=== PATIENT | female | born 1950 | race Caucasian/White ===

== ENCOUNTER 2019-09-07 14:39 | Outpatient (CLI) | payer MEDICARE, SELFPAY ==
--- NOTE | 2019-09-07 14:52 | MM_ITS ---
WS: [id number] SCREENING DIGITAL MAMMOGRAM WITH CAD HISTORY: SCREENING COMPARISON: None available. Bilateral CC and MLO views submitted. Computer aided detection analyzed. Breast composition: There are scattered areas of fibroglandular density. 7 mm asymmetry on the RIGHT CC projection just medial to the nipple line. Asymmetry of the middle depth. Otherwise no abnormaliti es. RIGHT breast: Spot compression views (CC ). True ML. Ultrasound to follow if abnormality persists. MM/[place] [id number] IMPRESSION: BI-RADS: 0-Incomplete: Need additional imaging evaluation FOLLOW UP: Need Additional Imaging
== END 2019-09-07 14:40 | disposition home or self-care (01) ==
LOC: RADSHAW 14:49
PROVIDERS: PCP Physician Assistant; Visit Provider Nurse Practitioner
DX: Z12.31 Encounter for screening mammogram for malignant neoplasm of breast (principal); N64.89 Other specified disorders of breast
CPT/HCPCS: 77067

== ENCOUNTER 2019-09-30 07:40 | Outpatient (CLI) | payer MEDICARE, SELFPAY ==
--- NOTE | 2019-09-30 07:50 | MM_ITS ---
WS: [id number] Right breast diagnostic digital mammogram, 09/30/2019 Clinical Data: OTHER ABNORMAL/INCONCLUSIVE FINDING ON DIAG IMAGING OF BREAS Comparison: 09/07/2019. Findings: Compression view of the medial aspect of the right breast and ML view demonstrate no abnormality. No spiculated mass or clustered calcification can be seen. Only normal breast tissue is noted. MM/[place] [id number] Impression: Negative compression view of the medial aspect of the right breast. BIRADS: 1-Negative FOLLOW UP: 1 Year Follow-up The CAD [employer] ticket checker was used.
--- NOTE | 2019-09-30 07:50 | US_ITS ---
WS: [id number] Right breast ultrasound, 09/30/2019 Clinical Data: OTHER ABNORMAL/INCONCLUSIVE FINDING ON DIAG IMAGING OF DUY Comparison: Gram, 09/07/2019. Findings: At the 2:00 projection 1 cm from the nipple there is a well bordered small area of decreased echogen[place] city measuring 0.48 x 0.56 x 0.74 cm. No shadowing is seen. No other lesions are seen. This has the a ppearance of a complex cyst. 1. Small lesion at the 2:00 position 1 cm from the nipple of the right breast which has the appearanc e of a complex cyst. 2. Return for yearly mammograms US/US breast RT limited* [id number] Impression: BIRADS: 2-Benign FOLLOW UP: 1 Year Follow-up
== END 2019-09-30 07:41 | disposition home or self-care (01) ==
LOC: RADSHAW 07:46
PROVIDERS: PCP Physician Assistant; Visit Provider Physician Assistant
DX: R92.8 Other abnormal and inconclusive findings on diagnostic imaging of breast (principal)
CPT/HCPCS: 76642; 77065

== ENCOUNTER 2020-09-25 20:26 | Emergency (ER) | payer MEDICARE, SELFPAY ==
[2020-09-25 20:32] VITALS: BP 148/88; PULSE 78; RESP 18; TEMP 36.3; O2SAT 97; BMI 30.9
--- NOTE | 2020-09-25 21:05 | XRR_ITS ---
PROCEDURE INFORMATION: Exam: XR Chest Exam date and time: 09/25/2020 9:05 PM Age: 69 years old Clinical indication: Chest pressure; Patient HX: Chest pain; Additional info: Cp TECHNIQUE: Imaging protocol: XR of the chest. Views: 1 view. COMPARISON: No relevant prior studies available. FINDINGS: Lungs: No focal consolidation. No pulmonary edema. 1.8 x 1.7 mm nodular focus in the right mid lung. Pleural spaces: No pleural effusion. No pneumothorax. Heart/Mediastinum: The cardiac silhouette is mildly enlarged. Mediastinal contours are unremarkable. Bones/joints: Unremarkable for age. XR/XR chest 1V portable [id number] IMPRESSION: 1. No acute cardiopulmonary process. 2. 1.8 x 1.7 mm nodular focus in the right mid lung. CT scan of the chest with contrast on a nonemergent basis is recommended for further evaluation to rule out possibility of a pulmonary nodule. 3. Incidental/nonacute findings are listed in the report.
[2020-09-25 21:06] VITALS: BP 148/70; PULSE 69; RESP 14; O2SAT 97
[2020-09-25 21:43] LABS: Basophils % 0.3 %; Eosinophils # 0.1 10^3/uL (0.0-0.8); Hematocrit 46.2 % (37.0-47.0); Hemoglobin 15.2 g/dL (11.5-15.3); Lymphocytes # 2.6 10^3/uL (0.8-4.8); Lymphocytes % 19.9 %; Mean Corpuscular HGB Conc 32.9 g/dL (30.0-36.0); Mean Corpuscular Hemoglobin 30.2 pg (28.0-34.0); Mean Corpuscular Volume 91.7 fL (81-99); Mean Platelet Volume 10.4 fL (7.4-10.4); Monocytes % 7.3 %; Neutrophils # 9.18 10^3/uL (1.8-7.7); Nucleated Red Blood Cells % 0 %; Platelet Count 232 10^3/cmm (130-400); Red Blood Count 5.04 10^6/uL (4.1-5.3); Red Cell Distribution Width 13.2 % (12.1-15.1)
[2020-09-25] MEDS: acetaminophen 500 mg Tablet 1000 MG PO (21:46)
--- NOTE | 2020-09-25 21:48 | ED_ITS ---
HPI - Back Pain/Injury General: Chief Complaint: Back Pain/Injury Stated Complaint: BACK PAINS VOMITING CHEST PAINS Time Seen by Provider: 09/25/20 20:58 Source: patient and RN notes reviewed Mode of arrival: ambulatory Limitations: no limitations History of Present Illness: HPI Narrative: This is a 69-year-old female patient who presented to the emergency department with back pain that started last night. She states the pain is located between her shoulder blades. Eventually the pain progressed to her chest and she had a few episodes of nausea and vomiting. Because of these she was concerned about a heart attack on so asked to be evaluated in the emergency department. MD elicited complaint: back pain Onset (ago): day(s) (1) Timing: constant Severity: moderate Similar Symptoms Previously: No Quality: sharp Location: thoracic spine Radiation: chest Exacerbating factors: none Relieving factors: none Associated symptoms: Reports nausea and vomiting; Deny abdominal pain, arthralgias, chills, change in bowel habits, difficulty walking, dysuria, fatigue, fecal incontinence, fever(s), hematuria, myalgias, numbness, syncope, tingling/numbness/burning, urinary frequency, urinary urgency or weakness Review of Systems General: Reports: 10 or more systems reviewed and unremarkable except in HPI and below Const: Denies: fever(s), chills or fatigue Card: Denies: syncope GI: Reports: nausea and vomiting; Denies: abdominal pain, fecal incontinence or change in bowel habits : Denies: dysuria, urinary urgency or hematuria Neuro: Denies: difficulty walking Physical Exam Const: COMMON NORMALS: no acute distress, average body habitus, patient oriented x3, no limitations, healthy appearing, alert and well nourished HENMT: COMMON NORMALS: normocephalic, atraumatic and moist oral mucous membranes HEAD & SCALP: normocephalic and atraumatic Eye: COMMON NORMALS: Equal, round and reactive pupils present, EOMs intact bilaterally, conjunctivae normal and no scleral icterus CONJUNCTIVA: Yes conjunctivae normal PUPIL: Yes Equal, round and reactive pupils present Neck/C-Spine: COMMON NORMALS: no meningeal signs and no JVD Chest: COMMONS NORMALS: normal inspection of the chest and normal palpation of entire chest wall Resp: COMMON NORMALS: normal respiratory effort, No retractions, No use of accessory muscles, clear to auscultation bilaterally and percussion normal AUSCULTATION: clear to auscultation bilaterally PERCUSSION: percussion normal Cardio: COMMON NORMALS: no JVD, regular rate, regular rhythm, S1 normal heart sound present, S2 normal heart sound present, No gallops present (Cardio), No clicks present (Cardio), No murmurs present (Cardio), No rub (Cardio) and Peripheral pulses 2+ throughout RATE: regular rate RHYTHM: regular rhythm HEART SOUNDS: S1 normal heart sound present and S2 normal heart sound present PERIPHERAL PULSES: Peripheral pulses 2+ throughout GI: COMMON NORMALS: Normal to inspection, nondistended, normoactive bowel sounds present, Soft to palpation, non-tender, No hepatosplenomegaly present, no masses and no bruits PALPATION: Yes Soft to palpation and Yes No hepatosplenomegaly present : COMMON NORMALS: Yes no CVA tenderness BLADDER/KIDNEY EXAM: Yes no CVA tenderness Back/Pelvis: COMMON NORMALS: no CVA tenderness Extremity: COMMON NORMALS: normal to inspection, full ROM, capillary refill normal, no calf tenderness and no pedal edema Neuro: COMMON NORMALS: patient oriented x3 SENSORIUM/ORIENTATION: Yes alert MENINGEAL SIGNS: Yes no meningeal signs Skin: COMMON NORMALS: no rashes or lesions noted, no wounds, turgor normal, no jaundice, no petechiae and no mottling GENERAL SKIN EXAM: no rashes or lesions noted and turgor normal Course Reevaluation(s): Reevaluation #1: Discussed her lab and imaging findings with her. Negative for acute findings. We will discharge her home with no new orders. She voiced understanding and she is in agreement with the plan. Time: 00:15 Vital Signs: Vital signs: Vital Signs Temperature 97.4 F L 09/25/20 20:32 Pulse Rate 71 09/25/20 22:58 Respiratory Rate 15 09/25/20 22:58 Blood Pressure 118/63 09/25/20 22:58 Pulse Oximetry 99 09/25/20 22:58 MDM - Back Pain/Injury MDM Narrative: Medical decision making narrative: 69-year-old female patient who presents to the emergency department with thoracic back pain radiating to her chest. 2-hour delta is flat, D-dimer negative, unlikely to have pulmonary embolism or dissection. She is therefore discharged home with no new orders. Medical Records: Attestation: I reviewed the patient's medical records. Lab Data: Attestation: I reviewed the patient's lab results. Labs: Lab Results 09/25/20 09/25/20 09/25/20 Range/Units 21:40 21:40 21:40 WBC 13.0 H (4.0-10.0) 10^3/ uL RBC 5.04 (4.1-5.3) 10^6/u L Hgb 15.2 (11.5-15.3) g/dL Hct 46.2 (37.0-47.0) % MCV 91.7 (81-99) fL MCH 30.2 (28.0-34.0) pg MCHC 32.9 (30.0-36.0) g/dL RDW 13.2 (12.1-15.1) % Plt Count 232 (130-400) 10^3/c mm MPV 10.4 (7.4-10.4) fL Neut % (Auto) 71.0 % Lymph % (Auto) 19.9 % [place] % (Auto) 7.3 % Eos % (Auto) 1.0 % Baso % (Auto) 0.3 % Neut # (Auto) 9.18 H (1.8-7.7) 10^3/u L Lymph # (Auto) 2.6 (0.8-4.8) 10^3/u L [place] # (Auto) 1.0 H (0.2-0.9) 10^3/u L Eos # (Auto) 0.1 (0.0-0.8) 10^3/u L Baso # (Auto) 0.0 (0.0-0.1) 10^3/u L Nucleated RBC % (a uto) 0 % Nucleated RBCs # 0.0 /100WBC D-Dimer Cancelled Sodium Cancelled Potassium Cancelled Chloride Cancelled Carbon Dioxide Cancelled Anion Gap Cancelled BUN Cancelled Creatinine Cancelled GFR Calculation Cancelled Glucose Cancelled Calculated Osmolal ity Cancelled Calcium Cancelled Total Bilirubin Cancelled AST Cancelled ALT Cancelled Alkaline Phosphata se Cancelled Troponin T Baselin e Troponin T 120 Min ian (0-10) ng/L Delta Troponin T (0-10) ABS# NT-Pro-B Natriuret Pep Cancelled Total Protein Cancelled Albumin Cancelled Globulin Cancelled Lipase Cancelled 09/25/20 09/25/20 09/25/20 Range/Units 21:40 22:20 22:20 WBC (4.0-10.0) 10^3/ uL RBC (4.1-5.3) 10^6/u L Hgb (11.5-15.3) g/dL Hct (37.0-47.0) % MCV (81-99) fL MCH (28.0-34.0) pg MCHC (30.0-36.0) g/dL RDW (12.1-15.1) % Plt Count (130-400) 10^3/c mm MPV (7.4-10.4) fL Neut % (Auto) % Lymph % (Auto) % [place] % (Auto) % Eos % (Auto) % Baso % (Auto) % Neut # (Auto) (1.8-7.7) 10^3/u L Lymph # (Auto) (0.8-4.8) 10^3/u L [place] # (Auto) (0.2-0.9) 10^3/u L Eos # (Auto) (0.0-0.8) 10^3/u L Baso # (Auto) (0.0-0.1) 10^3/u L Nucleated RBC % (a uto) % Nucleated RBCs # /100WBC D-Dimer 0.50 Sodium Potassium Chloride Carbon Dioxide Anion Gap BUN Creatinine GFR Calculation Glucose Calculated Osmolal ity Calcium Total Bilirubin AST ALT Alkaline Phosphata se Troponin T Baselin e Cancelled 19 H Troponin T 120 Min ian (0-10) ng/L Delta Troponin T (0-10) ABS# NT-Pro-B Natriuret Pep Total Protein Albumin Globulin Lipase 09/25/20 09/25/20 Range/Units 22:20 23:38 WBC (4.0-10.0) 10^3/ uL RBC (4.1-5.3) 10^6/u L Hgb (11.5-15.3) g/dL Hct (37.0-47.0) % MCV (81-99) fL MCH (28.0-34.0) pg MCHC (30.0-36.0) g/dL RDW (12.1-15.1) % Plt Count (130-400) 10^3/c mm MPV (7.4-10.4) fL Neut % (Auto) % Lymph % (Auto) % [place] % (Auto) % Eos % (Auto) % Baso % (Auto) % Neut # (Auto) (1.8-7.7) 10^3/u L Lymph # (Auto) (0.8-4.8) 10^3/u L [place] # (Auto) (0.2-0.9) 10^3/u L Eos # (Auto) (0.0-0.8) 10^3/u L Baso # (Auto) (0.0-0.1) 10^3/u L Nucleated RBC % (a uto) % Nucleated RBCs # /100WBC D-Dimer Sodium 132 L Potassium 4.1 Chloride 98 Carbon Dioxide 24 Anion Gap 14.1 BUN 12 Creatinine 0.8 GFR Calculation 71.3 L Glucose 116 H Calculated Osmolal ity 275 L Calcium 9.0 Total Bilirubin 0.2 AST 15 ALT 18 Alkaline Phosphata se 65 Troponin T Baselin e Troponin T 120 Min ian 17.93 H (0-10) ng/L Delta Troponin T -1.07 L (0-10) ABS# NT-Pro-B Natriuret Pep 718 H Total Protein 6.6 Albumin 3.9 Globulin 2.7 Lipase 60 Imaging Data^: CXR: Attestation: I personally reviewed and interpreted this imaging study as follows: Radiologist's impression: [address] [id number] ReportSigned with Addenda Patient: Venita Healy #: [id number]: 1950cct#:[id number]/Sex: 69 / FADM Date: 09/25/20Loc: ERRoom/Bed:Attending Dr: Ordering Provider/Ordering MD: Vasile Baker MD, [facility] [place] Date of Service: 09/25/20 Procedure(s): XR chest 1V portable [id number] Accession Number(s): [id number] Report Number: [id number] ADDENDUM XR/XR chest 1V portable [id number] Urgent results were discussed with VASILE Turner on 09/25/2020 at 10:22 PM CDT. Addendum Dictated By: Sulema Day MDAddendum Signed By: Sulema Day MDSigned Date/Time:09/25/203Addendum Cosigned By: PROCEDURE INFORMATION: Exam: XR Chest Exam date and time: 09/25/2020 9:05 PM Age: 69 years old Clinical indication: Chest pressure; Patient HX: Chest pain; Additional info: Cp TECHNIQUE: Imaging protocol: XR of the chest. Views: 1 view. COMPARISON: No relevant prior studies available. FINDINGS: Lungs: No focal consolidation. No pulmonary edema. 1.8 x 1.7 mm nodular focus in the right mid lung. Pleural spaces: No pleural effusion. No pneumothorax. Heart/Mediastinum: The cardiac silhouette is mildly enlarged. Mediastinal contours are unremarkable. Bones/joints: Unremarkable for age. XR/XR chest 1V portable [id number] IMPRESSION: 1. No acute cardiopulmonary process. 2. 1.8 x 1.7 mm nodular focus in the right mid lung. CT scan of the chest with contrast on a nonemergent basis is recommended for further evaluation to rule out possibility of a pulmonary nodule. 3. Incidental/nonacute findings are listed in the report. Dictated By:Sulema Day MDSigned By:Sulema Day MDSigned Date/Time:09/25/201DD/ 20 EKG Data^: EKG 1: Attestation: I personally reviewed and interpreted this EKG as follows: EKG interpretation date: 09/25/20 EKG interpretation time: 20:41 Prior EKG tracings: not available for review Interpretation: Sinus rhythm. Heart rate [address] changes. EKG 2: Attestation: I personally reviewed and interpreted this EKG as follows: EKG interpretation date: 09/25/20 EKG interpretation time: 23:09 Prior EKG tracings: available for review Interpretation: Sinus rhythm. Heart rate [address] changes. No significant change from earlier. Discharge Plan Discharge Patient Disposition: Home Clinical Impression: Pulmonary nodule Chest pain Qualifiers: Chest pain type: unspecified Qualified Code(s): R07.9 - Chest pain, unspecified Back pain Qualifiers: Back pain location: thoracic back pain Chronicity: acute Back pain laterality: midline Qualified Code(s): M54.6 - Pain in thoracic spine Condition: Stable Prescriptions: Continued metformin 500 mg tablet 500 mg PO BID RF: 0 cetirizine 10 mg Tablet 5 mg PO DAILY PRN (Reason: Allergy Symptoms) RF: 0 aspirin 325 mg Tablet 325 mg PO DAILY RF: 0 metoprolol succinate 100 mg tablet extended release 24 hr 100 mg PO DAILY RF: 0 lovastatin 10 mg tablet 10 mg PO DAILY RF: 0 glimepiride 1 mg tablet 1 mg PO DAILY RF: 0 omeprazole 20 mg capsule,delayed release(DR/EC) 20 mg PO DAILY RF: 0 albuterol sulfate 90 mcg/actuation HFA aerosol inhaler 1 puff INHALATION DAILY RF: 0 pioglitazone 30 mg tablet 30 mg PO DAILY RF: 0 fluticasone propionate 50 mcg/actuation spray,suspension 1 spray INTRANASAL DAILY RF: 0 lisinopril 2.5 mg tablet 2.5 mg PO DAILY RF: 0 Prevagen 1 tab PO DAILY RF: 0 Discharge Orders: Discharge ED (Routine); Ordered 09/26/20 Ordered By: Vasile Baker Referrals: Lita Rodriguez PA-C [Primary Care Provider] - 1-3 days Discharge Diet: Usual diet Discharge Activity: Increase activity as tolerated Patient Instructions: Chest Pain (ED), Thoracic Pain (ED) Activity Restrictions/Additional Instructions: Return for any new or worsening symptoms. Follow-up with your primary care provider within 3 days. Continue home medications. You need a CT scan of your lungs to be ordered by your primary care provider to look at the spots in your lungs to make sure that they are not cancer. Coding Level of Care Code ED Jig Filler for Radhag Fwd Exam Comprehensive
[2020-09-25 22:22] VITALS: BP 111/56; PULSE 70; RESP 16; O2SAT 97
[2020-09-25 22:47] LABS: Troponin(5th) Baseline 19 ng/L (0-10)
[2020-09-25 22:58] VITALS: BP 118/63; PULSE 71; RESP 15; O2SAT 99
[2020-09-25 23:00] LABS: Alanine Aminotransferase 18 U/L (0-33); Albumin Level 3.9 g/dL (3.5-5.2); Alkaline Phosphatase 65 IU/L (35-105); Anion Gap 14.1 (5-19); Aspartate Amino Transferase 15 U/L (0-32); Blood Urea Nitrogen 12 mg/dL (8-23); Carbon Dioxide 24 mmol/L (22-29); Chloride 98 mmol/L (98-107); Globulin 2.7 g/dL (1.3-4.6); Glomerular Filtration Rate 71.3 mL/min (90-130); Glucose 116 mg/dL (65-115); Lipase 60 U/L (13-60); NT Pro B Type Natriuretic Pept 718 pg/mL (0-125); Osmolality Calculated 275 mOsm/kg (285-295); Potassium 4.1 mmol/L (3.5-5.1); Sodium 132 mmol/L (136-145); Total Bilirubin 0.2 mg/dL (0.15-1.2); Total Protein 6.6 g/dL (6.6-8.7)
--- NOTE | 2020-09-25 23:05 | ECG_ITS ---
[facility] [place] Test Date: 2020-09-25 Pat Name: Venita Healy Department: Room: Gender: Female Receivables Specialist: : 1950 Requested By: Vasile Baker I Order Number: [id number] Ch[place] MD: Lexis Desai M.D. Measurements Intervals [place] Rate: 68 P: 65 KS: 170 QRS: 51 QRSD: 77 T: 67 QT: 417 QTc: 445 Interpretive Statements SINUS RHYTHM NONSPECIFIC T-WAVE ABNORMALITY No previous ECG available for comparison Electronically Signed On 09-26-2020 0:39:06 CDT by Lexis Desai M.D. [id number]
[2020-09-26 00:07] LABS: Troponin 5 2HR 17.93 ng/L (0-10)
[2020-09-26 00:10] LABS: Troponin 5 2HR Delta -1.07 ABS# (0-10)
[2020-09-26 00:20] VITALS: BP 137/76; PULSE 74; RESP 16; O2SAT 97
== END 2020-09-26 00:25 | disposition home or self-care (01) ==
PROVIDERS: Emergency Provider Family Medicine; PCP Physician Assistant
DX: M54.6 Pain in thoracic spine (principal); R07.9 Chest pain, unspecified; R91.1 Solitary pulmonary nodule; Z79.82 Long term (current) use of aspirin; Z79.84 Long term (current) use of oral hypoglycemic drugs
CPT/HCPCS: 36415; 71045; 80053; 83690; 83880; 84484; 85025; 85378; 93005; 99283

== ENCOUNTER 2022-02-21 17:25 | Inpatient (IN) | payer MEDICARE, SELFPAY ==
[2022-02-21] VITALS (8 sets, daily range): BP systolic 145–206; BP diastolic 92–113; PULSE 72–87; RESP 16–20; TEMP 35.9–36.6; O2SAT 80–97; BMI 29.2
--- NOTE | 2022-02-21 17:59 | ECG_ITS ---
[facility] Test Date: 2022-02-21 Pat Name: Venita Healy Department: Room: Gender: Female Insurance Verification Specialist: : 1950 Requested By: Catarino Najera Order Number: [id number] Chica MD: Vahid Alcala M.D. Measurements Intervals [place] Rate: 75 P: 91 VA: 151 QRS: 52 QRSD: 78 T: 59 QT: 395 QTc: 444 Interpretive Statements SINUS RHYTHM Compared to ECG 09/25/2020 23:09:08 T-wave abnormality no longer present Electronically Signed On 02-22-2022 16:40:04 SKI PATROL DIRECTOR by Vahid Alcala M.D. [id number]
--- NOTE | 2022-02-21 17:59 | XRR_ITS ---
PROCEDURE INFORMATION: Exam: XR Chest Exam date and time: 02/21/2022 6:06 PM Age: 71 years old Clinical indication: Shortness of breath; Additional info: SOB TECHNIQUE: Imaging protocol: Radiologic exam of the chest. Views: 1 view. COMPARISON: CR (CHEST, ) 09/25/2020 9:08 PM FINDINGS: Lungs: Diffuse interstitial opacities in both lungs. Airspace opacity in the right lung base. Pleural spaces: Possible small pleural effusions. No pneumothorax. Heart/Mediastinum: Mild cardiomegaly. Diaphragm: Elevation of the right diaphragm. Bones/joints: Unremarkable. XR/XR chest 1V portable [id number] IMPRESSION: Probable congestive heart failure. Superimposed pneumonia in the right lung base is not excluded.
[2022-02-21] MEDS: ipratropium-albuterol 3 mL Neb INHALATION (18:17)
--- NOTE | 2022-02-21 18:24 | W.ED.SOB ---
HPI - SOB/Dyspnea General: Chief Complaint: Shortness of Breath/Dyspnea Stated Complaint: sob Time Seen by Provider: 02/21/22 17:52 Source: patient Mode of arrival: ambulatory Limitations: no limitations History of Present Illness: HPI Narrative: 71-year-old female with a long history of smoking states that over the last 2 to 3 days she has had increasing cough along with shortness of breath she is in distress here requiring 3 L of oxygen her pulse ox was 80% on room air she does not wear oxygen at home she denies any fever she denies any chest pain states is worse with exertion. Associated symptoms: Deny abdominal pain, chest pain, fever(s), nausea or vomiting Review of Systems Const: Denies: fever(s), chills, body aches or change in appetite Eyes: Denies: blurry vision or eye discomfort ENMT: Denies: throat pain or dental pain Card: Denies: chest pain Resp: Reports: dyspnea and non-productive cough GI: Denies: abdominal pain, nausea, vomiting or diarrhea : Denies: dysuria Musc: Denies: neck pain or back pain Skin/Breast: Denies: rash Neuro: Denies: headache(s) Psych: Denies: depression Uzair/Lymph: Denies: easy bruising All/Imm: Denies: urticaria PFSH ED PFSH: Medical History (Updated 02/21/22 @ 21:14 by Catarino Najera MD) Diabetes Social History (Updated 02/21/22 @ 18:26 by Catarino Najera MD) Smoking and tobacco status: current every day smoker Physical Exam Const: COMMON NORMALS: patient oriented x3 HENMT: COMMON NORMALS: normocephalic and atraumatic HEAD & SCALP: normocephalic and atraumatic Eye: COMMON NORMALS: Equal, round and reactive pupils present and EOMs intact bilaterally PUPIL: Yes Equal, round and reactive pupils present Neck/C-Spine: COMMON NORMALS: full ROM and supple Chest: COMMONS NORMALS: normal inspection of the chest and normal palpation of entire chest wall Resp: COMMON NORMALS: No retractions and No use of accessory muscles EFFORT & INSPECTION: Yes labored AUSCULTATION: rales Cardio: COMMON NORMALS: regular rate, regular rhythm and No murmurs present (Cardio) RATE: regular rate RHYTHM: regular rhythm GI: COMMON NORMALS: Normal to inspection, nondistended, normoactive bowel sounds present, Soft to palpation, non-tender and no masses PALPATION: Yes Soft to palpation Extremity: COMMON NORMALS: normal to inspection and full ROM Neuro: COMMON NORMALS: patient oriented x3, moves all extremities and no focal motor deficits Psych: COMMON NORMALS: mental status grossly normal, Normal thought process present and cooperative THOUGHT PROCESS: Normal thought process present Skin: COMMON NORMALS: no rashes or lesions noted and no wounds GENERAL SKIN EXAM: no rashes or lesions noted Course Vital Signs: Vital signs: Vital Signs Temperature 96.6 F L 02/21/22 17:35 Pulse Rate 76 02/21/22 20:45 Respiratory Rate 20 H 02/21/22 20:45 Blood Pressure 145/105 02/21/22 20:45 Pulse Oximetry 95 02/21/22 20:45 Oxygen Delivery Me thod 02/21/22 18:33 Oxygen Flow Rate 4 02/21/22 18:33 MDM - SOB/Dyspnea Medical Decision Making Patient presents with cough and shortness of breath he is requiring 4 L of oxygen x-ray shows pneumonia along with congestive heart failure patient given antibiotics along with Lasix patient stable for admission. Lab Data 02/21/22 18:20 02/21/22 18:20 Labs/Radiology: Radiology Impressions Chest X-Ray 02/21/22 17:59 IMPRESSION: Probable congestive heart failure. Superimposed pneumonia in the right lung base is not excluded. Chest CTA 02/21/22 18:59 IMPRESSION: 1. 1.8 cm spiculated right upper lobe nodule. Highly suspicious nodule(s). Consider non-emergent PET/CT, or tissue sampling.(Reference: Veronica) 2. No evidence for pulmonary embolus. 3. Moderate right and small left pleural effusions with scattered atelectasis. 4. Consolidation in the inferior right middle lobe is most likely atelectasis but pneumonia is not excluded. 5. 1.9 cm calcified right thyroid nodule. Ultrasound follow-up recommended. References: Veronica Pryor et al. Guidelines for Management of Incidental Pulmonary Nodules Detected on CT Images: From the Fleischner Society 2017. Radiology. 2017;284(1):228-243. COMMENTS: Consistent with the [place] [employer]'s Incidental Findings Committee white paper (J Am Carolyn Radiol 2015): In patients aged 35 years and older with an incidental thyroid nodule equal to or greater than 1.[address], MRI or extrathyroidal US, further evaluation with dedicated thyroid US is recommended for patients with normal life expectancy and without comorbidities. For smaller nodules without suspicious features, no further evaluation or follow up is recommended. Laboratory Results WBC 12.6 10^3/uL (4.0-10.0) H 02/21/22 18:50 Corrected WBC Cancelled 02/21/22 18:20 RBC 4.90 10^6/uL (4.1-5.3) 02/21/22 18:50 Hgb 14.5 g/dL (11.5-15.3) 02/21/22 18:50 Hct 45.1 % (37.0-47.0) 02/21/22 18:50 MCV 92.0 fl (81-99) 02/21/22 18:50 MCH 29.6 pg (28.0-34.0) 02/21/22 18:50 MCHC 32.2 g/dL (30.0-36.0) 02/21/22 18:50 RDW 13.0 % (12.1-15.1) 02/21/22 18:50 Plt Count 263 10^3/cmm (130-400) 02/21/22 18:50 MPV 10.0 fL (7.4-10.4) 02/21/22 18:50 Gran % Cancelled 02/21/22 18:20 Neut % (Auto) 77.6 % 02/21/22 18:50 Lymph % (Auto) 14.3 % 02/21/22 18:50 Mills % (Auto) 5.7 % 02/21/22 18:50 Eos % (Auto) 1.0 % 02/21/22 18:50 Baso % (Auto) 0.4 % 02/21/22 18:50 Neut # (Auto) 9.76 10^3/uL (1.8-7.7) H 02/21/22 18:50 Lymph # (Auto) 1.8 10^3/uL (0.8-4.8) 02/21/22 18:50 Mills # (Auto) 0.7 10^3/uL (0.2-0.9) 02/21/22 18:50 Eos # (Auto) 0.1 10^3/uL (0.0-0.8) 02/21/22 18:50 Baso # (Auto) 0.1 10^3/uL (0.0-0.1) 02/21/22 18:50 Absolute Gran (auto) Cancelled 02/21/22 18:20 Nucleated RBC % (auto) 0 % 02/21/22 18:50 Nucleated RBCs # 0.0 /100WBC 02/21/22 18:50 PT 14.20 SECONDS (12.1-14.9) 02/21/22 18:20 INR 1.07 (0.8-1.2) 02/21/22 18:20 D-Dimer 1.40 ug/mIFEU (0-0.59) H 02/21/22 18:20 Specimen Type Arterial 02/21/22 18:18 Sample Site Brachial, left 02/21/22 18:18 ABG pH 7.35 (7.35-7.45) 02/21/22 18:18 ABG pCO2 45.4 mmHg (35-45) H 02/21/22 18:18 ABG pO2 76.8 mmHg (80.0-100.0) L 02/21/22 18:18 ABG HCO3 25.2 mmol/L (22-26) 02/21/22 18:18 ABG Base Excess -0.8 mmol/L (-2.0-2.0) 02/21/22 18:18 Aj Test N/a 02/21/22 18:18 Hematocrit 44.5 % (37-47) 02/21/22 18:18 Hgb O2 Saturation 90.9 % (95-100) L 02/21/22 18:18 Carboxyhemoglobin 2.3 %THgb (0.4-20.1) 02/21/22 18:18 Methemoglobin 0.6 % (0.4-1.5) 02/21/22 18:18 Total Hemoglobin 14.5 g/dL (12-16) 02/21/22 18:18 O2 Delivery Device Nc 02/21/22 18:18 O2 Liters/Min 4.0 % 02/21/22 18:18 FiO2 36.0 % 02/21/22 18:18 [employer] ID [facility] 12/09/22 18:18 Sodium 132 mmol/L (136-145) L 02/21/22 18:20 Potassium 4.6 mmol/L (3.5-5.1) 02/21/22 18:20 Chloride 96 mmol/L (98-107) L 02/21/22 18:20 Carbon Dioxide 24 mmol/L (22-29) 02/21/22 18:20 Anion Gap 16.6 (5-19) 02/21/22 18:20 BUN 17 mg/dL (8-23) 02/21/22 18:20 Creatinine 0.9 mg/dL (0.5-0.9) 02/21/22 18:20 GFR Calculation 61.9 mL/min (90-130) L 02/21/22 18:20 Glucose 253 mg/dL (65-115) H 02/21/22 18:20 Calculated Osmolality 284 mOsm/kg (285-295) L 02/21/22 18:20 Calcium 9.2 mg/dL (8.5-10.5) 02/21/22 18:20 Total Bilirubin 0.3 mg/dL (0.15-1.2) 02/21/22 18:20 AST 15 U/L (0-32) 02/21/22 18:20 ALT 14 U/L (0-33) 02/21/22 18:20 Alkaline Phosphatase 83 U/L (35-105) 02/21/22 18:20 Troponin T Baseline 27 ng/L (0-10) H 02/21/22 18:20 Troponin T 120 Minute 46.85 ng/L (0-10) H 02/21/22 20:10 Delta Troponin T 19.85 ABS# (0-10) H* 02/21/22 20:10 NT-Pro-B Natriuret Pep 2448 pg/mL (0-125) H 02/21/22 18:20 Total Protein 7.9 g/dL (6.6-8.7) 02/21/22 18:20 Albumin 3.7 g/dL (3.5-5.2) 02/21/22 18:20 Globulin 4.2 g/dL (1.3-4.6) 02/21/22 18:20 Influenza Type A Ag negative (Negative) 02/21/22 18:18 Influenza Type B Ag negative (Negative) 02/21/22 18:18 EKG Data EKG 1: I personally reviewed and interpreted this EKG as follows: EKG Interpretation Date: 02/21/22 EKG interpretation time: 18:52 Interpretation: nsr hr [address] or t wave abnormalties qrs 78 qtc 425 Discharge Plan Discharge Patient Disposition: Admitted As Inpatient Clinical Impression: Congestive heart failure, Community acquired pneumonia Condition: Stable Prescriptions: No Action metformin 500 mg tablet 500 mg PO BID cetirizine 10 mg Tablet 5 mg PO DAILY PRN (Reason: Allergy Symptoms) aspirin 325 mg Tablet 325 mg PO DAILY metoprolol succinate 100 mg tablet extended release 24 hr 100 mg PO DAILY lovastatin 10 mg tablet 10 mg PO DAILY glimepiride 1 mg tablet 1 mg PO DAILY Rx Instructions: TAKE WITH FIRST MEAL omeprazole 20 mg capsule,delayed release(DR/EC) 20 mg PO DAILY albuterol sulfate 90 mcg/actuation HFA aerosol inhaler 1 puff INHALATION DAILY pioglitazone 30 mg tablet 30 mg PO DAILY fluticasone propionate 50 mcg/actuation spray,suspension 1 spray INTRANASAL DAILY lisinopril 2.5 mg tablet 2.5 mg PO DAILY Prevagen 1 tab PO DAILY Rx Instructions: TO IMPROVE MEMORY Referrals: Lita Rodriguez PA-C [Primary Care Provider] - Coding Level of Care Code ED Steam Gigger for Chg Fwd Exam Comprehensive
[2022-02-21 18:29] LABS: ABG PCO2 45.4 mmHg (35-45); ABG PH Result 7.35 (7.35-7.45); Arterial Blood Gas Hematocrit 44.5 % (37-47); Base Excess ABG -0.8 mmol/L (-2.0-2.0); Blood Gas Operator Identificat AMH; Blood Gas Sample Site Brachial, left; Blood Gas Sample Type Arterial; Carboxyhemoglobin 2.3 %THgb (0.4-20.1); HCO3 ABG 25.2 mmol/L (22-26); HGB O2 Sat 90.9 % (95-100); Methemoglobin 0.6 % (0.4-1.5); Oxygen Device NC; PO2 ABG 76.8 mmHg (80.0-100.0); Total Hemoglobin 14.5 g/dL (12-16)
[2022-02-21 18:48] LABS: INR 1.07 (0.8-1.2)
[2022-02-21 18:57] LABS: Troponin(5th) Baseline 27 ng/L (0-10)
--- NOTE | 2022-02-21 18:59 | CTR_ITS ---
PROCEDURE INFORMATION: Exam: CTA Chest With Contrast Exam date and time: 02/21/2022 7:45 PM Age: 71 years old Clinical indication: Abnormal findings; Abnormal diagnostic tests; Elevated d-dimer; Shortness of breath; Patient HX: Worsening SOB x 3 days. Elevated d dimer. History of copd. TECHNIQUE: Imaging protocol: Computed tomographic angiography of the chest with contrast. 3D rendering (Not supervised by radiologist): MIP and/or 3D reconstructed images were created by the technologist. Radiation optimization: All CT scans at this facility use at least one of these dose optimization techniques: automated exposure control; mA and/or kV adjustment per patient size (includes targeted exams where dose is matched to clinical indication); or iterative reconstruction. Contrast material: OMNI 350; Contrast volume: 83 ml; Contrast route: INTRAVENOUS (IV); COMPARISON: CR XR chest 1V portable [id number] 02/21/2022 6:06 PM RADIATION DOSE METRICS: Total DLP (mGy-cm): 480.48 FINDINGS: Pulmonary arteries: Normal. No pulmonary emboli. Aorta: Unremarkable. No aortic aneurysm. No aortic dissection. Thyroid: 1.9 cm calcified right thyroid nodule. Lungs: Multiple calcified granulomas in both lungs. Emphysema. Mild interstitial scarring. Mild scattered atelectasis in both lungs, right greater than left. Wedge-shaped consolidation in the inferior right middle lobe is most likely atelectasis. 1.8 cm spiculated nodule in the posterior right upper lobe. Pleural spaces: Moderate right and small left simple pleural effusions. No pneumothorax. Heart: Mild cardiomegaly. Coronary arteries: Mild coronary artery calcifications. Lymph nodes: Calcified mediastinal and bilateral hilar lymph nodes. Prominent mediastinal and hilar lymph nodes are most likely reactive. Bones/joints: Unremarkable. No acute fracture. Soft tissues: Unremarkable. CT/CT angio chest PE protcl [id number] IMPRESSION: 1. 1.8 cm spiculated right upper lobe nodule. Highly suspicious nodule(s). Consider non-emergent PET/CT, or tissue sampling.(Reference: Veronica) 2. No evidence for pulmonary embolus. 3. Moderate right and small left pleural effusions with scattered atelectasis. 4. Consolidation in the inferior right middle lobe is most likely atelectasis but pneumonia is not excluded. 5. 1.9 cm calcified right thyroid nodule. Ultrasound follow-up recommended. References: Veronica Pryor et al. Guidelines for Management of Incidental Pulmonary Nodules Detected on CT Images: From the Fleischner Society 2017. Radiology. 2017;284(1):228-243. COMMENTS: Consistent with the [place] [employer]'s Incidental Findings Committee white paper (J Am Carolyn Radiol 2015): In patients aged 35 years and older with an incidental thyroid nodule equal to or greater than 1.[address], MRI or extrathyroidal US, further evaluation with dedicated thyroid US is recommended for patients with normal life expectancy and without comorbidities. For smaller nodules without suspicious features, no further evaluation or follow up is recommended.
[2022-02-21 19:00] LABS: Basophils # 0.1 10^3/uL (0.0-0.1); Basophils % 0.4 %; Eosinophils # 0.1 10^3/uL (0.0-0.8); Hematocrit 45.1 % (37.0-47.0); Hemoglobin 14.5 g/dL (11.5-15.3); Lymphocytes # 1.8 10^3/uL (0.8-4.8); Lymphocytes % 14.3 %; Mean Corpuscular HGB Conc 32.2 g/dL (30.0-36.0); Mean Corpuscular Hemoglobin 29.6 pg (28.0-34.0); Monocytes # 0.7 10^3/uL (0.2-0.9); Monocytes % 5.7 %; Neutrophils # 9.76 10^3/uL (1.8-7.7); Neutrophils % 77.6 %; Nucleated Red Blood Cells % 0 %; Platelet Count 263 10^3/cmm (130-400); White Blood Count 12.6 10^3/uL (4.0-10.0)
[2022-02-21] MEDS: cefTRIAXone 1,000 MG in sodium chloride 0.9% (plus) 50 ML 100 MG IV (19:04)
[2022-02-21] MEDS: FUROsemide 10 mg/mL SDV 10mL 60 MG IVP (19:04)
[2022-02-21 19:06] LABS: Alanine Aminotransferase 14 U/L (0-33); Albumin Level 3.7 g/dL (3.5-5.2); Alkaline Phosphatase 83 U/L (35-105); Anion Gap 16.6 (5-19); Aspartate Amino Transferase 15 U/L (0-32); Blood Urea Nitrogen 17 mg/dL (8-23); Calcium 9.2 mg/dL (8.5-10.5); Carbon Dioxide 24 mmol/L (22-29); Chloride 96 mmol/L (98-107); Globulin 4.2 g/dL (1.3-4.6); Glomerular Filtration Rate 61.9 mL/min (90-130); Glucose 253 mg/dL (65-115); NT Pro B Type Natriuretic Pept 2448 pg/mL (0-125); Osmolality Calculated 284 mOsm/kg (285-295); Potassium 4.6 mmol/L (3.5-5.1); Sodium 132 mmol/L (136-145); Total Bilirubin 0.3 mg/dL (0.15-1.2); Total Protein 7.9 g/dL (6.6-8.7)
[2022-02-21 19:13] LABS: Influenza A by IFA negative (Negative); Influenza B by IFA negative (Negative)
[2022-02-21] MEDS: azithromycin 500 MG in sodium chloride 0.9% 250 ML 250 MG IV (19:32)
--- NOTE | 2022-02-21 19:59 | ECG_ITS ---
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 Measurements Intervals [place] Rate: 75 P: 53 IN: 161 QRS: 67 QRSD: 77 T: 74 QT: 416 QTc: 468 Interpretive Statements SINUS RHYTHM WITH SINUS ARRHYTHMIA SEPTAL MYOCARDIAL INFARCTION , OF INDETERMINATE AGE [40+ ms Q WAVE IN V1/V2] Compared to ECG 02/21/2022 18:52:56 Myocardial infarct finding now present Electronically Signed On 02-22-2022 16:44:32 BENEFITS ASSISTANT by Vahid Alcala M.D. [id number]
[2022-02-21 20:35] LABS: Troponin 5 2HR 46.85 ng/L (0-10)
[2022-02-21 20:47] LABS: Troponin 5 2HR Delta 19.85 ABS# (0-10)
--- NOTE | 2022-02-21 21:11 | P.HP_ITS ---
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 She states at first she ignored her symptoms thinking they were allergies or sinus infection however they have gotten worse over time. She does not use any oxygen at home and here is requiring 2 to 3 L nasal cannula. On arrival her oxygen saturation was 80% on room air. She says shortness of breath is worse with exertion. Denies abdominal pain, nausea, vomiting, diarrhea. States she noted her kidney to her brother in year 1999 and has had yearly labs and follow-up with her doctor and has done okay so far. She says lately she has had to wear compression stockings to keep the edema from her lower extremities. She is trying to quit smoking but has not successfully done so yet. Medications/Allergies Home Medications Medication Instructions Recorded Confirmed Last Taken Type Prevagen 1 tab PO DAILY 09/25/20 09/25/20 09/25/20 History albuterol sulfate 90 mcg/actuation 1 puff inhalation DAILY 09/25/20 09/25/20 09/25/20 History aerosol inhaler aspirin 325 mg tablet 325 mg PO DAILY 09/25/20 09/25/20 09/25/20 History cetirizine 10 mg tablet 5 mg PO DAILY PRN Allergy Symptoms 09/25/20 09/25/20 09/25/20 History fluticasone propionate 50 1 spray intranasal DAILY 09/25/20 09/25/20 09/25/20 History mcg/actuation nasal spray,suspension glimepiride 1 mg tablet 1 mg PO DAILY 09/25/20 09/25/20 09/25/20 History lisinopril 2.5 mg tablet 2.5 mg PO DAILY 09/25/20 09/25/20 09/25/20 History lovastatin 10 mg tablet 10 mg PO DAILY 09/25/20 09/25/20 09/25/20 History metformin 500 mg tablet 500 mg PO BID 09/25/20 09/25/20 09/25/20 History metoprolol succinate 100 mg 100 mg PO DAILY 09/25/20 09/25/20 09/25/20 History tablet,extended release 24 hr omeprazole 20 mg capsule,delayed 20 mg PO DAILY 09/25/20 09/25/20 09/25/20 History release pioglitazone 30 mg tablet 30 mg PO DAILY 09/25/20 09/25/20 09/25/20 History Allergies Allergy/AdvReac Type Severity Reaction Status Date / Time codeine Allergy ADR-Nausea Verified 09/25/20 20:31 PFSH Acute PFSH: Medical History (Updated 02/22/22 @ 02:14 by Toshia Guadarrama MD) Diabetes Social History (Updated 02/21/22 @ 18:26 by Catarino Najera MD) Smoking and tobacco status: current every day smoker Vitals/I&O/Wt Last Vital Signs Temp 96.6 F L 02/21/22 17:35 Pulse 76 02/21/22 20:45 Resp 20 H 02/21/22 20:45 BP 145/105 02/21/22 20:45 Pulse Ox 95 02/21/22 20:45 O2 Del Method 02/21/22 18:33 O2 Flow Rate 4 02/21/22 18:33 02/21/22 02/21/22 02/21/22 06:59 14:59 22:59 Intake Total 300 / 300 Balance 300 / 300 Weight last 48 hrs Weight 87.09 kg Physical Exam Narrative: General: Alert oriented x3, patient seen sitting up in bed on 2 L n german cannula at this time saturating 94%. HEENT: Normocephalic, atraumatic, EOMI, breathing comfortably. Cardio: Regular rate rhythm, normal S1-S2, no gross murmurs, no JVD Respiratory: Clear to auscultation bilaterally with mild rhonchi at bases, no crackles appreciated. Patient seen after 60 IV Lasix and quite a bit of urine output. GI: Abdomen soft, nontender, nondistended, bowel sounds + Behavior: Appropriate and cooperative Extremities: Compression stockings in place, trace edema bilateral lower extremities. Data 02/21/22 18:50 02/21/22 18:20 Micro: Microbiology 02/21/22 18:50 Blood Culture - Preliminary Blood SPECIMEN COLLECTED 02/21/22 18:40 Blood Culture - Preliminary Blood SPECIMEN COLLECTED A&P Assessment and plan (1) Congestive heart failure: (2) Community acquired pneumonia: (3) Diabetes: (4) NSTEMI (non-ST elevated myocardial infarction): (5) Pleural effusion: (6) Lung nodule: (7) Thyroid nodule: (8) Solitary kidney: (9) Kidney donor: (10) Hypertension: Plan #New onset congestive heart failure, unspecified, #NSTEMI, possibly demand ischemia however type I cannot be ruled out #Elevated troponin, see above #1.8 cm spiculated right upper lobe lung nodule #Moderate right and left pleural effusions #Right middle lobe pneumonia #Calcified right thyroid nodule #Diabetes #Hypertension #Solitary kidney status post donation to a relative #Nicotine dependence ? Patient is status post 60 IV Lasix in ER ? Strict I's and O's ? Continue to monitor urine output ? Check echo ? Troponins elevated. Delta troponin 6-hour 35 ? Most likely secondary to demand ischemia however type I cannot be ruled out. EKG without any ischemic changes. Patient denies any chest pain however does have shortness of breath on exertion ? Aspirin, Plavix, statin, beta-brett, lisinopril ? Consider cardiology consult after echo results ? Patient will need follow-up with pulmonology at discharge for lung nodule ? Pleural effusion most likely secondary to CHF. Follow-up x-ray during hospital stay. If no improvement consider thoracentesis for diagnostic and therapeutic purposes ? Ultrasound thyroid as an outpatient ? Check hemoglobin A1c, lipid profile, TSH ? Patient may require home oxygen evaluation at discharge ? Counseled patient on smoking cessation. ? Hold pioglitazone, glimepiride at this time. Low-dose sliding scale insulin ? We will need to confirm all of patient's home medications. - Continue ceftriaxone and azithromycin - Check procalcitonin - COntinue lasix 40 IV daily DNR/DNI DVT prophylaxis: Therapeutic Lovenox Attestations Medical Necessity Statement*: Greater than 2 midnight stay for new onset congestive heart failure, NSTEMI, pneumonia. 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
--- NOTE | 2022-02-21 21:20 | PC.NURSE ---
Gave report to [facility] June
--- NOTE | 2022-02-21 23:59 | ECG_ITS ---
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 Measurements Intervals [place] Rate: 103 P: 0 OK: 0 QRS: 60 QRSD: 79 T: 64 QT: 370 QTc: 486 Interpretive Statements Sinus rhythm with frequent supraventricular ectopic beats MINIMAL ST DEPRESSION [0.025+ mV ST DEPRESSION] ABNORMAL RHYTHM ECG Compared to ECG 02/21/2022 20:16:49 ST (T wave) deviation now present Myocardial infarct finding no longer present Electronically Signed On 02-22-2022 16:46:24 MATERIALS AND PROCESSES MANAGER by Vahid Alcala M.D. [id number]
[2022-02-22] VITALS (13 sets, daily range): BP systolic 117–145; BP diastolic 66–84; PULSE 86–112; RESP 15–22; TEMP 36.3–37.1; O2SAT 91–97
[2022-02-22 01:15] LABS: Troponin 5 6HR 62.27 ng/L (0-10)
[2022-02-22 01:38] LABS: Troponin 5 6HR Delta 35.27 ng/L (0-12)
[2022-02-22 02:41] LABS: Procalcitonin 0.03 ng/mL (0-0.5); Thyroid Stimulating Hormone 1.59 uIU/mL (0.27-4.20)
[2022-02-22] MEDS: enoxaparin 100 mg/mL Syringe 90 MG SUBCUT ×2 (02:43→13:14)
[2022-02-22] MEDS: atorvastatin 40 mg Tablet 80 MG PO ×2 (02:45→20:01)
[2022-02-22] MEDS: aspirin 81 mg EC Tablet PO ×2 (02:45→08:56)
[2022-02-22] MEDS: clopidogrel 300 mg Tablet PO (02:46)
[2022-02-22] MEDS: cefTRIAXone 1,000 MG in sodium chloride 0.9% (plus) 50 ML 100 MG IV (02:46)
[2022-02-22 02:52] LABS: Chol HDL Ratio 3.08 mg/dL (0.0-4.40); Cholesterol 154 mg/dL (0-200); HDL Cholesterol 50 mg/dL (60-100); LDL Cholesterol Calculated 86 mg/dL (50-129); LDL HDL Ratio 1.72 RATIO (0.00-3.22); Triglycerides 91 mg/dL (0-150)
[2022-02-22 03:07] LABS: Estmated Average Glucose 140; Hemoglobin A1C 6.5 % (4.0-6.0)
--- NOTE | 2022-02-22 06:00 | USCV_ITS ---
HealyVenita collins Age: 71 Gender: F : 1950 Exam Date: 02/22/2022 15:21 Ordering Phys: Toshia Guadarrama MD Technologist: ANA [place] [facility] [place]: sob BP: 118 / 70 HR: 99 Rhythm: Atrial fibrillation Technical Quality: Adequate MEASUREMENTS (Male / Female) Normal Values 2D ECHO LV Diastolic Diameter PLAX 4.9 cm 4.2 - 5.9 / 3.9 - 5.3 cm LV Systolic Diameter PLAX 4.0 cm IVS Diastolic Thickness 1.0 cm 0.6 - 1.0 / 0.6 - 0.9 cm IVS Systolic Thickness 0.8 cm LVPW Diastolic Thickness 1.1 cm 0.6 - 1.0 / 0.6 - 0.9 cm LVPW Systolic Thickness 1.1 cm LVOT Diameter 2.0 cm LV Ejection Fraction 2D Teich 38.6 % LV Ejection Fraction MOD 2C 65.9 % LV Ejection Fraction 2C AL 66.1 % LA Diameter 4.3 cm IVC Diameter 1.8 cm M-MODE Aortic Annulus Diameter 2.8 cm LA Ao Ratio MM 1.6 MV E Point Septal Separation 0.4 cm DOPPLER AV Peak Velocity 116.0 cm/s LVOT Peak Velocity 107.0 cm/s AV Area Cont Eq vti 3.1 cm squared AV Area Cont Eq pk 3.0 cm squared MV Area PHT 5.4 cm squared Mitral E to A Ratio 2.1 MV E' Velocity 39.4 cm/s Mitral E to MV E' Ratio 9.8 Mitral E to LV E' Lateral Ratio 9.6 Mitral E to LV E' Septal Ratio 10.0 TR Peak Velocity 229.2 cm/s TR Peak Gradient 21.0 mmHg TV Peak E Velocity 27.0 cm/s PV Peak Velocity 60.0 cm/s FINDINGS Left Ventricle Normal left ventricular size, systolic function and wall thickness, with no regional wall motion abnormalities. Grade I/IV diastolic dysfunction (abnormal relaxation filling pattern), normal to mildly elevated filling pressures. Left ventricular ejection fraction is estimated at 60 %. Right Ventricle Normal right ventricular size and systolic function. Right Atrium The right atrium is normal in size. Left Atrium Mildly increased left atrial size. Mitral Valve Structurally normal mitral valve. Mild mitral valve regurgitation. Aortic Valve Structurally normal trileaflet aortic valve. No aortic valve stenosis. Mild aortic valve regurgitation. Tricuspid Valve Structurally normal tricuspid valve. Trace tricuspid valve regurgitation. Pulmonic Valve Pulmonic valve not well visualized. Pericardium Normal pericardium without effusion. Aorta Normal ascending aorta dimension. IVC The inferior vena cava appears normal. CONCLUSIONS Normal left ventricular size, systolic function and wall thickness, with no regional wall motion abnormalities. Grade I/IV diastolic dysfunction (abnormal relaxation filling pattern), normal to mildly elevated filling pressures. Left ventricular ejection fraction is estimated at 60 %. Mildly increased left atrial size. Structurally normal mitral valve. Mild mitral valve regurgitation. Structurally normal trileaflet aortic valve. No aortic valve stenosis. Mild aortic valve regurgitation. There are no prior echocardiogram studies to compare. Dr. Vahid Alcala MD (Electronically Signed) Final Date: 22 February 2022 16:36 S
[2022-02-22 06:29] LABS: Glucose Point of Care 138 mg/dL (70-110)
[2022-02-22] MEDS: pantoprazole DR 40 mg Tablet PO (08:56)
[2022-02-22] MEDS: metoprolol succinate ER (24 HR) 100 mg Tablet PO (08:56)
[2022-02-22] MEDS: FUROsemide 10 mg/mL SDV 4mL 40 MG IVP (08:56)
[2022-02-22] MEDS: lisinopril 2.5 mg Tablet PO (08:56)
[2022-02-22] MEDS: ipratropium-albuterol 3 mL Neb INHALATION ×3 (09:15→21:00)
[2022-02-22 11:13] LABS: Glucose Point of Care 133 mg/dL (70-110)
[2022-02-22] MEDS: azithromycin 500 MG in sodium chloride 0.9% 250 ML 250 MG IV (14:43)
--- NOTE | 2022-02-22 14:43 | P.CONIM_ITS ---
Providers/Reason For Consult Consulting Physician/Specialty*: Cardiovascular medicine Reason for Consult*: Congestive heart failure, troponin elevation Requesting Physician: Hospitalist Attending Physician: Jeffrey Swift Primary Care Provider: Lita Rodriguez History of Present Illness History of Present Illness Venita Healy is a 71 year old female who is longtime smoker. She also has diabetes and hypertension. She was admitted yesterday after having a fairly sudden onset of shortness of breath when she tried to lie flat and take a nap. This came on rather suddenly although she admits that for the last week she has been mildly short of breath when she lies down. She was in some distress in the emergency room requiring 3 L of oxygen and her oxygen saturation on room air upon admission was 80%. Chest x-ray showed congestive heart failure and probably pneumonia. There are bilateral effusions which are small. She has cardiomegaly. CTA of the chest showed a spiculated right upper lobe nodule suspicious for cancer. She has bilateral small effusions and a thyroid nodule. Her creatinine is normal. Her troponins are 27, 46 and 62. EKG reveals sinus rhythm without any significant abnormalities. 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 Treatment has been a statin, aspirin, Lovenox, antibiotics, 40 mg of Lasix every 12 hours, insulin, LISA inhibitor, beta-brett and 1 dose of Plavix. Review of Systems Narrative: Review of systems is negative. Medications/Allergies Home Medications Medication Instructions Recorded Confirmed Last Taken Type albuterol sulfate 90 mcg/actuation 1 - 2 puff inhalation Q4H PRN 09/25/20 02/22/22 1 Day Ago History aerosol inhaler Shortness Of Breath Or Wheezing ~02/21/22 fluticasone propionate 50 1 spray intranasal DAILY 09/25/20 02/22/22 1 Day Ago History mcg/actuation nasal ~02/21/22 spray,suspension glimepiride 1 mg tablet 1 mg PO DAILY 09/25/20 02/22/22 1 Day Ago History ~02/21/22 lisinopril 2.5 mg tablet 2.5 mg PO DAILY 09/25/20 02/22/22 1 Day Ago History ~02/21/22 lovastatin 10 mg tablet 10 mg PO DAILY 09/25/20 02/22/22 1 Day Ago History ~02/21/22 metformin 500 mg tablet 500 mg PO BID 09/25/20 02/22/22 1 Day Ago History ~02/21/22 metoprolol succinate 100 mg 100 mg PO DAILY 09/25/20 02/22/22 1 Day Ago History tablet,extended release 24 hr ~02/21/22 omeprazole 20 mg capsule,delayed 20 mg PO DAILY 09/25/20 02/22/22 1 Day Ago History release ~02/21/22 pioglitazone 30 mg tablet 30 mg PO DAILY 09/25/20 02/22/22 1 Day Ago History ~02/21/22 aspirin 81 mg tablet 81 mg PO DAILY 02/22/22 02/22/22 1 Day Ago History ~02/21/22 tiotropium bromide 18 mcg capsule 18 mcg inhalation DAILY 02/22/22 02/22/22 1 Day Ago History with inhalation device (Spiriva ~02/21/22 with Handi[employer]er) Allergies Allergy/AdvReac Type Severity Reaction Status Date / Time codeine Allergy ADR-Nausea Verified 09/25/20 20:31 Current Medications Generic Name Dose Route Start Last Admin Trade Name Freq PRN Reason Stop Dose Admin Albuterol/Ipratropium 3 ml 02/22/22 08:00 02/22/22 09:15 Ipratropium-Albuterol 3 Ml Neb INHALATION 3 ml Q6H.RESP MARY Administration Aspirin 81 mg 02/22/22 01:55 02/22/22 08:56 Aspirin 81 Mg Ec Tablet PO 81 mg DAILY MARY Administration Atorvastatin Calcium 80 mg 02/22/22 01:55 02/22/22 02:45 Atorvastatin 40 Mg Tablet PO 80 mg BEDTIME MARY Administration Enoxaparin Sodium 90 mg 02/22/22 02:00 02/22/22 13:14 Enoxaparin 100 Mg/Ml Syringe 1 mg/kg (90 mg) 90 mg SUBCUT Administration Q12H MARY Furosemide 40 mg 02/22/22 08:00 02/22/22 08:56 Furosemide 10 Mg/Ml Sdv 4ml IVP 40 mg Q24H MARY Administration Ceftriaxone Sodium 1,000 mg/ 50 mls @ 100 mls/hr 02/22/22 02:00 02/22/22 03:30 Sodium Chloride IV Infused Q24H MARY Infusion Protocol Azithromycin 500 mg/ Sodium 250 mls @ 250 mls/hr 02/22/22 15:00 02/22/22 14:43 Chloride IV 250 mls/hr Q24H MARY Administration Protocol Insulin Human Lispro 0 unit 02/22/22 08:00 02/22/22 11:31 Insulin Lispro 100 Unit/1 Ml SUBCUT Not Given WM&BEDTIME MARY Protocol Lisinopril 2.5 mg 02/22/22 09:00 02/22/22 08:56 Lisinopril 2.5 Mg Tablet PO 2.5 mg DAILY MARY Administration Metoprolol Succinate 100 mg 02/22/22 09:00 02/22/22 08:56 Metoprolol Succinate Er (24 Hr) 100 Mg Tablet PO 100 mg DAILY MARY Administration Pantoprazole Sodium 40 mg 02/22/22 09:00 02/22/22 08:[address] 40 Mg Tablet PO 40 mg DAILY MARY Administration PFSH Acute PFSH: Medical History (Updated 02/22/22 @ 02:14 by Toshia Guadarrama MD) Diabetes Social History (Updated 02/21/22 @ 18:26 by Catarino Najera MD) Smoking and tobacco status: current every day smoker Vitals/I&O/Wt Last Vital Signs Temp 98.3 F 02/22/22 12:00 Pulse 88 02/22/22 12:00 Resp 15 02/22/22 12:00 BP 118/70 02/22/22 12:00 Pulse Ox 96 02/22/22 12:00 O2 Del Method 02/22/22 12:00 O2 Flow Rate 2 02/22/22 07:34 02/21/22 02/22/22 02/22/22 22:59 06:59 14:59 Intake Total 300 / 300 290 / 590 480 / 480 Output Total 200 / 200 Balance 300 / 300 90 / 390 480 / 480 Weight last 48 hrs Weight 192 lb Weight 192 lb Physical Exam Narrative: GENERAL: In general she has a very deep raspy voice consistent with long-term tobacco abuse. Otherwise she is not short of breath at rest HEENT: Exam within normal limits. NECK: Supple without jugular vein distention. The carotid upstroke is normal without bruits. BACK: Exam normal. LUNGS: Clear. HEART: Regular rate and rhythm. ABDOMEN: Benign without organomegaly or tenderness. EXTREMITIES: No edema. NEUROLOGIC: Exam normal. SKIN: Unremarkable. Data 02/21/22 18:50 02/21/22 18:20 Micro: Microbiology 02/21/22 18:50 Blood Culture - Preliminary Blood SPECIMEN COLLECTED 02/21/22 18:40 Blood Culture - Preliminary Blood SPECIMEN COLLECTED A&P Assessment and plan (1) Hypertension: (2) Kidney donor: (3) Solitary kidney: (4) Thyroid nodule: (5) Lung nodule: (6) Pleural effusion: (7) NSTEMI (non-ST elevated myocardial infarction): (8) Congestive heart failure: (9) Community acquired pneumonia: (10) Diabetes: Plan This is consistent with coronary artery disease, non-ST segment elevation LA and heart failure on this basis. She is also suffering from a pneumonia at the same time. She may very well have lung cancer. The treatment so far is appropriate. Troponins are elevated. We will plan on coronary angiography tomorrow morning about 830. I spoken to her about this and given her the risks, benefits and other options. I also talked to her who is in the room. Consult Attestations Medical Necessity Statement: Hospitalization for management of heart failure, pneumonia, possible lung cancer, non-ST segment elevation LA Coding Level of Care Code Acute [employer] for [facility] Fwd Diagnoses Hypertension I10 Kidney donor Z52.4 Solitary kidney Thyroid nodule E04.1 Lung nodule R91.1 Pleural effusion J90 NSTEMI (non-ST elevated myocardial infarction) I21.4 Congestive heart failure I50.9 Community acquired pneumonia J18.9 Diabetes E11.9
[2022-02-22 16:44] LABS: Glucose Point of Care 101 mg/dL (70-110)
--- NOTE | 2022-02-22 20:49 | PM.PN ---
Subjective Subjective: She reports she is feeling better. She is breathing easier. She has been urinating well since receiving diuretic. Not normally on nasal cannula oxygen. Vitals/I&O/Wt Last Vital Signs Temp 97.4 F L 02/22/22 20:00 Pulse 100 02/22/22 20:00 Resp 18 02/22/22 20:00 BP 117/66 02/22/22 20:00 Pulse Ox 97 02/22/22 20:00 O2 Del Method 02/22/22 20:00 O2 Flow Rate 2 02/22/22 07:34 02/22/22 02/22/22 02/22/22 06:59 14:59 22:59 Intake Total 290 / 590 480 / 480 610 / 1090 Output Total 200 / 200 800 / 800 Balance 90 / 390 480 / 480 -190 / 290 Weight last 48 hrs Weight 87.09 kg Weight 87.09 kg Physical Exam Const: COMMON NORMALS: patient oriented x3 and alert GENERAL APPEARANCE: cooperative ORIENTATION/CONSCIOUSNESS: Yes awake HENMT: COMMON NORMALS: oropharynx normal Neck/C-Spine: COMMON NORMALS: no JVD Resp: COMMON NORMALS: normal respiratory effort AUSCULTATION: diminished lung sounds Cardio: COMMON NORMALS: no JVD, regular rhythm, S1 normal heart sound present, S2 normal heart sound present and No murmurs present (Cardio) RHYTHM: regular rhythm HEART SOUNDS: S1 normal heart sound present and S2 normal heart sound present GI: COMMON NORMALS: Normal to inspection, nondistended, normoactive bowel sounds present, Soft to palpation and non-tender PALPATION: Yes Soft to palpation Extremity: COMMON NORMALS: no joint enlargement and no pedal edema Neuro: COMMON NORMALS: patient oriented x3 and moves all extremities SENSORIUM/ORIENTATION: Yes alert Skin: COMMON NORMALS: no rashes or lesions noted GENERAL SKIN EXAM: no rashes or lesions noted Data 02/21/22 18:50 02/21/22 18:20 Micro: Microbiology 02/21/22 18:50 Blood Culture - Preliminary Blood NEGATIVE TO DATE 02/21/22 18:40 Blood Culture - Preliminary Blood Staphylococcus species 02/22/22 02:54 Gram Stain - Final Sputum - Expectorated Sputum A&P Assessment and plan (1) Congestive heart failure: Symptoms improving. Continue Lasix. Monitor I&O. Weights. Cardiac diet. Appreciate cardiology evaluation, plans for additional assessment with coronary angiogram. (2) Community acquired pneumonia: Continue ceftriaxone, azithromycin. Oxygen support, wean down as tolerating. Follow-up sputum culture. Staph species reported in 1/4 bottles on blood culture. Follow-up again sensitivity, possibility of contaminant versus related to pneumonia. (3) Diabetes: (4) NSTEMI (non-ST elevated myocardial infarction): Continue aspirin, statin, beta-brett, anticoagulation. Results of TTE appreciated. Pending additional evaluation with coronary angiogram tomorrow. (5) Pleural effusion: Pleural effusion suspected related to CHF. She is having rapid improvement in her symptoms with diuresis. However, possibility of complicated pneumonia. We will repeat x-ray. Tomorrow and Thursday. Consider thoracentesis. Procalcitonin not elevated. (6) Lung nodule: 1.8 cm spiculated right upper lobe lung nodule will need follow-up for work-up once out of acute illness. Follow-up with pulmonology. (7) Thyroid nodule: Follow-up with thyroid ultrasound after discharge. (8) Solitary kidney: (9) Kidney donor: (10) Hypertension: Plan Abnormal blood culture: Staph species noted. 1/4 bottles. Follow-up ID and sensitivity. #Moderate right and left pleural effusions #Right middle lobe pneumonia #Calcified right thyroid nodule #Diabetes #Hypertension #Solitary kidney status post donation to a relative #Nicotine dependence DNR/DNI DVT prophylaxis: Therapeutic Lovenox Attestations Medical Necessity Statement*: Continue admission for assessment management of NSTEMI, acute CHF, community-acquired pneumonia. Coding Level of Care Code Acute Soil Fertility Specialist for [facility] Diagnoses Congestive heart failure I50.9 Community acquired pneumonia J18.9 Diabetes E11.9 NSTEMI (non-ST elevated myocardial infarction) I21.4 Pleural effusion J90 Lung nodule R91.1 Thyroid nodule E04.1 Solitary kidney Kidney donor Z52.4 Hypertension I10
[2022-02-22 21:25] LABS: Glucose Point of Care 149 mg/dL (70-110)
[2022-02-22] MEDS: insulin lispro 100 unit/1 mL SUBCUT (21:41)
[2022-02-23] VITALS (15 sets, daily range): BP systolic 123–145; BP diastolic 74–93; PULSE 69–102; RESP 15–24; TEMP 36.6–36.9; O2SAT 92–98
[2022-02-23] MEDS: ipratropium-albuterol 3 mL Neb INHALATION ×3 (01:14→21:27)
[2022-02-23] MEDS: cefTRIAXone 1,000 MG in sodium chloride 0.9% (plus) 50 ML 100 MG IV (01:55)
--- NOTE | 2022-02-23 06:00 | XRR_ITS ---
PROCEDURE INFORMATION: Exam: XR Chest Exam date and time: 02/23/2022 7:47 AM Age: 71 years old Clinical indication: Shortness of breath; Additional info: Hypoxia TECHNIQUE: Imaging protocol: Radiologic exam of the chest. Views: 1 view. COMPARISON: CR XR chest 1V portable [id number] 02/21/2022 6:06 PM FINDINGS: Lungs: Mid and upper lungs are clear. Improved aeration in the lung bases with minimal persistent ground-glass density more prominent on the right versus the left. Pleural spaces: No pneumothorax. Blunting of the right costophrenic angle. Heart/Mediastinum: Heart is mildly enlarged for size, similar to prior exam. Bones/joints: Unremarkable. XR/XR chest 1V portable [id number] IMPRESSION: Improved aeration in the lung bases with persistent small right-sided pleural effusion.
[2022-02-23 06:14] LABS: Basophils % 0.4 %; Eosinophils # 0.1 10^3/uL (0.0-0.8); Eosinophils % 1.2 %; Hematocrit 47.1 % (37.0-47.0); Hemoglobin 15.1 g/dL (11.5-15.3); Lymphocytes # 3.1 10^3/uL (0.8-4.8); Lymphocytes % 28.2 %; Mean Corpuscular HGB Conc 32.1 g/dL (30.0-36.0); Mean Corpuscular Hemoglobin 29.7 pg (28.0-34.0); Mean Corpuscular Volume 92.7 fl (81-99); Mean Platelet Volume 10.4 fL (7.4-10.4); Monocytes # 0.8 10^3/uL (0.2-0.9); Monocytes % 7.3 %; Neutrophils # 6.81 10^3/uL (1.8-7.7); Neutrophils % 62.2 %; Nucleated Red Blood Cells % 0 %; Platelet Count 251 10^3/cmm (130-400); Red Blood Count 5.08 10^6/uL (4.1-5.3); Red Cell Distribution Width 13.1 % (12.1-15.1)
--- NOTE | 2022-02-23 06:30 | XACV_ITS ---
Exam Room: [facility] Ht: 173 cm Wt: 91 kg BSA: 2.11 m2 Gender: Female : 1950 Any Known Allergies: Codeine Exam Priority: Routine Procedure(s): Procedure Description: Diagnostic procedure Procedure Description: Left Heart Catheterization Procedure Description: Left ventriculography Procedure Description: Coronary Angiography Cari YEE; Diagnostic Cath Status: Urgent Diagnostic Findings * Patient presented with flash pulmonary edema. She has diabetes, hypertension and tobacco abuse. Angiography reveals a right dominant system. The left main is essentially normal. There is minimal narrowing of the ostial left main. The circumflex gives off 2 marginal branches. The first of these has a 60 to 70% ostial stenosis. There is also a ramus intermedius artery which contains a 60 to 70% ostial stenosis. The LAD is a relatively small vessel and contains diffuse luminal irregularities but otherwise no significant lesions. The right coronary artery is the dominant vessel and ends distally as the posterior left ventricular branch and the posterior descending artery. There are minor diffuse luminal irregularities but otherwise the artery is normal.. Conclusions 1. Minor nonobstructive coronary artery disease. Lower limit of normal left ventricular function. Recommendations * Medical therapy. Interventional RX Recommendation: medical therapy and/or counseling Diagnostic RX Recommendation: medical therapy and/or counseling Anticoagulation: Heparin Ventriculography Ejection Fraction: 55.0 % Pressures Phase:Rest AO : 133 / 73 ( 101 ) @ 8:41:00 AM 138 / 78 ( 106 ) @ 8:41:00 AM LV : 173 / -13 / 11 @ 8:38:00 AM 169 / -14 / 13 @ 8:39:00 AM 149 / -20 / 3 @ 8:41:00 AM 154 / -11 / 9 @ 8:41:00 AM Valves Phase:DefaultPhase AV : 11.0 @ 8:48:24 AM AV Mean Gradient: 14.0 @ 8:48:24 AM 14.0 @ 8:48:24 AM Clinical Evaluation EBL: 5mL-10mL Procedural Details Procedure Consent Obtained. Admit Source: In Patient. Pre-Procedure Time Out. Identified patient by full name and date of as verbalized by the patient/guarantor. Does the consent match the physician's order: Yes. Accurate & Complete Informed Consent: Yes. Inpatient/Outpatient History & Physical on Chart: Yes. If H&P is completed, is and addenduem needed: No; If yes, is the addendum complete: N/A. Visualize and Verify Site with Patient/Guarantor: N/A. Relevant Radiology Images available: N/A. The risks, benefits, and alternatives of sedation and/or procedure were discussed by physician. The patient agrees to continue. Procedure started. [facility] Clinical Fraility Score: 3: Managing Well. [employer] Indications: ACS > 24 hours. Chest Pain Symptom Assessment: Typical Angina Symptoms. Correct patient, site and procedure confirmed by cath team. Current diagnosis: NSTEMI. PERRLA. Strong, equal hand sound editor bilaterally. Lungs clear x 5 lobes. IV Site on Arrival: 22 gauge in the left forearm. IV Fluids: 0.9% NaCl at KVO. 50 mL infused prior to physical laboratory assistant. Pre Procedural Pulses: bilateral radial was 3+. Pre Procedural Pulses: bilateral posterior tibial was 3+. Pre Procedural Pulses: bilateral dorsalis pedis was 3+. Oxygen started at 2liters/min via nasal canula. right groin was prepped with chloroprep then draped in the usual sterile fashion. right radial was prepped with chloroprep then draped in the usual sterile fashion. Physician notified. Baseline sample Acquired. HR: 91 BPM. Physician arrived. Physician scrubbed in. Immediate Pre-Procedure Time Out. Correct Patient: Yes; Correct Procedure: Yes; Correct Site: Yes; Correct Patient Position: Yes; Correct Supplies: Yes; Dried Flammable Prep: Yes; Blood Products Available: No;. Lidocaine 1% infiltrated to the right radial. Arterial access obtained. A 6 sri lankan TIG catheter in over the exchange wire. Multiple views taken of left coronary artery. Catheter redirected to the RCA. Multiple views taken of right coronary artery. Catheter removed over the exchange wire. A 6 sri lankan Angled Pig catheter in over wire. EDP Sample taken: LV 173/-14,11; HR: 112 BPM; SpO2: 96%. EDP Sample taken: LV 169/-15,13; HR: 95 BPM; SpO2: 97%. LV gram performed in GOLDEN @ 10 mL/second for a total of 30 mL. EDP Sample taken: LV 149/-21,3; HR: 102 BPM; SpO2: 97%. Pullback taken: LV 154/-12,9; AO 133/73(101); Mean: 14mmHg, Peak to Peak: 11mmHg, SEP: 21sec/min; HR: 96 BPM; SpO2: 97%. Catheter removed over the exchange wire, wire out. Physician scrubbed out. A TR Band was successful obtaining hemostatsis at the Right Radial artery insertion site. Post Procedure: Pulses reassessed and unchanged. PERRLA. Strong, equal hand sound editor bilaterally. No VTE prophylaxis required. Medication's Wasted: Nitro = 49.8 mg. Medication's Wasted: Heparin = 1000 unit. Medication's Wasted: Lidocaine 1% = 4 mL. Medication's Wasted: Other = Fentanyl 50 mcg. Medication's Wasted: Other = Versed 1 mg. Total IV fluids: 40 mL. Post-op diagnosis: Non-obstructive CAD. Complications: None. Estimated blood loss: 5mL-10mL. Responsiveness - Normal response to verbal stimuli; alert and oriented, PERRLA. Airway - Unaffected, no intervention required; spontaneous ventilation. Circulation: W/N/L, pulses unchanged. Nausea/Vomiting: N/A. Procedure completed. Patient transferred by wheelchair to 1st floor. Vital chart was stopped. Access Site Site: Right Radial artery Sheath Size: 6 Fr Hemostasis Method: TR Band Hemostasis Success: Successful Procedure Medications Start: 8:21 AM Stop: 8:21 AM Medication: Versed Amount: 1 mg Route: I.V. Start: 8:21 AM Stop: 8:21 AM Medication: Fentanyl Amount: 50 mcg Route: I.V. Start: 8:23 AM Stop: 8:23 AM Medication: Versed Amount: 1 mg Route: I.V. Start: 8:27 AM Stop: 8:27 AM Medication: Nitrogylcerin Amount: 200 mcg Route: I.A. Start: 8:39 AM Stop: 8:39 AM Medication: Heparin Amount: 5000 units Route: I.V. Start: 8:30 AM Stop: 8:30 AM Medication: Versed Amount: 1 mg Route: I.V. I, the attending physician, have reviewed and verified all procedure medications. Yes, all medications given per verbal order History/Risk Factors Hypertension: Yes Dyslipidemia: No Peripheral Arterial Disease (PAD): No Myocardial Infarction (AR): No Obesity: Yes Renal Disease: No Tobacco Use: Current/Recent(w/in 1 year) Prior Interventions PCI: No CABG: No Valve Surgery: No Report Signatures Finalized by Dr. Vahid Alcala MD on 02/23/2022 09:03 AM
[2022-02-23 06:34] LABS: Glucose Point of Care 165 mg/dL (70-110)
[2022-02-23 06:41] LABS: Anion Gap 14.6 (5-19); Blood Urea Nitrogen 26 mg/dL (8-23); Calcium 9.5 mg/dL (8.5-10.5); Carbon Dioxide 28 mmol/L (22-29); Chloride 91 mmol/L (98-107); Glomerular Filtration Rate 49.1 mL/min (90-130); Glucose 141 mg/dL (65-115); Osmolality Calculated 277 mOsm/kg (285-295); Potassium 3.6 mmol/L (3.5-5.1); Sodium 130 mmol/L (136-145)
[2022-02-23] MEDS: diphenhydrAMINE 50 mg Capsule PO (07:41)
[2022-02-23] MEDS: metoprolol succinate ER (24 HR) 100 mg Tablet PO (07:41)
[2022-02-23] MEDS: pantoprazole DR 40 mg Tablet PO (07:41)
[2022-02-23] MEDS: FUROsemide 10 mg/mL SDV 4mL 40 MG IVP (07:42)
[2022-02-23] MEDS: aspirin 81 mg EC Tablet PO (07:42)
[2022-02-23] MEDS: insulin lispro 100 unit/1 mL SUBCUT ×3 (07:42→21:38)
[2022-02-23] MEDS: sodium chloride 0.9% 1,000 ML 50 ML IV ×2 (07:43→12:13)
--- NOTE | 2022-02-23 10:32 | PC.NURSE ---
1032 - REPORT GIVEN TO RAMIN GILLIS IN CSU
[2022-02-23 12:17] LABS: Glucose Point of Care 167 mg/dL (70-110)
[2022-02-23] MEDS: azithromycin 500 MG in sodium chloride 0.9% 250 ML 250 MG IV (15:20)
[2022-02-23 16:57] LABS: Glucose Point of Care 126 mg/dL (70-110)
--- NOTE | 2022-02-23 21:14 | P.PN_ITS ---
Subjective Subjective: She says she is doing well following angiogram. She has discussed results with the sanitation superintendent. Currently states breathing is continue to improve. No peripheral edema. Denies chest pain. Discussed with her regarding positive blood culture, discussed possible contaminant, ID pending. Discussed with her also regarding suspicious nodule in the lung which will require additional follow-up due to high concern for malignancy. Vitals/I&O/Wt Last Vital Signs Temp 98 F 02/23/22 19:11 Pulse 75 02/23/22 19:11 Resp 18 02/23/22 19:11 BP 145/84 02/23/22 19:11 Pulse Ox 98 02/23/22 19:11 O2 Del Method 02/23/22 13:19 O2 Flow Rate 2 02/22/22 19:40 02/23/22 02/23/22 02/23/22 06:59 14:59 22:59 Intake Total 530 / 1980 250 / 250 Output Total 500 / 1300 Balance 30 / 680 250 / 250 Weight last 48 hrs Weight 90.974 kg Weight 87.09 kg Physical Exam Const: COMMON NORMALS: patient oriented x3 and alert GENERAL APPEARANCE: cooperative ORIENTATION/CONSCIOUSNESS: Yes awake HENMT: COMMON NORMALS: oropharynx normal Neck/C-Spine: COMMON NORMALS: no JVD Resp: COMMON NORMALS: normal respiratory effort AUSCULTATION: diminished lung sounds Cardio: COMMON NORMALS: no JVD, regular rhythm, S1 normal heart sound present, S2 normal heart sound present and No murmurs present (Cardio) RHYTHM: regular rhythm HEART SOUNDS: S1 normal heart sound present and S2 normal heart sound present GI: COMMON NORMALS: Normal to inspection, nondistended, normoactive bowel sounds present, Soft to palpation and non-tender PALPATION: Yes Soft to palpation Extremity: COMMON NORMALS: no joint enlargement and no pedal edema OTHER: TR band right wrist. Neuro: COMMON NORMALS: patient oriented x3 and moves all extremities SENSORIUM/ORIENTATION: Yes alert Skin: COMMON NORMALS: no rashes or lesions noted GENERAL SKIN EXAM: no rashes or lesions noted Data 02/23/22 05:22 02/23/22 05:22 Micro: Microbiology 02/21/22 18:40 Blood Culture - Preliminary Blood Staphylococcus sp coag neg 02/22/22 02:54 Gram Stain - Final Sputum - Expectorated Sputum Sputum Culture - Preliminary 02/21/22 18:50 Blood Culture - Preliminary Blood NEGATIVE TO DATE A&P Assessment and plan (1) Congestive heart failure: Continue to improve symptomatically. Nonocclusive CAD on coronary angiogram. Reassess symptoms, volume status, renal function in the morning. If continues to do well, may be able to return home. Monitor I&O. Weights. Cardiac diet. Pleural effusion improving on chest x-ray, persistent small right-sided pleural effusion. (2) Community acquired pneumonia: Hypoxia improving. Weaning down off oxygen to room air. Pleural effusion with improvement likely related to CHF. Continue ceftriaxone, azithromycin. Normal rosanna on sputum culture. Staph species reported in 1/4 bottles on blood culture. This appears to be coag negative staph in 1/4 bottles, likely a contaminant. (3) Diabetes: (4) NSTEMI (non-ST elevated myocardial infarction): Continue aspirin, statin, beta-brett, anticoagulation. Results of TTE appreciated. Nonocclusive ED on coronary angiogram. Continue medical therapy, long-term optimization of risk factors. (5) Pleural effusion: Pleural effusion with improvement. Likely related to CHF. Procalcitonin not elevated. (6) Lung nodule: 1.8 cm spiculated right upper lobe lung nodule will need follow-up for work-up once out of acute illness. Follow-up with pulmonology. (7) Thyroid nodule: Follow-up with thyroid ultrasound after discharge. (8) Solitary kidney: (9) Kidney donor: (10) Hypertension: Plan Abnormal blood culture: Staph species noted. 1/4 bottles. Coagulase-negative staph, likely contaminant. #Moderate right and left pleural effusions #Right middle lobe pneumonia #Calcified right thyroid nodule #Diabetes #Hypertension #Solitary kidney status post donation to a relative #Nicotine dependence DNR/DNI DVT prophylaxis: Therapeutic Lovenox Attestations 2 Medical Necessity Statement*: Continue admission for assessment management of acute CHF, improving hypoxia, pneumonia. Coding Level of Care Code Acute Insole Doubler for [facility] Diagnoses Congestive heart failure I50.9 Community acquired pneumonia J18.9 Diabetes E11.9 NSTEMI (non-ST elevated myocardial infarction) I21.4 Pleural effusion J90 Lung nodule R91.1 Thyroid nodule E04.1 Solitary kidney Kidney donor Z52.4 Hypertension I10
[2022-02-23 21:34] LABS: Glucose Point of Care 193 mg/dL (70-110)
[2022-02-23] MEDS: atorvastatin 40 mg Tablet 80 MG PO (21:38)
[2022-02-24] VITALS (8 sets, daily range): BP systolic 156–172; BP diastolic 92–99; PULSE 68–110; RESP 16–18; TEMP 36.6; O2SAT 93–95
[2022-02-24] MEDS: ipratropium-albuterol 3 mL Neb INHALATION (01:46)
[2022-02-24] MEDS: cefTRIAXone 1,000 MG in sodium chloride 0.9% (plus) 50 ML 100 MG IV (02:19)
[2022-02-24] MEDS: sodium chloride 0.9% 1,000 ML 50 ML IV (04:37)
[2022-02-24 06:34] LABS: Glucose Point of Care 160 mg/dL (70-110)
[2022-02-24 06:36] LABS: Anion Gap 15.5 (5-19); Blood Urea Nitrogen 23 mg/dL (8-23); Carbon Dioxide 26 mmol/L (22-29); Chloride 96 mmol/L (98-107); Glomerular Filtration Rate 54.8 mL/min (90-130); Glucose 172 mg/dL (65-115); Osmolality Calculated 286 mOsm/kg (285-295); Potassium 3.5 mmol/L (3.5-5.1); Sodium 134 mmol/L (136-145)
--- NOTE | 2022-02-24 07:14 | P.PN_ITS ---
Subjective Subjective: Venita underwent angiography yesterday and had only minimal nonobstructive coronary artery disease. Her ejection fraction is about 50 to 55%. The procedure was done from the right radial artery. There were no complications. Obviously this was a type II NH. I suspect this was heart failure related to diastolic dysfunction brought on by diabetes and the stress of a community-acquired pneumonia. She has a lung nodule which is suspicious for carcinoma. This has been discussed with her and will need work-up as an outpatient. She has spoken to the hospitalist about this and arrangements will be made for follow-up. Vitals/I&O/Wt Last Vital Signs Temp 98 F 02/24/22 03:11 Pulse 110 H 02/24/22 04:57 Resp 18 02/24/22 03:11 BP 156/93 02/24/22 03:45 Pulse Ox 95 02/24/22 03:11 O2 Del Method 02/24/22 01:45 O2 Flow Rate 2 02/22/22 19:40 02/23/22 02/24/22 02/24/22 22:59 06:59 14:59 Intake Total 250 / 250 1870 / 2120 Balance 250 / 250 1870 / 2120 Weight last 48 hrs Weight 192 lb 14.4 oz Weight 200 lb 9 oz Physical Exam Narrative: GENERAL: In general she is comfortable and in no distress this morning HEENT: Exam within normal limits. NECK: Supple without jugular vein distention. The carotid upstroke is normal without bruits. BACK: Exam normal. LUNGS: Clear. HEART: Regular rate and rhythm. ABDOMEN: Benign without organomegaly or tenderness. EXTREMITIES: No edema. NEUROLOGIC: Exam normal. SKIN: Unremarkable. Data 02/23/22 05:22 02/24/22 05:40 Micro: Microbiology 02/21/22 18:40 Blood Culture - Preliminary Blood Staphylococcus sp coag neg 02/22/22 02:54 Gram Stain - Final Sputum - Expectorated Sputum Sputum Culture - Preliminary A&P Assessment and plan (1) Hypertension: (2) Kidney donor: (3) Solitary kidney: (4) Thyroid nodule: (5) Lung nodule: (6) Pleural effusion: (7) Congestive heart failure: (8) Community acquired pneumonia: (9) Diabetes: Plan She may be discharged home today. I would continue her on 40 mg of Lasix a day along with the already prescribed LISA inhibitor and beta-brett. Low-dose aspirin is appropriate. The Lipitor should be continued. We will get her an appointment in 7 to 10 days with the office to check her wrist and kidney funct ion. I have given her instructions about activity in the next 2 or 3 days and instructions about what to look for at the radial insertion site. Attestations Medical Necessity Statement*: Discharge is pending today Coding Level of Care Code Established Pt Acute Cloth Bale Header for Radhag Fwd Patient Type Established History Detailed Exam Detailed Medical Decision Making Moderate Complexity Diagnoses Hypertension I10 Kidney donor Z52.4 Solitary kidney Thyroid nodule E04.1 Lung nodule R91.1 Pleural effusion J90 Congestive heart failure I50.9 Community acquired pneumonia J18.9 Diabetes E11.9
[2022-02-24] MEDS: aspirin 81 mg EC Tablet PO (07:52)
[2022-02-24] MEDS: metoprolol succinate ER (24 HR) 100 mg Tablet PO (07:52)
[2022-02-24] MEDS: FUROsemide 40 mg Tablet PO (07:53)
[2022-02-24] MEDS: pantoprazole DR 40 mg Tablet PO (07:53)
[2022-02-24] MEDS: lisinopril 2.5 mg Tablet PO (07:53)
[2022-02-24] MEDS: insulin lispro 100 unit/1 mL SUBCUT (07:54)
--- NOTE | 2022-02-24 09:57 | PC.SOCIAL ---
Pg 2 IMM Explained to pt Pg 2 IMM. No questions voiced. Provided pt a copy. Initialed, dated, & timed a copy & placed in chart.
--- NOTE | 2022-02-24 10:26 | P.DS_ITS ---
Discharge Providers Date of Admission: 02/21/22 20:23 Date of Discharge: February 24, 2022 Attending Provider at Admission: Toshia Guadarrama MD Attending Provider at Discharge: Patrick Brothers MD Consults: Cardiology: Dr. Alcala Primary Care Provider: Lita Rodriguez Diagnoses at Discharge Discharge Diagnosis (1) Hypertension: Status: Acute (2) Kidney donor: Status: Acute (3) Solitary kidney: Status: Acute (4) Thyroid nodule: Status: Acute (5) Lung nodule: Status: Acute (6) Pleural effusion: Status: Acute (7) Congestive heart failure: Status: Acute (8) Community acquired pneumonia: Status: Acute (9) Diabetes: Status: Acute Reason for Visit Reason for Visit: sob Hospital Course Hospital Course Venita Healy is a 71 year old female who is longtime smoker.? She also has diabetes and hypertension.? She was admitted yesterday after having a fairly sudden onset of shortness of breath when she tried to lie flat and take a nap.? This came on rather suddenly although she admits that for the last week she has been mildly short of breath when she lies down.? She was in some distress in the emergency room requiring 3 L of oxygen and her oxygen saturation on room air upon admission was 80%.? Chest x-ray showed congestive heart failure and probably pneumonia.? There are bilateral effusions which are small.? She has cardiomegaly.? CTA of the chest showed a spiculated right upper lobe nodule suspicious for cancer.? She has bilateral small effusions and a thyroid nodule.? Her creatinine is normal.? Her troponins are 27, 46 and 62.? EKG reveals sinus rhythm without any significant abnormalities. Patient was admitted to hospital further evaluation and management. On admission there was a concern for committee acquired pneumonia along with possible non-ST elevation [place]. Cardiology was consulted and she was started on broad-spectrum antibiotics along with anticoagulation for non-ST elevation [place] and IV diuresis for concern for congestive diastolic heart failure on admission. Patient underwent cardiac angiogram on 02/23 which showed minimal nonobstructive CAD with EF of 50 to 55%. Patient's oxygen supplementation improved. She was back to room air. On admission she was found to have 1 bottle out of 4 positive for coag negative staph which is concerning for contaminant. Repeat blood culture was sent and will be monitored for next 5 days. If blood cultures come back positive patient will be called back for further evaluation and management. Echocardiogram was done which showed EF of 60% with mildly increased LA size. She has been discharged medically stable condition on oral Augmentin and Levaquin for next 5 days with advised to follow-up with a primary care provider within next 1 week along with nurse practitioner from [facility] within next 1 week as well. She is to repeat her BMP in 1 week. Physical Exam Narrative: General: Alert oriented x3, patient seen sitting up in bed on RA at this time saturating 94%. HEENT: Normocephalic, atraumatic, EOMI, breathing comfortably. Cardio: Regular rate rhythm, normal S1-S2, no gross murmurs, no JVD Respiratory: Clear to auscultation bilaterally with mild rhonchi at bases, no crackles appreciated. Patient seen after 60 IV Lasix and quite a bit of urine output. GI: Abdomen soft, nontender, nondistended, bowel sounds + Behavior: Appropriate and cooperative Extremities: Compression stockings in place, trace edema bilateral lower extremities. Discharge Data Studies Completed and Pending Completed Studies During Hospitalization Category Date Time Status CTA chest [CT angio chest PE protcl [id number]] Stat Cat Scan 02/21/22 18:59 Completed NURSERY NURSE request for service Routine Exams 02/23/22 06:30 Completed XR chest 1V portable [id number] Routine Exams 02/23/22 06:00 Completed XR chest 1V portable [id number] Stat Exams 02/21/22 17:59 Completed CV. echo complete* [id number] Routine Ultrasound 02/22/22 06:00 Completed Pending at discharge Category Date Time Status Basic Metabolic Panel AM LABS Lab 02/25/22 04:00 Ordered Basic Metabolic Panel AM LABS Lab 02/26/22 04:00 Ordered Blood Culture Stat Lab 02/21/22 18:50 Results Blood Culture Stat Lab 02/24/22 08:27 Ordered Sputum Culture and Gram Stain Stat Lab 02/22/22 02:54 Results Radiology Impressions Chest CTA 02/21/22 18:59 IMPRESSION: 1. 1.8 cm spiculated right upper lobe nodule. Highly suspicious nodule(s). Consider non-emergent PET/CT, or tissue sampling.(Reference: Veronica) 2. No evidence for pulmonary embolus. 3. Moderate right and small left pleural effusions with scattered atelectasis. 4. Consolidation in the inferior right middle lobe is most likely atelectasis but pneumonia is not excluded. 5. 1.9 cm calcified right thyroid nodule. Ultrasound follow-up recommended. References: Veronica Pryor et al. Guidelines for Management of Incidental Pulmonary Nodules Detected on CT Images: From the Fleischner Society 2017. Radiology. 2017;284(1):228-243. COMMENTS: Consistent with the [place] [employer]'s Incidental Findings Committee white paper (J Am Carolyn Radiol 2015): In patients aged 35 years and older with an incidental thyroid nodule equal to or greater than 1.[address], MRI or extrathyroidal US, further evaluation with dedicated thyroid US is recommended for patients with normal life expectancy and without comorbidities. For smaller nodules without suspicious features, no further evaluation or follow up is recommended. Chest X-Ray 02/23/22 06:00 IMPRESSION: Improved aeration in the lung bases with persistent small right-sided pleural effusion. Echocardiogram CONCLUSIONS ?Normal left ventricular size, systolic function and wall ?thickness, with no regional wall motion abnormalities. Grade ?I/IV diastolic dysfunction (abnormal relaxation filling ?pattern), normal to mildly elevated filling pressures. Left ?ventricular ejection fraction is estimated at 60 %. ?Mildly increased left atrial size. ?Structurally normal mitral valve. Mild mitral valve ?regurgitation. ?Structurally normal trileaflet aortic valve. No aortic valve ?stenosis. Mild aortic valve regurgitation. ?There are no prior echocardiogram studies to compare. ?Dr. Vahid Alcala MD ?(Electronically Signed) ?Final Date:? ? ? 22 February 2022 ? 16:36 S Laboratory Results WBC 11.0 10^3/uL (4.0-10.0) H 02/23/22 05:22 Corrected WBC Cancelled 02/21/22 18:20 RBC 5.08 10^6/uL (4.1-5.3) 02/23/22 05:22 Hgb 15.1 g/dL (11.5-15.3) 02/23/22 05:22 Hct 47.1 % (37.0-47.0) H 02/23/22 05:22 MCV 92.7 fl (81-99) 02/23/22 05:22 MCH 29.7 pg (28.0-34.0) 02/23/22 05:22 MCHC 32.1 g/dL (30.0-36.0) 02/23/22 05:22 RDW 13.1 % (12.1-15.1) 02/23/22 05:22 Plt Count 251 10^3/cmm (130-400) 02/23/22 05:22 MPV 10.4 fL (7.4-10.4) 02/23/22 05:22 Gran % Cancelled 02/21/22 18:20 Neut % (Auto) 62.2 % 02/23/22 05:22 Lymph % (Auto) 28.2 % 02/23/22 05:22 Sabine % (Auto) 7.3 % 02/23/22 05:22 Eos % (Auto) 1.2 % 02/23/22 05:22 Baso % (Auto) 0.4 % 02/23/22 05:22 Neut # (Auto) 6.81 10^3/uL (1.8-7.7) 02/23/22 05:22 Lymph # (Auto) 3.1 10^3/uL (0.8-4.8) 02/23/22 05:22 Sabine # (Auto) 0.8 10^3/uL (0.2-0.9) 02/23/22 05:22 Eos # (Auto) 0.1 10^3/uL (0.0-0.8) 02/23/22 05:22 Baso # (Auto) 0.0 10^3/uL (0.0-0.1) 02/23/22 05:22 Absolute Gran (auto) Cancelled 02/21/22 18:20 Nucleated RBC % (auto) 0 % 02/23/22 05:22 Nucleated RBCs # 0.0 /100WBC 02/23/22 05:22 PT 14.20 SECONDS (12.1-14.9) 02/21/22 18:20 INR 1.07 (0.8-1.2) 02/21/22 18:20 D-Dimer 1.40 ug/mIFEU (0-0.59) H 02/21/22 18:20 Specimen Type Arterial 02/21/22 18:18 Sample Site Brachial, left 02/21/22 18:18 ABG pH 7.35 (7.35-7.45) 02/21/22 18:18 ABG pCO2 45.4 mmHg (35-45) H 02/21/22 18:18 ABG pO2 76.8 mmHg (80.0-100.0) L 02/21/22 18:18 ABG HCO3 25.2 mmol/L (22-26) 02/21/22 18:18 ABG Base Excess -0.8 mmol/L (-2.0-2.0) 02/21/22 18:18 Aj Test N/a 02/21/22 18:18 Hematocrit 44.5 % (37-47) 02/21/22 18:18 Hgb O2 Saturation 90.9 % (95-100) L 02/21/22 18:18 Carboxyhemoglobin 2.3 %THgb (0.4-20.1) 02/21/22 18:18 Methemoglobin 0.6 % (0.4-1.5) 02/21/22 18:18 Total Hemoglobin 14.5 g/dL (12-16) 02/21/22 18:18 O2 Delivery Device Nc 02/21/22 18:18 O2 Liters/Min 4.0 % 02/21/22 18:18 FiO2 36.0 % 02/21/22 18:18 [employer] ID Amh 02/21/22 18:18 Sodium 134 mmol/L (136-145) L 02/24/22 05:40 Potassium 3.5 mmol/L (3.5-5.1) 02/24/22 05:40 Chloride 96 mmol/L (98-107) L 02/24/22 05:40 Carbon Dioxide 26 mmol/L (22-29) 02/24/22 05:40 Anion Gap 15.5 (5-19) 02/24/22 05:40 BUN 23 mg/dL (8-23) 02/24/22 05:40 Creatinine 1.0 mg/dL (0.5-0.9) H 02/24/22 05:40 GFR Calculation 54.8 mL/min (90-130) L 02/24/22 05:40 Glucose 172 mg/dL (65-115) H 02/24/22 05:40 POC Glucose 160 mg/dL (70-110) H 02/24/22 06:28 Estimat Average Glucose 140 02/21/22 18:50 Hemoglobin A1c 6.5 % (4.0-6.0) H 02/21/22 18:50 Calculated Osmolality 286 mOsm/kg (285-295) 02/24/22 05:40 Calcium 9.0 mg/dL (8.5-10.5) 02/24/22 05:40 Total Bilirubin 0.3 mg/dL (0.15-1.2) 02/21/22 18:20 AST 15 U/L (0-32) 02/21/22 18:20 ALT 14 U/L (0-33) 02/21/22 18:20 Alkaline Phosphatase 83 U/L (35-105) 02/21/22 18:20 Troponin T Baseline 27 ng/L (0-10) H 02/21/22 18:20 Troponin T 120 Minute 46.85 ng/L (0-10) H 02/21/22 20:10 Delta Troponin T 19.85 ABS# (0-10) H* 02/21/22 20:10 Troponin T Hi Sens 6Hr 62.27 ng/L (0-10) H 02/22/22 00:25 Troponin T Hi Sens 6Hr Delta 35.27 ng/L (0-12) H* 02/22/22 00:25 NT-Pro-B Natriuret Pep 2448 pg/mL (0-125) H 02/21/22 18:20 Total Protein 7.9 g/dL (6.6-8.7) 02/21/22 18:20 Albumin 3.7 g/dL (3.5-5.2) 02/21/22 18:20 Globulin 4.2 g/dL (1.3-4.6) 02/21/22 18:20 Triglycerides 91 mg/dL (0-150) 02/22/22 00:25 Cholesterol 154 mg/dL (0-200) 02/22/22 00:25 LDL Cholesterol, Calc 86 mg/dL (50-129) 02/22/22 00:25 HDL Cholesterol 50 mg/dL (60-100) L 02/22/22 00:25 LDL/HDL Ratio 1.72 RATIO (0.00-3.22) 02/22/22 00:25 Cholesterol/HDL Ratio 3.08 mg/dL (0.0-4.40) 02/22/22 00:25 Procalcitonin 0.03 ng/mL (0-0.5) 02/22/22 00:25 TSH 1.59 uIU/mL (0.27-4.20) 02/22/22 00:25 Influenza Type A Ag negative (Negative) 02/21/22 18:18 Influenza Type B Ag negative (Negative) 02/21/22 18:18 Procedures Performed medical laboratory scientist Diagnostic Findings ? * Patient presented with flash pulmonary edema.? She has diabetes, hypertension and tobacco abuse.? Angiography reveals a right dominant system. The left main is essentially normal.? There is minimal narrowing of the ostial left main.? The circumflex gives off 2 marginal branches.? The first of these has a 60 to 70% ostial stenosis. There is also a ramus intermedius artery which contains a 60 to 70% ostial stenosis. The LAD is a relatively small vessel and contains diffuse luminal irregularities but otherwise no significant lesions. The right coronary artery is the dominant vessel and ends distally as the posterior left ventricular branch and the posterior descending artery. There are minor diffuse luminal irregularities but otherwise the artery is normal.. Conclusions ? 1. Minor nonobstructive coronary artery disease.? Lower limit of normal left ventricular function. Recommendations ? * Medical therapy. Interventional RX Recommendation: ? ? medical therapy and/or counseling Diagnostic RX Recommendation: ? ? medical therapy and/or counseling Vitals Last Vital Signs Temp 98 F 02/24/22 03:11 Pulse 98 02/24/22 08:00 Resp 18 02/24/22 08:00 BP 159/92 02/24/22 07:17 Pulse Ox 94 02/24/22 08:00 O2 Del Method 02/24/22 08:00 O2 Flow Rate 2 02/22/22 19:40 Discharge Plan Discharge Patient Disposition: Home Condition: Stable Prescriptions: New furosemide 40 mg Tablet 40 mg PO DAILY@0800 Qty: 30 0RF atorvastatin 40 mg Tablet 80 mg PO BEDTIME 30 Days Qty: 60 0RF pantoprazole 40 mg Tablet,Delayed Release (Dr/Ec) 40 mg PO DAILY Qty: 14 0RF levofloxacin 500 mg tablet 500 mg PO Q24H 5 Days Qty: 5 0RF Augmentin 500-125 mg tablet 1 tab PO BID Qty: 10 0RF Continued metoprolol succinate 100 mg tablet extended release 24 hr 100 mg PO DAILY glimepiride 1 mg tablet 1 mg PO DAILY Rx Instructions: TAKE WITH FIRST MEAL omeprazole 20 mg capsule,delayed release(DR/EC) 20 mg PO DAILY albuterol sulfate 90 mcg/actuation HFA aerosol inhaler 1 - 2 puff INHALATION Q4H PRN (Reason: Shortness Of Breath Or Wheezing) pioglitazone 30 mg tablet 30 mg PO DAILY fluticasone propionate 50 mcg/actuation spray,suspension 1 spray INTRANASAL DAILY lisinopril 2.5 mg tablet 2.5 mg PO DAILY Spiriva with HandiHaler 18 mcg capsule, w/inhalation device 18 mcg INHALATION DAILY aspirin 81 mg Tablet 81 mg PO DAILY Changed metformin 500 mg tablet 1,000 mg PO BID 30 Days Qty: 120 0RF Discontinued lovastatin 10 mg tablet 10 mg PO DAILY Discharge Orders: Discharge Order (Routine); Ordered 02/24/22 Ordered By: Patrick Brothers Referrals: Shelbie Souza FNP [Nurse Practitioner] - 7-10 days (Right radial artery check and chemistry panel.) Lita Rodriguez PA-C [Primary Care Provider] - 1 week Discharge Diet: Cardiac and Diabetic Discharge Activity: Increase activity as tolerated and Limit activity as instructed Patient Instructions: Pneumonia (DC), CHF Stoplight, Opioid Safety, Post Angiogram Home Care Instructions Activity Restrictions/Additional Instructions: No lifting over 5 pounds with the right upper extremity for 2 days. Call for redness, pain, swelling or bleeding of the right radial artery insertion site. Please follow-up with the primary care provider over the next 1 week. You should have a repeat CT scan in 6 months for further evaluation and management of lung nodule. Please follow-up with nurse practitioner from cardiology within the next 1 week. Please repeat BMP within next 1 week. Dose of lovastatin has been changed. Do not take lovastatin anymore instead take atorvastatin. Metformin has been increased to 1000 mg twice daily. Lasix 40 mg oral daily has been added. Patient's Health Concerns: Please follow-up with a primary care provider within the next 1 week. Discharge Attestations Time Spent in Discharge Care*: greater than 30 min Specific Discharge Activities: educating patient, educating and/or supporting family/caregiver, discussing with pcp/other providers, discussing with case management social worker/social workers/dc planners, documenting/other paperwork and evaluating patient/reviewing data Status at Discharge: Cognitive status at discharge: cognitively intact , Behavioral status at discharge: cooperative , Functional status at discharge: independent ambulation , Overall status at discharge: patient is back to baseline Quality Metrics Clinical Quality Measures [ No reported AMI, CVA or VTE this stay] Coding Level of Care Code Acute Chg FW CO note Diagnoses Hypertension I10 Kidney donor Z52.4 Solitary kidney Thyroid nodule E04.1 Lung nodule R91.1 Pleural effusion J90 Congestive heart failure I50.9 Community acquired pneumonia J18.9 Diabetes E11.9
--- NOTE | 2022-02-24 11:04 | PC.NURSE ---
Discharge Note Patient discharged to home via accompanied by . Discharge instructions reviewed with patient and/or claims representative. Mobile pharmacy medications and/or prescriptions provided. Belongings/home medications returned. Educated pt to monitor BG at home but hold off her metformin until tomorrow evening due to her post contrast angiogram yesterday. pt verbalizes understanding.
== END 2022-02-24 11:01 | disposition home or self-care (01) | DRG 280 ==
LOC: ER 21:14 → MEDSURG 21:18 → CSU 02-23 09:03
PROVIDERS: Internal Medicine; Internal Medicine Cardiovascular Disease; Admitting Provider Internal Medicine; Emergency Provider Emergency Medicine; PCP Physician Assistant; Visit Provider Student in an Organized Health Care Education/Training Program
DX: I11.0 Hypertensive heart disease with heart failure (principal); I50.31 Acute diastolic (congestive) heart failure; I21.A1 Myocardial infarction type 2; J18.9 Pneumonia, unspecified organism; R91.1 Solitary pulmonary nodule; I25.10 Atherosclerotic heart disease of native coronary artery without angina pectoris; F17.200 Nicotine dependence, unspecified, uncomplicated; E04.1 Nontoxic single thyroid nodule; E11.9 Type 2 diabetes mellitus without complications; Z52.4 Kidney donor; Z79.84 Long term (current) use of oral hypoglycemic drugs; Z79.82 Long term (current) use of aspirin; Z66 Do not resuscitate
CPT/HCPCS: 36415; 36416; 36600; 71045; 71275; 80048; 80053; 80061; 82805; 82962; 83036; 83880; 84145; 84443; 84484; 85025; 85378; 85610; 87040; 87070; 87150; 87205; 87804; 93005; 93306; 93458; 94640; 94664; 96365; 96367; 96372; 96375; 99152; 99153; 99285; C1769; C1887; C1894; J0456; J0696; J1644; J1650; J1815; J1940; J2250; J2930; J3010; J3490; J7030; J7050; Q0163; Q9967

== ENCOUNTER 2022-03-04 10:17 | Emergency (ER) | payer MEDICARE, SELFPAY ==
--- NOTE | 2022-03-04 10:32 | ECG_ITS ---
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 Measurements Intervals [place] Rate: 96 P: 0 [place]: 0 QRS: 47 QRSD: 79 T: 74 QT: 354 QTc: 449 Interpretive Statements ATRIAL FIBRILLATION NONSPECIFIC ST & T-WAVE ABNORMALITY Compared to ECG 02/22/2022 00:46:00 T-wave abnormality now present Sinus rhythm no longer present ST (T wave) deviation no longer present Electronically Signed On 03-04-2022 17:54:47 DIAMOND BROKER by Colin Laird M.D. [id number]
[2022-03-04 10:36] VITALS: BP 118/86; PULSE 96; RESP 18; TEMP 36.6; O2SAT 95
--- NOTE | 2022-03-04 10:48 | W.ED.DIZZY ---
HPI - Dizziness General: Chief Complaint: Dizziness Stated Complaint: irregular EKG at Dr office Time Seen by Provider: 03/04/22 10:27 Source: patient Mode of arrival: ambulatory History of Present Illness: HPI Narrative: 71-year-old female directed to the emergency room by her primary care nurse practitioner due to atrial fibrillation on EKG. Patient recent hospital against heart failure she is on metoprolol. Her heart rate is well controlled when she arrives here. She does note some dizziness when she first stands. Medications were recently adjusted at the time of her hospitalization in addition to the metoprolol she is on lisinopril. She denies any chest pain or discomfort occasionally notice some palpitations are short-lived. MD elicited complaint: lightheadedness Onset (ago): day(s) Severity: mild Description: lightheadedness Context: change in body position Exacerbating factors: change in body position Relieving factors: remaining still Associated symptoms: Denies abnormal vaginal bleeding, change in hearing, chest pain, chills, cough, diaphoresis, ear discharge, ear pressure, fevers/chills, headache(s), malaise, nausea, nasal congestion, palpitations, rash, short of breath, syncope, tinnitus, vomiting or weakness Associated neuro symptoms: Deny confusion, difficulty speaking, dysphagia, diplopia, extremity weakness, facial numbness, facial weakness, gait changes, numbness in extremities or visual changes Review of Systems Const: Denies: fever(s), chills, malaise or diaphoresis ENMT: Denies: ear discharge, change in hearing, tinnitus or nasal congestion Card: Reports: irregular heart rhythm; Denies: chest pain, palpitations, edema, swelling of feet/ankles or syncope Resp: Denies: dyspnea, productive cough or non-productive cough GI: Denies: abdominal pain, nausea, vomiting or dysphagia : Denies: flank pain, difficulty voiding, dysuria, urinary frequency or urinary urgency Skin/Breast: Denies: rash or pruritus Neuro: Denies: headache(s), numbness in extremities or confusion PFSH ED PFSH: Medical History (Updated 03/04/22 @ 16:13 by Mariusz De Leon DO) Atrial fibrillation Diabetes Hypertension Kidney donor Solitary kidney Social History (Updated 02/21/22 @ 18:26 by Catarino Najera MD) Smoking and tobacco status: current every day smoker Physical Exam Const: COMMON NORMALS: no acute distress GENERAL APPEARANCE: cooperative and comfortable ORIENTATION/CONSCIOUSNESS: Yes awake, Yes oriented to person, Yes oriented to place and Yes oriented to time HENMT: COMMON NORMALS: normocephalic, atraumatic, hearing grossly normal bilaterally, external ears normal, EAC's normal, TM's normal bilaterally, Normal nasal mucous membranes and turbinates present, moist oral mucous membranes and oropharynx normal HEAD & SCALP: normocephalic and atraumatic NOSE: Normal nasal mucous membranes and turbinates present EXTERNAL EAR: Yes external ears normal EXTERNAL AUDITORY CANAL: EAC's normal TYMPANIC MEMBRANE: TM's normal bilaterally Resp: COMMON NORMALS: normal respiratory effort, No retractions, No use of accessory muscles and clear to auscultation bilaterally AUSCULTATION: clear to auscultation bilaterally Cardio: COMMON NORMALS: No murmurs present (Cardio) RATE: tachycardic RHYTHM: abnormal rhythm irregularly irregular GI: COMMON NORMALS: Soft to palpation and No hepatosplenomegaly present AUSCULTATION: Yes normoactive bowel sounds PALPATION: Yes Soft to palpation, No Tenderness to palpation present (GI), No Guarding due to palpation present (GI) and Yes No hepatosplenomegaly present Extremity: COMMON NORMALS: normal to inspection, capillary refill normal, no clubbing, cyanosis or edema, no calf tenderness and no pedal edema Neuro: SENSORIUM/ORIENTATION: Yes oriented to person, Yes oriented to place and Yes oriented to time Skin: COMMON NORMALS: no rashes or lesions noted GENERAL SKIN EXAM: no rashes or lesions noted Course Vital Signs: Vital signs: Vital Signs Temperature 97.9 F 03/04/22 10:36 Pulse Rate 96 03/04/22 10:36 Respiratory Rate 18 03/04/22 10:36 Blood Pressure 118/86 03/04/22 10:36 Pulse Oximetry 95 03/04/22 10:36 Oxygen Delivery Me thod 03/04/22 10:36 MDM - Dizziness Medical Decision Making Patient has atrial fibrillation but rate is well controlled she is on metoprolol. Her [id number] 2 score is 6 which makes her an appropriate candidate for anticoagulation. We will start Eliquis. At this point I do not think she needs to be hospitalized her rate is not uncontrolled and she is otherwise asymptomatic. 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 Medical Records I reviewed the patient's medical records. Lab Data I reviewed the patient's lab results. Discharge Plan Discharge Patient Disposition: Home Clinical Impression: Atrial fibrillation, Diabetes, Congestive heart failure, NSTEMI (non-ST elevated myocardial infarction), Hypertension Condition: Stable Prescriptions: New Eliquis 5 mg tablet 5 mg PO BID Qty: 60 0RF No Action metoprolol succinate 100 mg tablet extended release 24 hr 100 mg PO DAILY glimepiride 1 mg tablet 1 mg PO DAILY Rx Instructions: TAKE WITH FIRST MEAL omeprazole 20 mg capsule,delayed release(DR/EC) 20 mg PO DAILY albuterol sulfate 90 mcg/actuation HFA aerosol inhaler 1 - 2 puff INHALATION Q4H PRN (Reason: Shortness Of Breath Or Wheezing) pioglitazone 30 mg tablet 30 mg PO DAILY fluticasone propionate 50 mcg/actuation spray,suspension 1 spray INTRANASAL DAILY metformin 850 mg tablet 850 mg PO BID lisinopril 5 mg tablet 5 mg PO DAILY Spiriva with HandiHaler 18 mcg capsule, w/inhalation device 18 mcg INHALATION DAILY furosemide 40 mg Tablet 40 mg PO DAILY@0800 Qty: 30 0RF atorvastatin 40 mg Tablet 80 mg PO BEDTIME 30 Days Qty: 60 0RF pantoprazole 40 mg Tablet,Delayed Release (Dr/Ec) 40 mg PO DAILY Qty: 14 0RF Discharge Orders: Discharge ED (Routine); Ordered 03/04/22 Ordered By: Mariusz De Leon Referrals: Lita Rodriguez PA-C [Primary Care Provider] - Discharge Diet: Usual diet Discharge Activity: Increase activity as tolerated Patient Instructions: Opioid Safety, Pain Management Activity Restrictions/Additional Instructions: You were seen today for atrial fibrillation your rate is well controlled and you are on metoprolol which should keep your rate from becoming elevated. Given your past medical history you do meet requirements for anticoagulation is recommended start Eliquis 5 mg twice daily follow-up with a oil lease operator within the week. You have a persistent rapid heart rate you should return to the emergency room and be reevaluated. Coding Level of Care Code ED Actuarial Science Professor for Aleyda Sharif
== END 2022-03-04 11:15 | disposition home or self-care (01) ==
PROVIDERS: Emergency Provider Family Medicine; PCP Physician Assistant
DX: I48.91 Unspecified atrial fibrillation (principal); I50.9 Heart failure, unspecified; I21.4 Non-ST elevation (NSTEMI) myocardial infarction; I10 Essential (primary) hypertension; E11.9 Type 2 diabetes mellitus without complications
CPT/HCPCS: 93005; 99283

== ENCOUNTER → 2022-03-31 15:20 | Outpatient (BNVA) | payer MEDICARE, SELFPAY | PROVIDERS: PCP Physician Assistant; Visit Provider Nurse Practitioner Family | DX: I48.91 Unspecified atrial fibrillation (principal); Z79.01 Long term (current) use of anticoagulants; I11.0 Hypertensive heart disease with heart failure; I50.9 Heart failure, unspecified; F17.200 Nicotine dependence, unspecified, uncomplicated | CPT/HCPCS: 99214 ==

== ENCOUNTER → 2022-05-01 10:36 | Outpatient (BNVA) | payer MEDICARE, SELFPAY | PROVIDERS: PCP Physician Assistant; Visit Provider Internal Medicine Cardiovascular Disease | DX: I48.91 Unspecified atrial fibrillation (principal); E04.1 Nontoxic single thyroid nodule; R91.1 Solitary pulmonary nodule; J90 Pleural effusion, not elsewhere classified; I13.0 Hypertensive heart and chronic kidney disease with heart failure and stage 1 through stage 4 chronic kidney disease, or unspecified chronic kidney disease; E11.22 Type 2 diabetes mellitus with diabetic chronic kidney disease; F17.200 Nicotine dependence, unspecified, uncomplicated; N18.9 Chronic kidney disease, unspecified; I50.9 Heart failure, unspecified; Z79.84 Long term (current) use of oral hypoglycemic drugs; Z79.01 Long term (current) use of anticoagulants; J18.9 Pneumonia, unspecified organism; Z52.4 Kidney donor; R77.8 Other specified abnormalities of plasma proteins | CPT/HCPCS: 99214 ==

== ENCOUNTER 2022-07-26 07:14 | Inpatient (IN) | payer MEDICARE, SELFPAY ==
[2022-07-26] VITALS (55 sets, daily range): BP systolic 123–189; BP diastolic 38–128; PULSE 59–89; RESP 12–28; TEMP 36.4–36.7; O2SAT 87–97; BMI 30.1
--- NOTE | 2022-07-26 07:24 | ECG_ITS ---
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 Measurements Intervals Lynn Rate: 68 P: 57 MN: 148 QRS: 70 QRSD: 80 T: 74 QT: 403 QTc: 430 Interpretive Statements SINUS RHYTHM INTERPRETATION BASED ON A DEFAULT AGE OF 40 YEARS Compared to ECG 03/04/2022 10:32:19 Atrial fibrillation no longer present T-wave abnormality no longer present Electronically Signed On 07-26-2022 19:22:32 CDT by Lexis Desai M.D. [id number] f
--- NOTE | 2022-07-26 07:42 | XRR_ITS ---
PROCEDURE INFORMATION: Exam: XR Chest Exam date and time: 07/26/2022 7:55 AM Age: 71 years old Clinical indication: Shortness of breath; Additional info: SOB TECHNIQUE: Imaging protocol: Radiologic exam of the chest. Views: 1 view. COMPARISON: CR XR chest 1V portable [id number] 02/23/2022 7:47 AM FINDINGS: Lungs: There is indistinctness of the pulmonary vasculature and increased interstitial opacities present bilaterally, findings suggesting pulmonary edema. Superimposed interstitial pneumonitis can't be entirely excluded. Pleural spaces: Unremarkable. No pleural effusion. No pneumothorax. Heart/Mediastinum: Unremarkable. No cardiomegaly. Bones/joints: Unremarkable. XR/XR chest 1V portable [id number] IMPRESSION: Indistinct pulmonary vasculature and increased interstitial opacities predominately in the mid lower hemithoraces suggests pulmonary edema. Superimposed interstitial pneumonitis cannot be entirely excluded.
--- NOTE | 2022-07-26 07:43 | ED_ITS ---
Documented by User: ENEIDA Jernigan 07/26/22 10:01 HPI - SOB/Dyspnea General: Chief Complaint: ER Hold Stated Complaint: sob/high bp Time Seen by Provider: 07/26/22 07:17 Source: patient Mode of arrival: ambulatory Limitations: no limitations History of Present Illness: HPI Narrative: Patient is a 71-year-old female with a history of COPD, congestive heart failure, intermittent atrial fibrillation, chronic smoking, and a single kidney (donated kidney back in 2001) here for complaints of dyspnea over the past few days. She states that shortness of breath seems to be worse with minimal exertion and lying flat. She states she sees Dr. Alcala for cardiology and treatment of her CHF. She reports taking Lasix daily but feels this is no longer helping. 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 She is not complaining of chest pain. She has not had any fevers. She reports a chronic productive cough secondary to her COPD and smoking. MD elicited complaint: shortness of breath Pertinent past history: COPD and congestive heart failure Onset (ago): day(s) Timing: constant Severity: moderate Exacerbating factors: lying flat and exertion Relieving factors: nothing Known history of: COPD and congestive heart failure Associated symptoms: Reports orthopnea; Deny abdominal pain, chest pain, dizziness, extremity pain, fever(s), hemoptysis, lightheadedness, nausea, palpitations, syncope or vomiting Treatment prior to arrival: none Related Data: Home oxygen amount: none Review of Systems Const: Denies: fever(s), chills, body aches, fatigue or malaise Card: Reports: edema, dyspnea on exertion and orthopnea; Denies: chest pain, palpitations, irregular heart rhythm, swelling of feet/ankles, lightheadedness, syncope, pre-syncope, leg pain with exertion or acrocyanosis Resp: Reports: dyspnea and productive cough (chronic/COPD); Denies: wheezing or hemoptysis GI: Denies: abdominal pain, nausea, vomiting or diarrhea : Denies: flank pain or dysuria Musc: Denies: neck pain, back pain, extremity pain or joint pain Skin/Breast: Denies: rash Neuro: Denies: headache(s), numbness in extremities, weakness in extremities, sensory changes or dizziness [facility] ED PFSH: Medical History Anticoagulation adequate with anticoagulant therapy Atrial fibrillation Chronic kidney disease (CKD) Diabetes Elevated troponin Hypertension Kidney donor Solitary kidney Social History Smoking and tobacco status: current every day smoker Physical Exam Const: COMMON NORMALS: no acute distress, patient oriented x3, alert and well nourished GENERAL APPEARANCE: cooperative ORIENTATION/CONSCIOUSNESS: Yes awake, Yes oriented to person, Yes oriented to place and Yes oriented to time HENMT: COMMON NORMALS: normocephalic and atraumatic HEAD & SCALP: normal to inspection, normocephalic and atraumatic Eye: GENERAL EYE: appearance normal, both eyes and all related structures Neck/C-Spine: COMMON NORMALS: full ROM, no lymphadenopathy, supple and no meningeal signs Chest: COMMONS NORMALS: normal inspection of the chest and normal palpation of entire chest wall Resp: COMMON NORMALS: normal respiratory effort and clear to auscultation bilaterally AUSCULTATION: clear to auscultation bilaterally Cardio: COMMON NORMALS: regular rate and regular rhythm RATE: regular rate RHYTHM: regular rhythm GI: COMMON NORMALS: Normal to inspection, nondistended, normoactive bowel sounds present, Soft to palpation, non-tender, No hepatosplenomegaly present and no masses INSPECTION: Yes normal to inspection PALPATION: Yes Soft to palpation and Yes No hepatosplenomegaly present : COMMON NORMALS: Yes no CVA tenderness BLADDER/KIDNEY EXAM: Yes no CVA tenderness Back/Pelvis: COMMON NORMALS: no CVA tenderness and thoracic and lumbar spine normal to inspection Extremity: COMMON NORMALS: full ROM, capillary refill normal, no joint enlargement and no calf tenderness GENERAL: Yes normal exam except as noted and Yes edema (bilateral 1+ pitting edema) Neuro: KAREN COMA SCALE: document GCS findings Karen coma scale eye opening: Spontaneous [place] coma scale verbal response: Orientated [place] coma scale motor response: Obey commands [place] coma scale total score: 15 COMMON NORMALS: patient oriented x3, moves all extremities, no focal motor deficits and no sensory deficits noted SENSORIUM/ORIENTATION: Yes alert, Yes oriented to person, Yes oriented to place and Yes oriented to time MENINGEAL SIGNS: Yes no meningeal signs Skin: COMMON NORMALS: no rashes or lesions noted GENERAL SKIN EXAM: no brynn hes or lesions noted Course Consultations: Consultation #1: Dr. Gomez-accepts admission Vital Signs: Vital signs: Vital Signs Temperature 97.7 F 07/26/22 07:18 Pulse Rate 78 07/26/22 11:00 Respiratory Rate 19 H 07/26/22 11:00 Blood Pressure 149/80 07/26/22 11:00 Pulse Oximetry 92 07/26/22 11:00 Oxygen Delivery Me thod Room Air 07/26/22 10:32 MDM - SOB/Dyspnea Medical Decision Making Patient is a 71-year-old female with a complex past medical history here for complaints of dyspnea. On exam she appears fluid overloaded. She is not requiring oxygen. Her CXR showing pulmonary edema although superimposed interstitial pneumonitis could not be entirely excluded. Her BNP is over 3500 which is up from her baseline. She arrives significantly hypertensive with systolics close to 190s. She was given IV metoprolol short lasting improvement. Pulse could not tolerate any further doses of this. She was subsequently started on a nitro drip. Labs also showing acute renal failure certainly concerning given her one kidney status. Her GFR is down to 20.0. UA showing hematuria. CT renal was ordered to rule out obstructive uropathy. Kidney on CT evaluation is unremarkable. She was noted to have a large pleural effusion that was not commented on on her CXR. Patient will require hospitalization for treatment of her acute renal failure in the setting of needing diuresis for her CHF along with further evaluation and potential treatment of her effusion. I have spoken to Dr. De Leon in regards to patient who agrees with the need for admission. I spoke to hospitalist Dr. Gomez who will accept. Lab Data 07/26/22 07:39 07/26/22 07:39 Labs/Radiology: Radiology Impressions Chest X-Ray 07/26/22 07:42 IMPRESSION: Indistinct pulmonary vasculature and increased interstitial opacities predominately in the mid lower hemithoraces suggests pulmonary edema. Superimposed interstitial pneumonitis cannot be entirely excluded. Abdomen/Pelvis CT 07/26/22 08:55 IMPRESSION: 1. Large left-sided pleural effusion. 2. Cardiomegaly. 3. The right kidney is absent. The left kidney is unremarkable. COMMENTS: Evaluation of solid organs and vascular structures is limited as no IV contrast was administered. Laboratory Results WBC 11.3 10^3/uL (4.0-10.0) H 07/26/22 07:39 RBC 3.81 10^6/uL (4.1-5.3) L 07/26/22 07:39 Hgb 11.5 g/dL (11.5-15.3) 07/26/22 07:39 Hct 36.0 % (37.0-47.0) L 07/26/22 07:39 MCV 94.5 fl (81-99) 07/26/22 07:39 MCH 30.2 pg (28.0-34.0) 07/26/22 07:39 MCHC 31.9 g/dL (30.0-36.0) 07/26/22 07:39 RDW 12.9 % (12.1-15.1) 07/26/22 07:39 Plt Count 283 10^3/cmm (130-400) 07/26/22 07:39 MPV 10.1 fL (7.4-10.4) 07/26/22 07:39 Neut % (Auto) 73.5 % 07/26/22 07:39 Lymph % (Auto) 16.6 % 07/26/22 07:39 [place] % (Auto) 6.9 % 07/26/22 07:39 Eos % (Auto) 1.9 % 07/26/22 07:39 Baso % (Auto) 0.3 % 07/26/22 07:39 Neut # (Auto) 8.31 10^3/uL (1.8-7.7) H 07/26/22 07:39 Lymph # (Auto) 1.9 10^3/uL (0.8-4.8) 07/26/22 07:39 [place] # (Auto) 0.8 10^3/uL (0.2-0.9) 07/26/22 07:39 Eos # (Auto) 0.2 10^3/uL (0.0-0.8) 07/26/22 07:39 Baso # (Auto) 0.0 10^3/uL (0.0-0.1) 07/26/22 07:39 Nucleated RBC % (auto) 0 % 07/26/22 07:39 Nucleated RBCs # 0.0 /100WBC 07/26/22 07:39 Sodium 130 mmol/L (136-145) L 07/26/22 07:39 Potassium 4.9 mmol/L (3.5-5.1) 07/26/22 07:39 Chloride 98 mmol/L (98-107) 07/26/22 07:39 Carbon Dioxide 20 mmol/L (22-29) L 07/26/22 07:39 Anion Gap 16.9 (5-19) 07/26/22 07:39 BUN 44 mg/dL (8-23) H 07/26/22 07:39 Creatinine 2.4 mg/dL (0.5-0.9) H 07/26/22 07:39 GFR Calculation 20.0 mL/min (90-130) L 07/26/22 07:39 Glucose 125 mg/dL (65-115) H 07/26/22 07:39 Calculated Osmolality 283 mOsm/kg (285-295) L 07/26/22 07:39 Calcium 9.0 mg/dL (8.5-10.5) 07/26/22 07:39 Total Bilirubin 0.3 mg/dL (0.15-1.2) 07/26/22 07:39 AST 13 U/L (0-32) 07/26/22 07:39 ALT 10 U/L (0-33) 07/26/22 07:39 Alkaline Phosphatase 70 U/L (35-105) 07/26/22 07:39 Troponin T Baseline 49 ng/L (0-10) H 07/26/22 07:39 Troponin T 120 Minute 44.64 ng/L (0-10) H 07/26/22 09:20 Delta Troponin T -4.36 ABS# (0-10) L 07/26/22 09:20 NT-Pro-B Natriuret Pep 3585 pg/mL (0-125) H 07/26/22 07:39 Total Protein 8.2 g/dL (6.6-8.7) 07/26/22 07:39 Albumin 4.1 g/dL (3.5-5.2) 07/26/22 07:39 Globulin 4.1 g/dL (1.3-4.6) 07/26/22 07:39 Urine Color Straw (Yellow) 07/26/22 08:01 Urine Appearance Sl hazy (CLEAR) A 07/26/22 08:01 Urine pH 5 (5-7) 07/26/22 08:01 Ur Specific [place] 1.010 (1.005-1.030) 07/26/22 08:01 Urine Protein 1+ (Negative) H 07/26/22 08:01 Urine Glucose (UA) Norm (Normal) 07/26/22 08:01 Urine Ketones Negative (Negative) 07/26/22 08:01 Urine Blood 3+ (Negative) H 07/26/22 08:01 Urine Nitrate Negative (Negative) 07/26/22 08:01 Urine Bilirubin Neg (Negative) 07/26/22 08:01 Urine Urobilinogen Norm mg/dL (Negative) 07/26/22 08:01 Ur Leukocyte Esterase Negative (Negative) 07/26/22 08:01 Urine RBC >100 /hpf (0-2) H 07/26/22 08:01 Urine WBC Rare /hpf (0-5) 07/26/22 08:01 Ur Squamous Epith Cells 10-15 /hpf (0-5) H 07/26/22 08:01 Amorphous Sediment Not Reportable 07/26/22 08:01 Urine Bacteria 1+ /hpf (NONE) H 07/26/22 08:01 Urine Yeast 1+ /hpf H 07/26/22 08:01 Discharge Plan Discharge Patient Disposition: Admitted As Inpatient Admit Provider: David Gomez Clinical Impression: Solitary kidney, Hypertension, Congestive heart failure, Pleural effusion, Acu te kidney injury, Hematuria Condition: Stable Coding Level of Care Code ED Intrusion Analyst for Chg Fwd Documented by User: Mariusz De Leon DO 07/26/22 11:14 HPI - SOB/Dyspnea General: Chief Complaint: ER Hold Stated Complaint: sob/high bp Time Seen by Provider: 07/26/22 07:17 PFSH ED PFSH: Medical History Anticoagulation adequate with anticoagulant therapy Atrial fibrillation Chronic kidney disease (CKD) Diabetes Elevated troponin Hypertension Kidney donor Solitary kidney Social History Smoking and tobacco status: current every day smoker Physical Exam Neuro: KAREN COMA SCALE: document GCS findings [place] coma scale total score: 15 Course Vital Signs: Vital signs: Vital Signs Temperature 97.7 F 07/26/22 07:18 Pulse Rate 78 07/26/22 11:00 Respiratory Rate 19 H 07/26/22 11:00 Blood Pressure 149/80 07/26/22 11:00 Pulse Oximetry 92 07/26/22 11:00 Oxygen Delivery Me thod Room Air 07/26/22 10:32 MDM - SOB/Dyspnea Medical Decision Making Patient is a 71-year-old female with a complex past medical history here for complaints of dyspnea. On exam she appears fluid overloaded. She is not requiring oxygen. Her CXR showing pulmonary edema although superimposed interstitial pneumonitis could not be entirely excluded. Her BNP is over 3500 which is up from her baseline. She arrives significantly hypertensive with systolics close to 190s. She was given IV metoprolol short lasting improvement. Pulse could not tolerate any further doses of this. She was subsequently started on a nitro drip. Labs also showing acute renal failure certainly concerning given her one kidney status. Her GFR is down to 20.0. UA showing hematuria. CT renal was ordered to rule out obstructive uropathy. Kidney on CT evaluation is unremarkable. She was noted to have a large pleural effusion that was not commented on on her CXR. Patient will require hospitalization for treatment of her acute renal failure in the setting of needing diuresis for her CHF along with further evaluation and potential treatment of her effusion. I have spoken to Dr. De Leon in regards to patient who agrees with the need for admission. I spoke to hospitalist Dr. Gomez who will accept. Chart reviewed and patient discussed with midlevel. Agree with assessment and plan. Medical Records I reviewed the patient's medical records. Lab Data I reviewed the patient's lab results. 07/26/22 07:39 07/26/22 07:39 Labs/Radiology: Radiology Impressions Chest X-Ray 07/26/22 07:42 IMPRESSION: Indistinct pulmonary vasculature and increased interstitial opacities predominately in the mid lower hemithoraces suggests pulmonary edema. Superimposed interstitial pneumonitis cannot be entirely excluded. Abdomen/Pelvis CT 07/26/22 08:55 IMPRESSION: 1. Large left-sided pleural effusion. 2. Cardiomegaly. 3. The right kidney is absent. The left kidney is unremarkable. COMMENTS: Evaluation of solid organs and vascular structures is limited as no IV contrast was administered. Laboratory Results WBC 11.3 10^3/uL (4.0-10.0) H 07/26/22 07:39 RBC 3.81 10^6/uL (4.1-5.3) L 07/26/22 07:39 Hgb 11.5 g/dL (11.5-15.3) 07/26/22 07:39 Hct 36.0 % (37.0-47.0) L 07/26/22 07:39 MCV 94.5 fl (81-99) 07/26/22 07:39 MCH 30.2 pg (28.0-34.0) 07/26/22 07:39 MCHC 31.9 g/dL (30.0-36.0) 07/26/22 07:39 RDW 12.9 % (12.1-15.1) 07/26/22 07:39 Plt Count 283 10^3/cmm (130-400) 07/26/22 07:39 MPV 10.1 fL (7.4-10.4) 07/26/22 07:39 Neut % (Auto) 73.5 % 07/26/22 07:39 Lymph % (Auto) 16.6 % 07/26/22 07:39 [place] % (Auto) 6.9 % 07/26/22 07:39 Eos % (Auto) 1.9 % 07/26/22 07:39 Baso % (Auto) 0.3 % 07/26/22 07:39 Neut # (Auto) 8.31 10^3/uL (1.8-7.7) H 07/26/22 07:39 Lymph # (Auto) 1.9 10^3/uL (0.8-4.8) 07/26/22 07:39 [place] # (Auto) 0.8 10^3/uL (0.2-0.9) 07/26/22 07:39 Eos # (Auto) 0.2 10^3/uL (0.0-0.8) 07/26/22 07:39 Baso # (Auto) 0.0 10^3/uL (0.0-0.1) 07/26/22 07:39 Nucleated RBC % (auto) 0 % 07/26/22 07:39 Nucleated RBCs # 0.0 /100WBC 07/26/22 07:39 Sodium 130 mmol/L (136-145) L 07/26/22 07:39 Potassium 4.9 mmol/L (3.5-5.1) 07/26/22 07:39 Chloride 98 mmol/L (98-107) 07/26/22 07:39 Carbon Dioxide 20 mmol/L (22-29) L 07/26/22 07:39 Anion Gap 16.9 (5-19) 07/26/22 07:39 BUN 44 mg/dL (8-23) H 07/26/22 07:39 Creatinine 2.4 mg/dL (0.5-0.9) H 07/26/22 07:39 GFR Calculation 20.0 mL/min (90-130) L 07/26/22 07:39 Glucose 125 mg/dL (65-115) H 07/26/22 07:39 Calculated Osmolality 283 mOsm/kg (285-295) L 07/26/22 07:39 Calcium 9.0 mg/dL (8.5-10.5) 07/26/22 07:39 Total Bilirubin 0.3 mg/dL (0.15-1.2) 07/26/22 07:39 AST 13 U/L (0-32) 07/26/22 07:39 ALT 10 U/L (0-33) 07/26/22 07:39 Alkaline Phosphatase 70 U/L (35-105) 07/26/22 07:39 Troponin T Baseline 49 ng/L (0-10) H 07/26/22 07:39 Troponin T 120 Minute 44.64 ng/L (0-10) H 07/26/22 09:20 Delta Troponin T -4.36 ABS# (0-10) L 07/26/22 09:20 NT-Pro-B Natriuret Pep 3585 pg/mL (0-125) H 07/26/22 07:39 Total Protein 8.2 g/dL (6.6-8.7) 07/26/22 07:39 Albumin 4.1 g/dL (3.5-5.2) 07/26/22 07:39 Globulin 4.1 g/dL (1.3-4.6) 07/26/22 07:39 Urine Color Straw (Yellow) 07/26/22 08:01 Urine Appearance Sl hazy (CLEAR) A 07/26/22 08:01 Urine pH 5 (5-7) 07/26/22 08:01 Ur Specific [place] 1.010 (1.005-1.030) 07/26/22 08:01 Urine Protein 1+ (Negative) H 07/26/22 08:01 Urine Glucose (UA) Norm (Normal) 07/26/22 08:01 Urine Ketones Negative (Negative) 07/26/22 08:01 Urine Blood 3+ (Negative) H 07/26/22 08:01 Urine Nitrate Negative (Negative) 07/26/22 08:01 Urine Bilirubin Neg (Negative) 07/26/22 08:01 Urine Urobilinogen Norm mg/dL (Negative) 07/26/22 08:01 Ur Leukocyte Esterase Negative (Negative) 07/26/22 08:01 Urine RBC >100 /hpf (0-2) H 07/26/22 08:01 Urine WBC Rare /hpf (0-5) 07/26/22 08:01 Ur Squamous Epith Cells 10-15 /hpf (0-5) H 07/26/22 08:01 Amorphous Sediment Not Reportable 07/26/22 08:01 Urine Bacteria 1+ /hpf (NONE) H 07/26/22 08:01 Urine Yeast 1+ /hpf H 07/26/22 08:01 Discharge Plan Discharge Patient Disposition: Admitted As Inpatient Admit Provider: David Gomez Clinical Impression: Solitary kidney, Hypertension, Congestive heart failure, Pleural effusion, Acu te kidney injury, Hematuria Condition: Stable Coding Level of Care Code ED Intrusion Analyst for Aleyda Sharif
[2022-07-26] MEDS: metoprolol tartrate 1 mg/1 mL SDV 5 mL 2.5 MG IVP (07:53)
[2022-07-26 08:05] LABS: Basophils % 0.3 %; Eosinophils # 0.2 10^3/uL (0.0-0.8); Eosinophils % 1.9 %; Hemoglobin 11.5 g/dL (11.5-15.3); Lymphocytes # 1.9 10^3/uL (0.8-4.8); Lymphocytes % 16.6 %; Mean Corpuscular HGB Conc 31.9 g/dL (30.0-36.0); Mean Corpuscular Hemoglobin 30.2 pg (28.0-34.0); Mean Corpuscular Volume 94.5 fl (81-99); Mean Platelet Volume 10.1 fL (7.4-10.4); Monocytes # 0.8 10^3/uL (0.2-0.9); Monocytes % 6.9 %; Neutrophils # 8.31 10^3/uL (1.8-7.7); Neutrophils % 73.5 %; Nucleated Red Blood Cells % 0 %; Platelet Count 283 10^3/cmm (130-400); Red Blood Count 3.81 10^6/uL (4.1-5.3); Red Cell Distribution Width 12.9 % (12.1-15.1); White Blood Count 11.3 10^3/uL (4.0-10.0)
[2022-07-26 08:10] LABS: Troponin(5th) Baseline 49 ng/L (0-10)
[2022-07-26 08:18] LABS: Alanine Aminotransferase 10 U/L (0-33); Albumin Level 4.1 g/dL (3.5-5.2); Alkaline Phosphatase 70 U/L (35-105); Anion Gap 16.9 (5-19); Aspartate Amino Transferase 13 U/L (0-32); Blood Urea Nitrogen 44 mg/dL (8-23); Carbon Dioxide 20 mmol/L (22-29); Chloride 98 mmol/L (98-107); Globulin 4.1 g/dL (1.3-4.6); Glucose 125 mg/dL (65-115); NT Pro B Type Natriuretic Pept 3585 pg/mL (0-125); Osmolality Calculated 283 mOsm/kg (285-295); Potassium 4.9 mmol/L (3.5-5.1); Sodium 130 mmol/L (136-145); Total Bilirubin 0.3 mg/dL (0.15-1.2); Total Protein 8.2 g/dL (6.6-8.7)
[2022-07-26 08:27] LABS: Add Urine Culture? No; Add Urine Microscopic? YES; Bacteria Urine 1+ /hpf; Bilirubin Urine Neg (Negative); Blood Urine 3+ (Negative); Glucose Urine UA Norm (Normal); Ketones Urine Negative (Negative); Leukocyte Esterase Urine Negative (Negative); Nitrate Urine Negative (Negative); Protein Urine 1+ (Negative); RBC Urine >100 /hpf (0-2); Urine Appearance SL Hazy (CLEAR); Urine Color Straw (Yellow); Urobilinogen Urine Norm (Negative); WBC Urine RARE /hpf (0-5); pH Urine 5 (5-7)
--- NOTE | 2022-07-26 08:55 | CTR_ITS ---
PROCEDURE INFORMATION: Exam: CT Abdomen And Pelvis Without Contrast Exam date and time: 07/26/2022 9:13 AM Age: 71 years old Clinical indication: Other: Hematuria/renal failure TECHNIQUE: Imaging protocol: Computed tomography of the abdomen and pelvis without contrast. Radiation optimization: All CT scans at this facility use at least one of these dose optimization techniques: automated exposure control; mA and/or kV adjustment per patient size (includes targeted exams where dose is matched to clinical indication); or iterative reconstruction. REPORTING DATA: Count of CT and Cardiac NM exams in prior 12 months: This patient has received [address] and 0 known cardiac nuclear medicine studies in the 12 months prior to the current study. COMPARISON: CT angio chest PE protcl [id number] 02/21/2022 7:45 PM RADIATION DOSE METRICS: Total DLP (mGy-cm): 1339.55 FINDINGS: Pleural spaces: Large right-sided pleural effusion. Heart: The partially visualized heart is enlarged for size. Liver: The liver is normal in size and contour. Gallbladder and bile ducts: The gallbladder is surgically absent. Pancreas: The pancreas appears normal. Spleen: The spleen appears normal. Adrenal glands: Hypoattenuating (-3 Hounsfield units) benign adenoma nodularity versus hypertrophy of the left adrenal gland similar to prior exam. Kidneys and ureters: The right kidney is absent. The left kidney is unremarkable. Stomach and bowel: The stomach is unremarkable. The small bowel loops are not abnormally dilated. The large bowel loops are not abnormally dilated. Appendix: The appendix appears normal. Intraperitoneal space: No ascites or significant fluid collection. Vasculature: The aorta is nonaneurysmal. The IVC appears normal. Lymph nodes: There are no enlarged lymph nodes. Urinary bladder: The bladder is distended and demonstrates no focal contour abnormality. Reproductive: The uterus is surgically absent. Bones/joints: Degenerative changes of the pubic symphysis. Soft tissues: Unremarkable. CT/CT kidney stone [id number] IMPRESSION: 1. Large left-sided pleural effusion. 2. Cardiomegaly. 3. The right kidney is absent. The left kidney is unremarkable. COMMENTS: Evaluation of solid organs and vascular structures is limited as no IV contrast was administered.
[2022-07-26] MEDS: nitroglycerin drip 50 MG/250 ML PREMIX IV (09:23)
--- NOTE | 2022-07-26 09:42 | ECG_ITS ---
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 Measurements Intervals [place] Rate: 58 P: 91 [place]: 162 QRS: 57 QRSD: 86 T: 65 QT: 434 QTc: 428 Interpretive Statements SINUS BRADYCARDIA WITH OCCASIONAL SUPRAVENTRICULAR PREMATURE COMPLEXES Compared to ECG 07/26/2022 07:25:22 Sinus rhythm no longer present Electronically Signed On 07-26-2022 19:30:10 CDT by Lexis Desai M.D. [email or web address]
[2022-07-26 10:26] LABS: Troponin 5 2HR 44.64 ng/L (0-10)
[2022-07-26 10:31] LABS: Troponin 5 2HR Delta -4.36 ABS# (0-10)
--- NOTE | 2022-07-26 13:18 | PM.HP ---
Providers/Chief Complaint Admitting Physician: David Gomez MD Primary Care Provider: Lita Rodriguez Chief Complaint: sob/high bp History of Present Illness Venita Healy is a 71 year old female with a past medical history significant for paroxysmal atrial fibrillation, diastolic heart failure with preserved ejection fraction, hypertension, chronic kidney disease, history of kidney donor, type 2 diabetes mellitus, and COPD who presents to the emergency department with dyspnea on exertion x 2-3 days. Reports laying flat and exertion worsens her symptoms. Reports she takes Lasix, her dose is 20 mg. Reports the Lasix does not seem to be helping. Discussed recommendation for IV diuresis and she refused citing concerns for her renal function. 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 She follows with a kidney doctor in [place]. She denies fevers, chills, nausea or emesis. Review of Systems Narrative: A complete review of systems was obtained and is negative except as stated in HPI. Medications/Allergies Home Medications Medication Instructions Recorded Confirmed Last Taken Type albuterol sulfate 90 mcg/actuation 1 - 2 puff inhalation Q4H PRN 09/25/20 07/26/22 07/26/22 History aerosol inhaler Shortness Of Breath Or Wheezing fluticasone propionate 50 1 spray intranasal DAILY 09/25/20 07/26/22 07/26/22 History mcg/actuation nasal spray,suspension glimepiride 1 mg tablet 1 mg PO DAILY 09/25/20 07/26/22 07/26/22 History metoprolol succinate 100 mg 100 mg PO DAILY 09/25/20 07/26/22 07/26/22 History tablet,extended release 24 hr pioglitazone 30 mg tablet 30 mg PO DAILY 09/25/20 07/26/22 07/26/22 History tiotropium bromide 18 mcg capsule 18 mcg inhalation DAILY 02/22/22 07/26/22 07/26/22 History with inhalation device (Spiriva with HandiHaler) apixaban 5 mg tablet (Eliquis) 5 mg PO BID #60 tabs 03/04/22 07/26/22 07/26/22 Rx atorvastatin 20 mg tablet 40 mg PO DAILY 03/31/22 07/26/22 07/26/22 History bisacodyl 5 mg tablet,delayed 5 mg PO DAILY 07/26/22 07/26/22 07/26/22 History release (Dulcolax (bisacodyl)) furosemide 20 mg tablet 20 mg PO DAILY PRN Edema 07/26/22 07/26/22 Unknown History Allergies Allergy/AdvReac Type Severity Reaction Status Date / Time codeine Allergy ADR-Nausea Verified 07/26/22 08:34 PFSH Acute PFSH: Medical History Anticoagulation adequate with anticoagulant therapy Atrial fibrillation Chronic kidney disease (CKD) Diabetes Elevated troponin Hypertension Kidney donor Solitary kidney Surgical History H/O kidney removal Family History Father Diabetes Mother Diabetes Social History Smoking and tobacco status: current every day smoker Alcohol intake: never Substance/Drug Use: never Vitals/I&O/Wt Last Vital Signs Temp 97.7 F 07/26/22 07:18 Pulse 89 07/26/22 12:35 Resp 15 07/26/22 12:35 BP 165/94 07/26/22 12:35 Pulse Ox 95 07/26/22 12:35 O2 Del Method Room Air 07/26/22 12:35 07/25/22 07/26/22 07/26/22 22:59 06:59 14:59 Intake Total 8.73 / 8.73 Balance 8.73 / 8.73 Weight last 48 hrs Weight 89.811 kg Physical Exam Narrative: General: Patient is awake and alert. Head: Normocephalic. Atraumatic. EOM intact. Neck: Slightly elevated JVD. Cardiovascular: RRR. No gallops. No murmurs. Trace pedal edema. Hypertensive. Lungs: Decreased breath sounds in bilateral bases, faint dependent crackles, no use of accessory muscles, somewhat poor air movement. Skin: No jaundice. No rashes. Abdomen: Normal bowel sounds, abdomen soft and nontender. Genito Urinary: Genital exam not performed since complaints not related. Rectal: Rectal exam not performed since no symptoms indicated blood loss. Extremities: No cyanosis or clubbing. Musculoskeletal: Normal muscle development. Neurological: Moves all 4 extremities. No myoclonus. Data 07/26/22 07:39 07/26/22 07:39 A&P Assessment and plan (1) Acute on chronic diastolic (congestive) heart failure: Continue nitroglycerin drip for afterload reduction Patient refused Lasix out of concern for nephrotoxicity Strict I&Os Daily weights Monitor electrolytes Cardiology consulted, appreciate recommendations Telemetry monitoring (2) Acute kidney injury superimposed on chronic kidney disease: JHONATAN on CKD 2/2 hx of donor kidney Suspected cardiorenal syndrome Refused Lasix as above Low threshold for nephrology consulted Monitor renal function closely Renally dose medications as needed (3) Hypertension: Hypetensive emergency with end organ damage witness by JHONATAN Continue NTG drip Cardiology consult (4) Diabetes: Hold glimepiride Hold pioglitazone, strongly consider discontinuing at discharge given CHF SSI Avoid hypoglycemia (5) Pleural effusion: CT comments on large left effusion, imaging reviewed, appears to be on right side to me Consider radiology consultation for thoracentesis on Thursday Change apixaban to Lovenox for possible procedure on Thursday (6) Atrial fibrillation: Rotate apixaban to Lovenox for possible thoracentesis on Thursday 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 Coding Level of Care Code Acute Code for g Fwd Diagnoses Acute on chronic diastolic (congestive) heart failure I50.33 Acute kidney injury superimposed on chronic kidney disease N17.9; N18.9 Hypertension I10 Diabetes E11.9 Pleural effusion J90 Atrial fibrillation I48.91 H/O kidney removal Z90.5 Tobacco use Z72.0
--- NOTE | 2022-07-26 13:49 | ECG_ITS ---
[facility] Test Date: 2022-07-26 Pat Name: Venita Healy Department: Room: 111 Gender: Female Unix Analyst: : 1950 Requested By: Humera Gil Order Number: [id number] [place] MD: Lexis Desai M.D. Measurements Intervals [place] Rate: 73 P: 0 VA: 0 QRS: 64 QRSD: 73 T: 67 QT: 396 QTc: 437 Interpretive Statements ATRIAL FIBRILLATION ABNORMAL RHYTHM ECG Compared to ECG 07/26/2022 09:47:56 Sinus bradycardia no longer present Electronically Signed On 07-26-2022 19:31:35 CDT by Lexis Desai M.D. [id number]
[2022-07-26 13:52] LABS: Troponin 5 6HR 43.55 ng/L (0-10)
[2022-07-26 13:54] LABS: Troponin 5 6HR Delta -5.45 ng/L (0-12)
--- NOTE | 2022-07-26 15:28 | PM.CONSULT ---
Providers/Reason For Consult Consulting Physician/Specialty*: FER Desai MD/cardiology Reason for Consult*: Patient is a congestive heart failure Requesting Physician: Dr. Gomez Attending Physician: David Gomez MD Primary Care Provider: Lita Rodriguez History of Present Illness History of Present Illness Venita Healy is a 71 year old female admitted to the hospital through the emergency room where she presented with a progressive shortness of breath. She was found to be in congestive heart failure. Cardiology consult is requested for further cardiac evaluation recommendations. This patient is known to have baseline shortness of breath from her COPD. However for the last week or so, she been experiencing more shortness of breath and some feeling of tightness in the chest. She was finding it difficult to lie flat in the bed especially in the night. The last couple of nights, she could not sleep well. This morning her systolic blood pressure was in the 190s. She had some dizziness and chest tightness/heaviness. Because of these symptoms, she decided to come to the hospital. She has no fever, chills or cough. This patient is known to have congestive heart failure with a preserved LV ejection fraction. In February of last year, she presented to the hospital for the first time with features of acute heart failure. Subsequent cardiac catheterization revealed moderate coronary artery disease. It was decided to treat her medically at that time. She was found to have features of left-ventricular diastolic dysfunction. She also is known to have high blood pressure, type 2 diabetes, dyslipidemia, intermittent atrial fibrillation and COPD. Patient is known to have chronic kidney disease and is being [place]. She has only 1 kidney. 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 Review of Systems Narrative: CONSTITUTIONAL: No fever or chills. EYES: No blurring of vision or other visual disturbances lately. ENT: No hoarseness of voice, auditory disturbances or sore throat. CARDIOVASCULAR: As mentioned above. RESPIRATORY: No significant cough. GASTROINTESTINAL: No hematemesis or melena. GENITOURINARY: No dysuria or hematuria. INTEGUMENTARY: No skin rashes or history of skin cancer. NEURO: No transient ischemic attacks or amaurosis. PSYCHIATRIC: No history of psychosis or major depression. HEMATOLOGIC: No bleeding disorders or significant anemia. ENDOCRINE: No history of polyuria or polydipsia. MUSCULOSKELETAL: No recent joint pain or swelling. ALLERGY/IMMUNOLOGY: As mentioned above. Medications/Allergies Home Medications Medication Instructions Recorded Confirmed Last Taken Type albuterol sulfate 90 mcg/actuation 1 - 2 puff inhalation Q4H PRN 09/25/20 07/26/22 07/26/22 History aerosol inhaler Shortness Of Breath Or Wheezing fluticasone propionate 50 1 spray intranasal DAILY 09/25/20 07/26/22 07/26/22 History mcg/actuation nasal spray,suspension glimepiride 1 mg tablet 1 mg PO DAILY 09/25/20 07/26/22 07/26/22 History metoprolol succinate 100 mg 100 mg PO DAILY 09/25/20 07/26/22 07/26/22 History tablet,extended release 24 hr pioglitazone 30 mg tablet 30 mg PO DAILY 09/25/20 07/26/22 07/26/22 History tiotropium bromide 18 mcg capsule 18 mcg inhalation DAILY 02/22/22 07/26/22 07/26/22 History with inhalation device (Spiriva with HandiHaler) apixaban 5 mg tablet (Eliquis) 5 mg PO BID #60 tabs 03/04/22 07/26/22 07/26/22 Rx atorvastatin 20 mg tablet 40 mg PO DAILY 03/31/22 07/26/22 07/26/22 History bisacodyl 5 mg tablet,delayed 5 mg PO DAILY 07/26/22 07/26/22 07/26/22 History release (Dulcolax (bisacodyl)) furosemide 20 mg tablet 20 mg PO DAILY PRN Edema 07/26/22 07/26/22 Unknown History Allergies Allergy/AdvReac Type Severity Reaction Status Date / Time codeine Allergy ADR-Nausea Verified 07/26/22 08:34 Current Medications Generic Name Dose Route Start Last Admin Trade Name Freq PRN Reason Stop Dose Admin Nitroglycerin/Dextrose 50 mg in 250 mls @ 0 mls/hr 07/26/22 09:00 07/26/22 13:35 Nitroglycerin Drip IV 20 mcg/min .Q0M MARY 6 mls/hr Titration Protocol Per Protocol PFSH Acute PFSH: Medical History Anticoagulation adequate with anticoagulant therapy Atrial fibrillation Chronic kidney disease (CKD) Diabetes Elevated troponin Hypertension Kidney donor Solitary kidney Social History Smoking and tobacco status: current every day smoker Vitals/I&O/Wt Last Vital Signs Temp 97.7 F 07/26/22 07:18 Pulse 79 07/26/22 14:55 Resp 18 07/26/22 14:02 BP 141/79 07/26/22 14:55 Pulse Ox 94 07/26/22 14:55 O2 Del Method Room Air 07/26/22 14:55 07/26/22 07/26/22 07/26/22 06:59 14:59 22:59 Intake Total 14.19 / 14.19 Balance 14.19 / 14.19 Weight last 48 hrs Weight 198 lb Physical Exam Narrative: GENERAL: The patient is alert and oriented times three. Not in any acute distress. HEENT: No significant pallor, icterus or lymphadenopathy.Oral cavity: There are no mucous membrane lesions. NECK: Trachea appears to be central. No masses noted. No JVD or thyromegaly appreciated. RESPIRATORY: Chest is symmetrical. No intercostals muscle retraction or any accessory muscle activation. There is no chest wall tenderness. Breath sounds are heard bilaterally. No rales or rhonchi heard. No evidence of any consolidation. BREASTS: Deferred. HEART: The heart sounds are normal. No S3 or S4. Short systolic murmur in the left sternal border. No diastolic murmurs. No pericardial rub ABDOMEN: No vessel pulsations or distention. No tenderness. No organomegaly appreciated. Bowel sounds are normally heard. : Deferred. RECTAL: Deferred. LYMPHATIC: No lymphadenopathy noted in the neck. EXTREMITIES: No edema or cyanosis. No clubbing. MUSCULOSKELETAL: No acute joint deformities or swelling SKIN: There are no significant rashes or ecchymosis NEUROPSYCHIATRIC: The patient is alert and oriented x3. Appears to be in a good mood. No tremors or rigidity noted. Data 07/26/22 07:39 07/26/22 07:39 Other Labs: Laboratory Last Values WBC 11.3 10^3/uL (4.0-10.0) H 07/26/22 07:39 RBC 3.81 10^6/uL (4.1-5.3) L 07/26/22 07:39 Hgb 11.5 g/dL (11.5-15.3) 07/26/22 07:39 Hct 36.0 % (37.0-47.0) L 07/26/22 07:39 MCV 94.5 fl (81-99) 07/26/22 07:39 MCH 30.2 pg (28.0-34.0) 07/26/22 07:39 MCHC 31.9 g/dL (30.0-36.0) 07/26/22 07:39 RDW 12.9 % (12.1-15.1) 07/26/22 07:39 Plt Count 283 10^3/cmm (130-400) 07/26/22 07:39 MPV 10.1 fL (7.4-10.4) 07/26/22 07:39 Neut % (Auto) 73.5 % 07/26/22 07:39 Lymph % (Auto) 16.6 % 07/26/22 07:39 Worth % (Auto) 6.9 % 07/26/22 07:39 Eos % (Auto) 1.9 % 07/26/22 07:39 Baso % (Auto) 0.3 % 07/26/22 07:39 Neut # (Auto) 8.31 10^3/uL (1.8-7.7) H 07/26/22 07:39 Lymph # (Auto) 1.9 10^3/uL (0.8-4.8) 07/26/22 07:39 Worth # (Auto) 0.8 10^3/uL (0.2-0.9) 07/26/22 07:39 Eos # (Auto) 0.2 10^3/uL (0.0-0.8) 07/26/22 07:39 Baso # (Auto) 0.0 10^3/uL (0.0-0.1) 07/26/22 07:39 Nucleated RBC % (auto) 0 % 07/26/22 07:39 Nucleated RBCs # 0.0 /100WBC 07/26/22 07:39 Sodium 130 mmol/L (136-145) L 07/26/22 07:39 Potassium 4.9 mmol/L (3.5-5.1) 07/26/22 07:39 Chloride 98 mmol/L (98-107) 07/26/22 07:39 Carbon Dioxide 20 mmol/L (22-29) L 07/26/22 07:39 Anion Gap 16.9 (5-19) 07/26/22 07:39 BUN 44 mg/dL (8-23) H 07/26/22 07:39 Creatinine 2.4 mg/dL (0.5-0.9) H 07/26/22 07:39 GFR Calculation 20.0 mL/min (90-130) L 07/26/22 07:39 Glucose 125 mg/dL (65-115) H 07/26/22 07:39 Calculated Osmolality 283 mOsm/kg (285-295) L 07/26/22 07:39 Calcium 9.0 mg/dL (8.5-10.5) 07/26/22 07:39 Total Bilirubin 0.3 mg/dL (0.15-1.2) 07/26/22 07:39 AST 13 U/L (0-32) 07/26/22 07:39 ALT 10 U/L (0-33) 07/26/22 07:39 Alkaline Phosphatase 70 U/L (35-105) 07/26/22 07:39 Troponin T Baseline 49 ng/L (0-10) H 07/26/22 07:39 Troponin T 120 Minute 44.64 ng/L (0-10) H 07/26/22 09:20 Delta Troponin T -4.36 ABS# (0-10) L 07/26/22 09:20 Troponin T Hi Sens 6Hr 43.55 ng/L (0-10) H 07/26/22 13:15 Troponin T Hi Sens 6Hr Delta -5.45 ng/L (0-12) L 07/26/22 13:15 NT-Pro-B Natriuret Pep 3585 pg/mL (0-125) H 07/26/22 07:39 Total Protein 8.2 g/dL (6.6-8.7) 07/26/22 07:39 Albumin 4.1 g/dL (3.5-5.2) 07/26/22 07:39 Globulin 4.1 g/dL (1.3-4.6) 07/26/22 07:39 Urine Color Straw (Yellow) 07/26/22 08:01 Urine Appearance Sl hazy (CLEAR) A 07/26/22 08:01 Urine pH 5 (5-7) 07/26/22 08:01 Ur Specific [place] 1.010 (1.005-1.030) 07/26/22 08:01 Urine Protein 1+ (Negative) H 07/26/22 08:01 Urine Glucose (UA) Norm (Normal) 07/26/22 08:01 Urine Ketones Negative (Negative) 07/26/22 08:01 Urine Blood 3+ (Negative) H 07/26/22 08:01 Urine Nitrate Negative (Negative) 07/26/22 08:01 Urine Bilirubin Neg (Negative) 07/26/22 08:01 Urine Urobilinogen Norm mg/dL (Negative) 07/26/22 08:01 Ur Leukocyte Esterase Negative (Negative) 07/26/22 08:01 Urine RBC >100 /hpf (0-2) H 07/26/22 08:01 Urine WBC Rare /hpf (0-5) 07/26/22 08:01 Ur Squamous Epith Cells 10-15 /hpf (0-5) H 07/26/22 08:01 Amorphous Sediment Not Reportable 07/26/22 08:01 Urine Bacteria 1+ /hpf (NONE) H 07/26/22 08:01 Urine Yeast 1+ /hpf H 07/26/22 08:01 Cardiac catheterization physician: My impression: On 02/21/2022 ? Angiography reveals a right dominant system. The left main is essentially normal.? There is minimal narrowing of the ostial left main.? The circumflex gives off 2 marginal branches.? The first of these has a 60 to 70% ostial stenosis. There is also a ramus intermedius artery which contains a 60 to 70% ostial stenosis. The LAD is a relatively small vessel and contains diffuse luminal irregularities but otherwise no significant lesions. The right coronary artery is the dominant vessel and ends distally as the posterior left ventricular branch and the posterior descending artery. There are minor diffuse luminal irregularities but otherwise the artery is normal.. A&P Assessment and plan (1) Acute on chronic diastolic (congestive) heart failure: Diastolic dysfunction, uncontrolled blood pressure, diabetes, cardiac arrhythmia, etc. are contributing factors. Patient may be carefully treated with IV diuretics. (2) Acute kidney injury superimposed on chronic kidney disease: The kidney function needs to be closely monitored. (3) Elevated troponin: Most likely due to type II [place]/chronic kidney disease (4) Atrial fibrillation: Currently the patient is in sinus rhythm. Intermittent atrial fibrillation causing heart failure is a consideration. (5) COPD exacerbation: Management as per the prior (6) Thyroid nodule: (7) Lung nodule: (8) Diabetes: Aggressive blood sugar control might be appropriate. (9) Atherosclerosis of coronary artery of [place] heart without angina pectoris: I reviewed the angiogram from February of last year. Patient was found only mild disease. No significant distal lesions were noted. The ostium of this obtuse marginal artery and the ramus intermedius were found to have around 30% narrowing. Plan I will be reviewing the cardiac catheterization data from February of last year. Based on the clinical progress, further recommendations will be made. Thank you for the opportunity to evaluate this patient and make these recommendations Consult Attestations Medical Necessity Statement: Patient requires continued hospital stay for close monitoring and further management Coding Level of Care Code 51871 Diagnoses Acute on chronic diastolic (congestive) heart failure I50.33 Acute kidney injury superimposed on chronic kidney disease N17.9; N18.9 Elevated troponin R77.8 Atrial fibrillation I48.91 COPD exacerbation J44.1 Thyroid nodule E04.1 Lung nodule R91.1 Diabetes E11.9 Atherosclerosis of coronary artery of [place] heart without angina pectoris I25.10
[2022-07-26 17:25] LABS: Glucose Point of Care 153 mg/dL (70-110)
[2022-07-26] MEDS: enoxaparin 100 mg/mL Syringe 90 MG SUBCUT (18:16)
[2022-07-26] MEDS: insulin lispro 100 unit/1 mL SUBCUT (18:17)
[2022-07-26 20:54] LABS: Glucose Point of Care 100 mg/dL (70-110)
[2022-07-27] VITALS (11 sets, daily range): BP systolic 100–160; BP diastolic 55–84; PULSE 61–69; RESP 16–23; TEMP 36–37.2; O2SAT 95–99
[2022-07-27 05:24] LABS: Basophils % 0.4 %; Eosinophils # 0.2 10^3/uL (0.0-0.8); Hematocrit 31.1 % (37.0-47.0); Hemoglobin 9.8 g/dL (11.5-15.3); Lymphocytes # 2.2 10^3/uL (0.8-4.8); Lymphocytes % 20.6 %; Mean Corpuscular HGB Conc 31.5 g/dL (30.0-36.0); Mean Corpuscular Hemoglobin 29.7 pg (28.0-34.0); Mean Corpuscular Volume 94.2 fl (81-99); Mean Platelet Volume 10.3 fL (7.4-10.4); Monocytes # 0.9 10^3/uL (0.2-0.9); Monocytes % 8.8 %; Neutrophils # 7.25 10^3/uL (1.8-7.7); Neutrophils % 67.5 %; Nucleated Red Blood Cells % 0 %; Platelet Count 258 10^3/cmm (130-400); Red Cell Distribution Width 12.8 % (12.1-15.1); White Blood Count 10.7 10^3/uL (4.0-10.0)
[2022-07-27 05:46] LABS: Anion Gap 17.8 (5-19); Blood Urea Nitrogen 44 mg/dL (8-23); Calcium 9.1 mg/dL (8.5-10.5); Carbon Dioxide 20 mmol/L (22-29); Chloride 98 mmol/L (98-107); Glucose 116 mg/dL (65-115); Magnesium 1.8 mg/dL (1.7-2.3); Osmolality Calculated 284 mOsm/kg (285-295); Phosphorus 5.1 mg/dL (2.5-4.5); Potassium 4.8 mmol/L (3.5-5.1); Sodium 131 mmol/L (136-145)
[2022-07-27 07:00] LABS: Glucose Point of Care 115 mg/dL (70-110)
[2022-07-27] MEDS: atorvastatin 40 mg Tablet PO (09:25)
[2022-07-27] MEDS: nicotine 14 mg Patch 1 PATCH TRANSDERMA (09:25)
[2022-07-27] MEDS: metoprolol succinate ER (24 HR) 100 mg Tablet PO (09:25)
[2022-07-27] MEDS: bisacodyl 5 mg Tablet PO (09:25)
[2022-07-27] MEDS: fluticasone nasal spray 16gm Btl 1 SPRAY INTRANASAL (09:25)
--- NOTE | 2022-07-27 10:23 | P.PN_ITS ---
Subjective Subjective: Patient is feeling much better. Her blood pressure seems to be getting under control. She has no chest pain or shortness of breath. I reviewed the cardiac catheterization data. She was found no significant coronary artery disease. She has mild ostial disease in the obtuse marginal artery and in the intermedius artery. She denies any fever, chills or cough. Medications: Medication Review Details: Current Medications Acetaminophen (Acetaminophen 325 Mg Tablet) 650 mg PO Q6H PRN PRN Reason: Mild/Mod Pain Or Temp >/= 101 Albuterol/Ipratropium (Ipratropium-Albuterol 3 Ml Neb) 3 ml INHALATION Q4H PRN PRN Reason: SHORTNESS OF BREATH Atorvastatin Calcium (Atorvastatin 40 Mg Tablet) 40 mg PO DAILY [facility] Last Admin: 07/27/22 09:25 Dose: 40 mg Bisacodyl (Bisacodyl 5 Mg Tablet) 5 mg PO DAILY [facility] Last Admin: 07/27/22 09:25 Dose: 5 mg Dextrose (Dextrose 50% Syringe 50 Ml) 50 ml IVP PRN PRN; Protocol PRN Reason: hypoglycemia protocol Dextrose (Dextrose 50% Syringe 50 Ml) 25 ml IVP ONCE PRN; Protocol PRN Reason: hypoglycemia protocol Enoxaparin Sodium (Enoxaparin 100 Mg/Ml Syringe) 90 mg 1 mg/kg (90 mg) SUBCUT Q12H [facility] Last Admin: 07/26/22 18:16 Dose: 90 mg Fluticasone Propionate (Fluticasone Nasal [place] 16gm Btl) 1 spray INTRANASAL DAILY [facility] Last Admin: 07/27/22 09:25 Dose: 1 spray Glucagon (Glucagon 1 Mg/Ml Inj 1 Ml) 1 mg IM ONCE PRN; Protocol PRN Reason: Adult Acute Hypoglycemia Prot. Nitroglycerin/Dextrose (Nitroglycerin Drip) 50 mg in 250 mls @ 0 mls/hr IV .Q0M [facility]; Protocol Last Titration: 07/27/22 04:58 Dose: 5 mcg/min, 1.5 mls/hr Dextrose (D5w) 500 mls @ 100 mls/hr IV ONCE PRN; Protocol PRN Reason: Adult Acute Hypoglycemia Prot Insulin Human Lispro (Insulin Lispro 100 Unit/1 Ml) 0 unit SUBCUT WM&BEDTIME [facility]; Protocol Last Admin: 07/27/22 07:36 Dose: Not Given Metoprolol Succinate (Metoprolol Succinate Er (24 Hr) 100 Mg Tablet) 100 mg PO DAILY [facility] Last Admin: 07/27/22 09:25 Dose: 100 mg Nicotine (Nicotine 14 Mg Patch) 1 patch TRANSDERMA DAILY [facility] Last Admin: 07/27/22 09:25 Dose: 1 patch Ondansetron HCl (Ondansetron 2 Mg/Ml Sdv 2 Ml) 4 mg IVP Q6H PRN PRN Reason: NAUSEA AND VOMITING Ondansetron HCl (Ondansetron 4 Mg Tablet) 4 mg PO Q8H PRN PRN Reason: NAUSEA Vitals/I&O/Wt Last Vital Signs Temp 98.9 F 07/27/22 04:00 Pulse 66 07/27/22 08:00 Resp 18 07/27/22 07:45 BP 122/74 07/27/22 07:45 Pulse Ox 97 07/27/22 07:45 O2 Del Method Room Air 07/27/22 07:45 07/26/22 07/27/22 07/27/22 22:59 06:59 14:59 Intake Total 307.825 / 322.015 265.725 / 587.740 318 / 318 Balance 307.825 / 322.015 265.725 / 587.740 318 / 318 Weight last 48 hrs Weight 200 lb 6.4 oz Weight 198 lb Physical Exam Narrative: GENERAL: The patient is alert and oriented times three. Not in any acute distress. HEENT: No significant pallor, icterus or lymphadenopathy.Oral cavity: There are no mucous membrane lesions. NECK: Trachea appears to be central. No masses noted. No JVD or thyromegaly appreciated. RESPIRATORY: Chest is symmetrical. No intercostals muscle retraction or any accessory muscle activation. There is no chest wall tenderness. Breath sounds are heard bilaterally. No rales or rhonchi heard. No evidence of any consolidation. BREASTS: Deferred. HEART: The heart sounds are normal. No S3 or S4. Short systolic murmur in the left sternal border. No diastolic murmurs. No pericardial rub ABDOMEN: No vessel pulsations or distention. No tenderness. No organomegaly appreciated. Bowel sounds are normally heard. : Deferred. RECTAL: Deferred. LYMPHATIC: No lymphadenopathy noted in the neck. EXTREMITIES: No edema or cyanosis. No clubbing. MUSCULOSKELETAL: No acute joint deformities or swelling SKIN: There are no significant rashes or ecchymosis NEUROPSYCHIATRIC: The patient is alert and oriented x3. Appears to be in a good mood. No tremors or rigidity noted. Data 07/27/22 04:03 07/27/22 04:03 Other Labs: Laboratory Last Values WBC 10.7 10^3/uL (4.0-10.0) H 07/27/22 04:03 RBC 3.30 10^6/uL (4.1-5.3) L 07/27/22 04:03 Hgb 9.8 g/dL (11.5-15.3) L 07/27/22 04:03 Hct 31.1 % (37.0-47.0) L 07/27/22 04:03 MCV 94.2 fl (81-99) 07/27/22 04:03 MCH 29.7 pg (28.0-34.0) 07/27/22 04:03 MCHC 31.5 g/dL (30.0-36.0) 07/27/22 04:03 RDW 12.8 % (12.1-15.1) 07/27/22 04:03 Plt Count 258 10^3/cmm (130-400) 07/27/22 04:03 MPV 10.3 fL (7.4-10.4) 07/27/22 04:03 Neut % (Auto) 67.5 % 07/27/22 04:03 Lymph % (Auto) 20.6 % 07/27/22 04:03 [place] % (Auto) 8.8 % 07/27/22 04:03 Eos % (Auto) 2.0 % 07/27/22 04:03 Baso % (Auto) 0.4 % 07/27/22 04:03 Neut # (Auto) 7.25 10^3/uL (1.8-7.7) 07/27/22 04:03 Lymph # (Auto) 2.2 10^3/uL (0.8-4.8) 07/27/22 04:03 [place] # (Auto) 0.9 10^3/uL (0.2-0.9) 07/27/22 04:03 Eos # (Auto) 0.2 10^3/uL (0.0-0.8) 07/27/22 04:03 Baso # (Auto) 0.0 10^3/uL (0.0-0.1) 07/27/22 04:03 Nucleated RBC % (auto) 0 % 07/27/22 04:03 Nucleated RBCs # 0.0 /100WBC 07/27/22 04:03 Sodium 131 mmol/L (136-145) L 07/27/22 04:03 Potassium 4.8 mmol/L (3.5-5.1) 07/27/22 04:03 Chloride 98 mmol/L (98-107) 07/27/22 04:03 Carbon Dioxide 20 mmol/L (22-29) L 07/27/22 04:03 Anion Gap 17.8 (5-19) 07/27/22 04:03 BUN 44 mg/dL (8-23) H 07/27/22 04:03 Creatinine 2.4 mg/dL (0.5-0.9) H 07/27/22 04:03 GFR Calculation 20.0 mL/min (90-130) L 07/27/22 04:03 Glucose 116 mg/dL (65-115) H 07/27/22 04:03 POC Glucose 115 mg/dL (70-110) H 07/27/22 06:57 Calculated Osmolality 284 mOsm/kg (285-295) L 07/27/22 04:03 Calcium 9.1 mg/dL (8.5-10.5) 07/27/22 04:03 Phosphorus 5.1 mg/dL (2.5-4.5) H 07/27/22 04:03 Magnesium 1.8 mg/dL (1.7-2.3) 07/27/22 04:03 Total Bilirubin 0.3 mg/dL (0.15-1.2) 07/26/22 07:39 AST 13 U/L (0-32) 07/26/22 07:39 ALT 10 U/L (0-33) 07/26/22 07:39 Alkaline Phosphatase 70 U/L (35-105) 07/26/22 07:39 Troponin T Baseline 49 ng/L (0-10) H 07/26/22 07:39 Troponin T 120 Minute 44.64 ng/L (0-10) H 07/26/22 09:20 Delta Troponin T -4.36 ABS# (0-10) L 07/26/22 09:20 Troponin T Hi Sens 6Hr 43.55 ng/L (0-10) H 07/26/22 13:15 Troponin T Hi Sens 6Hr Delta -5.45 ng/L (0-12) L 07/26/22 13:15 NT-Pro-B Natriuret Pep 3585 pg/mL (0-125) H 07/26/22 07:39 Total Protein 8.2 g/dL (6.6-8.7) 07/26/22 07:39 Albumin 4.1 g/dL (3.5-5.2) 07/26/22 07:39 Globulin 4.1 g/dL (1.3-4.6) 07/26/22 07:39 Urine Color Straw (Yellow) 07/26/22 08:01 Urine Appearance Sl hazy (CLEAR) A 07/26/22 08:01 Urine pH 5 (5-7) 07/26/22 08:01 Ur Specific [place] 1.010 (1.005-1.030) 07/26/22 08:01 Urine Protein 1+ (Negative) H 07/26/22 08:01 Urine Glucose (UA) Norm (Normal) 07/26/22 08:01 Urine Ketones Negative (Negative) 07/26/22 08:01 Urine Blood 3+ (Negative) H 07/26/22 08:01 Urine Nitrate Negative (Negative) 07/26/22 08:01 Urine Bilirubin Neg (Negative) 07/26/22 08:01 Urine Urobilinogen Norm mg/dL (Negative) 07/26/22 08:01 Ur Leukocyte Esterase Negative (Negative) 07/26/22 08:01 Urine RBC >100 /hpf (0-2) H 07/26/22 08:01 Urine WBC Rare /hpf (0-5) 07/26/22 08:01 Ur Squamous Epith Cells 10-15 /hpf (0-5) H 07/26/22 08:01 Amorphous Sediment Not Reportable 07/26/22 08:01 Urine Bacteria 1+ /hpf (NONE) H 07/26/22 08:01 Urine Yeast 1+ /hpf H 07/26/22 08:01 Micro: Microbiology 07/26/22 08:01 Urine Culture - Final Urine,Clean Catch A&P Assessment and plan (1) Acute on chronic diastolic (congestive) heart failure: Diastolic dysfunction, uncontrolled blood pressure, diabetes, cardiac arrhythmia, etc. are contributing factors. Patient may be carefully treated with IV diuretics. This patient apparently was on lisinopril prior to hospital. 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 At this point, I would start her on amlodipine 5 mg p.o. daily. The IV nitroglycerin may be discontinued. Also may start her on isosorbide mononitrate 30 mg p.o. daily. She need to be closely monitored on telemetry with these medication changes. (2) Acute kidney injury superimposed on chronic kidney disease: The kidney function seems to be stable. May continue the monitoring. (3) Elevated troponin: Most likely due to type II TN/chronic kidney disease. May continue on the current measures. (4) Atrial fibrillation: Currently the patient is in sinus rhythm. Intermittent atrial fibrillation causing heart failure is a consideration. Patient may be restarted on the Eliquis (5) COPD exacerbation: Clinically seems to be stable. May continue on the current measures. (6) Thyroid nodule: 90 given as per the primary (7) Lung nodule: Management as per primary (8) Diabetes: Aggressive blood sugar control might be appropriate. (9) Atherosclerosis of coronary artery of [place] heart without angina pectoris: I reviewed the angiogram from February of last year. Patient was found only mild disease. No significant distal lesions were noted. The ostium of this obtuse marginal artery and the ramus intermedius were found to have around 30% narrowing. Plan Repeat BMP in the morning. The blood pressure needs to be closely monitored. Attestations Medical Necessity Statement*: Deferred to the primary Coding Level of Care Code 36069 Diagnoses Acute on chronic diastolic (congestive) heart failure I50.33 Acute kidney injury superimposed on chronic kidney disease N17.9; N18.9 Elevated troponin R77.8 Atrial fibrillation I48.91 COPD exacerbation J44.1 Thyroid nodule E04.1 Lung nodule R91.1 Diabetes E11.9 Atherosclerosis of coronary artery of [place] heart without angina pectoris I25.10
[2022-07-27 12:15] LABS: Glucose Point of Care 86 mg/dL (70-110)
[2022-07-27] MEDS: isosorbide mononitrate ER 30 mg Tablet PO (16:58)
[2022-07-27 17:05] LABS: Glucose Point of Care 140 mg/dL (70-110)
[2022-07-27 20:00] LABS: Glucose Point of Care 116 mg/dL (70-110)
[2022-07-27] MEDS: amlodipine 5 mg Tablet PO (20:42)
--- NOTE | 2022-07-27 20:59 | PM.PN ---
Subjective Subjective: Patient reports significant improvement in her shortness of breath. Reports urine output has improved. Denies chest pain, fevers or chills. Blood pressure improving on NTG drip. Discussed Cr still at 2.4. She states she had a 48 hour urine and renal biopsy already scheduled this week with her farm implement engine mechanic in [place] for worsening CKD evaluation. They do not know she is currently admitted here with JHONATAN and CHF. She states she is going to call their clinic in the morning and let them know what is going on. Discussed pleural effusion. Patient denies prior hx of pleural effusion or prior thoracentesis. Discussed possible thoracentesis pending on size and radiographic window, and she is interested. bedside later and supportive of patient. Updated on plan of care. Medications: Reviewed: Yes Vitals/I&O/Wt Last Vital Signs Temp 96.8 F L 07/27/22 19:37 Pulse 61 07/27/22 19:37 Resp 17 07/27/22 19:37 BP 160/79 07/27/22 19:37 Pulse Ox 98 07/27/22 19:37 O2 Del Method Room Air 07/27/22 16:00 07/27/22 07/27/22 07/27/22 06:59 14:59 22:59 Intake Total 265.725 / 587.740 558 / 558 516.925 / 1074.925 Balance 265.725 / 587.740 558 / 558 516.925 / 1074.925 Weight last 48 hrs Weight 90.9 kg Weight 89.811 kg Physical Exam Narrative: General: Patient is awake and alert. Pleasant. Head: Normocephalic. Atraumatic. EOM intact. Neck: Slightly elevated JVD. Cardiovascular: RRR. No gallops. No murmurs. Trace pedal edema. Improved BP. Lungs: Decreased breath sounds in rt base, faint dependent crackles, no use of accessory muscles, somewhat poor air movement. Skin: No jaundice. No rashes. Abdomen: Normal bowel sounds, abdomen soft and nontender. Extremities: No cyanosis or clubbing. Musculoskeletal: Normal muscle development. Neurological: Moves all 4 extremities. No myoclonus. 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, now ) Patient declines Lasix due to fear of nephrotoxicity Cr remains at 2.4 Pt reporting improved urinary output Encourage pt to connect w/ her farm implement engine mechanic in [place] tomorrow AM Consider telenephro consult pending renal function in AM (2) Acute on chronic diastolic (congestive) heart failure: Weaning off NTG Improving with afterload reduction, would probably still benefit from further diuresis but pt declines Lasix Strict I&Os Daily weights Monitor electrolytes Cardiology consulted, appreciate recommendations Telemetry monitoring (3) Hypertension: Hypetensive emergency with end organ damage witness by JHONATAN Wean NTG drip Starting oral antihypertensives (4) Diabetes: Hold glimepiride Hold pioglitazone, strongly consider discontinuing at discharge given CHF SSI Avoid hypoglycemia (5) Pleural effusion: CT comments on large left effusion, imaging reviewed, appears to be on right side to me Holding anticoagulation (6) Atrial fibrillation: Holding apixaban for thoracentesis evaluation Continue metoprolol Cilnical Scientist electrolytes (7) H/O kidney removal: As above (8) Tobacco use: Would benefit from cessation doesn't smoke Continue NRT Plan DVT ppx: Hold for possible thoracentesis tomorrow Code status: Full Code Attestations Medical Necessity Statement*: Highly complex patient with high risk for morbidity given persistent renal injury and heart failure requiring ongoing hospitalization for NTG drip, telemetry, thoracentesis, cardiology expertise, and supportive care. Coding Level of Care Code Acute Code for [facility] Fwd Diagnoses Acute kidney injury superimposed on chronic kidney disease N17.9; N18.9 Acute on chronic diastolic (congestive) heart failure I50.33 Hypertension I10 Diabetes E11.9 Pleural effusion J90 Atrial fibrillation I48.91 H/O kidney removal Z90.5 Tobacco use Z72.0
[2022-07-28] VITALS (13 sets, daily range): BP systolic 100–153; BP diastolic 62–88; PULSE 60–85; RESP 16–18; TEMP 36.4–36.7; O2SAT 94–99
[2022-07-28 04:15] LABS: Basophils % 0.3 %; Eosinophils # 0.2 10^3/uL (0.0-0.8); Eosinophils % 2.2 %; Hematocrit 29.4 % (37.0-47.0); Hemoglobin 9.5 g/dL (11.5-15.3); Lymphocytes # 2.4 10^3/uL (0.8-4.8); Lymphocytes % 24.8 %; Mean Corpuscular HGB Conc 32.3 g/dL (30.0-36.0); Mean Corpuscular Volume 96.1 fl (81-99); Monocytes % 9.8 %; Neutrophils # 6.03 10^3/uL (1.8-7.7); Neutrophils % 62.2 %; Nucleated Red Blood Cells % 0 %; Platelet Count 249 10^3/cmm (130-400); Red Blood Count 3.06 10^6/uL (4.1-5.3); Red Cell Distribution Width 12.9 % (12.1-15.1); White Blood Count 9.7 10^3/uL (4.0-10.0)
[2022-07-28 04:23] LABS: INR 1.22 (0.8-1.2)
[2022-07-28 04:33] LABS: Albumin Level 3.6 g/dL (3.5-5.2); Anion Gap 16.8 (5-19); Blood Urea Nitrogen 48 mg/dL (8-23); Calcium 9.1 mg/dL (8.5-10.5); Carbon Dioxide 20 mmol/L (22-29); Chloride 101 mmol/L (98-107); Glomerular Filtration Rate 18.2 mL/min (90-130); Glucose 111 mg/dL (65-115); Lactate Dehydrogenase 205 U/L (135-214); Phosphorus 4.9 mg/dL (2.5-4.5); Potassium 4.8 mmol/L (3.5-5.1); Sodium 133 mmol/L (136-145)
[2022-07-28 06:34] LABS: Glucose Point of Care 112 mg/dL (70-110)
--- NOTE | 2022-07-28 08:04 | P.PN_ITS ---
Subjective Subjective: The patient is feeling better. The blood pressure seems to be getting under control. She is tolerating the amlodipine so far well Medications: Medication Review Details: Current Medications Acetaminophen (Acetaminophen 325 Mg Tablet) 650 mg PO Q6H PRN PRN Reason: Mild/Mod Pain Or Temp >/= 101 Albuterol/Ipratropium (Ipratropium-Albuterol 3 Ml Neb) 3 ml INHALATION Q4H PRN PRN Reason: SHORTNESS OF BREATH Amlodipine Besylate (Amlodipine 5 Mg Tablet) 5 mg PO DAILY [facility] Last Admin: 07/27/22 20:42 Dose: 5 mg Atorvastatin Calcium (Atorvastatin 40 Mg Tablet) 40 mg PO DAILY [facility] Last Admin: 07/27/22 09:25 Dose: 40 mg Bisacodyl (Bisacodyl 5 Mg Tablet) 5 mg PO DAILY [facility] Last Admin: 07/27/22 09:25 Dose: 5 mg Dextrose (Dextrose 50% Syringe 50 Ml) 50 ml IVP PRN PRN; Protocol PRN Reason: hypoglycemia protocol Dextrose (Dextrose 50% Syringe 50 Ml) 25 ml IVP ONCE PRN; Protocol PRN Reason: hypoglycemia protocol Enoxaparin Sodium (Enoxaparin 100 Mg/Ml Syringe) 90 mg 1 mg/kg (90 mg) SUBCUT Q12H [facility] Last Admin: 07/26/22 18:16 Dose: 90 mg Fluticasone Propionate (Fluticasone Nasal [place] 16gm Btl) 1 spray INTRANASAL DAILY [facility] Last Admin: 07/27/22 09:25 Dose: 1 spray Glucagon (Glucagon 1 Mg/Ml Inj 1 Ml) 1 mg IM ONCE PRN; Protocol PRN Reason: Adult Acute Hypoglycemia Prot. Dextrose (D5w) 500 mls @ 100 mls/hr IV ONCE PRN; Protocol PRN Reason: Adult Acute Hypoglycemia Prot Insulin Human Lispro (Insulin Lispro 100 Unit/1 Ml) 0 unit SUBCUT WM&BEDTIME [facility]; Protocol Last Admin: 07/28/22 07:01 Dose: Not Given Isosorbide Mononitrate (Isosorbide Mononitrate Er 30 Mg Tablet) 30 mg PO DAILY [facility] Last Admin: 07/27/22 16:58 Dose: 30 mg Metoprolol Succinate (Metoprolol Succinate Er (24 Hr) 100 Mg Tablet) 100 mg PO DAILY [facility] Last Admin: 07/27/22 09:25 Dose: 100 mg Nicotine (Nicotine 14 Mg Patch) 1 patch TRANSDERMA DAILY [facility] Last Admin: 07/27/22 09:25 Dose: 1 patch Ondansetron HCl (Ondansetron 2 Mg/Ml Sdv 2 Ml) 4 mg IVP Q6H PRN PRN Reason: NAUSEA AND VOMITING Ondansetron HCl (Ondansetron 4 Mg Tablet) 4 mg PO Q8H PRN PRN Reason: NAUSEA Vitals/I&O/Wt Last Vital Signs Temp 98.0 F 07/28/22 07:56 Pulse 71 07/28/22 07:56 Resp 17 07/28/22 07:56 BP 153/84 07/28/22 07:56 Pulse Ox 98 07/28/22 07:56 O2 Del Method Room Air 07/28/22 07:56 07/27/22 07/28/22 07/28/22 22:59 06:59 14:59 Intake Total 762.260 / 1320.260 Balance 762.260 / 1320.260 Weight last 48 hrs Weight 207 lb 14.4 oz Weight 200 lb 6.4 oz Physical Exam Narrative: GENERAL: The patient is alert and oriented times three. Not in any acute distress. HEENT: No significant pallor, icterus or lymphadenopathy.Oral cavity: There are no mucous membrane lesions. NECK: Trachea appears to be central. No masses noted. No JVD or thyromegaly appreciated. RESPIRATORY: Chest is symmetrical. No intercostals muscle retraction or any accessory muscle activation. There is no chest wall tenderness. Breath sounds are heard bilaterally. No rales or rhonchi heard. No evidence of any consolidation. BREASTS: Deferred. HEART: The heart sounds are normal. No S3 or S4. Short systolic murmur in the left sternal border. No diastolic murmurs. No pericardial rub ABDOMEN: No vessel pulsations or distention. No tenderness. No organomegaly appreciated. Bowel sounds are normally heard. : Deferred. RECTAL: Deferred. LYMPHATIC: No lymphadenopathy noted in the neck. EXTREMITIES: No edema or cyanosis. No clubbing. MUSCULOSKELETAL: No acute joint deformities or swelling SKIN: There are no significant rashes or ecchymosis NEUROPSYCHIATRIC: The patient is alert and oriented x3. Appears to be in a good mood. No tremors or rigidity noted. Data 07/28/22 03:24 07/28/22 03:24 Other Labs: Laboratory Last Values WBC 9.7 10^3/uL (4.0-10.0) 07/28/22 03:24 RBC 3.06 10^6/uL (4.1-5.3) L 07/28/22 03:24 Hgb 9.5 g/dL (11.5-15.3) L 07/28/22 03:24 Hct 29.4 % (37.0-47.0) L 07/28/22 03:24 MCV 96.1 fl (81-99) 07/28/22 03:24 MCH 31.0 pg (28.0-34.0) 07/28/22 03:24 MCHC 32.3 g/dL (30.0-36.0) 07/28/22 03:24 RDW 12.9 % (12.1-15.1) 07/28/22 03:24 Plt Count 249 10^3/cmm (130-400) 07/28/22 03:24 MPV 10.0 fL (7.4-10.4) 07/28/22 03:24 Neut % (Auto) 62.2 % 07/28/22 03:24 Lymph % (Auto) 24.8 % 07/28/22 03:24 [place] % (Auto) 9.8 % 07/28/22 03:24 Eos % (Auto) 2.2 % 07/28/22 03:24 Baso % (Auto) 0.3 % 07/28/22 03:24 Neut # (Auto) 6.03 10^3/uL (1.8-7.7) 07/28/22 03:24 Lymph # (Auto) 2.4 10^3/uL (0.8-4.8) 07/28/22 03:24 [place] # (Auto) 1.0 10^3/uL (0.2-0.9) H 07/28/22 03:24 Eos # (Auto) 0.2 10^3/uL (0.0-0.8) 07/28/22 03:24 Baso # (Auto) 0.0 10^3/uL (0.0-0.1) 07/28/22 03:24 Nucleated RBC % (auto) 0 % 07/28/22 03:24 Nucleated RBCs # 0.0 /100WBC 07/28/22 03:24 PT 15.80 SECONDS (12.1-14.9) H 07/28/22 03:24 INR 1.22 (0.8-1.2) H 07/28/22 03:24 Sodium 133 mmol/L (136-145) L 07/28/22 03:24 Potassium 4.8 mmol/L (3.5-5.1) 07/28/22 03:24 Chloride 101 mmol/L (98-107) 07/28/22 03:24 Carbon Dioxide 20 mmol/L (22-29) L 07/28/22 03:24 Anion Gap 16.8 (5-19) 07/28/22 03:24 BUN 48 mg/dL (8-23) H 07/28/22 03:24 Creatinine 2.6 mg/dL (0.5-0.9) H 07/28/22 03:24 GFR Calculation 18.2 mL/min (90-130) L 07/28/22 03:24 Glucose 111 mg/dL (65-115) 07/28/22 03:24 POC Glucose 112 mg/dL (70-110) H 07/28/22 06:31 Calculated Osmolality 284 mOsm/kg (285-295) L 07/27/22 04:03 Calcium 9.1 mg/dL (8.5-10.5) 07/28/22 03:24 Phosphorus 4.9 mg/dL (2.5-4.5) H 07/28/22 03:24 Magnesium 2.0 mg/dL (1.7-2.3) 07/28/22 03:24 Total Bilirubin 0.3 mg/dL (0.15-1.2) 07/26/22 07:39 AST 13 U/L (0-32) 07/26/22 07:39 ALT 10 U/L (0-33) 07/26/22 07:39 Alkaline Phosphatase 70 U/L (35-105) 07/26/22 07:39 Lactate Dehydrogenase 205 U/L (135-214) 07/28/22 03:24 Troponin T Baseline 49 ng/L (0-10) H 07/26/22 07:39 Troponin T 120 Minute 44.64 ng/L (0-10) H 07/26/22 09:20 Delta Troponin T -4.36 ABS# (0-10) L 07/26/22 09:20 Troponin T Hi Sens 6Hr 43.55 ng/L (0-10) H 07/26/22 13:15 Troponin T Hi Sens 6Hr Delta -5.45 ng/L (0-12) L 07/26/22 13:15 NT-Pro-B Natriuret Pep 3585 pg/mL (0-125) H 07/26/22 07:39 Total Protein 8.2 g/dL (6.6-8.7) 07/26/22 07:39 Albumin 3.6 g/dL (3.5-5.2) 07/28/22 03:24 Globulin 4.1 g/dL (1.3-4.6) 07/26/22 07:39 Urine Color Straw (Yellow) 07/26/22 08:01 Urine Appearance Sl hazy (CLEAR) A 07/26/22 08:01 Urine pH 5 (5-7) 07/26/22 08:01 Ur Specific [place] 1.010 (1.005-1.030) 07/26/22 08:01 Urine Protein 1+ (Negative) H 07/26/22 08:01 Urine Glucose (UA) Norm (Normal) 07/26/22 08:01 Urine Ketones Negative (Negative) 07/26/22 08:01 Urine Blood 3+ (Negative) H 07/26/22 08:01 Urine Nitrate Negative (Negative) 07/26/22 08:01 Urine Bilirubin Neg (Negative) 07/26/22 08:01 Urine Urobilinogen Norm mg/dL (Negative) 07/26/22 08:01 Ur Leukocyte Esterase Negative (Negative) 07/26/22 08:01 Urine RBC >100 /hpf (0-2) H 07/26/22 08:01 Urine WBC Rare /hpf (0-5) 07/26/22 08:01 Ur Squamous Epith Cells 10-15 /hpf (0-5) H 07/26/22 08:01 Amorphous Sediment Not Reportable 07/26/22 08:01 Urine Bacteria 1+ /hpf (NONE) H 07/26/22 08:01 Urine Yeast 1+ /hpf H 07/26/22 08:01 Micro: Microbiology 07/26/22 08:01 Urine Culture - Final Urine,Clean Catch A&P Assessment and plan (1) Acute on chronic diastolic (congestive) heart failure: The heart failure seems to be getting compensated. May continue on the current medications. (2) Acute kidney injury superimposed on chronic kidney disease: The kidney function seems to be stable. May continue the monitoring. (3) Elevated troponin: Most likely due to type II TN/chronic kidney disease. May continue on the current measures. (4) Atrial fibrillation: Currently the patient is in sinus rhythm. Intermittent atrial fibrillation causing heart failure is a consideration. Patient may be restarted on the Eliquis (5) COPD exacerbation: Clinically seems to be stable. May continue on the current measures. (6) Thyroid nodule: Management as per the primary (7) Lung nodule: Management as per primary (8) Diabetes: The blood sugar seems to be fairly under control. May continue on the current t reatment measures. (9) Atherosclerosis of coronary artery of [place] heart without angina pectoris: I reviewed the angiogram from February of last year. Patient was found only mild disease. No significant distal lesions were noted. The ostium of this obtuse marginal artery and the ramus intermedius were found to have around 30% narrowing. Plan Continue on the current management. Continue on the as needed Lasix Attestations Medical Necessity Statement*: Disposition as per the primary Coding Level of Care Code 88871 Diagnoses Acute on chronic diastolic (congestive) heart failure I50.33 Acute kidney injury superimposed on chronic kidney disease N17.9; N18.9 Elevated troponin R77.8 Atrial fibrillation I48.91 COPD exacerbation J44.1 Thyroid nodule E04.1 Lung nodule R91.1 Diabetes E11.9 Atherosclerosis of coronary artery of [place] heart without angina pectoris I25.10
[2022-07-28] MEDS: metoprolol succinate ER (24 HR) 100 mg Tablet PO (09:02)
[2022-07-28] MEDS: isosorbide mononitrate ER 30 mg Tablet PO (09:02)
[2022-07-28] MEDS: fluticasone nasal spray 16gm Btl 1 SPRAY INTRANASAL (09:02)
[2022-07-28] MEDS: bisacodyl 5 mg Tablet PO (09:02)
[2022-07-28] MEDS: atorvastatin 40 mg Tablet PO (09:02)
[2022-07-28] MEDS: amlodipine 5 mg Tablet PO (09:02)
[2022-07-28] MEDS: nicotine 14 mg Patch 1 PATCH TRANSDERMA (09:03)
[2022-07-28 11:18] LABS: Glucose Point of Care 111 mg/dL (70-110)
--- NOTE | 2022-07-28 11:49 | CT_ITS ---
WS: [id number] CT chest wo con [id number] HISTORY: sob TECHNIQUE: Axial imaging performed through the thorax. Coronal and sagittal reformats are submitted. All CT scans at [facility] use at least one of these dose optimization techniques: automated exposure control; mA and/or kV adjustment per patient size (includes targeted exams where dose is mat ched to clinical indication); or iterative reconstruction. CONTRAST: None DLP: 588.05 mGy.cm COMPARISON: None available. Lungs and central airway: Pulmonary hyperexpansion and chronic emphysema. Interstitial thickening. Pr eviously described spiculated nodule in the RIGHT upper lobe is reidentified measuring 13 x 11 mm. No dule is very similar in appearance to 02/21/2022. Pleura: Small layering RIGHT pleural effusion. Heart and pericardium: Moderate cardiomegaly. All 4 chambers are enlarged but greatest involving the atria and LEFT ventricle. Mediastinum and aron: Mediastinal and hilar lymph nodes are difficult to identify without IV contrast . There is mild fullness in the hilar regions. Additional calcified RIGHT hilar and subcarinal lymph nodes. Vessels: Mild atherosclerosis aorta. Pulmonary arteries enlarged. Chest wall and lower neck: Calcified RIGHT thyroid nodule. Upper abdomen: 1.5 cm LEFT adrenal adenoma. Osseous structures: No destructive process. CT/CT chest wo con [id number] IMPRESSION: 1. Small layering RIGHT pleural effusion. 2. Spiculated nodule RIGHT upper lobe measures 13 x 11 mm without significant change since 02/21/2022. Remains suspicious for malignancy. Recommend follow-up PET/CT imaging as patient acute condition improves. 3. Lymphadenopathy would be difficult to exclude without IV contrast. 4. Cardiomegaly. 5. Stable calcified RIGHT thyroid nodule and LEFT adrenal adenoma.
[2022-07-28 12:30] LABS: Iron 62 ug/dL (37-145); Percent Saturation 18.5 % (20-50); Total Iron Binding Capacity 334 mcg/dl; Unsaturated Iron Binding 272 ug/dL (112-347)
[2022-07-28 12:46] LABS: Procalcitonin 0.05 ng/mL (0-0.5); Vitamin B12 237 pg/mL (232-1245)
[2022-07-28] MEDS: azithromycin 250 mg Tablet 500 MG PO (13:10)
[2022-07-28] MEDS: ipratropium-albuterol 3 mL Neb INHALATION ×3 (15:27→23:51)
--- NOTE | 2022-07-28 15:27 | P.PN_ITS ---
Subjective Subjective: Hospital course, labs appreciated. Today morning seen with family at bedside. Patient is awake and alert. States feeling a lot better. Continues to remain on room air. Denies any shortness of breath at rest or on exertion. Blood pressure is better controlled. Vitals/I&O/Wt Last Vital Signs Temp 98.0 F 07/28/22 07:56 Pulse 85 07/28/22 14:02 Resp 18 07/28/22 14:02 BP 124/62 07/28/22 14:02 Pulse Ox 98 07/28/22 07:56 O2 Del Method Room Air 07/28/22 07:56 07/28/22 07/28/22 07/28/22 06:59 14:59 22:59 Intake Total 480 / 480 Balance 480 / 480 Weight last 48 hrs Weight 94.302 kg Weight 90.9 kg Physical Exam Narrative: General: Patient is awake and alert. Pleasant. Head: Normocephalic. Atraumatic. EOM intact. Neck: Slightly elevated JVD. Cardiovascular: RRR. No gallops. No murmurs. Trace pedal edema. Improved BP. Lungs: Decreased breath sounds in rt base, faint dependent crackles, no use of accessory muscles, somewhat poor air movement. Skin: No jaundice. No rashes. Abdomen: Normal bowel sounds, abdomen soft and nontender. Extremities: No cyanosis or clubbing. Musculoskeletal: Normal muscle development. Neurological: Moves all 4 extremities. No myoclonus. Data 07/28/22 03:24 07/28/22 03:24 A&P Assessment and plan (1) Acute on chronic diastolic (congestive) heart failure: Most likely acute on chronic diastolic heart failure in setting of hypertensive urgency on admission in setting of JHONATAN on CKD. Patient remains on room air. Avoiding diuretics in setting of single kidney, CKD as per patient's request. Fluid restriction up to 1500 cc. Strict and proper charting, daily weights. Continue with Imdur for better afterload reduction. Discussed in detail with patient regarding need for better blood pressure control, weight regulation, fluid intake/output with restriction up to 1500 cc, salt restriction up to 2 g daily at home. All the questions were answered. (2) Acute kidney injury superimposed on chronic kidney disease: Single kidney. Last creatinine known in system around 1 from February 2022 but patient did have angiogram at that time. As a patient since then GFR has been around 20. Currently 19. Most likely patient's creatinine at baseline is around 2-2.4 now and is currently back to baseline. Patient does follow-up with publications designer as an outpatient. Has an appointment within next 48 hours for further management. Needs 24 to 48 hours urine collection. We will facilitate while being in the hospital. (3) Hypertension: Goal blood pressure less than 140/90 mmHg. Admitted with hypertensive emergency. Appreciate cardiology recommendations. Continue with amlodipine 5 mg oral daily, Imdur 30 mg oral daily, metoprolol succinate 100 mg oral daily. Uptitrate as for goal blood pressures. (4) Diabetes: Hold OHA's. Continue with sliding scale. Carb consistent diet (5) Pleural effusion: On room air, saturating well both at rest and on exertion. Most likely over read of pleural effusion on CT imaging. Hold off on thoracentesis. Family and patient agreeable. (6) Atrial fibrillation: Rate controlled. Continue with home dose of metoprolol. Restart Eliquis. (7) H/O kidney removal: As above (8) Tobacco use: Would benefit from cessation doesn't smoke Continue NRT Plan DVT ppx: Restart Eliquis. Code status: Full Code Famotidine for PUD prophylaxis. Discharge plan: Plan to discharge within next 24 hours to home if remains hemodynamically stable Attestations Medical Necessity Statement*: Requires further hospitalization for management of hypertensive urgency leading to diastolic congestive heart failure in a patient with CKD and single kidney Diagnoses Acute on chronic diastolic (congestive) heart failure I50.33 Acute kidney injury superimposed on chronic kidney disease N17.9; N18.9 Hypertension I10 Diabetes E11.9 Pleural effusion J90 Atrial fibrillation I48.91 H/O kidney removal Z90.5 Tobacco use Z72.0
[2022-07-28 16:21] LABS: Glucose Point of Care 202 mg/dL (70-110)
[2022-07-28] MEDS: budesonide 0.5 mg/2 mL Neb INHALATION (19:29)
[2022-07-28 20:19] LABS: Glucose Point of Care 109 mg/dL (70-110)
[2022-07-28] MEDS: apixaban 5 mg Tablet PO (21:37)
[2022-07-29] VITALS (7 sets, daily range): BP systolic 138–145; BP diastolic 67–81; PULSE 65–82; RESP 15–20; TEMP 36.4; O2SAT 95–98
[2022-07-29 04:15] LABS: Basophils % 0.3 %; Eosinophils # 0.2 10^3/uL (0.0-0.8); Eosinophils % 1.6 %; Hematocrit 29.8 % (37.0-47.0); Hemoglobin 9.7 g/dL (11.5-15.3); Lymphocytes # 2.3 10^3/uL (0.8-4.8); Lymphocytes % 23.6 %; Mean Corpuscular HGB Conc 32.6 g/dL (30.0-36.0); Mean Corpuscular Hemoglobin 30.8 pg (28.0-34.0); Mean Corpuscular Volume 94.6 fl (81-99); Mean Platelet Volume 10.1 fL (7.4-10.4); Monocytes # 0.8 10^3/uL (0.2-0.9); Monocytes % 8.4 %; Neutrophils # 6.29 10^3/uL (1.8-7.7); Neutrophils % 65.5 %; Nucleated Red Blood Cells % 0 %; Platelet Count 253 10^3/cmm (130-400); Red Blood Count 3.15 10^6/uL (4.1-5.3); Red Cell Distribution Width 12.8 % (12.1-15.1); White Blood Count 9.6 10^3/uL (4.0-10.0)
[2022-07-29 04:38] LABS: Alanine Aminotransferase 11 U/L (0-33); Albumin Level 3.6 g/dL (3.5-5.2); Alkaline Phosphatase 63 U/L (35-105); Anion Gap 18.6 (5-19); Aspartate Amino Transferase 15 U/L (0-32); Blood Urea Nitrogen 46 mg/dL (8-23); Carbon Dioxide 21 mmol/L (22-29); Chloride 96 mmol/L (98-107); Globulin 3.8 g/dL (1.3-4.6); Glucose 109 mg/dL (65-115); Osmolality Calculated 284 mOsm/kg (285-295); Potassium 4.6 mmol/L (3.5-5.1); Sodium 131 mmol/L (136-145); Total Bilirubin 0.3 mg/dL (0.15-1.2); Total Protein 7.4 g/dL (6.6-8.7)
[2022-07-29 06:49] LABS: Glucose Point of Care 141 mg/dL (70-110)
[2022-07-29] MEDS: budesonide 0.5 mg/2 mL Neb INHALATION (07:38)
[2022-07-29] MEDS: ipratropium-albuterol 3 mL Neb INHALATION (07:39)
[2022-07-29] MEDS: bisacodyl 5 mg Tablet PO (08:40)
[2022-07-29] MEDS: nicotine 14 mg Patch 1 PATCH TRANSDERMA (08:40)
[2022-07-29] MEDS: isosorbide mononitrate ER 30 mg Tablet PO (08:40)
[2022-07-29] MEDS: apixaban 5 mg Tablet PO (08:40)
[2022-07-29] MEDS: amlodipine 5 mg Tablet PO (08:40)
[2022-07-29] MEDS: azithromycin 250 mg Tablet 500 MG PO (08:41)
[2022-07-29] MEDS: atorvastatin 40 mg Tablet PO (08:41)
[2022-07-29] MEDS: insulin lispro 100 unit/1 mL SUBCUT (08:41)
[2022-07-29] MEDS: metoprolol succinate ER (24 HR) 100 mg Tablet PO (08:41)
[2022-07-29] MEDS: fluticasone nasal spray 16gm Btl 1 SPRAY INTRANASAL (08:42)
--- NOTE | 2022-07-29 09:17 | P.PN_ITS ---
Subjective Medications: Medication Review Details: Current Medications Acetaminophen (Acetaminophen 325 Mg Tablet) 650 mg PO Q6H PRN PRN Reason: Mild/Mod Pain Or Temp >/= 101 Albuterol/Ipratropium (Ipratropium-Albuterol 3 Ml Neb) 3 ml INHALATION Q4H.RESPIRATORY MARY Last Admin: 07/29/22 07:39 Dose: 3 ml Amlodipine Besylate (Amlodipine 5 Mg Tablet) 5 mg PO DAILY MARY Last Admin: 07/29/22 08:40 Dose: 5 mg Apixaban (Apixaban 5 Mg Tablet) 5 mg PO BID@0900,2100 MARY Last Admin: 07/29/22 08:40 Dose: 5 mg Atorvastatin Calcium (Atorvastatin 40 Mg Tablet) 40 mg PO DAILY MARY Last Admin: 07/29/22 08:41 Dose: 40 mg Azithromycin (Azithromycin 250 Mg Tablet) 500 mg PO DAILY MARY; Protocol Last Admin: 07/29/22 08:41 Dose: 500 mg Bisacodyl (Bisacodyl 5 Mg Tablet) 5 mg PO DAILY MARY Last Admin: 07/29/22 08:40 Dose: 5 mg Budesonide (Budesonide 0.5 Mg/2 Ml Neb) 0.5 mg INHALATION BID.RESPIRATORY MARY Last Admin: 07/29/22 07:38 Dose: 0.5 mg Dextrose (Dextrose 50% Syringe 50 Ml) 50 ml IVP PRN PRN; Protocol PRN Reason: hypoglycemia protocol Dextrose (Dextrose 50% Syringe 50 Ml) 25 ml IVP ONCE PRN; Protocol PRN Reason: hypoglycemia protocol Fluticasone Propionate (Fluticasone Nasal [place] 16gm Btl) 1 spray INTRANASAL DAILY [facility] Last Admin: 07/29/22 08:42 Dose: 1 spray Glucagon (Glucagon 1 Mg/Ml Inj 1 Ml) 1 mg IM ONCE PRN; Protocol PRN Reason: Adult Acute Hypoglycemia Prot. Dextrose (D5w) 500 mls @ 100 mls/hr IV ONCE PRN; Protocol PRN Reason: Adult Acute Hypoglycemia Prot Insulin Human Lispro (Insulin Lispro 100 Unit/1 Ml) 0 unit SUBCUT WM&BEDTIME MARY; Protocol Last Admin: 07/29/22 08:41 Dose: 4 unit Isosorbide Mononitrate (Isosorbide Mononitrate Er 30 Mg Tablet) 30 mg PO DAILY [facility] Last Admin: 07/29/22 08:40 Dose: 30 mg Metoprolol Succinate (Metoprolol Succinate Er (24 Hr) 100 Mg Tablet) 100 mg PO DAILY [facility] Last Admin: 07/29/22 08:41 Dose: 100 mg Nicotine (Nicotine 14 Mg Patch) 1 patch TRANSDERMA DAILY [facility] Last Admin: 07/29/22 08:40 Dose: 1 patch Ondansetron HCl (Ondansetron 2 Mg/Ml Sdv 2 Ml) 4 mg IVP Q6H PRN PRN Reason: NAUSEA AND VOMITING Ondansetron HCl (Ondansetron 4 Mg Tablet) 4 mg PO Q8H PRN PRN Reason: NAUSEA Vitals/I&O/Wt Last Vital Signs Temp 97.6 F 07/29/22 04:00 Pulse 79 07/29/22 07:46 Resp 18 07/29/22 07:41 BP 138/78 07/29/22 04:00 Pulse Ox 95 07/29/22 07:41 O2 Del Method Room Air 07/29/22 07:41 07/28/22 07/29/22 07/29/22 22:59 06:59 14:59 Intake Total 480 / 960 Balance 480 / 960 Weight last 48 hrs Weight 199 lb Weight 207 lb 14.4 oz Data 07/29/22 03:25 07/29/22 03:25 Micro: Laboratory Last Values WBC 9.6 10^3/uL (4.0-10.0) 07/29/22 03:25 RBC 3.15 10^6/uL (4.1-5.3) L 07/29/22 03:25 Hgb 9.7 g/dL (11.5-15.3) L 07/29/22 03:25 Hct 29.8 % (37.0-47.0) L 07/29/22 03:25 MCV 94.6 fl (81-99) 07/29/22 03:25 MCH 30.8 pg (28.0-34.0) 07/29/22 03:25 MCHC 32.6 g/dL (30.0-36.0) 07/29/22 03:25 RDW 12.8 % (12.1-15.1) 07/29/22 03:25 Plt Count 253 10^3/cmm (130-400) 07/29/22 03:25 MPV 10.1 fL (7.4-10.4) 07/29/22 03:25 Neut % (Auto) 65.5 % 07/29/22 03:25 Lymph % (Auto) 23.6 % 07/29/22 03:25 [place] % (Auto) 8.4 % 07/29/22 03:25 Eos % (Auto) 1.6 % 07/29/22 03:25 Baso % (Auto) 0.3 % 07/29/22 03:25 Neut # (Auto) 6.29 10^3/uL (1.8-7.7) 07/29/22 03:25 Lymph # (Auto) 2.3 10^3/uL (0.8-4.8) 07/29/22 03:25 [place] # (Auto) 0.8 10^3/uL (0.2-0.9) 07/29/22 03:25 Eos # (Auto) 0.2 10^3/uL (0.0-0.8) 07/29/22 03:25 Baso # (Auto) 0.0 10^3/uL (0.0-0.1) 07/29/22 03:25 Nucleated RBC % (auto) 0 % 07/29/22 03:25 Nucleated RBCs # 0.0 /100WBC 07/29/22 03:25 PT 15.80 SECONDS (12.1-14.9) H 07/28/22 03:24 INR 1.22 (0.8-1.2) H 07/28/22 03:24 Sodium 131 mmol/L (136-145) L 07/29/22 03:25 Potassium 4.6 mmol/L (3.5-5.1) 07/29/22 03:25 Chloride 96 mmol/L (98-107) L 07/29/22 03:25 Carbon Dioxide 21 mmol/L (22-29) L 07/29/22 03:25 Anion Gap 18.6 (5-19) 07/29/22 03:25 BUN 46 mg/dL (8-23) H 07/29/22 03:25 Creatinine 2.5 mg/dL (0.5-0.9) H 07/29/22 03:25 GFR Calculation 19.0 mL/min (90-130) L 07/29/22 03:25 Glucose 109 mg/dL (65-115) 07/29/22 03:25 POC Glucose 141 mg/dL (70-110) H 07/29/22 06:46 Calculated Osmolality 284 mOsm/kg (285-295) L 07/29/22 03:25 Calcium 9.0 mg/dL (8.5-10.5) 07/29/22 03:25 Phosphorus 4.9 mg/dL (2.5-4.5) H 07/28/22 03:24 Magnesium 2.0 mg/dL (1.7-2.3) 07/28/22 03:24 Iron 62 ug/dL (37-145) 07/28/22 03:24 TIBC 334 mcg/dl 07/28/22 03:24 % Saturation 18.5 % (20-50) L 07/28/22 03:24 Unsat Iron Binding 272 ug/dL (112-347) 07/28/22 03:24 Total Bilirubin 0.3 mg/dL (0.15-1.2) 07/29/22 03:25 AST 15 U/L (0-32) 07/29/22 03:25 ALT 11 U/L (0-33) 07/29/22 03:25 Alkaline Phosphatase 63 U/L (35-105) 07/29/22 03:25 Lactate Dehydrogenase 205 U/L (135-214) 07/28/22 03:24 Troponin T Baseline 49 ng/L (0-10) H 07/26/22 07:39 Troponin T 120 Minute 44.64 ng/L (0-10) H 07/26/22 09:20 Delta Troponin T -4.36 ABS# (0-10) L 07/26/22 09:20 Troponin T Hi Sens 6Hr 43.55 ng/L (0-10) H 07/26/22 13:15 Troponin T Hi Sens 6Hr Delta -5.45 ng/L (0-12) L 07/26/22 13:15 C-Reactive Protein 3.0 mg/L (0.0-4.9) 07/29/22 03:25 NT-Pro-B Natriuret Pep 3585 pg/mL (0-125) H 07/26/22 07:39 Total Protein 7.4 g/dL (6.6-8.7) 07/29/22 03:25 Albumin 3.6 g/dL (3.5-5.2) 07/29/22 03:25 Globulin 3.8 g/dL (1.3-4.6) 07/29/22 03:25 Vitamin B12 237 pg/mL (232-1245) 07/28/22 03:24 Folate 8.0 ng/mL (4.8-37.3) 07/29/22 03:25 Procalcitonin 0.05 ng/mL (0-0.5) 07/28/22 03:24 Urine Color Straw (Yellow) 07/26/22 08:01 Urine Appearance Sl hazy (CLEAR) A 07/26/22 08:01 Urine pH 5 (5-7) 07/26/22 08:01 Ur Specific [place] 1.010 (1.005-1.030) 07/26/22 08:01 Urine Protein 1+ (Negative) H 07/26/22 08:01 Urine Glucose (UA) Norm (Normal) 07/26/22 08:01 Urine Ketones Negative (Negative) 07/26/22 08:01 Urine Blood 3+ (Negative) H 07/26/22 08:01 Urine Nitrate Negative (Negative) 07/26/22 08:01 Urine Bilirubin Neg (Negative) 07/26/22 08:01 Urine Urobilinogen Norm mg/dL (Negative) 07/26/22 08:01 Ur Leukocyte Esterase Negative (Negative) 07/26/22 08:01 Urine RBC >100 /hpf (0-2) H 07/26/22 08:01 Urine WBC Rare /hpf (0-5) 07/26/22 08:01 Ur Squamous Epith Cells 10-15 /hpf (0-5) H 07/26/22 08:01 Amorphous Sediment Not Reportable 07/26/22 08:01 Urine Bacteria 1+ /hpf (NONE) H 07/26/22 08:01 Urine Yeast 1+ /hpf H 07/26/22 08:01 Coding Level of Care Code Acute Code for Chg Fwd Diagnoses
--- NOTE | 2022-07-29 09:43 | PM.DCS ---
Discharge Providers Date of Admission: 07/26/22 14:16 Date of Discharge: July 29, 2022 Attending Provider at Admission: David Gomez MD Attending Provider at Discharge: Patrick Brothers MD Consults: Cardiology: Dr. Desai Primary Care Provider: Lita Rodriguez Diagnoses at Discharge Discharge Diagnosis (1) Acute on chronic diastolic (congestive) heart failure: Status: Acute (2) Acute kidney injury superimposed on chronic kidney disease: Status: Acute (3) Elevated troponin: Status: Acute (4) Atrial fibrillation: Status: Acute (5) COPD exacerbation: Status: Acute (6) Thyroid nodule: Status: Acute (7) Lung nodule: Status: Acute (8) Diabetes: Status: Acute (9) Atherosclerosis of coronary artery of [place] heart without angina pectoris: Status: Acute Reason for Visit Reason for Visit: sob/high bp Brief History: History as per HPI: Venita Healy is a 71 year old female with a past medical history significant for paroxysmal atrial fibrillation, diastolic heart failure with preserved ejection fraction, hypertension, chronic kidney disease, history of kidney donor, type 2 diabetes mellitus, and COPD who presents to the emergency department with dyspnea on exertion x 2-3 days.? Reports laying flat and exertion worsens her symptoms.? Reports she takes Lasix, her dose is 20 mg.? Reports the Lasix does not seem to be helping.? Discussed recommendation for IV diuresis and she refused citing concerns for her renal function.? 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 She follows with a kidney doctor in [place].? She denies fevers, chills, nausea or emesis. Hospital Course Hospital Course Patient was admitted to the hospital further evaluation and management of acute on chronic diastolic heart failure in setting of hypertensive emergency with concerns for JHONATAN on CKD. Last known creatinine during hospitalization from February 2022 was 1 but as per patient her creatinine has been steadily climbing up since then and she follows up with circus performer as an outpatient and currently her GFR at baseline is around 19-20. Her blood pressure responded well to the treatment and gradually NTT was weaned off and transition over to oral medications. Lasix was not started outpatient as per her request given her history of new CKD. She responded well to the treatment overall and as blood pressure not more controlled her symptoms of CHF also resolved and she has been on room air for last 48 hours. She has been discharged hemodynamically stable condition on adjusted oral antihypertensives. She is to take new amlodipine 5 mg daily and Imdur 30 mg daily. She is to follow-up with her outpatient circus performer for further recommendations for CKD. Her creatinine seems to be back to her baseline with GFR being at baseline of 19-20. Discharge Data Studies Completed and Pending Completed Studies During Hospitalization Category Date Time Status CT abdomen renal stone [CT kidney stone [id number]] Stat Cat Scan 07/26/22 08:[address] chest wo con [id number] Routine Cat Scan 07/28/22 11:49 Completed XR chest 1V portable [id number] Urgent Exams 07/26/22 07:42 Completed Pending at discharge Category Date Time Status Body Fluid Analysis Routine Lab 07/27/22 21:10 Ordered Body Fluid Culture & GS Routine Lab 07/27/22 21:10 Ordered Cell Count w Diff Pleural Fld Routine Lab 07/27/22 21:09 Uncollected Cyto Order Verification Routine Lab 07/27/22 21:10 Ordered Glucose Pleural Fluid Routine Lab 07/27/22 21:09 Uncollected LDH Pleural Fluid Routine Lab 07/27/22 21:09 Uncollected MRSA by PCR Routine Lab 07/28/22 17:45 Received Pleural [Right Pleural Fluid Analysis] Routine Lab 07/27/22 21:09 Uncollected Sputum Culture and Gram Stain Routine Lab 07/28/22 11:46 Uncollected Total Protein Pleural Fluid Routine Lab 07/27/22 21:10 Ordered pH Pleural Fluid Routine Lab 07/27/22 21:09 Uncollected Radiology Impressions Chest X-Ray 07/26/22 07:42 IMPRESSION: Indistinct pulmonary vasculature and increased interstitial opacities predominately in the mid lower hemithoraces suggests pulmonary edema. Superimposed interstitial pneumonitis cannot be entirely excluded. Abdomen/Pelvis CT 07/26/22 08:55 IMPRESSION: 1. Large left-sided pleural effusion. 2. Cardiomegaly. 3. The right kidney is absent. The left kidney is unremarkable. COMMENTS: Evaluation of solid organs and vascular structures is limited as no IV contrast was administered. Chest CT 07/28/22 11:49 IMPRESSION: 1. Small layering RIGHT pleural effusion. 2. Spiculated nodule RIGHT upper lobe measures 13 x 11 mm without significant change since 02/21/2022. Remains suspicious for malignancy. Recommend follow-up PET/CT imaging as patient acute condition improves. 3. Lymphadenopathy would be difficult to exclude without IV contrast. 4. Cardiomegaly. 5. Stable calcified RIGHT thyroid nodule and LEFT adrenal adenoma. Laboratory Results WBC 9.6 10^3/uL (4.0-10.0) 07/29/22 03:25 RBC 3.15 10^6/uL (4.1-5.3) L 07/29/22 03:25 Hgb 9.7 g/dL (11.5-15.3) L 07/29/22 03:25 Hct 29.8 % (37.0-47.0) L 07/29/22 03:25 MCV 94.6 fl (81-99) 07/29/22 03:25 MCH 30.8 pg (28.0-34.0) 07/29/22 03:25 MCHC 32.6 g/dL (30.0-36.0) 07/29/22 03:25 RDW 12.8 % (12.1-15.1) 07/29/22 03:25 Plt Count 253 10^3/cmm (130-400) 07/29/22 03:25 MPV 10.1 fL (7.4-10.4) 07/29/22 03:25 Neut % (Auto) 65.5 % 07/29/22 03:25 Lymph % (Auto) 23.6 % 07/29/22 03:25 [place] % (Auto) 8.4 % 07/29/22 03:25 Eos % (Auto) 1.6 % 07/29/22 03:25 Baso % (Auto) 0.3 % 07/29/22 03:25 Neut # (Auto) 6.29 10^3/uL (1.8-7.7) 07/29/22 03:25 Lymph # (Auto) 2.3 10^3/uL (0.8-4.8) 07/29/22 03:25 [place] # (Auto) 0.8 10^3/uL (0.2-0.9) 07/29/22 03:25 Eos # (Auto) 0.2 10^3/uL (0.0-0.8) 07/29/22 03:25 Baso # (Auto) 0.0 10^3/uL (0.0-0.1) 07/29/22 03:25 Nucleated RBC % (auto) 0 % 07/29/22 03:25 Nucleated RBCs # 0.0 /100WBC 07/29/22 03:25 PT 15.80 SECONDS (12.1-14.9) H 07/28/22 03:24 INR 1.22 (0.8-1.2) H 07/28/22 03:24 Sodium 131 mmol/L (136-145) L 07/29/22 03:25 Potassium 4.6 mmol/L (3.5-5.1) 07/29/22 03:25 Chloride 96 mmol/L (98-107) L 07/29/22 03:25 Carbon Dioxide 21 mmol/L (22-29) L 07/29/22 03:25 Anion Gap 18.6 (5-19) 07/29/22 03:25 BUN 46 mg/dL (8-23) H 07/29/22 03:25 Creatinine 2.5 mg/dL (0.5-0.9) H 07/29/22 03:25 GFR Calculation 19.0 mL/min (90-130) L 07/29/22 03:25 Glucose 109 mg/dL (65-115) 07/29/22 03:25 POC Glucose 141 mg/dL (70-110) H 07/29/22 06:46 Calculated Osmolality 284 mOsm/kg (285-295) L 07/29/22 03:25 Calcium 9.0 mg/dL (8.5-10.5) 07/29/22 03:25 Phosphorus 4.9 mg/dL (2.5-4.5) H 07/28/22 03:24 Magnesium 2.0 mg/dL (1.7-2.3) 07/28/22 03:24 Iron 62 ug/dL (37-145) 07/28/22 03:24 TIBC 334 mcg/dl 07/28/22 03:24 % Saturation 18.5 % (20-50) L 07/28/22 03:24 Unsat Iron Binding 272 ug/dL (112-347) 07/28/22 03:24 Total Bilirubin 0.3 mg/dL (0.15-1.2) 07/29/22 03:25 AST 15 U/L (0-32) 07/29/22 03:25 ALT 11 U/L (0-33) 07/29/22 03:25 Alkaline Phosphatase 63 U/L (35-105) 07/29/22 03:25 Lactate Dehydrogenase 205 U/L (135-214) 07/28/22 03:24 Troponin T Baseline 49 ng/L (0-10) H 07/26/22 07:39 Troponin T 120 Minute 44.64 ng/L (0-10) H 07/26/22 09:20 Delta Troponin T -4.36 ABS# (0-10) L 07/26/22 09:20 Troponin T Hi Sens 6Hr 43.55 ng/L (0-10) H 07/26/22 13:15 Troponin T Hi Sens 6Hr Delta -5.45 ng/L (0-12) L 07/26/22 13:15 C-Reactive Protein 3.0 mg/L (0.0-4.9) 07/29/22 03:25 NT-Pro-B Natriuret Pep 3585 pg/mL (0-125) H 07/26/22 07:39 Total Protein 7.4 g/dL (6.6-8.7) 07/29/22 03:25 Albumin 3.6 g/dL (3.5-5.2) 07/29/22 03:25 Globulin 3.8 g/dL (1.3-4.6) 07/29/22 03:25 Vitamin B12 237 pg/mL (232-1245) 07/28/22 03:24 Folate 8.0 ng/mL (4.8-37.3) 07/29/22 03:25 Procalcitonin 0.05 ng/mL (0-0.5) 07/28/22 03:24 Urine Color Straw (Yellow) 07/26/22 08:01 Urine Appearance Sl hazy (CLEAR) A 07/26/22 08:01 Urine pH 5 (5-7) 07/26/22 08:01 Ur Specific [place] 1.010 (1.005-1.030) 07/26/22 08:01 Urine Protein 1+ (Negative) H 07/26/22 08:01 Urine Glucose (UA) Norm (Normal) 07/26/22 08:01 Urine Ketones Negative (Negative) 07/26/22 08:01 Urine Blood 3+ (Negative) H 07/26/22 08:01 Urine Nitrate Negative (Negative) 07/26/22 08:01 Urine Bilirubin Neg (Negative) 07/26/22 08:01 Urine Urobilinogen Norm mg/dL (Negative) 07/26/22 08:01 Ur Leukocyte Esterase Negative (Negative) 07/26/22 08:01 Urine RBC >100 /hpf (0-2) H 07/26/22 08:01 Urine WBC Rare /hpf (0-5) 07/26/22 08:01 Ur Squamous Epith Cells 10-15 /hpf (0-5) H 07/26/22 08:01 Amorphous Sediment Not Reportable 07/26/22 08:01 Urine Bacteria 1+ /hpf (NONE) H 07/26/22 08:01 Urine Yeast 1+ /hpf H 07/26/22 08:01 Vitals Last Vital Signs Temp 97.6 F 07/29/22 04:00 Pulse 79 07/29/22 07:46 Resp 18 07/29/22 07:41 BP 145/81 07/29/22 09:23 Pulse Ox 95 07/29/22 07:41 O2 Del Method Room Air 07/29/22 07:41 Discharge Plan Discharge Patient Disposition: Home Condition: Stable Prescriptions: New isosorbide mononitrate 30 mg Tablet Extended Release 24 Hr 30 mg PO DAILY Qty: 30 0RF amlodipine 5 mg Tablet 5 mg PO DAILY Qty: 30 0RF Continued atorvastatin 20 mg tablet 40 mg PO DAILY metoprolol succinate 100 mg tablet extended release 24 hr 100 mg PO DAILY glimepiride 1 mg tablet 1 mg PO DAILY Rx Instructions: TAKE WITH FIRST MEAL albuterol sulfate 90 mcg/actuation HFA aerosol inhaler 1 - 2 puff INHALATION Q4H PRN (Reason: Shortness Of Breath Or Wheezing) pioglitazone 30 mg tablet 30 mg PO DAILY fluticasone propionate 50 mcg/actuation spray,suspension 1 spray INTRANASAL DAILY Eliquis 5 mg tablet 5 mg PO BID Qty: 60 0RF Dulcolax (bisacodyl) 5 mg Tablet,Delayed Release (Dr/Ec) 5 mg PO DAILY furosemide 20 mg tablet 20 mg PO DAILY PRN (Reason: Edema) Spiriva with HandiHaler 18 mcg capsule, w/inhalation device 18 mcg INHALATION DAILY Discharge Orders: Discharge Order (Routine); Ordered 07/29/22 Ordered By: Patrick Brothers Referrals: Lita Rodriguez PA-C [Primary Care Provider] - 08/04/22 10:00 am (Please follow-up Lita Rodriguez on August 04 at 10:00A.M. If you have any questions or need to reschedule. Please call ) Discharge Diet: Usual diet Discharge Activity: Resume usual activity and Increase activity as tolerated Patient Instructions: Heart Failure (DC), Acute Kidney Injury (DC), CHF Stoplight, COPD Stoplight, Opioid Safety Activity Restrictions/Additional Instructions: Multiple antihypertensives have been adjusted. Amlodipine 5 mg daily and Imdur 30 mg daily have been added to your medication list. Check your blood pressure daily at home and maintain a blood pressure diary. Goal blood pressure is less than 140/90 mmHg. If blood pressure continues to remain elevated more than that then you can increase amlodipine to 10 mg daily. Please follow-up with a circus performer onsite appointment. Discharge Attestations Time Spent in Discharge Care*: greater than 30 min Specific Discharge Activities: educating patient, educating and/or supporting family/caregiver, discussing with pcp/other providers, discussing with piano case and bench assembler/social workers/dc planners, documenting/other paperwork and evaluating patient/reviewing data Status at Discharge: Cognitive status at discharge: cognitively intact, Behavioral status at discharge: cooperative, Functional status at discharge: independent ambulation, Overall status at discharge: patient is back to baseline Quality Metrics Clinical Quality Measures [ No reported AMI, CVA or VTE this stay] Coding Level of Care Code 39551 Total time (in minutes) for Discharge: 60 Diagnoses Acute on chronic diastolic (congestive) heart failure I50.33 Acute kidney injury superimposed on chronic kidney disease N17.9; N18.9 Elevated troponin R77.8 Atrial fibrillation I48.91 COPD exacerbation J44.1 Thyroid nodule E04.1 Lung nodule R91.1 Diabetes E11.9 Atherosclerosis of coronary artery of [place] heart without angina pectoris I25.10
--- NOTE | 2022-07-29 10:53 | PC.SOCIAL ---
Imm update Imm updated with patient at bedside. Copy of page 2 provided. Patient verbalized understanding. Copy in chart initialed,dated and timed.
[2022-07-29 11:22] LABS: Glucose Point of Care 86 mg/dL (70-110)
--- NOTE | 2022-07-29 13:44 | PC.NURSE ---
discharge instructions given and explained.pt verb understanding of instructions.discharged via w/c to exit at this time.pt verb understanding of instructions
== END 2022-07-29 13:46 | disposition home or self-care (01) | DRG 280 ==
LOC: ER 10:00 → ER IP 11:12 → CSU 07-27 00:20
PROVIDERS: Admitting Provider Internal Medicine; Emergency Provider Physician Assistant; PCP Physician Assistant; Visit Provider Student in an Organized Health Care Education/Training Program
DX: I13.0 Hypertensive heart and chronic kidney disease with heart failure and stage 1 through stage 4 chronic kidney disease, or unspecified chronic kidney disease (principal); I50.33 Acute on chronic diastolic (congestive) heart failure; I21.A1 Myocardial infarction type 2; N17.9 Acute kidney failure, unspecified; J44.1 Chronic obstructive pulmonary disease with (acute) exacerbation; J90 Pleural effusion, not elsewhere classified; E11.22 Type 2 diabetes mellitus with diabetic chronic kidney disease; N18.9 Chronic kidney disease, unspecified; I48.0 Paroxysmal atrial fibrillation; Z79.01 Long term (current) use of anticoagulants; F17.210 Nicotine dependence, cigarettes, uncomplicated; I16.0 Hypertensive urgency; I25.10 Atherosclerotic heart disease of native coronary artery without angina pectoris; E04.1 Nontoxic single thyroid nodule; R91.1 Solitary pulmonary nodule; Z52.4 Kidney donor; Z90.5 Acquired absence of kidney
CPT/HCPCS: 36415; 36416; 71045; 71250; 74176; 80048; 80053; 80069; 81001; 81015; 82607; 82746; 82962; 83540; 83550; 83615; 83735; 83880; 84100; 84145; 84484; 85025; 85610; 86140; 87086; 87641; 93005; 94640; 96365; 96366; 96372; 96376; 99285; J1650; J1815; J3490; J7626; Q0144

== ENCOUNTER → 2022-08-28 10:46 | Outpatient (BNVA) | payer MEDICARE, SELFPAY | PROVIDERS: PCP Physician Assistant; Visit Provider Internal Medicine Cardiovascular Disease | DX: I13.0 Hypertensive heart and chronic kidney disease with heart failure and stage 1 through stage 4 chronic kidney disease, or unspecified chronic kidney disease (principal); E11.22 Type 2 diabetes mellitus with diabetic chronic kidney disease; F17.200 Nicotine dependence, unspecified, uncomplicated; N18.9 Chronic kidney disease, unspecified; I50.33 Acute on chronic diastolic (congestive) heart failure; N17.9 Acute kidney failure, unspecified; Z79.84 Long term (current) use of oral hypoglycemic drugs; R77.9 Abnormality of plasma protein, unspecified; I48.91 Unspecified atrial fibrillation; R91.1 Solitary pulmonary nodule; J90 Pleural effusion, not elsewhere classified | CPT/HCPCS: 99214 ==

== ENCOUNTER → 2023-03-17 14:16 | Outpatient (BNVA) | payer MEDICARE, SELFPAY | PROVIDERS: PCP Physician Assistant; Visit Provider Dermatology | DX: L30.9 Dermatitis, unspecified (principal); L29.8 Other pruritus; D69.2 Other nonthrombocytopenic purpura | CPT/HCPCS: 11104; 11105; 99204 ==

== ENCOUNTER → 2023-03-26 11:28 | Outpatient (BNVA) | payer MEDICARE, SELFPAY | PROVIDERS: PCP Physician Assistant; Visit Provider Dermatology | DX: L12.0 Bullous pemphigoid (principal) | CPT/HCPCS: 99214 ==

== ENCOUNTER 2023-10-08 10:09 | Inpatient (IN) | payer MEDICARE, MEDICAID, SELFPAY ==
[2023-10-08] VITALS (11 sets, daily range): BP systolic 92–138; BP diastolic 58–84; PULSE 83–107; RESP 16–22; TEMP 36.4–37.1; O2SAT 92–98; BMI 29.9
--- NOTE | 2023-10-08 10:30 | ECG_ITS ---
[facility] Test Date: 2023-10-08 Pat Name: Venita Healy Department: Room: Gender: Female Steam Hand: : 1950 Requested By: Catarino Najera Order Number: [id number] Chica MD: Lexis Desai M.D. Measurements Intervals [place] Rate: 104 P: 0 NC: 0 QRS: 50 QRSD: 77 T: 235 QT: 327 QTc: 431 Interpretive Statements ATRIAL FIBRILLATION WITH RAPID VENTRICULAR RESPONSE ST DEVIATION AND MODERATE T-WAVE ABNORMALITY, CONSIDER LATERAL ISCHEMIA [-0.1+ mV T-WAVE IN I/aVL/V5/V6] ST DEVIATION AND MODERATE T-WAVE ABNORMALITY, CONSIDER INFERIOR ISCHEMIA [-0.1+ mV T-WAVE IN II/aVF] INTERPRETATION BASED ON A DEFAULT AGE OF 40 YEARS Compared to ECG 07/26/2022 13:49:37 T-wave abnormality now present Possible ischemia now present Electronically Signed On 10-09-2023 0:53:17 CDT by Lexis Desai M.D. [id number] f
--- NOTE | 2023-10-08 10:30 | XR_ITS ---
WS: [id number] XR chest 1V portable [id number] REASON FOR EXAM: cp FINDINGS: Right internal jugular vein central venous catheter with the tip in proper position in the distal SVC . Opacification of the lower two thirds of the left hemithorax which presumably represents pleural flui d. The condition of the underlying left lung cannot be determined due to the density of the opacificatio n. There is no significant mediastinal shift to suggest significant atelectasis. No acute pulmonary parenchymal abnormality is identified in the residual aerated left lung or the rig ht lung. 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 Mild degenerative spondylosis in the thoracic spi ne. XR/XR chest 1V portable [id number] IMPRESSION: Presumed large left pleural effusion.
[2023-10-08 11:43] LABS: Basophils % 0.2 %; Hematocrit 31.3 % (36-47); Lymphocytes % 5.2 %; Mean Corpuscular HGB Conc 32.3 g/dL (30-55); Monocytes # 1.3 10^3/uL (0.2-0.9); Monocytes % 6.9 %; Neutrophils # 16.15 10^3/uL (1.8-7.7); Neutrophils % 86.6 %; Nucleated Red Blood Cells % 0.1 %; Platelet Count 249 10^3/cmm (157-399); Red Blood Count 3.26 10^6/uL (3.85-5.65); Red Cell Distribution Width 15.2 % (12.1-15.1); White Blood Count 18.64 10^3/uL (3.29-11.43)
[2023-10-08] MEDS: vancomycin 1,000 MG in sodium chloride 0.9% 250 ML 250 MG IV ×2 (12:01→20:42)
[2023-10-08 12:03] LABS: INR 2.37 (0.8-1.2)
[2023-10-08 12:04] LABS: Chloride 91 mmol/L (98-107); Potassium 4.1 mmol/L (3.5-5.1); Sodium 130 mmol/L (136-145)
[2023-10-08 12:06] LABS: Troponin(5th) Baseline 82 ng/L (0-10)
[2023-10-08 12:13] LABS: D Dimer 4.97 ug/mLFEU (0-0.59)
[2023-10-08] MEDS: sodium chloride 0.9% 1,000 ML 999 ML IV (12:18)
--- NOTE | 2023-10-08 12:18 | W.ED.ARRPALP ---
HPI - Arrhythmia/Palpitations General: Chief Complaint: Arrhythmia/Palpitations Stated Complaint: abnormal ekg at Clinic Time Seen by Provider: 10/08/23 11:56 Source: patient Mode of arrival: ambulatory Limitations: no limitations History of Present Illness: 72-year-old female who states that over the last 2 to 3 days she has not felt well states she has had chills low-grade fevers and some slight dyspnea. Patient has a history of end-stage renal disease she is on dialysis Thursday did not go Thursday. She had some pain with inspiration as well. Denies any vomiting or diarrhea Associated symptoms: Deny nausea or vomiting Review of Systems Const: Reports: fever(s) and chills; Denies: body aches or change in appetite ENMT: Denies: throat pain or dental pain Card: Denies: chest pain Resp: Reports: dyspnea GI: Denies: abdominal pain, nausea, vomiting or diarrhea : Denies: dysuria Musc: Denies: neck pain or back pain Skin/Breast: Denies: rash Neuro: Denies: headache(s) PFSH ED PFSH: Medical History Acute kidney injury superimposed on chronic kidney disease Anticoagulation adequate with anticoagulant therapy Atrial fibrillation Chronic kidney disease (CKD) Baseline GFR of 19-20 COPD exacerbation Diabetes Elevated troponin Hematuria Hypertension Kidney donor Solitary kidney Surgical History H/O kidney removal Family History Father Diabetes Mother Diabetes Social History Smoking and tobacco/nicotine status: current every day tobacco/nicotine user Alcohol intake: never Substance/Drug Use: never Physical Exam Const: COMMON NORMALS: patient oriented x3 and healthy appearing HENMT: COMMON NORMALS: normocephalic and atraumatic HEAD & SCALP: normocephalic and atraumatic Eye: COMMON NORMALS: Equal, round and reactive pupils present and EOMs intact bilaterally PUPIL: Yes Equal, round and reactive pupils present Neck/C-Spine: COMMON NORMALS: full ROM and supple Chest: COMMONS NORMALS: normal inspection of the chest Resp: COMMON NORMALS: normal respiratory effort, No retractions and No use of accessory muscles AUSCULTATION: diminished lung sounds on the left Cardio: COMMON NORMALS: No murmurs present (Cardio) RATE: tachycardic RHYTHM: abnormal rhythm irregularly irregular GI: COMMON NORMALS: Normal to inspection, nondistended, normoactive bowel sounds present, Soft to palpation, non-tender and no masses PALPATION: Yes Soft to palpation Extremity: COMMON NORMALS: normal to inspection and full ROM Neuro: COMMON NORMALS: patient oriented x3, moves all extremities and no focal motor deficits Psych: COMMON NORMALS: mental status grossly normal, Normal thought process present and cooperative THOUGHT PROCESS: Normal thought process present Skin: COMMON NORMALS: no rashes or lesions noted and no wounds GENERAL SKIN EXAM: no rashes or lesions noted Course Vital Signs: Vital signs: Vital Signs Temperature 97.5 F L 10/08/23 10:30 Pulse Rate 98 10/08/23 13:31 Respiratory Rate 18 10/08/23 10:30 Blood Pressure 92/60 10/08/23 13:31 Pulse Oximetry 92 10/08/23 13:31 Oxygen Delivery Me thod Room Air 10/08/23 12:24 MDM - Arrhythmia/Palpitations Medical Decision Making Patient presents here with some shortness of breath and low-grade fever she is found have a large left-sided pleural effusion patient started on IV antibiotics spoke to hospitalist and will admit at this time. Medical Records I reviewed the patient's medical records. Lab Data I reviewed the patient's lab results. 10/08/23 11:23 10/08/23 11:23 Radiology Impressions Chest X-Ray 10/08/23 10:30 IMPRESSION: Presumed large left pleural effusion. Chest CTA 10/08/23 12:20 IMPRESSION: 1. No central pulmonary embolism. 2. Moderate to large LEFT pleural effusion. Hounsfield units suggest transudative effusion. Age-indeterminate effusion as there are no prior recent studies for comparison. 3. Right-sided dialysis catheter. 4. Mild pulmonary edema. 5. Cardiomegaly and small pericardial effusion. Laboratory Results WBC 18.64 10^3/uL (3.29-11.43) H 10/08/23 11:23 RBC 3.26 10^6/uL (3.85-5.65) L 10/08/23 11:23 Hgb 10.10 g/dL (11.27-16.99) L 10/08/23 11:23 Hct 31.3 % (36-47) L 10/08/23 11:23 MCV 96.0 fl (85-98) 10/08/23 11:23 MCH 31.0 pg (27-33) 10/08/23 11:23 MCHC 32.3 g/dL (30-55) 10/08/23 11:23 RDW 15.2 % (12.1-15.1) H 10/08/23 11:23 Plt Count 249 10^3/cmm (157-399) 10/08/23 11:23 MPV 10.0 fL (7.4-10.4) 10/08/23 11:23 Neut % (Auto) 86.6 % 10/08/23 11:23 Lymph % (Auto) 5.2 % 10/08/23 11:23 [place] % (Auto) 6.9 % 10/08/23 11:23 Eos % (Auto) 0.0 % 10/08/23 11:23 Baso % (Auto) 0.2 % 10/08/23 11:23 Neut # (Auto) 16.15 10^3/uL (1.8-7.7) H 10/08/23 11:23 Lymph # (Auto) 1.0 10^3/uL (0.8-4.8) 10/08/23 11:23 [place] # (Auto) 1.3 10^3/uL (0.2-0.9) H 10/08/23 11:23 Eos # (Auto) 0.0 10^3/uL (0.0-0.8) 10/08/23 11:23 Baso # (Auto) 0.0 10^3/uL (0.0-0.1) 10/08/23 11:23 Nucleated RBC % (auto) 0.1 % 10/08/23 11:23 Nucleated RBCs # 0.0 /100WBC 10/08/23 11:23 PT 26.70 SECONDS (12.1-14.9) H 10/08/23 11:23 INR 2.37 (0.8-1.2) H 10/08/23 11:23 D-Dimer 4.97 ug/mLFEU (0-0.59) H 10/08/23 11:23 Sodium 130 mmol/L (136-145) L 10/08/23 11:23 Potassium 4.1 mmol/L (3.5-5.1) 10/08/23 11:23 Chloride 91 mmol/L (98-107) L 10/08/23 11:23 Carbon Dioxide 20 mmol/L (22-29) L 10/08/23 11:23 Anion Gap 23.1 (5-19) H 10/08/23 11:23 BUN 45 mg/dL (8-23) H 10/08/23 11:23 Creatinine 6.3 mg/dL (0.5-0.9) H* 10/08/23 11:23 GFR Calculation Not Reportable 10/08/23 11:23 Glucose 268 mg/dL (65-115) H 10/08/23 11:23 Calculated Osmolality 291 mOsm/kg (285-295) 10/08/23 11:23 Lactic Acid 1.7 mmol/L (0.5-2.2) 10/08/23 12:45 Calcium 8.2 mg/dL (8.5-10.5) L 10/08/23 11:23 Total Bilirubin 1.1 mg/dL (0.15-1.2) 10/08/23 11:23 AST 9 U/L (0-32) 10/08/23 11:23 ALT 8 U/L (0-33) 10/08/23 11:23 Alkaline Phosphatase 104 U/L (35-105) 10/08/23 11:23 Troponin T Baseline 82 ng/L (0-10) H 10/08/23 11:23 Troponin T 120 Minute 68.65 ng/L (0-10) H 10/08/23 13:22 Delta Troponin T -13.35 ABS# (0-10) L 10/08/23 13:22 NT-Pro-B Natriuret Pep 98466 pg/mL (0-125) H 10/08/23 12:45 Total Protein 7.4 g/dL (6.6-8.7) 10/08/23 11:23 Albumin 3.7 g/dL (3.5-5.2) 10/08/23 11:23 Globulin 3.7 g/dL (1.3-4.6) 10/08/23 11:23 All radiology interpretation(s) finalized by discharge EKG Data EKG 1: I personally reviewed and interpreted this EKG as follows: EKG interpretation date: 10/08/23 EKG interpretation time: 10:22 Interpretation: afib with rvr hr [address] elevation qrs 77 qtc 387 Other EKG comments: Chest X-Ray 10/08/23 10:30 IMPRESSION: Presumed large left pleural effusion. Chest CTA 10/08/23 12:20 IMPRESSION: 1. No central pulmonary embolism. 2. Moderate to large LEFT pleural effusion. Hounsfield units suggest transudative effusion. Age-indeterminate effusion as there are no prior recent studies for comparison. 3. Right-sided dialysis catheter. 4. Mild pulmonary edema. 5. Cardiomegaly and small pericardial effusion. Discharge Plan Discharge Patient Disposition: Admitted As Inpatient Clinical Impression: Pleural effusion, Chronic kidney disease (CKD), Atrial fibrillation Condition: Stable Prescriptions: No Action isosorbide mononitrate 30 mg tablet extended release 24 hr 30 mg PO DAILY Qty: 30 0RF metoprolol succinate 100 mg tablet extended release 24 hr 100 mg PO DAILY albuterol sulfate 90 mcg/actuation HFA aerosol inhaler 1 - 2 puff INHALATION Q4H PRN (Reason: Shortness Of Breath Or Wheezing) fluticasone propionate 50 mcg/actuation spray,suspension 1 spray INTRANASAL DAILY amlodipine 5 mg Tablet 5 mg PO DAILY Qty: 30 0RF atorvastatin 40 mg tablet 40 mg PO QPM ipratropium-albuterol 0.5 mg-3 mg(2.5 mg base)/3 mL solution for nebulization 3 ml INHALATION QID PRN (Reason: Shortness Of Breath) glimepiride 2 mg tablet 2 mg PO QAM bumetanide 1 mg tablet 3 mg PO DAILY Eliquis 2.5 mg tablet 2.5 mg PO BID tiotropium bromide [Spiriva with HandiHaler] 18 mcg capsule, w/inhalation device 18 mcg INHALATION DAILY Referrals: Lita Rodriguez PA-C [Primary Care Provider] - Coding Level of Care Code ED Cable Installation Manager for Chg Chante
--- NOTE | 2023-10-08 12:20 | CT_ITS ---
WS: [id number] CT CHEST ANGIOGRAPHY WITH REFORMATS HISTORY: dyspnea TECHNIQUE: Contiguous axial images are obtained through the chest during arterial injection of intrav enous contrast. Images are reconstructed to evaluate the pulmonary arteries. MIP imaging also reviewe d. All CT scans at [facility] use at least one of these dose optimization techniques: automat ed exposure control; mA and/or kV adjustment per patient size (includes targeted exams where dose is matched to clinical indication); or iterative reconstruction. CONTRAST: Omnipaque 350; 100 mL IV. DLP: 480.15 mGy.cm COMPARISON: Chest CT 07/28/2022 Good opacification of the central pulmonary arteries. No central pulmonary embolism. Beyond the lobar branches of the LEFT upper and lower lobes arteries are obscured by atelectasis and pleural fluid. R IGHT peripheral pulmonary arteries are better visualized and normal. Moderate atherosclerosis aorta. Heart is moderately enlarged. Mild tricuspid regurgitation into the h epatic veins. There is a small pericardial effusion. Moderate to large left-sided pleural effusion. Hounsfield units are less than 20 suggesting transudat osmar effusion. There is mild hazy attenuation throughout both remaining aerated lungs suggesting mild fluid overload and edema. Breathing motion artifact. Indeterminate mediastinal and hilar lymph nodes. LEFT adrenal adenoma 2.0 x 1.6 cm. No acute rib fractures. CT/CT angio chest PE protcl [id number] IMPRESSION: 1. No central pulmonary embolism. 2. Moderate to large LEFT pleural effusion. Hounsfield units suggest transudat osmar effusion. Age-indeterminate effusion as there are no prior recent studies f or comparison. 3. Right-sided dialysis catheter. 4. Mild pulmonary edema. 5. Cardiomegaly and small pericardial effusion.
[2023-10-08 12:21] LABS: Alanine Aminotransferase 8 U/L (0-33); Albumin Level 3.7 g/dL (3.5-5.2); Alkaline Phosphatase 104 U/L (35-105); Anion Gap 23.1 (5-19); Aspartate Amino Transferase 9 U/L (0-32); Carbon Dioxide 20 mmol/L (22-29); Globulin 3.7 g/dL (1.3-4.6); Glucose 268 mg/dL (65-115); Total Bilirubin 1.1 mg/dL (0.15-1.2); Total Protein 7.4 g/dL (6.6-8.7)
--- NOTE | 2023-10-08 12:30 | ECG_ITS ---
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 Measurements Intervals [place] Rate: 98 P: 0 NV: 0 QRS: 34 QRSD: 71 T: 195 QT: 349 QTc: 447 Interpretive Statements ATRIAL FIBRILLATION LOW QRS VOLTAGE IN PRECORDIAL LEADS [QRS DEFLECTION < 1.0 mV IN CHEST LEADS] ST DEVIATION AND MODERATE T-WAVE ABNORMALITY, CONSIDER LATERAL ISCHEMIA [-0.1+ mV T-WAVE IN I/aVL/V5/V6] ST DEVIATION AND MODERATE T-WAVE ABNORMALITY, CONSIDER INFERIOR ISCHEMIA [-0.1+ mV T-WAVE IN II/aVF] Compared to ECG 10/08/2023 10:22:39 Low QRS voltage now present T-wave abnormality still present Possible ischemia still present Electronically Signed On 10-09-2023 1:06:32 CDT by Lexis Desai M.D. [id number]
[2023-10-08 12:40] LABS: Blood Urea Nitrogen 45 mg/dL (8-23); Calcium 8.2 mg/dL (8.5-10.5); Osmolality Calculated 291 mOsm/kg (285-295)
[2023-10-08 12:55] LABS: Creatinine Clr Calc Pharmacy 9.5789
[2023-10-08] MEDS: iohexol 350 mg/mL 500 mL Btl (per mL) IV (13:05)
[2023-10-08 13:16] LABS: Lactic Sepsis W/Reflex 1.7 mmol/L (0.5-2.2)
[2023-10-08 13:26] LABS: NT Pro B Type Natriuretic Pept 26108 pg/mL (0-125)
[2023-10-08] MEDS: piperacillin-tazobactam 3.375 GM in sodium chloride 0.9% (plus) 50 ML IV (13:30)
[2023-10-08 13:45] LABS: Troponin 5 2HR 68.65 ng/L (0-10)
[2023-10-08 14:03] LABS: Troponin 5 2HR Delta -13.35 ABS# (0-10)
--- NOTE | 2023-10-08 14:48 | P.HP_ITS ---
Providers/Chief Complaint 2 Admitting Physician: Jaskaran Cabrera MD Primary Care Provider: Lita Rodriguez Chief Complaint: abnormal ekg at Clinic History of Present Illness Venita Healy is a 72 year old female with a past medical history of end-stage renal disease on dialysis, history of left arm AV fistula, with a right chest dialysis catheter in place, currently being used as her left arm AV fistula has had issues, type 2 diabetes mellitus, diastolic CHF who presents [facility] due to fatigue, malaise, subjective fevers, shortness of breath, cough. Currently patient sitting up at the side of the bed, is at bedside, she is on room air, blood pressure 92/60, pulse 98, respiratory rate 18, she is alert oriented x 4, following all commands. Patient tells me that for the last 3 days she has had fatigue, malaise, fevers, chills, shortness of breath. She actually went to her primary care provider as she was complaining of also chest discomfort, she had EKG changes that were concerning, so she was sent to the emergency room for evaluation. She denies any dysuria, hematuria, no flank pain or chronic back pain, no neck pain no neck stiffness or head ache, no blurry vision, no cough, no congestion, no sore throat, no sick contacts no recent travel, no abdominal pain, no diarrhea, no known history of exposures. Patient felt sick today she missed dialysis Review of Systems 2 Const: Reports: fever(s), chills, fatigue and malaise ENMT: Denies: throat pain Card: Reports: chest pain Resp: Reports: dyspnea GI: Denies: abdominal pain or diarrhea : Denies: flank pain Medications/Allergies Home Medications Medication Instructions Recorded Confirmed Last Taken Type albuterol sulfate 90 mcg/actuation 1 - 2 puff inhalation Q4H PRN 09/25/20 10/08/23 07/26/22 History aerosol inhaler Shortness Of Breath Or Wheezing fluticasone propionate 50 1 spray intranasal DAILY 09/25/20 10/08/23 10/07/23 History mcg/actuation nasal spray,suspension metoprolol succinate 100 mg 100 mg PO DAILY 09/25/20 10/08/23 10/08/23 History tablet,extended release 24 hr tiotropium bromide 18 mcg capsule 18 mcg inhalation DAILY 02/22/22 10/08/23 10/07/23 History with inhalation device (Spiriva with HandiHaler) amlodipine 5 mg tablet 5 mg PO DAILY #30 tabs 07/29/22 10/08/23 10/08/23 Rx isosorbide mononitrate 30 mg 30 mg PO DAILY #30 tabs 08/28/22 10/08/23 10/08/23 Rx tablet,extended release 24 hr apixaban 2.5 mg tablet (Eliquis) 2.5 mg PO BID 10/08/23 10/08/23 10/08/23 History atorvastatin 40 mg tablet 40 mg PO QPM 10/08/23 10/08/23 10/07/23 History bumetanide 1 mg tablet 3 mg PO DAILY 10/08/23 10/08/23 10/08/23 History glimepiride 2 mg tablet 2 mg PO QAM 10/08/23 10/08/23 10/08/23 History ipratropium 0.5 mg-albuterol 3 mg 3 ml inhalation QID PRN Shortness 10/08/23 10/08/23 Unknown History (2.5 mg base)/3 mL nebulization Of Breath soln Allergies Allergy/AdvReac Type Severity Reaction Status Date / Time codeine Allergy ADR-Nausea Verified 08/28/22 07:23 PFSH Acute 2 PFSH: Medical History COPD exacerbation Acute kidney injury superimposed on chronic kidney disease Hematuria Elevated troponin Anticoagulation adequate with anticoagulant therapy Chronic kidney disease (CKD) Baseline GFR of 19-20 Atrial fibrillation Hypertension Kidney donor Solitary kidney Diabetes Surgical History H/O kidney removal Family History Father Diabetes Mother Diabetes Social History Smoking and tobacco/nicotine status: current every day tobacco/nicotine user Alcohol intake: never Substance/Drug Use: never Vitals/I&O/Wt Last Vital Signs Temp 97.5 F L 10/08/23 10:30 Pulse 98 10/08/23 13:31 Resp 18 10/08/23 10:30 BP 92/60 10/08/23 13:31 Pulse Ox 92 10/08/23 13:31 O2 Del Method Room Air 10/08/23 12:24 Weight last 48 hrs Weight 89.358 kg Physical Exam 2 Const: COMMON NORMALS: no acute distress and patient oriented x3 HENMT: COMMON NORMALS: normocephalic HEAD & SCALP: normocephalic Eye: COMMON NORMALS: Equal, round and reactive pupils present Neck/C-Spine: COMMON NORMALS: no JVD OTHER: kernig sign negative, brudunski sign negative Lymph: LYMPHATIC: no lymphadenopathy noted Chest: OTHER: right dialysis catheter in place Resp: COMMON NORMALS: normal respiratory effort, No retractions, No use of accessory muscles and clear to auscultation bilaterally AUSCULTATION: clear to auscultation bilaterally Cardio: COMMON NORMALS: regular rate, regular rhythm, S1 normal heart sound present and S2 normal heart sound present RATE: regular rate RHYTHM: r egular rhythm HEART SOUNDS: S1 normal heart sound present and S2 normal heart sound present GI: COMMON NORMALS: Normal to inspection, nondistended, normoactive bowel sounds present, Soft to palpation and non-tender PALPATION: Yes Soft to palpation Extremity: COMMON NORMALS: no calf tenderness and no pedal edema Data 10/08/23 11:23 10/08/23 11:23 Micro: Microbiology 10/08/23 12:45 Blood Culture - Preliminary Blood SPECIMEN COLLECTED 10/08/23 12:49 Blood Culture - Preliminary Blood SPECIMEN COLLECTED A&P Assessment and plan (1) Fever: (2) UTI (urinary tract infection): (3) Chest pain: Qualifiers: Chest pain type: unspecified Qualified Code(s): R07.9 - Chest pain, unspecified (4) Pleural effusion: (5) Atherosclerosis of coronary artery of [place] heart without angina pectoris: (6) ESRD on dialysis: Plan Chest pain ? EKG does show T wave inversions in inferior and lateral leads ? Troponins 82, 2-hour troponin 68.65, delta -13.35 ? Currently chest pain-free plan ? Plan -Aspirin 81 mg ? Continue statin, ? Eliquis currently on hold as to plans on thoracocentesis ? Will switch to heparin drip ? Cardiac echo Fever ? Likely source is UTI ? Respiratory viral panel pending CT angiogram shows large left pleural effusion, does not appear to be an empyema ? Plan on thoracocentesis tomorrow ? Follow CRP, Pro-Thomas, sed rate As other source of infection is patient's right dialysis catheter Fluid overload, BNP over 20,000, left pleural effusion ? Patient missed dialysis today, end-stage renal disease on dialysis, ? Consult nephrology for dialysis Full code ? Heparin drip for DVT prophylaxis Attestations 2 Medical Necessity Statement*: Patient requires hospitalization for chest pain, fevers, fluid overload, inpatient, greater than 2 midnights Diagnoses Fever R50.9 UTI (urinary tract infection) N39.0 Chest pain R07.9 Chest pain type: unspecified Pleural effusion J90 Atherosclerosis of coronary artery of [place] heart without angina pectoris I25.10 ESRD on dialysis N18.6; Z99.2
[2023-10-08 14:55] LABS: Urine Appearance Slightly Cloudy (CLEAR); Urine Color Yellow (Yellow)
[2023-10-08 14:56] LABS: Add Urine Microscopic? YES; Bilirubin Urine Neg (Negative); Blood Urine 3+ (Negative); Glucose Urine UA 2+ (Normal); Ketones Urine Negative (Negative); Leukocyte Esterase Urine 2+ (Negative); Nitrate Urine Negative (Negative); Protein Urine 3+ (Negative); Urobilinogen Urine 1 mg/dL (Negative); pH Urine 8 (5-7)
[2023-10-08 14:57] LABS: Bacteria Urine 2+ /hpf; RBC Urine 80-100 /hpf (0-2); Squamous Epithelial Cell Urine 0-4 /hpf (0-5); WBC Urine 80-100 /hpf (0-5)
[2023-10-08 14:58] LABS: Add Urine Culture? Yes
[2023-10-08 15:15] LABS: Erythrocyte Sedimentation Rate 33 mm/hr (0-15)
[2023-10-08 15:36] LABS: C Reactive Protein 319.7 mg/L (0.0-4.9)
--- NOTE | 2023-10-08 16:11 | P.CONIM_ITS ---
Providers/Reason For Consult 2 Consulting Physician/Specialty*: kommana/Nephrology Reason for Consult*: ESRD Attending Physician: Jaskaran Cabrera MD Primary Care Provider: Lita Rodriguez History of Present Illness History of Present Illness Venita Healy is a 72 year old female Patient is a 72-year-old female with past medical history of end-stage renal disease on hemodialysis per TTS schedule diabetes, CHF presented due to fatigue malaise fever shortness of breath. In the ER vital signs are stable, lab data significant for WBC count of 18,000 hemoglobin 10 creatinine 6.3. Patient was started to have possible UTI, also has elevated troponins. Review of Systems 2 Narrative: Negative Medications/Allergies Home Medications Medication Instructions Recorded Confirmed Last Taken Type albuterol sulfate 90 mcg/actuation 1 - 2 puff inhalation Q4H PRN 09/25/20 10/08/23 07/26/22 History aerosol inhaler Shortness Of Breath Or Wheezing fluticasone propionate 50 1 spray intranasal DAILY 09/25/20 10/08/23 10/07/23 History mcg/actuation nasal spray,suspension metoprolol succinate 100 mg 100 mg PO DAILY 09/25/20 10/08/23 10/08/23 History tablet,extended release 24 hr tiotropium bromide 18 mcg capsule 18 mcg inhalation DAILY 02/22/22 10/08/23 10/07/23 History with inhalation device (Spiriva with HandiHaler) amlodipine 5 mg tablet 5 mg PO DAILY #30 tabs 07/29/22 10/08/23 10/08/23 Rx isosorbide mononitrate 30 mg 30 mg PO DAILY #30 tabs 08/28/22 10/08/23 10/08/23 Rx tablet,extended release 24 hr apixaban 2.5 mg tablet (Eliquis) 2.5 mg PO BID 10/08/23 10/08/23 10/08/23 History atorvastatin 40 mg tablet 40 mg PO QPM 10/08/23 10/08/23 10/07/23 History bumetanide 1 mg tablet 3 mg PO DAILY 10/08/23 10/08/23 10/08/23 History glimepiride 2 mg tablet 2 mg PO QAM 10/08/23 10/08/23 10/08/23 History ipratropium 0.5 mg-albuterol 3 mg 3 ml inhalation QID PRN Shortness 10/08/23 10/08/23 Unknown History (2.5 mg base)/3 mL nebulization Of Breath soln Allergies Allergy/AdvReac Type Severity Reaction Status Date / Time codeine Allergy ADR-Nausea Verified 08/28/22 07:23 PFSH Acute 2 PFSH: Medical History COPD exacerbation Acute kidney injury superimposed on chronic kidney disease Hematuria Elevated troponin Anticoagulation adequate with anticoagulant therapy Chronic kidney disease (CKD) Baseline GFR of 19-20 Atrial fibrillation Hypertension Kidney donor Solitary kidney Diabetes Surgical History H/O kidney removal Family History Father Diabetes Mother Diabetes Social History Smoking and tobacco/nicotine status: current every day tobacco/nicotine user Alcohol intake: never Substance/Drug Use: never Vitals/I&O/Wt Last Vital Signs Temp 97.5 F L 10/08/23 15:38 Pulse 96 10/08/23 15:38 Resp 18 10/08/23 15:38 BP 105/58 10/08/23 15:38 Pulse Ox 97 10/08/23 15:38 O2 Del Method Room Air 10/08/23 14:57 10/08/23 10/08/23 10/08/23 06:59 14:59 22:59 Intake Total 1050 / 1050 Balance 1050 / 1050 Weight last 48 hrs Weight 89.358 kg Physical Exam 2 Narrative: Patient awake alert no distress HEENT S1-S2 regular rate and rhythm per report Lungs clear per report No edema Data 10/09/23 06:02 10/09/23 06:02 Micro: Microbiology 10/08/23 12:45 Blood Culture - Preliminary Blood SPECIMEN COLLECTED 10/08/23 12:49 Blood Culture - Preliminary Blood SPECIMEN COLLECTED A&P Assessment and plan (1) ESRD on dialysis: 1. End-stage renal disease: On TTS schedule, plan for HD today, patient volume overloaded 2. History of hypertension: Resume home meds 3. Anemia: Hemoglobin 10.8 monitor 4. Sepsis, possibly due to UTI, management per primary team 5. Chest pain, with elevated troponin, Patient evaluated using audiovisual cart. Time spent 40 minutes. Consult Attestations 2 Medical Necessity Statement: Per medicine team Coding Level of Care Code Acute Code for Chg Fwd Diagnoses ESRD on dialysis N18.6; Z99.2
[2023-10-08 16:25] LABS: Estmated Average Glucose 100; Hemoglobin A1C 5.1 % (4.0-6.0)
[2023-10-08 16:30] LABS: Adenovirus Not Detected (NOT DETECT); Chlamydia Pneumoniae Not Detected (NOT DETECT); Coronavirus 229E,HKU1,NL63,OC4 Not Detected (NOT DETECT); Human Metapneumovirus Not Detected (NOT DETECT); Human Rhinovirus/Enterovirus Not Detected (NOT DETECT); Influenza A Not Detected (NOT DETECT); Influenza A H1 Not Detected (NOT DETECT); Influenza A H1-2009 Not Detected (NOT DETECT); Influenza A H3 Not Detected (NOT DETECT); Influenza B Not Detected (NOT DETECT); Mycoplasma Pneumoniae Not Detected (NOT DETECT); Parainfluenza Virus Type 1 Not Detected (NOT DETECT); Parainfluenza Virus Type 2 Not Detected (NOT DETECT); Parainfluenza Virus Type 3 Not Detected (NOT DETECT); Parainfluenza Virus Type 4 Not Detected (NOT DETECT); Respiratory Syncytial Virus A Not Detected (NOT DETECT); Respiratory Syncytial Virus B Not Detected (NOT DETECT); SARS-COV-2 Not Detected (NOT DETECT)
[2023-10-08 16:33] LABS: Chol HDL Ratio 2.24 mg/dL (0.0-4.40); Cholesterol 83 mg/dL (0-200); HDL Cholesterol 37 mg/dL (60-100); LDL Cholesterol Calculated 24 mg/dL (50-129); LDL HDL Ratio 0.65 RATIO (0.00-3.22); Thyroid Stimulating Hormone 3.16 uIU/mL (0.27-4.20); Triglycerides 110 mg/dL (0-150)
[2023-10-08 16:58] LABS: Hepatitis B Surface Antigen Non-Reactive (Nonreactive)
--- NOTE | 2023-10-08 16:59 | ECG_ITS ---
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 Measurements Intervals [place] Rate: 96 P: 0 SC: 0 QRS: 30 QRSD: 75 T: 246 QT: 370 QTc: 468 Interpretive Statements ATRIAL FIBRILLATION LOW QRS VOLTAGE IN PRECORDIAL LEADS [QRS DEFLECTION < 1.0 mV IN CHEST LEADS] ST DEVIATION AND MODERATE T-WAVE ABNORMALITY, CONSIDER LATERAL ISCHEMIA [-0.1+ mV T-WAVE IN I/aVL/V5/V6] ST DEVIATION AND MODERATE T-WAVE ABNORMALITY, CONSIDER INFERIOR ISCHEMIA [-0.1+ mV T-WAVE IN II/aVF] Compared to ECG 10/08/2023 12:30:42 No significant changes Electronically Signed On 10-09-2023 1:10:29 CDT by Lexis Desai M.D. [id number]
[2023-10-08 17:04] LABS: Glucose Point of Care 152 mg/dL (70-110)
[2023-10-08] MEDS: insulin lispro 100 unit/1 mL SUBCUT (17:25)
[2023-10-08] MEDS: pantoprazole 40 mg SDV IVP (17:25)
[2023-10-08] MEDS: atorvastatin 40 mg Tablet PO (17:25)
[2023-10-08] MEDS: heparin, porcine 1,000 unit/mL INJ 10 mL 1000 UNIT IV (17:26)
[2023-10-08] MEDS: heparin, porcine 1,000 unit/mL INJ 10 mL 10000 UNIT INTRACATH (17:26)
--- NOTE | 2023-10-08 18:13 | CTR_ITS ---
PROCEDURE INFORMATION: Exam: CT Abdomen And Pelvis Without Contrast Exam date and time: 10/08/2023 10:19 PM Age: 72 years old Clinical indication: Abnormal findings; Abnormal lab test; Elevated wbc; Prior surgery; Surgery date: 6+ months; Surgery type: Gb. Hysterectomy. Nephrectomy. Csection. Patient HX: Fever with wbc of 19k and crp of 320. TECHNIQUE: Imaging protocol: Computed tomography of the abdomen and pelvis without contrast. Radiation optimization: All CT scans at this facility use at least one of these dose optimization techniques: automated exposure control; mA and/or kV adjustment per patient size (includes targeted exams where dose is matched to clinical indication); or iterative reconstruction. COMPARISON: CT kidney stone [id number] 07/26/2022 9:13 AM RADIATION DOSE METRICS: Total DLP (mGy-cm): 784.55 FINDINGS: Pleural spaces: Partially visualized chest demonstrates a large left-sided pleural effusion. Heart: Small pericardial effusion. Liver: Normal. No mass. Gallbladder and biliary ducts: Status post cholecystectomy. Pancreas: Normal. No ductal dilation. Spleen: Normal. No splenomegaly. Adrenal glands: Unchanged hypoattenuating left adrenal adenoma. Kidneys and ureters: Status post right-sided nephrectomy. Left-sided perinephric fat stranding. Stomach and bowel: Unremarkable. No obstruction. No mucosal thickening. Appendix: No evidence of appendicitis. Intraperitoneal space: Unremarkable. No free air. No significant fluid collection. Vasculature: Severe atherosclerotic calcifications. Lymph nodes: Unremarkable. No enlarged lymph nodes. Urinary bladder: Unremarkable as visualized. Reproductive: Status post hysterectomy. Bones/joints: Unremarkable. No acute fracture. Soft tissues: Unremarkable. CT/CT abdomen pelvis wo con [id number] IMPRESSION: 1. Partially visualized chest demonstrates a large left-sided pleural effusion. 2. Nonspecific left perinephric fat stranding which can be correlated with urinalysis if clinically indicated. 3. Otherwise no acute findings within the abdomen or pelvis.
[2023-10-08 18:23] LABS: Troponin 5 6HR 66.26 ng/L (0-10); Troponin 5 6HR Delta -15.74 ng/L (0-12)
[2023-10-08 20:49] LABS: Glucose Point of Care 136 mg/dL (70-110)
[2023-10-09] VITALS (8 sets, daily range): BP systolic 100–116; BP diastolic 57–66; PULSE 23–100; RESP 14–26; TEMP 36.4–37.6; O2SAT 91–96
[2023-10-09] MEDS: heparin drip 25,000 UNIT/500 ML PREMIX 25.02 UNIT IV
[2023-10-09] MEDS: heparin 5,000 unit/mL INJ 1 mL IV
[2023-10-09] MEDS: piperacillin-tazobactam 3.375 GM in sodium chloride 0.9% (plus) 50 ML IV ×2 (00:02→12:10)
[2023-10-09 02:09] LABS: Hepatitis B Surface AB > 1000.0 (11.5-1000)
--- NOTE | 2023-10-09 06:00 | US_ITS ---
WS: [id number] ULTRASOUND-GUIDED THORACENTESIS CLINICAL INFORMATION: Left pleural effusion COMPARISON: None. PROCEDURE: Informed consent: The risks, benefits, and alternatives of the procedure were discussed with the madyson ent. Verbal and written consent was obtained. Timeout: A timeout was performed to confirm the correct patient, procedure, and site. Site: LEFT Preparation: A suitable skin site was identified. The patient was prepped and draped in usual sterile fashion. Lidocaine 1% was used for local anesthesia. Catheter: 4 Romansh One-Step catheter. Fluid Volume: 1000 ml Color: Bloody serous Complications: None. US/ thoracentesis [id number] IMPRESSION: Uncomplicated ultrasound-guided LEFT thoracentesis.
[2023-10-09 06:19] LABS: Basophils % 0.2 %; Eosinophils % 0.3 %; Hematocrit 26.6 % (36-47); Lymphocytes # 1.4 10^3/uL (0.8-4.8); Lymphocytes % 11.9 %; Mean Corpuscular HGB Conc 31.2 g/dL (30-55); Mean Corpuscular Hemoglobin 30.3 pg (27-33); Mean Corpuscular Volume 97.1 fl (85-98); Mean Platelet Volume 9.7 fL (7.4-10.4); Monocytes # 1.1 10^3/uL (0.2-0.9); Monocytes % 9.3 %; Neutrophils # 9.32 10^3/uL (1.8-7.7); Neutrophils % 77.2 %; Nucleated Red Blood Cells % 0 %; Platelet Count 208 10^3/cmm (157-399); Red Blood Count 2.74 10^6/uL (3.85-5.65); Red Cell Distribution Width 15.1 % (12.1-15.1); White Blood Count 12.06 10^3/uL (3.29-11.43)
[2023-10-09 06:41] LABS: INR 2.13 (0.8-1.2)
[2023-10-09 06:42] LABS: Alanine Aminotransferase 10 U/L (0-33); Albumin Level 2.9 g/dL (3.5-5.2); Alkaline Phosphatase 84 U/L (35-105); Anion Gap 19.2 (5-19); Aspartate Amino Transferase 13 U/L (0-32); Blood Urea Nitrogen 25 mg/dL (8-23); Calcium 7.5 mg/dL (8.5-10.5); Carbon Dioxide 22 mmol/L (22-29); Chloride 97 mmol/L (98-107); Creatinine Clr Calc Pharmacy 14.3676; Globulin 3.7 g/dL (1.3-4.6); Glucose 80 mg/dL (65-115); Magnesium 1.6 mg/dL (1.7-2.3); Osmolality Calculated 283 mOsm/kg (285-295); Phosphorus 3.4 mg/dL (2.5-4.5); Potassium 3.2 mmol/L (3.5-5.1); Sodium 135 mmol/L (136-145); Total Bilirubin 0.4 mg/dL (0.15-1.2); Total Protein 6.6 g/dL (6.6-8.7)
[2023-10-09 06:45] LABS: Vancomycin Random 23.2 ug/mL (20.0-40.0)
[2023-10-09 06:49] LABS: NT Pro B Type Natriuretic Pept 28930 pg/mL (0-125)
[2023-10-09 07:39] LABS: Partial Thromboplastin Time > 250.0 SECONDS (23.9-36.7)
[2023-10-09 07:59] LABS: Glucose Point of Care 86 mg/dL (70-110)
[2023-10-09] MEDS: potassium chloride ER 20 mEq Tablet PO (10:33)
[2023-10-09] MEDS: magnesium lactate 84 mg Tablet PO (10:33)
--- NOTE | 2023-10-09 11:07 | PC.CHAP ---
Pastoral Care Encounter/Spiritual Assessment Type of Contact [] Declined biometric technician visit [] Patient/Family/Request visit [] Outpatient visit [] Follow-up visit [] Physician referral [] Code/Alert [] Routine visit [] Staff referral [] Actively dying [] Patient sleeping [] Family support [] [x] Out of room [] Palliative care [] [] Receiving care in room [] Pre-surgical visit [] Trauma [] Long length of stay [] ICU visit [] Other: Relational/Emotional Strength [] Patient feels connected with others/family/visitors/staff [] Distress [] Loneliness/isolation [] Abandonment Spirituality of Patient [] Person of Anne [] Attends Restoration of their Anne [] Believes in Prayer [] Reads Bible or Baptism materials [] There are Spiritual issues to be addressed Product Test Specialist Interventions [] Prayer [] Active listening [] Non-anxious presence [] Spiritual/emotional support [] Crisis/trauma care [] Spiritual counseling [] Bereavement support [] Provided bereavement packet [] Provided Bible/devotional materials [] Provided toy/stuffed animal, coloring book to patient or family member [] Provided Communion [] Anointing/[place] [] Salvation [] Completed spiritual assessment [] Other: Impact on Illness or Injury [] Angry [] Fearful [] Anxious [] Often cries [] Exhaustion [] Unable to work [] Unable to attend restoration [] Unable to walk/stand [] Unable to read [] Unable to drive [] Unable to eat/drink [] Unable to sleep [] Unable to be with family [] Patient intubated [] Other: Summary Time spent with patient
[2023-10-09 11:24] LABS: Glucose Point of Care 171 mg/dL (70-110)
[2023-10-09] MEDS: insulin lispro 100 unit/1 mL SUBCUT (12:09)
[2023-10-09 12:47] LABS: INR 1.48 (0.8-1.2)
[2023-10-09 12:48] LABS: Partial Thromboplastin Time 42.3 SECONDS (23.9-36.7)
--- NOTE | 2023-10-09 13:59 | P.PN_ITS ---
Subjective 2 Subjective: - Discussed likely source of fever is UT I she does report she does get frequent UTIs, no flank pain, CT scan shows evidence of pyelonephritis, no fevers overnight, no nausea, vomiting, she is on a heparin drip,, will hold, for plans on thoracocentesis Vitals/I&O/Wt Last Vital Signs Temp 97.8 F 10/09/23 11:27 Pulse 79 10/09/23 11:27 Resp 14 10/09/23 11:27 BP 100/63 10/09/23 11:27 Pulse Ox 96 10/09/23 11:27 O2 Del Method Nasal Cannula 10/09/23 11:27 O2 Flow Rate 2 10/09/23 08:00 10/08/23 10/09/23 10/09/23 22:59 06:59 14:59 Intake Total 2410 / 2410 530 / 2940 920.16 / 920.16 Output Total 3000 / 3000 Balance -590 / -590 530 / -60 920.16 / 920.16 Weight last 48 hrs Weight 93.758 kg Weight 94.71 kg Weight 92.6 kg Weight 89.358 kg Physical Exam 2 Const: COMMON NORMALS: no acute distress and patient oriented x3 Resp: COMMON NORMALS: normal respiratory effort, No retractions, No use of accessory muscles and clear to auscultation bilaterally AUSCULTATION: clear to auscultation bilaterally Cardio: COMMON NORMALS: regular rate, regular rhythm, S1 normal heart sound present and S2 normal heart sound present RATE: regular rate RHYTHM: r egular rhythm HEART SOUNDS: S1 normal heart sound present and S2 normal heart sound present GI: COMMON NORMALS: Normal to inspection, nondistended, normoactive bowel sounds present and non-tender Extremity: COMMON NORMALS: no pedal edema Neuro: COMMON NORMALS: patient oriented x3 Psych: COMMON NORMALS: mental status grossly normal Data 10/09/23 06:02 10/09/23 06:02 Micro: Microbiology 10/08/23 12:49 Blood Culture - Preliminary Blood NEGATIVE TO DATE 10/08/23 12:45 Blood Culture - Preliminary Blood NEGATIVE TO DATE 10/08/23 14:22 Urine Culture - Preliminary Urine,Clean Catch Gram Negative Rods A&P Assessment and plan (1) Fever: (2) UTI (urinary tract infection): (3) Chest pain: Qualifiers: Chest pain type: unspecified Qualified Code(s): R07.9 - Chest pain, unspecified (4) Pleural effusion: (5) Atherosclerosis of coronary artery of [place] heart without angina pectoris: (6) ESRD on dialysis: Plan Chest pain, currently chest pain-free ? EKG does show T wave inversions in inferior and lateral leads ? Troponins 82, 2-hour troponin 68.65, delta -13.35 ? Currently chest pain-free plan ? Plan -Aspirin 81 mg ? Continue statin, ? Eliquis currently on hold as to plans on thoracocentesis ? heparin drip ? Cardiac echo Fever ? Likely source is UTI, with radiographic evidence of pyelonephritis ? Respiratory viral panel pending CT angiogram shows large left pleural effusion, does not appear to be an empyema ? Plan on thoracocentesis today -CT scan abdomen and pelvis -2. Nonspecific left perinephric fat stranding which can be correlated with urinalysis if clinically indicated. ? Urine culture showing gram-negative rods ? Follow blood cultures ?continue Zosyn ? Continue vancomycin Fluid overload, BNP over 20,000, left pleural effusion ? Patient missed dialysis today, end-stage renal disease on dialysis, -Status post dialysis yesterday ? Consult nephrology for dialysis Full code ? Heparin drip for DVT prophylaxis Plan for today continue IV antibiotics, monitor for fevers Attestations 2 Medical Necessity Statement*: Patient requires hospitalization, for fevers, UTI, pyelonephritis Diagnoses Fever R50.9 UTI (urinary tract infection) N39.0 Chest pain R07.9 Chest pain type: unspecified Pleural effusion J90 Atherosclerosis of coronary artery of [place] heart without angina pectoris I25.10 ESRD on dialysis N18.6; Z99.2
--- NOTE | 2023-10-09 14:45 | USCV_ITS ---
Niraj Venita Age: 72 Gender: F : 1950 Exam Date: 10/08/2023 21:17 Ordering Phys: Jaskaran Cabrera MD Technologist: Tanner Khan Exam Location: [facility] [place] Indication: chest pain BP: 105 / 58 HR: 84 Rhythm: Sinus Technical Quality: Adequate MEASUREMENTS (Male / Female) Normal Values 2D ECHO LV Diastolic Diameter PLAX 3.1 cm 4.2 - 5.9 / 3.9 - 5.3 cm IVS Diastolic Thickness 1.4 cm 0.6 - 1.0 / 0.6 - 0.9 cm IVS Systolic Thickness 1.7 cm LVPW Diastolic Thickness 1.9 cm 0.6 - 1.0 / 0.6 - 0.9 cm LVPW Systolic Thickness 1.7 cm LVOT Diameter 2.0 cm LV Ejection Fraction 2D Teich 59.0 % LV Ejection Fraction MOD 4C 62.9 % LV Ejection Fraction MOD 2C 71.2 % LV Ejection Fraction 2C AL 71.6 % LA Diameter 3.3 cm RA Systolic Volume 4C AL 72.9 ml RA Systolic Volume 4C MOD 77.2 ml Aorta at Sinotubular Diameter 3.0 cm IVC Diameter 2.2 cm M-MODE LA Ao Ratio MM 1.4 AV Cusp Separation MM 1.8 cm DOPPLER AV Peak Velocity 120.3 cm/s LVOT Peak Velocity 95.0 cm/s AV Area Cont Eq vti 3.1 cm squared AV Area Cont Eq pk 2.6 cm squared MV Peak Velocity 104.0 cm/s MV Area PHT 5.0 cm squared Mitral E to A Ratio 2.3 PV Peak Velocity 56.0 cm/s RV Ejection Time 0.3 s FINDINGS Left Ventricle Moderate left ventricular hypertrophy. Normal LV systolic function. Left ventricular ejection fraction is estimated at 65 %. Right Ventricle Normal right ventricular size and systolic function. Right Atrium Normal right atrial size. Left Atrium Normal left atrial size. Mitral Valve Thickened mitral valve with mild mitral annular calcification. Aortic Valve Thickened tri leaflet aortic valve. No aortic valve stenosis. Trace aortic valve regurgitation. Tricuspid Valve Structurally normal tricuspid valve. Pulmonic Valve Pulmonic valve not well visualized. Pericardium No pericardial effusion. Aorta Normal size aortic root and proximal ascending aorta. IVC Mildly dilated IVC. CONCLUSIONS Normal LV systolic function, LVEF 65%. Moderate concentric LVH. No significant valvular abnormality noted Normal right heart and pulmonary pressures. Babs Lind MD (Electronically Signed) Final Date: 09 October 2023 18:00 S
--- NOTE | 2023-10-09 15:04 | XR_ITS ---
WS: [id number] XR chest 1V portable [id number] REASON FOR EXAM: post thoracentesis FINDINGS: There is no left pneumothorax. It appears a moderate volume of fluid has been removed however there is significant residual opacity in the lower left hemithorax. Previous CT demonstrated an extremely large left pleural effusion and c omplete atelectasis of the left lower lobe. No shift of mediastinal structures. No other interval change or new finding. XR/XR chest 1V portable [id number] IMPRESSION: Moderate volume of fluid removed with significant residual opacification of the left lower hemithorax.
--- NOTE | 2023-10-09 15:24 | P.PN_ITS ---
Subjective 2 Subjective: no new c/o Medications: Reviewed: Yes Vitals/I&O/Wt Last Vital Signs Temp 97.8 F 10/09/23 11:27 Pulse 79 10/09/23 11:27 Resp 14 10/09/23 11:27 BP 100/63 10/09/23 11:27 Pulse Ox 96 10/09/23 11:27 O2 Del Method Nasal Cannula 10/09/23 11:27 O2 Flow Rate 2 10/09/23 08:00 10/09/23 10/09/23 10/09/23 06:59 14:59 22:59 Intake Total 530 / 2940 920.16 / 920.16 Balance 530 / -60 920.16 / 920.16 Weight last 48 hrs Weight 93.758 kg Weight 94.71 kg Weight 92.6 kg Weight 89.358 kg Physical Exam 2 Narrative: Patient awake alert no distress HEENT S1-S2 regular rate and rhythm per report Lungs clear per report No edema Data 10/10/23 07:37 10/10/23 07:37 Micro: Microbiology 10/08/23 12:49 Blood Culture - Preliminary Blood NEGATIVE TO DATE 10/08/23 12:45 Blood Culture - Preliminary Blood NEGATIVE TO DATE 10/08/23 14:22 Urine Culture - Preliminary Urine,Clean Catch Gram Negative Rods A&P Assessment and plan (1) ESRD on dialysis: 1. End-stage renal disease: On TTS schedule, s/p hd yesterday , patient volume overloaded 2. History of hypertension: Resume home meds 3. Anemia: Hemoglobin 10.8 monitor 4. Sepsis, possibly due to UTI, management per primary team 5. Chest pain, with elevated troponin, 6. large left pleural effusion - plan for thoracentesis today Patient evaluated using audiovisual cart. Time spent 40 minutes. Attestations 2 Medical Necessity Statement*: per [place] Coding Level of Care Code Acute Code for Chg Fwd Diagnoses ESRD on dialysis N18.6; Z99.2
[2023-10-09 16:13] LABS: Basophils % 0.2 %; Eosinophils # 0.1 10^3/uL (0.0-0.8); Eosinophils % 0.8 %; Hematocrit 29.1 % (36-47); Lymphocytes # 1.4 10^3/uL (0.8-4.8); Mean Corpuscular HGB Conc 31.6 g/dL (30-55); Mean Corpuscular Hemoglobin 30.7 pg (27-33); Mean Platelet Volume 9.7 fL (7.4-10.4); Monocytes # 0.9 10^3/uL (0.2-0.9); Monocytes % 7.8 %; Neutrophils % 78.5 %; Nucleated Red Blood Cells % 0 %; Platelet Count 220 10^3/cmm (157-399); White Blood Count 11.45 10^3/uL (3.29-11.43)
[2023-10-09 16:21] LABS: Apprearance, Body Fluid CLOUDY; Color, Body Fluid AMBER; Cyto Order Verification Order Verified; Fluid Laterality LEFT; PATH Referral YES
[2023-10-09 16:29] LABS: Hematocrit Body Fluid 0.2 %
[2023-10-09 17:06] LABS: Glucose Point of Care 93 mg/dL (70-110)
[2023-10-09 17:40] LABS: Body Fluid WBC 1875 /uL; Monocytes # Body Fluid 0.985
[2023-10-09 17:43] LABS: Albumin Body Fluid 2.7 g/dL; Creatinine Body Fluid 4.72 (0.5-0.9); LDH Pleural Fluid 190 U/L; Total Protein Pleural Fluid 4.9 g/dL; Triglycerides, Pleural Fluid 41 mg/dL
[2023-10-09] MEDS: atorvastatin 40 mg Tablet PO (18:05)
[2023-10-09] MEDS: pantoprazole 40 mg SDV IVP (18:05)
[2023-10-09 20:26] LABS: Glucose Point of Care 130 mg/dL (70-110)
[2023-10-09] MEDS: vancomycin 1,000 MG in sodium chloride 0.9% 250 ML 250 MG IV (20:49)
[2023-10-10] VITALS (11 sets, daily range): BP systolic 102–175; BP diastolic 54–113; PULSE 81–138; RESP 16–20; TEMP 36.4–37.1; O2SAT 91–98
[2023-10-10] MEDS: piperacillin-tazobactam 3.375 GM in sodium chloride 0.9% (plus) 50 ML IV ×2 (00:09→13:51)
[2023-10-10 01:16] LABS: Partial Thromboplastin Time 52.2 SECONDS (23.9-36.7)
[2023-10-10] MEDS: heparin 5,000 unit/mL INJ 1 mL IV (01:29)
[2023-10-10] MEDS: heparin drip 25,000 UNIT/500 ML PREMIX 28 UNIT IV (05:21)
[2023-10-10 06:08] LABS: Glucose Point of Care 122 mg/dL (70-110)
[2023-10-10 07:52] LABS: Basophils % 0.2 %; Eosinophils # 0.1 10^3/uL (0.0-0.8); Eosinophils % 1.2 %; Hematocrit 27.3 % (36-47); Lymphocytes # 1.1 10^3/uL (0.8-4.8); Lymphocytes % 13.5 %; Mean Corpuscular HGB Conc 31.1 g/dL (30-55); Mean Corpuscular Hemoglobin 30.4 pg (27-33); Mean Corpuscular Volume 97.5 fl (85-98); Mean Platelet Volume 9.7 fL (7.4-10.4); Monocytes # 0.6 10^3/uL (0.2-0.9); Monocytes % 7.2 %; Neutrophils # 6.39 10^3/uL (1.8-7.7); Neutrophils % 77.2 %; Nucleated Red Blood Cells % 0 %; Platelet Count 205 10^3/cmm (157-399); Red Cell Distribution Width 14.7 % (12.1-15.1); White Blood Count 8.29 10^3/uL (3.29-11.43)
[2023-10-10 08:01] LABS: INR 1.33 (0.8-1.2); Partial Thromboplastin Time 63.5 SECONDS (23.9-36.7)
[2023-10-10 08:04] LABS: Vancomycin Random 30.9 ug/mL (20.0-40.0)
[2023-10-10 08:05] LABS: Alanine Aminotransferase 24 U/L (0-33); Albumin Level 2.8 g/dL (3.5-5.2); Alkaline Phosphatase 94 U/L (35-105); Anion Gap 17.4 (5-19); Aspartate Amino Transferase 31 U/L (0-32); Blood Urea Nitrogen 32 mg/dL (8-23); Calcium 7.5 mg/dL (8.5-10.5); Carbon Dioxide 20 mmol/L (22-29); Chloride 103 mmol/L (98-107); Globulin 3.8 g/dL (1.3-4.6); Glucose 93 mg/dL (65-115); Magnesium 1.6 mg/dL (1.7-2.3); Osmolality Calculated 291 mOsm/kg (285-295); Phosphorus 4.6 mg/dL (2.5-4.5); Potassium 3.4 mmol/L (3.5-5.1); Sodium 137 mmol/L (136-145); Total Bilirubin 0.3 mg/dL (0.15-1.2); Total Protein 6.6 g/dL (6.6-8.7)
[2023-10-10 08:42] LABS: Creatinine Clr Calc Pharmacy 11.4782
[2023-10-10 10:19] LABS: Glucose Point of Care 171 mg/dL (70-110)
--- NOTE | 2023-10-10 10:31 | PC.NURSE ---
Pt to hemodialysis
[2023-10-10 10:39] LABS: CA 125 37.5 U/mL (0-35); Lactate Dehydrogenase 172 U/L (135-214)
--- NOTE | 2023-10-10 11:59 | XRR_ITS ---
PROCEDURE INFORMATION: Exam: XR Chest Exam date and time: 10/10/2023 1:09 PM Age: 72 years old Clinical indication: Shortness of breath; Prior surgery; Surgery date: 1-6 months; Surgery type: RT dialysis cath placement; Additional info: Fluid retention; Left pleural effusion TECHNIQUE: Imaging protocol: Radiologic exam of the chest. Views: 1 view. COMPARISON: CR XR chest 1V portable [id number] 10/09/2023 3:12 PM FINDINGS: Tubes, catheters and devices: Right chest dual lumen central venous catheter terminates over the area of the SVC. Lungs: Probable left basilar atelectasis. Pleural spaces: Minimally improved large left pleural effusion. No distinct pneumothorax. Heart/Mediastinum: Cardiomediastinal silhouette is midline and partially obscured. Bones/joints: No acute osseous findings. XR/XR chest 1V portable [id number] IMPRESSION: Minimally improved large left pleural effusion.
[2023-10-10] MEDS: pantoprazole 40 mg SDV IVP (13:51)
[2023-10-10] MEDS: sucralfate 1 gm/10 mL Oral Liq UDC PO (13:51)
[2023-10-10 13:53] LABS: Iron 39 ug/dL (37-145); Percent Saturation 26.8 % (20-50); Total Iron Binding Capacity 145 mcg/dl; Unsaturated Iron Binding 106 ug/dL (112-347)
[2023-10-10 14:08] LABS: Ferritin 1753 ng/mL (15-150)
[2023-10-10] MEDS: metoprolol tartrate 1 mg/1 mL SDV 5 mL 5 MG IVP (14:23)
[2023-10-10 15:13] LABS: Partial Thromboplastin Time 67.2 SECONDS (23.9-36.7)
[2023-10-10] MEDS: metoprolol tartrate 50 mg Tablet PO (15:20)
--- NOTE | 2023-10-10 15:24 | P.PN_ITS ---
Subjective 2 Subjective: getting HD Medications: Reviewed: Yes Vitals/I&O/Wt Last Vital Signs Temp 98.6 F 10/10/23 11:13 Pulse 138 H 10/10/23 14:14 Resp 16 10/10/23 11:13 BP 137/74 10/10/23 14:14 Pulse Ox 98 10/10/23 11:13 O2 Del Method Nasal Cannula 10/10/23 11:13 O2 Flow Rate 2 10/10/23 08:43 10/10/23 10/10/23 10/10/23 06:59 14:59 22:59 Intake Total 326.866 / 556.533 / 556.533 200.667 / 757.200 Balance 326.866 / 6 556.533 / 556.533 200.667 / 757.200 Weight last 48 hrs Weight 90.855 kg Weight 93.758 kg Weight 94.71 kg Weight 92.6 kg Physical Exam 2 Narrative: Patient awake alert no distress HEENT S1-S2 regular rate and rhythm per report Lungs clear per report No edema Data 10/10/23 07:37 10/10/23 07:37 Micro: Microbiology 10/09/23 15:11 Gram Stain - Final Pleural Fluid Body Fluid Culture - Preliminary 10/08/23 14:22 Urine Culture - Final Urine,Clean Catch Klebsiella pneumoniae 10/08/23 12:49 Blood Culture - Preliminary Blood NEGATIVE TO DATE 10/08/23 12:45 Blood Culture - Preliminary Blood NEGATIVE TO DATE A&P Assessment and plan (1) ESRD on dialysis: 1. End-stage renal disease: On TTS schedule, s/p hd ,HD today 2. History of hypertension: Resume home meds 3. Anemia: Hemoglobin 10.8 monitor 4. Sepsis, possibly due to UTI, management per primary team 5. Chest pain, with elevated troponin, 6. large left pleural effusion - s/p thoracentesis Patient evaluated using audiovisual cart. Time spent 40 minutes. Attestations 2 Medical Necessity Statement*: per [place] Coding Level of Care Code Acute Code for Chg Fwd Diagnoses ESRD on dialysis N18.6; Z99.2
--- NOTE | 2023-10-10 16:28 | PC.NURSE ---
Per Dr. Cabrera, Heparin gtt put on hold at this time. HR 99 bpm.
--- NOTE | 2023-10-10 16:29 | P.PN_ITS ---
Subjective 2 Subjective: Patient was seen this morning, she denies any fevers, no chills, no cough, discussed her pleural effusion, has evidence of exudative pleural effusion will watch her cultures, also worried about the possibility of hemorrhagic pleural effusion, as her pleural fluid had bloodY appearance, hemoglobin has dropped down to 8.3, no hemodynamic compromise, will continue to monitor repeat chest x- ray, for now we will hold off on heparin drip, she does take Eliquis at home for atrial fibrillation which we will hold, continue to monitor closely continue antibiotics, awaiting cultures Vitals/I&O/Wt Last Vital Signs Temp 97.6 F 10/10/23 16:00 Pulse 108 H 10/10/23 16:00 Resp 17 10/10/23 16:00 BP 109/69 10/10/23 16:00 Pulse Ox 95 10/10/23 16:00 O2 Del Method Room Air 10/10/23 16:00 O2 Flow Rate 2 10/10/23 08:43 10/10/23 10/10/23 10/10/23 06:59 14:59 22:59 Intake Total 326.866 / 556.533 / 556.533 200.667 / 757.200 Balance 326.866 / 876 556.533 / 556.533 200.667 / 757.200 Weight last 48 hrs Weight 90.855 kg Weight 93.758 kg Weight 94.71 kg Weight 92.6 kg Physical Exam 2 Const: COMMON NORMALS: no acute distress and patient oriented x3 Resp: COMMON NORMALS: normal respiratory effort, No retractions and No use of accessory muscles OTHER: Decreased air entry left lower lobe Cardio: COMMON NORMALS: regular rate, regular rhythm, S1 normal heart sound present and S2 normal heart sound present RATE: regular rate RHYTHM: r egular rhythm HEART SOUNDS: S1 normal heart sound present and S2 normal heart sound present GI: COMMON NORMALS: Normal to inspection, nondistended, normoactive bowel sounds present, Soft to palpation and non-tender PALPATION: Yes Soft to palpation Extremity: COMMON NORMALS: no pedal edema Neuro: COMMON NORMALS: patient oriented x3 Psych: COMMON NORMALS: mental status grossly normal Data 10/10/23 07:37 10/10/23 07:37 Micro: Microbiology 10/09/23 15:11 Gram Stain - Final Pleural Fluid Body Fluid Culture - Preliminary 10/08/23 14:22 Urine Culture - Final Urine,Clean Catch Klebsiella pneumoniae 10/08/23 12:49 Blood Culture - Preliminary Blood NEGATIVE TO DATE 10/08/23 12:45 Blood Culture - Preliminary Blood NEGATIVE TO DATE A&P Assessment and plan (1) Fever: (2) UTI (urinary tract infection): (3) Chest pain: Qualifiers: Chest pain type: unspecified Qualified Code(s): R07.9 - Chest pain, unspecified (4) Pleural effusion: (5) Atherosclerosis of coronary artery of [place] heart without angina pectoris: (6) ESRD on dialysis: Plan Chest pain, currently chest pain-free ? EKG does show T wave inversions in inferior and lateral leads ? Troponins 82, 2-hour troponin 68.65, delta -13.35 ? Currently chest pain-free plan ? Plan -Aspirin 81 mg ? Continue statin, ? Eliquis currently on hold as to plans on thoracocentesis ? heparin drip ? Cardiac echo Fever ? Likely source is UTI, with radiographic evidence of pyelonephritis ? Respiratory viral panel pending CT angiogram shows large left pleural effusion, does not appear to be an empyema, cultures so far no growth -CT scan abdomen and pelvis -2. Nonspecific left perinephric fat stranding which can be correlated with urinalysis if clinically indicated. ? Urine culture showing gram-negative rods ? Follow blood cultures ?continue Zosyn ? Continue vancomycin Exudative pleural effusion, ? Appears to be hemorrhagic pleural effusion ? Denies a history of lung cancer, no breast cancer, and ovarian cancer ? Will order CA125, HIV, acute hep panel, consider further imaging based on clinical progress Hold heparin drip Monitor hemoglobin Fluid overload, BNP over 20,000, left pleural effusion ? Patient missed dialysis today, end-stage renal disease on dialysis, -Receiving dialysis today ? Consult nephrology for dialysis Full code ? Heparin drip for DVT prophylaxis Plan for today continue IV antibiotics, monitor for fevers, monitor hemoglobin, hold off on heparin drip, will monitor pleural studies Attestations 2 Medical Necessity Statement*: Patient requires hospitalization for exudative pleural effusion, UTI Diagnoses Fever R50.9 UTI (urinary tract infection) N39.0 Chest pain R07.9 Chest pain type: unspecified Pleural effusion J90 Atherosclerosis of coronary artery of [place] heart without angina pectoris I25.10 ESRD on dialysis N18.6; Z99.2
[2023-10-10 16:44] LABS: Glucose Point of Care 157 mg/dL (70-110)
[2023-10-10 17:07] LABS: Hepatitis A Antibody IgM Non-Reactive (Nonreactive); Hepatitis B Core IgM Non-Reactive (Nonreactive); Hepatitis B Surface Antigen Non-Reactive (Nonreactive); Hepatitis C Virus Antibody Non-Reactive (Nonreactive)
[2023-10-10 17:09] LABS: HIV 1 & 2 Antibody Non-Reactive (Non-Reactiv); HIV 1 & 2 Antigen Non-Reactive (Non-Reactiv)
[2023-10-10] MEDS: atorvastatin 40 mg Tablet PO (17:16)
[2023-10-10] MEDS: insulin lispro 100 unit/1 mL SUBCUT (17:16)
[2023-10-10 18:01] LABS: Basophils % 0.2 %; Eosinophils # 0.2 10^3/uL (0.0-0.8); Eosinophils % 2.1 %; Hematocrit 32.1 % (36-47); Lymphocytes # 1.1 10^3/uL (0.8-4.8); Lymphocytes % 10.8 %; Mean Corpuscular HGB Conc 31.5 g/dL (30-55); Mean Corpuscular Hemoglobin 30.1 pg (27-33); Mean Corpuscular Volume 95.8 fl (85-98); Mean Platelet Volume 9.4 fL (7.4-10.4); Monocytes # 0.5 10^3/uL (0.2-0.9); Monocytes % 5.3 %; Neutrophils # 7.87 10^3/uL (1.8-7.7); Nucleated Red Blood Cells % 0 %; Platelet Count 249 10^3/cmm (157-399); Red Blood Count 3.35 10^6/uL (3.85-5.65); Red Cell Distribution Width 14.9 % (12.1-15.1); White Blood Count 9.71 10^3/uL (3.29-11.43)
[2023-10-10 21:01] LABS: Glucose Point of Care 138 mg/dL (70-110)
[2023-10-10 21:40] LABS: Partial Thromboplastin Time 35.2 SECONDS (23.9-36.7)
[2023-10-11] VITALS (9 sets, daily range): BP systolic 111–146; BP diastolic 54–78; PULSE 63–93; RESP 16–20; TEMP 36.4–37.2; O2SAT 92–96
[2023-10-11] MEDS: piperacillin-tazobactam 3.375 GM in sodium chloride 0.9% (plus) 50 ML IV ×2 (00:30→13:13)
[2023-10-11] MEDS: sucralfate 1 gm/10 mL Oral Liq UDC PO (00:30)
[2023-10-11] MEDS: pantoprazole 40 mg SDV IVP ×2 (00:30→11:51)
[2023-10-11] MEDS: metoprolol tartrate 50 mg Tablet PO ×2 (03:21→15:04)
[2023-10-11 04:48] LABS: Basophils % 0.4 %; Eosinophils # 0.2 10^3/uL (0.0-0.8); Eosinophils % 2.5 %; Hematocrit 29.2 % (36-47); Lymphocytes # 1.3 10^3/uL (0.8-4.8); Lymphocytes % 15.4 %; Mean Corpuscular HGB Conc 30.1 g/dL (30-55); Mean Corpuscular Hemoglobin 29.5 pg (27-33); Mean Platelet Volume 9.3 fL (7.4-10.4); Monocytes # 0.7 10^3/uL (0.2-0.9); Neutrophils # 6.08 10^3/uL (1.8-7.7); Neutrophils % 72.4 %; Nucleated Red Blood Cells % 0 %; Platelet Count 229 10^3/cmm (157-399); Red Blood Count 2.98 10^6/uL (3.85-5.65); Red Cell Distribution Width 14.9 % (12.1-15.1); White Blood Count 8.39 10^3/uL (3.29-11.43)
[2023-10-11 05:01] LABS: INR 1.21 (0.8-1.2)
[2023-10-11 05:07] LABS: Vancomycin Random 19.1 ug/mL (20.0-40.0)
[2023-10-11 05:08] LABS: Alanine Aminotransferase 25 U/L (0-33); Albumin Level 2.9 g/dL (3.5-5.2); Alkaline Phosphatase 91 U/L (35-105); Anion Gap 16.5 (5-19); Aspartate Amino Transferase 22 U/L (0-32); Blood Urea Nitrogen 19 mg/dL (8-23); Calcium 7.9 mg/dL (8.5-10.5); Carbon Dioxide 21 mmol/L (22-29); Chloride 103 mmol/L (98-107); Globulin 3.9 g/dL (1.3-4.6); Glucose 113 mg/dL (65-115); Magnesium 1.6 mg/dL (1.7-2.3); Osmolality Calculated 287 mOsm/kg (285-295); Phosphorus 3.6 mg/dL (2.5-4.5); Potassium 3.5 mmol/L (3.5-5.1); Sodium 137 mmol/L (136-145); Total Bilirubin 0.3 mg/dL (0.15-1.2); Total Protein 6.8 g/dL (6.6-8.7)
[2023-10-11 05:53] LABS: Glucose Point of Care 124 mg/dL (70-110)
--- NOTE | 2023-10-11 07:00 | XRR_ITS ---
PROCEDURE INFORMATION: Exam: XR Chest Exam date and time: 10/11/2023 9:29 AM Age: 72 years old Clinical indication: Shortness of breath; Additional info: SOB TECHNIQUE: Imaging protocol: Radiologic exam of the chest. Views: 1 view. COMPARISON: CR (CHEST, ) 10/10/2023 1:09 PM FINDINGS: Tubes, catheters and devices: Unchanged right sided dual-lumen port with tip projecting over the distal most SVC Lungs: cannot exclude left basilar lung infiltrate/consolidate. Similar small amount of atelectasis versus infiltrate at the medial right lung base. Pleural spaces: Unchanged appearance of [id number]-ugtnx left pleural effusion. No pneumothorax Heart/Mediastinum: Unremarkable. No cardiomegaly. Bones/joints: No suspicious osseous findings XR/XR chest 1V portable [id number] IMPRESSION: Similar dkgh-ulfyklz-mrrg-right lung opacities as above
[2023-10-11 10:55] LABS: Glucose Point of Care 165 mg/dL (70-110)
[2023-10-11] MEDS: insulin lispro 100 unit/1 mL SUBCUT (11:50)
--- NOTE | 2023-10-11 12:31 | P.PN_ITS ---
Subjective 2 Subjective: no new coplaints Medications: Reviewed: Yes Vitals/I&O/Wt Last Vital Signs Temp 98 F 10/11/23 07:55 Pulse 77 10/11/23 07:55 Resp 17 10/11/23 07:55 BP 111/67 10/11/23 07:55 Pulse Ox 95 10/11/23 08:12 O2 Del Method Room Air 10/11/23 08:12 O2 Flow Rate 2 10/10/23 08:43 10/10/23 10/11/23 10/11/23 22:59 06:59 14:59 Intake Total 1110.667 / 1667.200 50 / 1717.200 360 / 360 Output Total 3003 / 3003 Balance -1892.333 / -1335.800 50 / -1285.800 360 / 360 Weight last 48 hrs Weight 90.764 kg Weight 93.1 kg Weight 90.855 kg Physical Exam 2 Narrative: Patient awake alert no distress HEENT S1-S2 regular rate and rhythm per report Lungs clear per report No edema Data 10/11/23 04:38 10/11/23 04:38 Micro: Microbiology 10/09/23 15:11 Gram Stain - Final Pleural Fluid Body Fluid Culture - Preliminary 10/08/23 14:22 Urine Culture - Final Urine,Clean Catch Klebsiella pneumoniae A&P Assessment and plan (1) ESRD on dialysis: 1. End-stage renal disease: On TTS schedule, s/p hd thursday, next HD tomorrow 2. History of hypertension: Resume home meds 3. Anemia: Hemoglobin 10.8 monitor 4. Sepsis, possibly due to UTI, management per primary team 5. Chest pain, with elevated troponin, 6. large left pleural effusion - s/p thoracentesis Patient evaluated using audiovisual cart. Time spent 40 minutes. Attestations 2 Medical Necessity Statement*: per [place] Coding Level of Care Code Acute Code for Chg Fwd Diagnoses ESRD on dialysis N18.6; Z99.2
--- NOTE | 2023-10-11 16:05 | PM.PN ---
Subjective Subjective: Patient was seen this morning, she is alert oriented x 3, follows all commands, does report a cough but no hemoptysis, no bloody black stools, denies any history of breast cancer, no breast bumps or lumps, no nipple discharge, she has had a hysterectomy she has had her ovaries removed, Vitals/I&O/Wt Last Vital Signs Temp 97.6 F 10/11/23 12:00 Pulse 80 10/11/23 12:00 Resp 16 10/11/23 12:00 BP 111/71 10/11/23 12:00 Pulse Ox 94 10/11/23 12:00 O2 Del Method Room Air 10/11/23 12:00 O2 Flow Rate 2 10/10/23 08:43 10/11/23 10/11/23 10/11/23 06:59 14:59 22:59 Intake Total 50 / 1717.200 840 / 840 Balance 50 / -1285.800 840 / 840 Weight last 48 hrs Weight 90.764 kg Weight 93.1 kg Weight 90.855 kg Physical Exam Const: COMMON NORMALS: no acute distress and patient oriented x3 Resp: COMMON NORMALS: normal respiratory effort, No retractions and No use of accessory muscles OTHER: Decreased aeration left lung base Cardio: COMMON NORMALS: regular rate, regular rhythm, S1 normal heart sound present and S2 normal heart sound present RATE: regular rate RHYTHM: regular rhythm HEART SOUNDS: S1 normal heart sound present and S2 normal heart sound present GI: COMMON NORMALS: Normal to inspection, nondistended, normoactive bowel sounds present and non-tender Extremity: COMMON NORMALS: no pedal edema Neuro: COMMON NORMALS: patient oriented x3 Psych: COMMON NORMALS: mental status grossly normal Data 10/11/23 04:38 10/11/23 04:38 Micro: Microbiology 10/09/23 15:11 Gram Stain - Final Pleural Fluid Body Fluid Culture - Preliminary A&P Assessment and plan (1) Fever: (2) UTI (urinary tract infection): (3) Chest pain: Qualifiers: Chest pain type: unspecified Qualified Code(s): R07.9 - Chest pain, unspecified (4) Pleural effusion: (5) Atherosclerosis of coronary artery of [place] heart without angina pectoris: (6) ESRD on dialysis: Plan Chest pain, currently chest pain-free ? EKG does show T wave inversions in inferior and lateral leads ? Troponins 82, 2-hour troponin 68.65, delta -13.35 ? Currently chest pain-free plan ? Plan -Aspirin 81 mg ? Continue statin, ? Eliquis currently on hold as to plans on thoracocentesis ? heparin drip currently off ? Cardiac echo CONCLUSIONS Normal LV systolic function, LVEF 65%. Moderate concentric LVH. No significant valvular abnormality noted Normal right heart and pulmonary pressures. Fever ? Likely source is UTI, with radiographic evidence of pyelonephritis ? Respiratory viral panel pending CT angiogram shows large left pleural effusion, does not appear to be an empyema, cultures so far no growth -CT scan abdomen and pelvis -2. Nonspecific left perinephric fat stranding which can be correlated with urinalysis if clinically indicated. UTI, pyelonephritis ? Urine culture showing gram-negative rods ? Follow blood cultures ?continue Zosyn ? Continue vancomycin Exudative pleural effusion, ? Appears to be hemorrhagic pleural effusion ? Denies a history of lung cancer, no breast cancer, and ovarian cancer ? Will order CA125 elevated, HIV negative, acute hep panel negative, consider further imaging based on clinical progress Hold heparin drip Monitor hemoglobin Fluid overload, BNP over 20,000, left pleural effusion ? Patient missed dialysis today, end-stage renal disease on dialysis, -Receiving dialysis today ? Consult nephrology for dialysis Full code ? Heparin drip for DVT prophylaxis Plan for today continue IV antibiotics, monitor for fevers, monitor hemoglobin, hold off on heparin drip, will monitor pleural studies Attestations Medical Necessity Statement*: Patient requires hospitalization for UTI, pyelonephritis, fevers, exudative pleural effusion, hemorrhagic Diagnoses Fever R50.9 UTI (urinary tract infection) N39.0 Chest pain R07.9 Chest pain type: unspecified Pleural effusion J90 Atherosclerosis of coronary artery of [place] heart without angina pectoris I25.10 ESRD on dialysis N18.6; Z99.2
[2023-10-11 17:03] LABS: Glucose Point of Care 121 mg/dL (70-110)
[2023-10-11] MEDS: atorvastatin 40 mg Tablet PO (17:31)
[2023-10-11 20:18] LABS: Glucose Point of Care 139 mg/dL (70-110)
[2023-10-11] MEDS: vancomycin 1,000 MG in sodium chloride 0.9% 250 ML 250 MG IV (20:25)
[2023-10-12] VITALS (12 sets, daily range): BP systolic 92–167; BP diastolic 55–145; PULSE 61–74; RESP 16–18; TEMP 35.7–37; O2SAT 92–100
[2023-10-12] MEDS: sucralfate 1 gm/10 mL Oral Liq UDC PO (00:08)
[2023-10-12] MEDS: pantoprazole 40 mg SDV IVP ×2 (00:16→12:41)
[2023-10-12] MEDS: piperacillin-tazobactam 3.375 GM in sodium chloride 0.9% (plus) 50 ML IV (00:49)
[2023-10-12] MEDS: metoprolol tartrate 50 mg Tablet PO (03:22)
[2023-10-12 04:20] LABS: Basophils % 0.3 %; Eosinophils # 0.3 10^3/uL (0.0-0.8); Eosinophils % 2.8 %; Hematocrit 29.6 % (36-47); Lymphocytes # 1.6 10^3/uL (0.8-4.8); Mean Corpuscular HGB Conc 30.4 g/dL (30-55); Mean Corpuscular Hemoglobin 30.6 pg (27-33); Mean Corpuscular Volume 100.7 fl (85-98); Mean Platelet Volume 9.4 fL (7.4-10.4); Monocytes # 0.7 10^3/uL (0.2-0.9); Monocytes % 7.5 %; Neutrophils # 7.08 10^3/uL (1.8-7.7); Neutrophils % 71.5 %; Nucleated Red Blood Cells % 0 %; Platelet Count 241 10^3/cmm (157-399); Red Blood Count 2.94 10^6/uL (3.85-5.65); Red Cell Distribution Width 14.6 % (12.1-15.1)
[2023-10-12 04:38] LABS: Alanine Aminotransferase 20 U/L (0-33); Albumin Level 2.9 g/dL (3.5-5.2); Alkaline Phosphatase 93 U/L (35-105); Anion Gap 18.6 (5-19); Aspartate Amino Transferase 12 U/L (0-32); Blood Urea Nitrogen 28 mg/dL (8-23); C Reactive Protein 58.4 mg/L (0.0-4.9); Calcium 8.2 mg/dL (8.5-10.5); Carbon Dioxide 20 mmol/L (22-29); Chloride 102 mmol/L (98-107); Creatinine Clr Calc Pharmacy 12.6677; Globulin 3.8 g/dL (1.3-4.6); Glucose 116 mg/dL (65-115); Magnesium 1.6 mg/dL (1.7-2.3); Osmolality Calculated 290 mOsm/kg (285-295); Potassium 3.6 mmol/L (3.5-5.1); Sodium 137 mmol/L (136-145); Total Bilirubin 0.3 mg/dL (0.15-1.2); Total Protein 6.7 g/dL (6.6-8.7)
[2023-10-12 04:45] LABS: INR 1.18 (0.8-1.2)
[2023-10-12 04:53] LABS: Procalcitonin 0.75 ng/mL (0-0.5)
[2023-10-12 05:13] LABS: NT Pro B Type Natriuretic Pept 32720 pg/mL (0-125)
[2023-10-12 06:19] LABS: Glucose Point of Care 117 mg/dL (70-110)
--- NOTE | 2023-10-12 07:00 | XR_ITS ---
WS: [id number] PORTABLE CHEST HISTORY: sob COMPARISON: 10/11/2023 Left-sided dialysis catheter with tips overlying the aortocaval junction. Moderate LEFT pleural effusion similar to the prior study. No pneumothorax. RIGHT lung is clear. Cardiac size: Obscured by the pleural fluid. Mediastinum/Aorta: Normal mediastinum. No osseous abnormality seen. XR/XR chest 1V portable [id number] IMPRESSION: 1. Moderate size LEFT pleural effusion, similar to the prior study. 2. No pneumonia. LEFT lower lobe obscured by atelectasis and fluid.
[2023-10-12] MEDS: ipratropium-albuterol 3 mL Neb INHALATION (08:40)
--- NOTE | 2023-10-12 09:00 | PC.HD ---
Heparin 1000 units loading dose administered at 0845 per pole incisor operator's orders. Patient c/o being short of breath prior to treatment. RT called and breathing treatment was given.
--- NOTE | 2023-10-12 10:03 | PC.CHAP ---
Pastoral Care Encounter/Spiritual Assessment Type of Contact [] Declined geriatric physician visit [] Patient/Family/Request visit [] Outpatient visit [] Follow-up visit [] Physician referral [] Code/Alert [x] Routine visit [] Staff referral [] Actively dying [] Patient sleeping [] Family support [] [x] Out of room [] Palliative care [] [] Receiving care in room [] Pre-surgical visit [] Trauma [] Long length of stay [] ICU visit [] Other: Relational/Emotional Strength [] Patient feels connected with others/family/visitors/staff [] Distress [] Loneliness/isolation [] Abandonment Spirituality of Patient [] Person of Anne [] Attends Yarsanism of their [place] [] Believes in Prayer [] Reads Bible or Orthodox materials [] There are Spiritual issues to be addressed Per Assessment Nurse Interventions [] Prayer [] Active listening [] Non-anxious presence [] Spiritual/emotional support [] Crisis/trauma care [] Spiritual counseling [] Bereavement support [] Provided bereavement packet [] Provided Bible/devotional materials [] Provided toy/stuffed animal, coloring book to patient or family member [] Provided Communion [] Anointing/[place] [] Salvation [] Completed spiritual assessment [] Other: Impact on Illness or Injury [] Angry [] Fearful [] Anxious [] Often cries [] Exhaustion [] Unable to work [] Unable to attend baptism [] Unable to walk/stand [] Unable to read [] Unable to drive [] Unable to eat/drink [] Unable to sleep [] Unable to be with family [] Patient intubated [] Other: Summary Time spent with patient
[2023-10-12 10:39] LABS: Glucose Point of Care 136 mg/dL (70-110)
--- NOTE | 2023-10-12 12:44 | PM.DCS ---
Discharge Providers Date of Admission: 10/08/23 14:47 Date of Discharge: October 12, 2023 Attending Provider at Admission: Jaskaran Cabrera MD Attending Provider at Discharge: Jaskaran Cabrera MD Primary Care Provider: Lita Rodriguez Diagnoses at Discharge Discharge Diagnosis (1) Fever: Status: Acute (2) UTI (urinary tract infection): Status: Acute (3) Chest pain: Status: Inactive Qualifiers: Chest pain type: unspecified Qualified Code(s): R07.9 - Chest pain, unspecified (4) Pleural effusion: Status: Acute (5) Atherosclerosis of coronary artery of [place] heart without angina pectoris: Status: Acute (6) ESRD on dialysis: Status: Acute Reason for Visit Reason for Visit: abnormal ekg at Clinic Hospital Course Hospital Course Venita Healy is a 72 year old female with a past medical history of end-stage renal disease on dialysis, history of left arm AV fistula, with a right chest dialysis catheter in place, currently being used as her left arm AV fistula has had issues, type 2 diabetes mellitus, diastolic CHF who presents [facility] due to fatigue, malaise, subjective fevers, shortness of breath, cough. Currently patient sitting up at the side of the bed, is at bedside, she is on room air, blood pressure 92/60, pulse 98, respiratory rate 18, she is alert oriented x 4, following all commands. Patient tells me that for the last 3 days she has had fatigue, malaise, fevers, chills, shortness of breath. She actually went to her primary care provider as she was complaining of also chest discomfort, she had EKG changes that were concerning, so she was sent to the emergency room for evaluation. She denies any dysuria, hematuria, no flank pain or chronic back pain, no neck pain no neck stiffness or head ache, no blurry vision, no cough, no congestion, no sore throat, no sick contacts no recent travel, no abdominal pain, no diarrhea, no known history of exposures. Patient felt sick today she missed dialysis Patient presented to [facility] for multiple complaints Chest pain, was monitored as inpatient, he was chest pain-free during hospitalization, cardiac echocardiogram showed normal EF of 65%, moderate LVH, no significant delta troponin, EKG did show T wave inversions in inferior lateral leads. Patient was advised if she has any recurrent chest pain to go to the emergency room, given her evidence of hemorrhagic pleural effusion Eliquis has been held Patient presents [facility] for complaints of fevers, with evidence of UTI, radiographic evidence of pyelonephritis, was monitored with broad-spectrum antibiotic therapy, discharged on Levaquin therapy for 10 remaining days During her hospitalization there was concerns for left-sided pleural effusion, 1 L drained, bloody serous, with evidence of exudative pleural effusion. -My concern for this exudative pleural effusion, that it could be related to malignancy, given her history of pulmonary nodule, I would have her follow-up with pulmonary as outpatient for consideration of repeat imaging, bronchoscopy, follow-up with hematology oncology as outpatient for consideration of PET scan ? Pathology currently pending -No reported trauma -No evidence of pneumonia, thus cannot be a parapneumonic effusion ? CTA negative for PE ? No significant evidence of empyema, pH was 8, cultures have been negative -She has a history of a 1.8 cm spiculated right upper lobe nodule, seen on prior CAT scans, discussed findings with radiology with comparison to current CTA, no acute change, however given evidence of exudative pleural effusion, hemorrhagic pleural effusion she will need to follow-up with pulmonary for consideration of bronchoscopy, tissue sampling, PET scan -CA125 is elevated, but patient reports a history of hysterectomy and bilateral salpingo-oophorectomy, CT scan abdomen pelvis no acute findings -Denies any breast lumps or bumps, no nipple discharge, her last mammogram was in 2019, BI-RADS 1, right breast ultrasound showed 1 small lesions, 1 had appearance of a complex cyst, she should follow-up with primary care or hematology oncology and have another mammogram and breast ultrasound -Repeat chest x-ray showed recurrence of left pleural effusion, I have held her Eliquis on discharge as there is concern for hemorrhagic pleural effusion, hemodynamically she remained stable, hemoglobin remained stable, she is relatively asymptomatic so I decided not to perform a thoracocentesis again for therapeutic purposes, unless she is symptomatic, continue to monitor -I had a detailed discussion with the patient about these findings, importantly she needs to follow-up with hematology oncology, and pulmonary, continue to hold Eliquis -In terms of holding Eliquis therapy, we discussed risk and benefits, including but limited to risk of stroke, CAD, she voiced understanding, shared decision making, all question answered, agreed to proceed to hold for now Patient evidence of fluid overload during hospitalization requiring inpatient dialysis, overall clinically improved On discharge patient is ambulatory, no complaints of chest pain, complaints of shortness of breath, will be discharged with close follow-up with pulmonary, primary care, oncology as outpatient Physical Exam Const: COMMON NORMALS: no acute distress and patient oriented x3 Resp: COMMON NORMALS: normal respiratory effort, No retractions, No use of accessory muscles and clear to auscultation bilaterally AUSCULTATION: clear to auscultation bilaterally Cardio: COMMON NORMALS: regular rate, regular rhythm, S1 normal heart sound present and S2 normal heart sound present RATE: regular rate RHYTHM: regular rhythm HEART SOUNDS: S1 normal heart sound present and S2 normal heart sound present GI: COMMON NORMALS: Normal to inspection, nondistended, normoactive bowel sounds present and non-tender Extremity: COMMON NORMALS: no pedal edema Neuro: COMMON NORMALS: patient oriented x3 Psych: COMMON NORMALS: mental status grossly normal Discharge Data Studies Completed and Pending Completed Studies During Hospitalization Category Date Time Status CT abdomen pelvis wo con [id number] Stat Cat Scan 10/08/23 18:13 Completed CTA chest [CT angio chest PE protcl [id number]] Stat Cat Scan 10/08/23 12:20 Completed XR chest 1V portable [id number] Routine Exams 10/10/23 11:59 Completed XR chest 1V portable [id number] Routine Exams 10/11/23 07:00 Completed XR chest 1V portable [id number] Stat Exams 10/08/23 10:30 Completed XR chest 1V portable [id number] Stat Exams 10/09/23 15:04 Completed CV. echo complete* [id number] Routine Ultrasound 10/09/23 14:45 Completed US thoracentesis [id number] Routine Ultrasound 10/09/23 06:00 Completed Pending at discharge Category Date Time Status XR chest 1V portable [id number] Routine Exams 10/12/23 07:00 Taken Amylase, Pleural Fluid Routine Lab 10/09/23 15:11 Received Blood Culture Stat Lab 10/08/23 12:45 Results C Reactive Protein AM LABS Lab 10/13/23 04:00 Ordered C Reactive Protein AM LABS Lab 10/14/23 04:00 Ordered Complete Blood Count w/Auto AM LABS Lab 10/13/23 04:00 Ordered Complete Blood Count w/Auto AM LABS Lab 10/14/23 04:00 Ordered Comprehensive Metabolic Panel AM LABS Lab 10/13/23 04:00 Ordered Comprehensive Metabolic Panel AM LABS Lab 10/14/23 04:00 Ordered Magnesium AM LABS Lab 10/13/23 04:00 Ordered Magnesium AM LABS Lab 10/14/23 04:00 Ordered Mycobacteria, Culture w/Fluor Routine Lab 10/09/23 15:11 Received NT Pro B Type Natriuretic Pept QAM Lab 10/13/23 06:00 Ordered NT Pro B Type Natriuretic Pept QAM Lab 10/14/23 06:00 Ordered Procalcitonin AM LABS Lab 10/13/23 04:00 Ordered Procalcitonin AM LABS Lab 10/14/23 04:00 Ordered Cytology [PTH] Routine Pth 10/09/23 15:11 Received Radiology Impressions Chest CTA 10/08/23 12:20 IMPRESSION: 1. No central pulmonary embolism. 2. Moderate to large LEFT pleural effusion. Hounsfield units suggest transudative effusion. Age-indeterminate effusion as there are no prior recent studies for comparison. 3. Right-sided dialysis catheter. 4. Mild pulmonary edema. 5. Cardiomegaly and small pericardial effusion. Abdomen/Pelvis CT 10/08/23 18:13 IMPRESSION: 1. Partially visualized chest demonstrates a large left-sided pleural effusion. 2. Nonspecific left perinephric fat stranding which can be correlated with urinalysis if clinically indicated. 3. Otherwise no acute findings within the abdomen or pelvis. Thoracentesis Ultrasound 10/09/23 06:00 IMPRESSION: Uncomplicated ultrasound-guided LEFT thoracentesis. Laboratory Results WBC 9.90 10^3/uL (3.29-11.43) 10/12/23 03:13 RBC 2.94 10^6/uL (3.85-5.65) L 10/12/23 03:13 Hgb 9.00 g/dL (11.27-16.99) L 10/12/23 03:13 Hct 29.6 % (36-47) L 10/12/23 03:13 MCV 100.7 fl (85-98) H 10/12/23 03:13 MCH 30.6 pg (27-33) 10/12/23 03:13 MCHC 30.4 g/dL (30-55) 10/12/23 03:13 RDW 14.6 % (12.1-15.1) 10/12/23 03:13 Plt Count 241 10^3/cmm (157-399) 10/12/23 03:13 MPV 9.4 fL (7.4-10.4) 10/12/23 03:13 Neut % (Auto) 71.5 % 10/12/23 03:13 Lymph % (Auto) 16.0 % 10/12/23 03:13 Sutter % (Auto) 7.5 % 10/12/23 03:13 Eos % (Auto) 2.8 % 10/12/23 03:13 Baso % (Auto) 0.3 % 10/12/23 03:13 Neut # (Auto) 7.08 10^3/uL (1.8-7.7) 10/12/23 03:13 Lymph # (Auto) 1.6 10^3/uL (0.8-4.8) 10/12/23 03:13 Sutter # (Auto) 0.7 10^3/uL (0.2-0.9) 10/12/23 03:13 Eos # (Auto) 0.3 10^3/uL (0.0-0.8) 10/12/23 03:13 Baso # (Auto) 0.0 10^3/uL (0.0-0.1) 10/12/23 03:13 Nucleated RBC % (auto) 0 % 10/12/23 03:13 Nucleated RBCs # 0.0 /100WBC 10/12/23 03:13 Differential Comment Yes 10/09/23 15:11 ESR 33 mm/hr (0-15) H 10/08/23 11:23 PT 15.40 SECONDS (12.1-14.9) H 10/12/23 03:13 INR 1.18 (0.8-1.2) 10/12/23 03:13 APTT 35.2 SECONDS (23.9-36.7) 10/10/23 21:11 D-Dimer 4.97 ug/mLFEU (0-0.59) H 10/08/23 11:23 Sodium 137 mmol/L (136-145) 10/12/23 03:13 Potassium 3.6 mmol/L (3.5-5.1) 10/12/23 03:13 Chloride 102 mmol/L (98-107) 10/12/23 03:13 Carbon Dioxide 20 mmol/L (22-29) L 10/12/23 03:13 Anion Gap 18.6 (5-19) 10/12/23 03:13 BUN 28 mg/dL (8-23) H 10/12/23 03:13 Creatinine 4.8 mg/dL (0.5-0.9) H 10/12/23 03:13 GFR Calculation Not Reportable 10/12/23 03:13 Glucose 116 mg/dL (65-115) H 10/12/23 03:13 POC Glucose 136 mg/dL (70-110) H 10/12/23 10:35 Estimat Average Glucose 100 10/08/23 11:23 Hemoglobin A1c 5.1 % (4.0-6.0) 10/08/23 11:23 Calculated Osmolality 290 mOsm/kg (285-295) 10/12/23 03:13 Lactic Acid 1.7 mmol/L (0.5-2.2) 10/08/23 12:45 Calcium 8.2 mg/dL (8.5-10.5) L 10/12/23 03:13 Phosphorus 3.6 mg/dL (2.5-4.5) 10/11/23 04:38 Magnesium 1.6 mg/dL (1.7-2.3) L 10/12/23 03:13 Iron 39 ug/dL (37-145) 10/10/23 07:37 TIBC 145 mcg/dl 10/10/23 07:37 % Saturation 26.8 % (20-50) 10/10/23 07:37 Unsat Iron Binding 106 ug/dL (112-347) L 10/10/23 07:37 Ferritin 1753 ng/mL (15-150) H 10/10/23 07:37 Total Bilirubin 0.3 mg/dL (0.15-1.2) 10/12/23 03:13 AST 12 U/L (0-32) 10/12/23 03:13 ALT 20 U/L (0-33) 10/12/23 03:13 Alkaline Phosphatase 93 U/L (35-105) 10/12/23 03:13 Lactate Dehydrogenase 172 U/L (135-214) 10/10/23 07:37 Troponin T Baseline 82 ng/L (0-10) H 10/08/23 11:23 Troponin T 120 Minute 68.65 ng/L (0-10) H 10/08/23 13:22 Delta Troponin T -13.35 ABS# (0-10) L 10/08/23 13:22 Troponin T Hi Sens 6Hr 66.26 ng/L (0-10) H 10/08/23 17:35 Troponin T Hi Sens 6Hr Delta -15.74 ng/L (0-12) L 10/08/23 17:35 C-Reactive Protein 58.4 mg/L (0.0-4.9) H 10/12/23 03:13 NT-Pro-B Natriuret Pep 92868 pg/mL (0-125) H 10/12/23 03:13 Total Protein 6.7 g/dL (6.6-8.7) 10/12/23 03:13 Albumin 2.9 g/dL (3.5-5.2) L 10/12/23 03:13 Globulin 3.8 g/dL (1.3-4.6) 10/12/23 03:13 Triglycerides 110 mg/dL (0-150) 10/08/23 11:23 Cholesterol 83 mg/dL (0-200) 10/08/23 11:23 LDL Cholesterol, Calc 24 mg/dL (50-129) L 10/08/23 11:23 HDL Cholesterol 37 mg/dL (60-100) L 10/08/23 11:23 LDL/HDL Ratio 0.65 RATIO (0.00-3.22) 10/08/23 11:23 Cholesterol/HDL Ratio 2.24 mg/dL (0.0-4.40) 10/08/23 11:23 CA 125 Antigen 37.5 U/mL (0-35) H 10/10/23 07:37 Procalcitonin 0.75 ng/mL (0-0.5) H 10/12/23 03:13 TSH 3.16 uIU/mL (0.27-4.20) 10/08/23 11:23 Urine Color Yellow (Yellow) 10/08/23 14:22 Urine Appearance Slightly cloudy (CLEAR) 10/08/23 14:22 Urine pH 8 (5-7) H 10/08/23 14:22 Ur Specific [place] 1.010 (1.005-1.030) 10/08/23 14:22 Urine Protein 3+ (Negative) H 10/08/23 14:22 Urine Glucose (UA) 2+ (Normal) H 10/08/23 14:22 Urine Ketones Negative (Negative) 10/08/23 14:22 Urine Blood 3+ (Negative) H 10/08/23 14:22 Urine Nitrate Negative (Negative) 10/08/23 14:22 Urine Bilirubin Neg (Negative) 10/08/23 14:22 Urine Urobilinogen 1 mg/dL (Negative) H 10/08/23 14:22 Ur Leukocyte Esterase 2+ (Negative) H 10/08/23 14:22 Urine RBC 80-100 /hpf (0-2) H 10/08/23 14:22 Urine WBC 80-100 /hpf (0-5) H 10/08/23 14:22 Ur Squamous Epith Cells 0-4 /hpf (0-5) H 10/08/23 14:22 Amorphous Sediment Not Reportable 10/08/23 14:22 Urine Bacteria 2+ /hpf (NONE) H 10/08/23 14:22 Fluid Color Carmen 10/09/23 15:11 Fluid Appearance Cloudy 10/09/23 15:11 Fluid WBC 1875 /uL 10/09/23 15:11 Fluid RBC 18.000 10^3/uL 10/09/23 15:11 Fluid Hematocrit 0.2 % 10/09/23 15:11 Fld Polynuclear WBCs # 0.890 10/09/23 15:11 Fld Polynuclear WBCs % 47.500 % 10/09/23 15:11 Fl Mononucl WBCs #(Auto) 0.985 10/09/23 15:11 Fl Mononuclear % Auto 52.500 % 10/09/23 15:11 Fld Crystal Laterality Left 10/09/23 15:11 Fluid Albumin 2.7 g/dL 10/09/23 15:11 Fluid Creatinine 4.72 (0.5-0.9) H 10/09/23 15:11 Pleural pH 8.00 (6.5-7.5) H 10/09/23 15:11 Pleural Total Protein 4.9 g/dL 10/09/23 15:11 Pleural LDH 190 U/L 10/09/23 15:11 Pleural Glucose 118.0 mg/dL 10/09/23 15:11 Pleural Triglycerides 41 mg/dL 10/09/23 15:11 Random Vancomycin 19.1 ug/mL (20.0-40.0) L 10/11/23 04:38 Adenovirus (PCR) Not detected (NOT DETECT) 10/08/23 14:22 C. pneumoniae DNA (PCR) Not detected (NOT DETECT) 10/08/23 14:22 Coronavirus 229E (PCR) Not detected (NOT DETECT) 10/08/23 14:22 Hepatitis A IgM Ab Non-reactive (Nonreactive) 10/10/23 14:45 Hep Bs Antigen Non-reactive (Nonreactive) 10/10/23 14:45 Hep Bs Antibody > 1000.0 (11.5-1000) H 10/08/23 11:23 Hep B Core IgM Ab Non-reactive (Nonreactive) 10/10/23 14:45 Hepatitis C Antibody Non-reactive (Nonreactive) 10/10/23 14:45 HIV 1&2 Ab & HIV 1 Ag Non-reactive (Non-Reactiv) 10/10/23 14:45 HIV 1&2 Antibody Non-reactive (Non-Reactiv) 10/10/23 14:45 Human Metapneumovir PCR Not detected (NOT DETECT) 10/08/23 14:22 Influenza A (H1) PCR Not detected (NOT DETECT) 10/08/23 14:22 Influ A (H1/09) PCR Not detected (NOT DETECT) 10/08/23 14:22 Influenza A (H3) PCR Not detected (NOT DETECT) 10/08/23 14:22 Influenza Type A (PCR) Not detected (NOT DETECT) 10/08/23 14:22 Influenza Type B (PCR) Not detected (NOT DETECT) 10/08/23 14:22 M. pneumoniae (PCR) Not detected (NOT DETECT) 10/08/23 14:22 Parainfluenza 1 (PCR) Not detected (NOT DETECT) 10/08/23 14:22 Parainfluenza 2 (PCR) Not detected (NOT DETECT) 10/08/23 14:22 Parainfluenza 3 (PCR) Not detected (NOT DETECT) 10/08/23 14:22 Parainfluenza 4 (PCR) Not detected (NOT DETECT) 10/08/23 14:22 RSV Type A (PCR) Not detected (NOT DETECT) 10/08/23 14:22 RSV Type B (PCR) Not detected (NOT DETECT) 10/08/23 14:22 Entero/Rhino (PCR) Not detected (NOT DETECT) 10/08/23 14:22 SARS-CoV-2 (PCR) Not detected (NOT DETECT) 10/08/23 14:22 Vitals Last Vital Signs Temp 96.3 F L 10/12/23 11:56 Pulse 72 10/12/23 11:56 Resp 16 10/12/23 11:56 BP 130/77 10/12/23 11:56 Pulse Ox 100 10/12/23 11:40 O2 Del Method Nasal Cannula 10/12/23 11:40 O2 Flow Rate 3 10/12/23 08:34 Discharge Plan Discharge Patient Disposition: Home Condition: Stable Prescriptions: New levofloxacin 500 mg tablet 500 mg PO Q48H 10 Days Qty: 5 0RF Continued isosorbide mononitrate 30 mg tablet extended release 24 hr 30 mg PO DAILY Qty: 30 0RF albuterol sulfate 90 mcg/actuation HFA aerosol inhaler 1 - 2 puff INHALATION Q4H PRN (Reason: Shortness Of Breath Or Wheezing) fluticasone propionate 50 mcg/actuation spray,suspension 1 spray INTRANASAL DAILY atorvastatin 40 mg tablet 40 mg PO QPM ipratropium-albuterol 0.5 mg-3 mg(2.5 mg base)/3 mL solution for nebulization 3 ml INHALATION QID PRN (Reason: Shortness Of Breath) bumetanide 1 mg tablet 3 mg PO DAILY tiotropium bromide [Spiriva with HandiHaler] 18 mcg capsule, w/inhalation device 18 mcg INHALATION DAILY Changed metoprolol succinate 100 mg tablet extended release 24 hr 50 mg PO BID 30 Days Qty: 30 0RF Discontinued amlodipine 5 mg Tablet 5 mg PO DAILY Qty: 30 0RF glimepiride 2 mg tablet 2 mg PO QAM Eliquis 2.5 mg tablet 2.5 mg PO BID Discharge Orders: Discharge Order (Routine); Ordered 10/12/23 Ordered By: Jaskaran Cabrera Referrals: Yanna Hartman MD [Physician] - 1-3 days (Left hemorrhagic pleural effusion) Trae Sanchez MD [Hospitalist] - 1 week (Left pleural effusion) Rodriguez,Lita, PA-C [Primary Care Provider] - 1-3 days Discharge Diet: Cardiac Discharge Activity: Resume usual activity Patient Instructions: Dialysis Diet (DC), Hemodialysis (DC), Opioid Safety Activity Restrictions/Additional Instructions: - If you develop chest pain or shortness of breath please come back to the hospital -Please take antibiotics as prescribed ? Please follow-up with pulmonary within the next 2 days -Please follow-up with Dr. Sanchez -Continue to hold Eliquis -if you develop stroke like symptoms please call 911 Discharge Attestations Time Spent in Discharge Care*: greater than 30 min Status at Discharge: Cognitive status at discharge: cognitively intact, Behavioral status at discharge: cooperative, Quality Metrics Clinical Quality Measures [ No reported AMI, CVA or VTE this stay] Coding Level of Care Code 01095 Total time (in minutes) for Discharge: 45 Diagnoses Fever R50.9 UTI (urinary tract infection) N39.0 Chest pain R07.9 Chest pain type: unspecified Pleural effusion J90 Atherosclerosis of coronary artery of [place] heart without angina pectoris I25.10 ESRD on dialysis N18.6; Z99.2
--- NOTE | 2023-10-12 14:38 | PC.SOCIAL ---
IMM Updated Updated pt on IMM. No questions voiced. Provided pt a copy. Initialed, dated, & timed copy in chart.
--- NOTE | 2023-10-12 15:03 | P.PN_ITS ---
Subjective 2 Subjective: getting HD Medications: Reviewed: Yes Vitals/I&O/Wt Last Vital Signs Temp 96.3 F L 10/12/23 11:56 Pulse 72 10/12/23 11:56 Resp 16 10/12/23 11:56 BP 130/77 10/12/23 11:56 Pulse Ox 100 10/12/23 11:40 O2 Del Method Nasal Cannula 10/12/23 11:40 O2 Flow Rate 3 10/12/23 08:34 10/12/23 10/12/23 10/12/23 06:59 14:59 22:59 Intake Total 530 / 2390 980 / 980 Output Total 500 / 500 3000 / 3000 Balance 1889 -2019 / Weight last 48 hrs Weight 93.3 kg Weight 90.809 kg Weight 90.764 kg Weight 93.1 kg Physical Exam 2 Narrative: Patient awake alert no distress HEENT S1-S2 regular rate and rhythm per report Lungs clear per report No edema Data 10/12/23 03:13 10/12/23 03:13 Micro: Microbiology 10/09/23 15:11 Gram Stain - Final Pleural Fluid Body Fluid Culture - Final A&P Assessment and plan (1) ESRD on dialysis: 1. End-stage renal disease: On TTS schedule, s/p hd thursday, next HD today 2. History of hypertension: Resume home meds 3. Anemia: Hemoglobin 10.8 monitor 4. Sepsis, possibly due to UTI, management per primary team 5. Chest pain, with elevated troponin, 6. large left pleural effusion - s/p thoracentesis Patient evaluated using audiovisual cart. Time spent 40 minutes. Attestations 2 Medical Necessity Statement*: per medicine Coding Level of Care Code Acute Code for Chg Fwd Diagnoses ESRD on dialysis N18.6; Z99.2
[2023-10-13 20:14] LABS: Amylase, Pleural Fluid 14 U/L
== END 2023-10-12 16:15 | disposition home or self-care (01) | DRG 186 ==
LOC: ER 14:07 → MEDSURG 14:48
PROVIDERS: Hospitalist; Admitting Provider Family Medicine; Emergency Provider Emergency Medicine; PCP Physician Assistant; Visit Provider Family Medicine
DX: J90 Pleural effusion, not elsewhere classified (principal); N18.6 End stage renal disease; N12 Tubulo-interstitial nephritis, not specified as acute or chronic; I13.2 Hypertensive heart and chronic kidney disease with heart failure and with stage 5 chronic kidney disease, or end stage renal disease; I50.32 Chronic diastolic (congestive) heart failure; R07.9 Chest pain, unspecified; I25.10 Atherosclerotic heart disease of native coronary artery without angina pectoris; E11.22 Type 2 diabetes mellitus with diabetic chronic kidney disease; F17.200 Nicotine dependence, unspecified, uncomplicated; R91.1 Solitary pulmonary nodule; J44.9 Chronic obstructive pulmonary disease, unspecified; R79.89 Other specified abnormal findings of blood chemistry; D64.9 Anemia, unspecified; E87.70 Fluid overload, unspecified; Z66 Do not resuscitate; I48.91 Unspecified atrial fibrillation; Z99.2 Dependence on renal dialysis; Z79.84 Long term (current) use of oral hypoglycemic drugs; Z90.5 Acquired absence of kidney; Z79.01 Long term (current) use of anticoagulants; Z87.440 Personal history of urinary (tract) infections
CPT/HCPCS: 32555; 36415; 36416; 71045; 71275; 74176; 80053; 80061; 80074; 80202; 80503; 81001; 82042; 82150; 82570; 82728; 82945; 82962; 83036; 83540; 83550; 83605; 83615; 83735; 83880; 83986; 84100; 84145; 84157; 84443; 84478; 84484; 85014; 85025; 85378; 85610; 85651; 85730; 86140; 86304; 86706; 87015; 87040; 87070; 87075; 87077; 87086; 87116; 87186; 87205; 87206; 87340; 87486; 87581; 87633; 87801; 87806; 88112; 88305; 89050; 90935; 93005; 93306; 94640; 94664; 96365; 96367; 96372; 99285; J1644; J1815; J2470; J2543; J3370; J3490; J7030; J7050; Q9967

== ENCOUNTER 2024-02-12 12:34 | Emergency (ER) | payer MEDICARE, MEDICAID, SELFPAY ==
[2024-02-12] VITALS (7 sets, daily range): BP systolic 101–123; BP diastolic 43–65; PULSE 93–109; RESP 17–18; TEMP 36.7; O2SAT 92–98; BMI 29.5
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
[2024-02-12] MEDS: fentaNYL 50 mcg/mL INJ 2mL IVP ×2 (13:11→14:41)
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
--- NOTE | 2024-02-12 15:45 | PC.NURSE ---
ATTEMPTED TO CALL [facility] TO HAVE ON-CALL STAFF BRING PT A WHEELCHAIR DUE TO PT NOT BEING ABLE TO GO AND GET WHEELCHAIR. MESSAGE LEFT BY CREDENTIALING SPECIALISTMESFIN.
[2024-02-12] MEDS: oxyCODONE-APAP 5-325 mg Tablet 1 TAB PO (16:14)
--- NOTE | 2024-02-12 17:23 | PC.NURSE ---
PATIENTS FAMILY STATED THEY WERE GOING TO GET CLOTHES FOR PATIENT. PATIENTS FAMILY RETURNED AND STATED THAT THEY WENT TO SEE PATIENTS . PATIENTS FAMILY STATES THEY ARE NOW GOING TO GET HER CLOTHES AND WILL RETURN IN APPROX 30 MINS. WILL DC WHEN FAMILY RETURNS.
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
== END 2024-02-12 19:37 | disposition home or self-care (01) ==
PROVIDERS: Emergency Provider Emergency Medicine; PCP Physician Assistant
DX: S82.141A Displaced bicondylar fracture of right tibia, initial encounter for closed fracture (principal); S42.202A Unspecified fracture of upper end of left humerus, initial encounter for closed fracture; Z79.01 Long term (current) use of anticoagulants; Z72.0 Tobacco use; E11.22 Type 2 diabetes mellitus with diabetic chronic kidney disease; I12.9 Hypertensive chronic kidney disease with stage 1 through stage 4 chronic kidney disease, or unspecified chronic kidney disease; N18.9 Chronic kidney disease, unspecified; J44.9 Chronic obstructive pulmonary disease, unspecified
CPT/HCPCS: 70450; 72100; 73030; 73200; 73562; 73700; 96374; 96376; 99285; J3010

== ENCOUNTER 2024-02-13 14:33 | Inpatient (IN) | payer MEDICARE, MEDICAID, SELFPAY ==
[2024-02-13] VITALS (17 sets, daily range): BP systolic 74–108; BP diastolic 48–73; PULSE 66–93; RESP 14–29; TEMP 36.4–37; O2SAT 83–98; BMI 29.7
[2024-02-13 15:13] LABS: Glucose Point of Care 132 mg/dL (70-110)
--- NOTE | 2024-02-13 15:22 | ECG_ITS ---
[facility] Date: 2024-02-13 Pat Name: Venita Healy Department: Room: Gender: Female Clinical Social Worker: : 1950 Requested By: Catia Pelayo Order Number: [id number] Chica MD: Colin Laird M.D. Measurements Intervals Lavinia Rate: 73 P: 54 MA: 172 QRS: 61 QRSD: 74 T: 92 QT: 420 QTc: 464 Interpretive Statements SINUS RHYTHM Compared to ECG 10/08/2023 16:59:03 Atrial fibrillation no longer present T-wave abnormality no longer present Possible ischemia no longer present Electronically Signed On 02-14-2024 19:04:22 SWAHILI TEACHER by Colin Laird M.D. [email or web address]
--- NOTE | 2024-02-13 15:31 | XRR_ITS ---
PROCEDURE INFORMATION: Exam: XR Chest Exam date and time: 02/13/2024 3:35 PM Age: 73 years old Clinical indication: Shortness of breath; Patient HX: SOB; Esrd TECHNIQUE: Imaging protocol: Radiologic exam of the chest. Views: 1 view. COMPARISON: CR XR chest 1V portable [id number] 10/12/2023 12:04 PM FINDINGS: Tubes, catheters and devices: Metallic buckle like structure projecting over the left chest. Airway: Patent Lungs: Nodular densities in the right lung base measuring up to 3 mm. Linear atelectasis in the left lung base. Mild bilateral perihilar vascular prominence. Pleural spaces: Increased haziness in the left lung base with blunting of the left costophrenic angle. Thickening of the right minor fissure. Heart/Mediastinum: Moderate cardiomegaly. Vasculature: Tortuous aorta. Calcified aortic knob. Bones/joints: Bone demineralization. Moderate osteoarthritis of the bilateral acromioclavicular joints. Mild degenerative changes bilateral glenohumeral joints. XR/XR chest 1V portable [id number] IMPRESSION: 1. Small left pleural effusion with left basal compressive atelectasis. Differential would include superimposed pneumonia. 2. Concern for mild interstitial pulmonary edema, as well as a small amount of pleural fluid in the right minor fissure. 3. Questionable vessels seen on end or tiny lung nodules in the right lung base. COMMENTS: Consider follow-up chest CT.
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
--- NOTE | 2024-02-13 15:34 | ECG_ITS ---
[facility] Test Date: 2024-02-13 Pat Name: Venita Healy Department: Room: Gender: Female Assemblies And Installations Inspector: : 1950 Requested By: Catia Pelayo Order Number: [id number] Chica MD: Colin Laird M.D. Measurements Intervals Star Rate: 71 P: 66 MS: 160 QRS: 46 QRSD: 85 T: 87 QT: 442 QTc: 481 Interpretive Statements SINUS RHYTHM NONSPECIFIC T-WAVE ABNORMALITY Compared to ECG 10/08/2023 16:59:03 Atrial fibrillation no longer present Possible ischemia no longer present T-wave abnormality still present Electronically Signed On 02-14-2024 18:51:22 WOOD TANK ERECTOR by Colin Laird M.D. [email or web address]
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
[2024-02-13 16:00] LABS: Basophils # 0.1 10^3/uL (0.0-0.1); Basophils % 0.3 %; Eosinophils # 0.1 10^3/uL (0.0-0.8); Eosinophils % 0.4 %; Hematocrit 26.6 % (36-47); Lymphocytes # 1.4 10^3/uL (0.8-4.8); Lymphocytes % 8.5 %; Mean Corpuscular HGB Conc 32.3 g/dL (30-55); Mean Corpuscular Hemoglobin 32.1 pg (27-33); Mean Corpuscular Volume 99.3 fl (85-98); Mean Platelet Volume 10.1 fL (7.4-10.4); Monocytes # 0.9 10^3/uL (0.2-0.9); Monocytes % 5.6 %; Neutrophils # 13.74 10^3/uL (1.8-7.7); Neutrophils % 83.8 %; Nucleated Red Blood Cells % 0 %; Platelet Count 229 10^3/cmm (157-399); Red Blood Count 2.68 10^6/uL (3.85-5.65); Red Cell Distribution Width 15.6 % (12.1-15.1); White Blood Count 16.41 10^3/uL (3.29-11.43)
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
[2024-02-13 16:18] LABS: Lactic Sepsis W/Reflex 2.7 mmol/L (0.5-2.2)
[2024-02-13 16:33] LABS: Troponin(5th) Baseline 124 ng/L (0-10)
[2024-02-13 16:35] LABS: Alanine Aminotransferase 30 U/L (0-33); Albumin Level 3.2 g/dL (3.5-5.2); Alkaline Phosphatase 88 U/L (35-105); Anion Gap 23.4 (5-19); Aspartate Amino Transferase 47 U/L (0-32); Blood Urea Nitrogen 42 mg/dL (8-23); Calcium 8.1 mg/dL (8.5-10.5); Carbon Dioxide 27 mmol/L (22-29); Chloride 86 mmol/L (98-107); Creatinine Clr Calc Pharmacy 11.1376; Globulin 3.8 g/dL (1.3-4.6); Glucose 119 mg/dL (65-115); Osmolality Calculated 284 mOsm/kg (285-295); Potassium 5.4 mmol/L (3.5-5.1); Sodium 131 mmol/L (136-145); Total Bilirubin 0.7 mg/dL (0.15-1.2)
[2024-02-13 16:37] LABS: ABG PCO2 45.1 mmHg (35-45); ABG PH Result 7.44 (7.35-7.45); Alveolar-Arterial Oxygen Gradi 4.2 mmHg (5-10); Arterial Blood Gas Hematocrit 25.5 % (37-47); Base Excess ABG 5.8 mmol/L (-2.0-2.0); Blood Gas Allen Test Pos; Blood Gas Operator Identificat WALCI; Blood Gas Sample Site Radial, right; Blood Gas Sample Type Arterial; Carboxyhemoglobin 1.8 %THgb (0.4-20.1); HCO3 ABG 30.6 mmol/L (22-26); HGB O2 Sat 88.1 % (95-100); Oxygen Device NC; Oxygen Saturation ABG 90.6; PO2 ABG 62.5 mmHg (80.0-100.0); Total Hemoglobin 8.3 g/dL (12-16)
[2024-02-13 16:54] LABS: Bilirubin Urine Negative (Negative); Blood Urine 3+ (Negative); Glucose Urine UA Negative (Normal); Ketones Urine Negative (Negative); Leukocyte Esterase Urine 3+ (Negative); Nitrate Urine Negative (Negative); Protein Urine 3+ (Negative); Urine Appearance Turbid (CLEAR); Urobilinogen Urine 0.2 mg/dL (Negative)
[2024-02-13 16:59] LABS: Add Urine Microscopic? YES; Bacteria Urine Trace /hpf; Hyaline Casts Urine 7.56 /lpf; RBC Urine >100 /hpf (0-2); Squamous Epithelial Cell Urine 21-50 /hpf (0-5); WBC Urine >100 /hpf (0-5)
[2024-02-13 17:16] LABS: Specific Gravity, Urine 1.031 (1.005-1.030); UA Slide Review UA Slide Review Perf; Urine Color Orange (Yellow)
[2024-02-13 17:44] LABS: Reflex Lactate Order REFLEX LACTIC ORDERD
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
[2024-02-13 18:18] LABS: Troponin 5 2HR Delta -0.3 ABS# (0-10)
[2024-02-13 18:20] LABS: Troponin 5 2HR 123.7 ng/L (0-10)
[2024-02-13] MEDS: iohexol 350 mg/mL 500 mL Btl (per mL) IV (18:25)
[2024-02-13] MEDS: sodium chloride 0.9% 500 ML 999 ML IV (18:27)
[2024-02-13] MEDS: cefepime 2,000 MG in sodium chloride 0.9% (plus) 50 ML 100 MG IV (18:27)
[2024-02-13 19:28] LABS: Lactic Acid level (Lactate) 2.1 mmol/L (0.5-2.2)
[2024-02-13] MEDS: HYDROmorphone 1 mg/mL INJ 1 mL 0.4 MG IVP (19:31)
[2024-02-13 20:28] LABS: Procalcitonin 1.85 ng/mL (0-0.5)
--- NOTE | 2024-02-13 21:34 | ECG_ITS ---
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 Measurements Intervals [place] Rate: 75 P: 65 NE: 156 QRS: 57 QRSD: 80 T: 93 QT: 406 QTc: 455 Interpretive Statements SINUS RHYTHM NONSPECIFIC ST & T-WAVE ABNORMALITY Compared to ECG 02/13/2024 15:57:22 No significant changes Electronically Signed On 02-14-2024 19:02:46 PERSONAL COMPANION by Colin Laird M.D. [email or web address]
[2024-02-13 21:55] LABS: INR 1.53 (0.8-1.2); Partial Thromboplastin Time 34.6 SECONDS (23.9-36.7)
[2024-02-13 22:06] LABS: Troponin 5 6HR Delta -10.1 ng/L (0-12)
[2024-02-13 22:07] LABS: Troponin 5 6HR 113.9 ng/L (0-10)
[2024-02-13] MEDS: heparin 5,000 unit/mL INJ 1 mL IVP (22:08)
[2024-02-13] MEDS: heparin drip 25,000 UNIT/500 ML PREMIX 25 UNIT IV (22:09)
[2024-02-13] MEDS: sodium polystyrene sulfonate 15 gm/60 mL Btl 30 GM PO (22:33)
[2024-02-13] MEDS: sevelamer 800 mg Tablet PO (22:34)
[2024-02-13] MEDS: acetaminophen 325 mg Tablet 650 MG PO (22:52)
[2024-02-13] MEDS: pantoprazole 40 mg SDV IVP (23:05)
[2024-02-13] MEDS: ipratropium-albuterol 3 mL Neb INHALATION (23:11)
[2024-02-13] MEDS: efferdent effervescent 1 EACH DENTAL (23:29)
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
[2024-02-14] VITALS (42 sets, daily range): BP systolic 94–130; BP diastolic 46–86; PULSE 66–104; RESP 16–29; TEMP 36.4–37.4; O2SAT 88–96; BMI 29.7
[2024-02-14 02:02] LABS: Vitamin B12 234 pg/mL (232-1245)
[2024-02-14] MEDS: ipratropium-albuterol 3 mL Neb INHALATION ×4 (03:10→20:37)
[2024-02-14] MEDS: morphine 4 mg/mL SDV 1 mL 2 MG IVP ×4 (05:10→18:13)
[2024-02-14 05:47] LABS: Basophils % 0.3 %; Eosinophils # 0.1 10^3/uL (0.0-0.8); Eosinophils % 0.9 %; Hematocrit 24.2 % (36-47); Lymphocytes # 1.5 10^3/uL (0.8-4.8); Lymphocytes % 10.8 %; Mean Corpuscular Hemoglobin 31.1 pg (27-33); Mean Corpuscular Volume 100.4 fl (85-98); Mean Platelet Volume 9.8 fL (7.4-10.4); Monocytes # 0.9 10^3/uL (0.2-0.9); Monocytes % 6.2 %; Neutrophils # 10.98 10^3/uL (1.8-7.7); Neutrophils % 80.4 %; Nucleated Red Blood Cells % 0 %; Platelet Count 208 10^3/cmm (157-399); Red Blood Count 2.41 10^6/uL (3.85-5.65); Red Cell Distribution Width 15.5 % (12.1-15.1); White Blood Count 13.65 10^3/uL (3.29-11.43)
[2024-02-14 06:07] LABS: Alanine Aminotransferase 25 U/L (0-33); Albumin Level 2.9 g/dL (3.5-5.2); Alkaline Phosphatase 77 U/L (35-105); Anion Gap 21.5 (5-19); Aspartate Amino Transferase 34 U/L (0-32); Blood Urea Nitrogen 48 mg/dL (8-23); Calcium 7.6 mg/dL (8.5-10.5); Carbon Dioxide 27 mmol/L (22-29); Chloride 90 mmol/L (98-107); Creatinine Clr Calc Pharmacy 10.2237; Globulin 3.4 g/dL (1.3-4.6); Glucose 54 mg/dL (65-115); Magnesium 1.5 mg/dL (1.7-2.3); Osmolality Calculated 288 mOsm/kg (285-295); Phosphorus 6.7 mg/dL (2.5-4.5); Potassium 4.5 mmol/L (3.5-5.1); Sodium 134 mmol/L (136-145); Total Bilirubin 0.3 mg/dL (0.15-1.2); Total Protein 6.3 g/dL (6.6-8.7)
[2024-02-14 06:12] LABS: Partial Thromboplastin Time 84.8 SECONDS (23.9-36.7)
[2024-02-14 06:36] LABS: Folate Level 12.9 ng/mL (4.8-37.3)
[2024-02-14 07:28] LABS: Procalcitonin 2.16 ng/mL (0-0.5)
[2024-02-14 07:40] LABS: Glucose Point of Care 46 mg/dL (70-110)
[2024-02-14] MEDS: sevelamer 800 mg Tablet PO ×2 (08:24→15:15)
[2024-02-14] MEDS: cyclobenzaprine 10 mg Tablet 5 MG PO ×2 (08:24→15:15)
[2024-02-14] MEDS: atorvastatin 40 mg Tablet 80 MG PO (08:24)
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
[2024-02-14] MEDS: budesonide 0.5 mg/2 mL Neb INHALATION ×2 (09:01→20:37)
[2024-02-14 09:47] LABS: Glucose Point of Care 72 mg/dL (70-110)
[2024-02-14] MEDS: cefTRIAXone 1,000 mg SDV 1000 MG IVP (11:59)
[2024-02-14] MEDS: fixodent 39 gm Tube 1 APPLIC DENTAL (12:04)
[2024-02-14 12:27] LABS: Glucose Point of Care 106 mg/dL (70-110)
[2024-02-14 12:27] LABS: Partial Thromboplastin Time 56.3 SECONDS (23.9-36.7)
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
[2024-02-14] MEDS: HYDROcodone-acetaminophen 5-325 mg Tablet 1 TAB PO ×2 (15:49→21:23)
--- NOTE | 2024-02-14 15:55 | PC.NURSE ---
Transfer Note Patient transferred to CSU room 104 from ICU via bed. Handoff report given to RAMIN Mcdonough. Patient oriented to environment and equipment. Covering service notified. Orders reviewed and will continue to monitor. Upon transfer patient is alert/oriented x4 on 3LNC. Several wounds/skin issues noted, please see wound assessment for details. All patient belongings transferred with patient and placed at bedside.
[2024-02-14 17:24] LABS: Glucose Point of Care 77 mg/dL (70-110)
[2024-02-14 18:35] LABS: Partial Thromboplastin Time 37.6 SECONDS (23.9-36.7)
[2024-02-14] MEDS: heparin drip 25,000 UNIT/500 ML PREMIX 27 UNIT IV (19:11)
[2024-02-14 20:55] LABS: Glucose Point of Care 119 mg/dL (70-110)
[2024-02-14] MEDS: pantoprazole 40 mg SDV IVP (21:24)
[2024-02-15] VITALS (19 sets, daily range): BP systolic 108–145; BP diastolic 48–83; PULSE 77–95; RESP 14–24; TEMP 36.4–37.3; O2SAT 90–100; BMI 32.2
[2024-02-15] MEDS: cyclobenzaprine 10 mg Tablet 5 MG PO ×2 (00:27→10:49)
[2024-02-15] MEDS: dextrose 10% 125 ML 750 ML IV (00:54)
[2024-02-15] MEDS: glucagon 1 mg/mL KIT 1 mL IM (00:55)
[2024-02-15 01:22] LABS: Basophils % 0.2 %; Eosinophils # 0.1 10^3/uL (0.0-0.8); Eosinophils % 0.8 %; Hematocrit 21.3 % (36-47); Lymphocytes # 1.3 10^3/uL (0.8-4.8); Lymphocytes % 10.5 %; Mean Corpuscular Hemoglobin 30.3 pg (27-33); Mean Corpuscular Volume 97.7 fl (85-98); Mean Platelet Volume 9.8 fL (7.4-10.4); Monocytes # 0.9 10^3/uL (0.2-0.9); Monocytes % 7.3 %; Neutrophils # 9.55 10^3/uL (1.8-7.7); Neutrophils % 79.5 %; Nucleated Red Blood Cells % 0.2 %; Platelet Count 192 10^3/cmm (157-399); Red Blood Count 2.18 10^6/uL (3.85-5.65); Red Cell Distribution Width 15.7 % (12.1-15.1); White Blood Count 12.03 10^3/uL (3.29-11.43)
--- NOTE | 2024-02-15 01:34 | PC.NURSE ---
around 0000, pt had low bs of 50, nurse got orange juice and had pt drink per protocol. bs checked again after 15 mins. only 54 and 56 after another 5 mins. physican notified and order hypoglycemic protocol. after infusion complete pt bs 181. will continue to monitor pt for bs throughout remaining of shift.
[2024-02-15 01:37] LABS: Partial Thromboplastin Time 59.2 SECONDS (23.9-36.7)
[2024-02-15 01:45] LABS: Alanine Aminotransferase 19 U/L (0-33); Albumin Level 2.8 g/dL (3.5-5.2); Alkaline Phosphatase 105 U/L (35-105); Anion Gap 21.9 (5-19); Aspartate Amino Transferase 25 U/L (0-32); Blood Urea Nitrogen 52 mg/dL (8-23); Calcium 7.1 mg/dL (8.5-10.5); Carbon Dioxide 26 mmol/L (22-29); Chloride 86 mmol/L (98-107); Creatinine Clr Calc Pharmacy 8.8398; Globulin 3.2 g/dL (1.3-4.6); Glucose 43 mg/dL (65-115); Osmolality Calculated 281 mOsm/kg (285-295); Potassium 3.9 mmol/L (3.5-5.1); Sodium 130 mmol/L (136-145); Total Bilirubin 0.3 mg/dL (0.15-1.2)
[2024-02-15 02:25] LABS: Glucose Point of Care 50 mg/dL (70-110)
[2024-02-15 02:25] LABS: Glucose Point of Care 54 mg/dL (70-110)
[2024-02-15 02:25] LABS: Glucose Point of Care 56 mg/dL (70-110)
[2024-02-15 02:25] LABS: Glucose Point of Care 63 mg/dL (70-110)
[2024-02-15 02:25] LABS: Glucose Point of Care 181 mg/dL (70-110)
[2024-02-15] MEDS: morphine 4 mg/mL SDV 1 mL 2 MG IVP ×3 (02:35→22:56)
[2024-02-15] MEDS: ipratropium-albuterol 3 mL Neb INHALATION ×4 (02:46→22:20)
[2024-02-15 04:18] LABS: Glucose Point of Care 136 mg/dL (70-110)
[2024-02-15] MEDS: HYDROcodone-acetaminophen 5-325 mg Tablet 1 TAB PO ×3 (04:25→20:56)
[2024-02-15] MEDS: budesonide 0.5 mg/2 mL Neb INHALATION ×2 (07:22→22:20)
[2024-02-15 07:36] LABS: Partial Thromboplastin Time 55.9 SECONDS (23.9-36.7)
[2024-02-15 07:40] LABS: Glucose Point of Care 64 mg/dL (70-110)
--- NOTE | 2024-02-15 09:47 | PC.HD ---
This RN attempted access of LAVF x2 without success. Per patient, she is a difficult stick. Followed patient's instructions for needle placement without success x2. Contacted [facility] tech, who advised methods for accessing fistula. Per small electric engine technician's request, this RN made two more attempts. On final attempt, flash of blood was noted, but as soon as needle was starting to be advanced, pulse stopped. Per small electric engine technician, abort dialysis attempt today. Further decisions per small electric engine technician. Fistula noted to be very small and rolls very easily. Fistula approximately 2 months old.
--- NOTE | 2024-02-15 10:02 | PC.CHAP ---
Pastoral Care Encounter/Spiritual Assessment Type of Contact [] Declined vice president supply chain visit [] Patient/Family/Request visit [] Outpatient visit [] Follow-up visit [] Physician referral [] Code/Alert [x] Routine visit [] Staff referral [] Actively dying [] Patient sleeping [] Family support [] [x] Out of room [] Palliative care [] [] Receiving care in room [] Pre-surgical visit [] Trauma [] Long length of stay [] ICU visit [] Other: Relational/Emotional Strength [] Patient feels connected with others/family/visitors/staff [] Distress [] Loneliness/isolation [] Abandonment Spirituality of Patient [] Person of Anne [] Attends Je[employer] Witness of their [place] [] Believes in Prayer [] Reads Bible or Temple materials [] There are Spiritual issues to be addressed Second Class [employer]der Interventions [] Prayer [] Active listening [] Non-anxious presence [] Spiritual/emotional support [] Crisis/trauma care [] Spiritual counseling [] Bereavement support [] Provided bereavement packet [] Provided Bible/devotional materials [] Provided toy/stuffed animal, coloring book to patient or family member [] Provided Communion [] Anointing/[place] [] Salvation [] Completed spiritual assessment [] Other: Impact on Illness or Injury [] Angry [] Fearful [] Anxious [] Often cries [] Exhaustion [] Unable to work [] Unable to attend baptism [] Unable to walk/stand [] Unable to read [] Unable to drive [] Unable to eat/drink [] Unable to sleep [] Unable to be with family [] Patient intubated [] Other: Summary Time spent with patient
[2024-02-15 10:15] LABS: Glucose Point of Care 106 mg/dL (70-110)
[2024-02-15] MEDS: atorvastatin 40 mg Tablet 80 MG PO (10:49)
--- NOTE | 2024-02-15 11:23 | CTR_ITS ---
PROCEDURE INFORMATION: Exam: CT Abdomen And Pelvis Without Contrast Exam date and time: 02/15/2024 6:13 PM Age: 73 years old Clinical indication: Other: Psoas or other hemorrhage; Additional info: Acute anemia, follow up for psoas or other hemorrhage TECHNIQUE: Imaging protocol: Computed tomography of the abdomen and pelvis without contrast. Radiation optimization: All CT scans at this facility use at least one of these dose optimization techniques: automated exposure control; mA and/or kV adjustment per patient size (includes targeted exams where dose is matched to clinical indication); or iterative reconstruction. COMPARISON: [place] [id number] 02/13/2024 4:19 PM RADIATION DOSE METRICS: Total DLP (mGy-cm): 971.88 FINDINGS: Lungs: Evidence for lung calcified granulomas in the bilateral chest. Bilateral pulmonary linear interstitial opacities identified within lower lungs. Alveolar consolidation within the bilateral posterior lower lobes. Pleural spaces: Small to moderate volume bilateral pleural effusions. Heart: Cardiac silhouette appears fron-no-dfocioswll enlarged. Coronary arteries: Coronary arterial calcifications are demonstrated. Liver: Liver appears heterogeneous with irregular border. Possible hepatic parenchymal disease. The liver is enlarged. Liver measurement: 21 cm length. Gallbladder and biliary ducts: The gallbladder has been surgically removed. Surgical clips identified in the gallbladder fossa. No evidence for biliary dilatation. Pancreas: Unremarkable. Spleen: The spleen is enlarged. Spleen measurement: 13 cm greatest length with axial imaging. Adrenal glands: Indeterminate incidental left adrenal lesion is identified. This lesion does not demonstrate definite criteria for benign adenoma. Left adrenal lesion measurement: 19 Hounsfield units and 2.6 cm on axial image 30. The right adrenal gland appears unremarkable. Kidneys and ureters: The right kidney is absent. The left kidney appears unremarkable. No visualized left renal hydronephrosis. No visible left-sided renal calculus. Stomach and bowel: Possible mild increased volume of colonic fecal material identified throughout the colon. The bowel appears otherwise unremarkable. No visualized evidence for bowel obstruction or ileus. Appendix: The visualized appendix appears unremarkable. Intraperitoneal space: Diffuse [id number] generalized abdominal pelvic mesenteric edema. Minimal volume of intraperitoneal fluid identified in the bilateral abdomen and pelvis. No significant intraperitoneal well-defined fluid collection or air identified. Vasculature: Moderate to severe atherosclerotic calcification demonstrated within the aorta. Moderate to severe diffuse atherosclerotic arterial vascular wall calcifications are demonstrated. Lymph nodes: No enlarged lymph nodes. Urinary bladder: Air is identified within the urinary bladder. Bladder appears otherwise unremarkable and contains simple appearing fluid. No secondary findings to suggest acute bladder infection, inflammation. Reproductive: The uterus is not present. Bones/joints: Diffusely decreased bone density. Moderate to severe generalized bony degenerative changes. Multilevel disc and osteophyte complexes with moderate to severe central canal and foraminal narrowing. Bony structures appear otherwise unremarkable. Soft tissues: Evidence for previous midline laparotomy surgery with postsurgical changes in the ventral wall. Iplu-ms-tfchamge diffuse generalized anasarca. No evidence for psoas hematoma. No other hematoma. Other findings: This study is severely limited by patient's large body habitus. Limited study with artifact created by extremity overlying the area of imaging. CT/CT abdomen pelvis wo con [id number] IMPRESSION: 1. Small to moderate bilateral pleural effusions. Pulmonary atelectasis, acute infiltrates or edema within lower chest bilaterally. 2. Hbzv-lk-prwlynkqlg enlarged cardiac silhouette. 3. Nonspecific heterogeneous and irregular appearance of the liver. Recommend correlation with liver function tests. Hepatomegaly. 4. Splenomegaly. Possible portal venous hypertension. Generalized edema. 5. Indeterminate left adrenal lesion. Adrenal protocol CT or MRI is recommended to evaluate further. 6. Nonspecific air identified within otherwise unremarkable urinary bladder. Recommend clinical correlation for possible recent bladder catheterization. Infection or fistula are less likely differential considerations. 7. Possible mild constipation. 8. Chronic findings. Degenerative and postsurgical changes are demonstrated, as described above. COMMENTS: Consistent with the [employer]'s Incidental Findings Committee white paper (J Am Carolyn Radiol 2017): For any incidental adrenal lesion greater than or equal to 1 cm but less than or equal to 4 cm classified in this report as benign, likely benign, or containing fat (including classification as an adenoma or myelolipoma), no follow-up imaging is recommended per consensus recommendations based on imaging criteria. Further lab evaluation could be pursued if warranted based on clinical findings.
[2024-02-15 11:41] LABS: Glucose Point of Care 62 mg/dL (70-110)
--- NOTE | 2024-02-15 13:22 | PC.SOCIAL ---
IMM Updated Updated pt on IMM. No questions voiced. Provided pt a copy. Initialed, dated, & timed a copy & placed in chart.
--- NOTE | 2024-02-15 14:42 | P.PN_ITS ---
Subjective 2 Subjective: Patient is unchanged on exam shoulder and knee pain. Still awaiting x-rays. Vitals/I&O/Wt Last Vital Signs Temp 98.3 F 02/15/24 13:07 Pulse 81 02/15/24 13:55 Resp 20 H 02/15/24 13:55 BP 108/48 02/15/24 13:07 Pulse Ox 96 02/15/24 13:55 O2 Del Method Nasal Cannula 02/15/24 13:55 O2 Flow Rate 2 02/15/24 13:55 02/14/24 02/15/24 02/15/24 22:59 06:59 14:59 Intake Total 553.716 / 1297.083 704.1 2000.183 1054.1 / 1054.1 Output Total 0 / 0 0 / 0 Balance 553.716 / 1297.083 704.1 183 1054.1 / 1054.1 Weight last 48 hrs Weight 211 lb 13.828 oz Weight 195 lb 5 oz Weight 196 lb 9.6 oz Weight 195 lb 12.8 oz Weight 194 lb Physical Exam 2 Narrative: Patient moved from ICU to cardiac stepdown Sitting up in bed appears to be somewhat comfortable. Data 02/15/24 00:48 02/15/24 00:48 Micro: Microbiology 02/13/24 16:45 Bacterial Antigens - Final Urine Kidney A&P Assessment and plan (1) Closed fracture of tibial plateau: Patient has a right tibial plateau fracture and a left humerus fracture with glenoid fracture. Awaiting x-rays. Continue current treatment. Qualifiers: Encounter type: initial encounter Laterality: right Qualified Code(s): S82.141A - Displaced bicondylar fracture of right tibia, initial encounter for closed fracture Attestations 2 Medical Necessity Statement*: Per primary service Coding Level of Care Code Acute Code for Chg Fwd Diagnoses Closed fracture of tibial plateau S82.141A Encounter type: initial encounter Laterality: right
[2024-02-15 15:32] LABS: Glucose Point of Care 136 mg/dL (70-110)
[2024-02-15] MEDS: sevelamer 800 mg Tablet PO (16:26)
[2024-02-15] MEDS: cefTRIAXone 1,000 mg SDV 1000 MG IVP (16:26)
[2024-02-15] MEDS: heparin drip 25,000 UNIT/500 ML PREMIX 27 UNIT IV (16:27)
[2024-02-15 17:04] LABS: Partial Thromboplastin Time 144.6 SECONDS (23.9-36.7)
[2024-02-15 17:20] LABS: Glucose Point of Care 57 mg/dL (70-110)
[2024-02-15 18:29] LABS: Partial Thromboplastin Time 47.2 SECONDS (23.9-36.7)
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
[2024-02-15] MEDS: heparin 5,000 unit/mL INJ 1 mL IVP (21:11)
[2024-02-15 21:18] LABS: Glucose Point of Care 66 mg/dL (70-110)
[2024-02-15] MEDS: pantoprazole 40 mg SDV IVP (21:18)
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
[2024-02-16] VITALS (12 sets, daily range): BP systolic 101–149; BP diastolic 62–92; PULSE 85–118; RESP 16–25; TEMP 34.9–37.2; O2SAT 94–100
[2024-02-16 00:29] LABS: Glucose Point of Care 76 mg/dL (70-110)
[2024-02-16] MEDS: dextrose 10% 250 ML 1000 ML IV ×2 (02:38→09:51)
--- NOTE | 2024-02-16 02:56 | PC.NURSE ---
Messaged to make him aware of patients blood glucose of 42 right. The patient had been running low, dropped in the 50 the previous night. Currently receiving dextrose 10% 250bolus. The patient is a dialysis pt, NPO going for temporary dialysis access this morning because they could get her fistula to wrk yesterday. Asked if would like to start any fluids with dextrose for low glucose levels while pt NPO. ordered D5NS at 50ml/hr for 5hours.
[2024-02-16] MEDS: ipratropium-albuterol 3 mL Neb INHALATION ×2 (03:12→21:26)
[2024-02-16] MEDS: dextrose 5 % 500 ML 50 ML IV (03:13)
[2024-02-16] MEDS: lanolin oint 7 gm 1 APPLIC TOPICAL (03:19)
[2024-02-16 03:25] LABS: Glucose Point of Care 42 mg/dL (70-110)
[2024-02-16 03:25] LABS: Glucose Point of Care 166 mg/dL (70-110)
[2024-02-16] MEDS: dextrose 5%-sod chloride 0.9% 1,000 ML 50 ML IV (03:34)
[2024-02-16 05:11] LABS: Basophils % 0.3 %; Eosinophils # 0.2 10^3/uL (0.0-0.8); Eosinophils % 1.5 %; Hematocrit 23.6 % (36-47); Lymphocytes # 0.9 10^3/uL (0.8-4.8); Mean Corpuscular HGB Conc 32.2 g/dL (30-55); Mean Corpuscular Hemoglobin 30.4 pg (27-33); Mean Corpuscular Volume 94.4 fl (85-98); Mean Platelet Volume 9.8 fL (7.4-10.4); Monocytes # 0.8 10^3/uL (0.2-0.9); Monocytes % 6.6 %; Neutrophils % 79.3 %; Nucleated Red Blood Cells % 0.3 %; Platelet Count 196 10^3/cmm (157-399); White Blood Count 11.35 10^3/uL (3.29-11.43)
[2024-02-16 05:34] LABS: Anion Gap 24.1 (5-19); Blood Urea Nitrogen 55 mg/dL (8-23); Carbon Dioxide 23 mmol/L (22-29); Chloride 80 mmol/L (98-107); Creatinine Clr Calc Pharmacy 9.1996; Glucose 64 mg/dL (65-115); Osmolality Calculated 267 mOsm/kg (285-295); Potassium 5.1 mmol/L (3.5-5.1); Sodium 122 mmol/L (136-145)
[2024-02-16 05:51] LABS: Glucose Point of Care 77 mg/dL (70-110)
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
[2024-02-16] MEDS: atorvastatin 40 mg Tablet 80 MG PO (08:42)
[2024-02-16] MEDS: HYDROcodone-acetaminophen 5-325 mg Tablet 1 TAB PO ×2 (08:42→22:24)
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
[2024-02-16] MEDS: sevelamer 800 mg Tablet PO ×3 (08:43→21:12)
[2024-02-16] MEDS: cyclobenzaprine 10 mg Tablet 5 MG PO (08:43)
--- NOTE | 2024-02-16 08:46 | PM.DIACAT ---
Procedure Note: Procedure: Preoperative diagnosis: End-stage renal disease on hemodialysis Postoperative diagnosis: Same Procedure: Placement of Mahurkar catheter in the left femoral vein Surgeon: Dr. Alan Pruitt, DO Anesthesia: Local Description of procedure: The patient's left groin was prepped and draped in a sterile manner. 5 mL of 1% lidocaine was infiltrated at the site of planned entry, an introducer needle was used to access the left femoral vein. Guidewire was passed through the introducer needle and the introducer needle was removed. Serial dilators were passed over the guidewire after the skin incision was extended using 11 blade and Mahurkar catheter was then passed over the guidewire and the guidewire was removed. The catheter was sutured to the skin using 2-0 Ethilon suture. Sterile dressings were applied. Coding Level of Care Code Acute Code for Chg Fwd
[2024-02-16] MEDS: dextrose 10% 125 ML 750 ML IV (09:27)
[2024-02-16 09:52] LABS: Glucose Point of Care 41 mg/dL (70-110)
[2024-02-16 09:52] LABS: Glucose Point of Care 40 mg/dL (70-110)
[2024-02-16 09:52] LABS: Glucose Point of Care 69 mg/dL (70-110)
[2024-02-16 09:52] LABS: Glucose Point of Care 39 mg/dL (70-110)
--- NOTE | 2024-02-16 09:56 | PC.CHAP ---
Pastoral Care Encounter/Spiritual Assessment Type of Contact [] Declined financial aid advisor visit [] Patient/Family/Request visit [] Outpatient visit [] Follow-up visit [] Physician referral [] Code/Alert [] Routine visit [] Staff referral [] Actively dying [] Patient sleeping [] Family support [] [] Out of room [] Palliative care [] [x] Receiving care in room [] Pre-surgical visit [] Trauma [] Long length of stay [] ICU visit [] Other: Relational/Emotional Strength [] Patient feels connected with others/family/visitors/staff [] Distress [] Loneliness/isolation [] Abandonment Spirituality of Patient [] Person of Anne [] Attends Confucianist of their Anne [] Believes in Prayer [] Reads Bible or Religion materials [] There are Spiritual issues to be addressed Shake Cutter Interventions [] Prayer [] Active listening [] Non-anxious presence [] Spiritual/emotional support [] Crisis/trauma care [] Spiritual counseling [] Bereavement support [] Provided bereavement packet [] Provided Bible/devotional materials [] Provided toy/stuffed animal, coloring book to patient or family member [] Provided Communion [] Anointing/[place] [] Salvation [] Completed spiritual assessment [] Other: Impact on Illness or Injury [] Angry [] Fearful [] Anxious [] Often cries [] Exhaustion [] Unable to work [] Unable to attend spiritism [] Unable to walk/stand [] Unable to read [] Unable to drive [] Unable to eat/drink [] Unable to sleep [] Unable to be with family [] Patient intubated [] Other: Summary Time spent with patient
[2024-02-16 10:27] LABS: Glucose Point of Care 120 mg/dL (70-110)
[2024-02-16] MEDS: heparin drip 25,000 UNIT/500 ML PREMIX 29 UNIT IV (10:49)
[2024-02-16] MEDS: dextrose 10% 1,000 ML 30 ML IV (10:51)
[2024-02-16 11:33] LABS: Glucose Point of Care 123 mg/dL (70-110)
--- NOTE | 2024-02-16 11:41 | PC.HD ---
Heparin 1000 units loading dose administered at 1120 via HD catheter per administration manager's orders.
[2024-02-16 12:09] LABS: Glucose Point of Care 112 mg/dL (70-110)
--- NOTE | 2024-02-16 15:06 | PC.NURSE ---
return from dialysis via bed at this time.tolerated dialysis well
[2024-02-16] MEDS: cefTRIAXone 1,000 mg SDV 1000 MG IVP (15:07)
[2024-02-16 16:13] LABS: Glucose Point of Care 113 mg/dL (70-110)
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
[2024-02-16 18:02] LABS: Partial Thromboplastin Time 75.4 SECONDS (23.9-36.7)
--- NOTE | 2024-02-16 18:53 | PC.NURSE ---
transfer via bed to [facility].report given to olivia valdes
[2024-02-16 21:06] LABS: Glucose Point of Care 102 mg/dL (70-110)
[2024-02-16 21:13] LABS: Sodium 123 mmol/L (136-145)
[2024-02-16] MEDS: pantoprazole 40 mg SDV IVP (21:13)
[2024-02-16] MEDS: budesonide 0.5 mg/2 mL Neb INHALATION (21:26)
[2024-02-16 21:36] LABS: Cortisol Random 11.73 ug/dL (2.47-19.5)
[2024-02-16] MEDS: heparin drip 25,000 UNIT/500 ML PREMIX 27 UNIT IV (22:26)
[2024-02-17] VITALS (9 sets, daily range): BP systolic 124–174; BP diastolic 63–75; PULSE 80–112; RESP 17–20; TEMP 36.5–37.1; O2SAT 96–99
[2024-02-17 00:04] LABS: Glucose Point of Care 123 mg/dL (70-110)
[2024-02-17 00:34] LABS: Basophils % 0.3 %; Eosinophils # 0.1 10^3/uL (0.0-0.8); Eosinophils % 1.2 %; Hematocrit 24.5 % (36-47); Lymphocytes # 0.8 10^3/uL (0.8-4.8); Mean Corpuscular HGB Conc 32.7 g/dL (30-55); Mean Corpuscular Hemoglobin 30.7 pg (27-33); Mean Corpuscular Volume 93.9 fl (85-98); Mean Platelet Volume 9.1 fL (7.4-10.4); Monocytes # 0.7 10^3/uL (0.2-0.9); Monocytes % 6.2 %; Neutrophils % 80.8 %; Nucleated Red Blood Cells % 0 %; Platelet Count 172 10^3/cmm (157-399); Red Blood Count 2.61 10^6/uL (3.85-5.65); Red Cell Distribution Width 15.9 % (12.1-15.1); White Blood Count 11.01 10^3/uL (3.29-11.43)
[2024-02-17 00:45] LABS: Partial Thromboplastin Time 52.8 SECONDS (23.9-36.7)
[2024-02-17 00:52] LABS: Anion Gap 19.7 (5-19); Blood Urea Nitrogen 38 mg/dL (8-23); Calcium 7.8 mg/dL (8.5-10.5); Carbon Dioxide 23 mmol/L (22-29); Chloride 82 mmol/L (98-107); Glucose 111 mg/dL (65-115); Osmolality Calculated 260 mOsm/kg (285-295); Potassium 4.7 mmol/L (3.5-5.1); Sodium 120 mmol/L (136-145)
[2024-02-17 04:38] LABS: Glucose Point of Care 124 mg/dL (70-110)
[2024-02-17] MEDS: ipratropium-albuterol 3 mL Neb INHALATION ×4 (05:38→21:53)
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
[2024-02-17 07:56] LABS: Partial Thromboplastin Time 56.6 SECONDS (23.9-36.7)
[2024-02-17] MEDS: budesonide 0.5 mg/2 mL Neb INHALATION ×2 (08:16→21:53)
[2024-02-17] MEDS: HYDROcodone-acetaminophen 5-325 mg Tablet 1 TAB PO ×2 (08:34→14:54)
[2024-02-17] MEDS: atorvastatin 40 mg Tablet 80 MG PO (08:34)
[2024-02-17] MEDS: sevelamer 800 mg Tablet PO ×3 (08:34→20:16)
[2024-02-17] MEDS: cyclobenzaprine 10 mg Tablet 5 MG PO ×2 (08:34→20:16)
--- NOTE | 2024-02-17 09:58 | PC.SOCIAL ---
IMM Update pg 2 of IMM updated and reviewed w/ patient. Copy provided and copy dated, initialed and placed on chart.
[2024-02-17 11:14] LABS: Glucose Point of Care 128 mg/dL (70-110)
[2024-02-17] MEDS: cefTRIAXone 1,000 mg SDV 1000 MG IVP (14:25)
[2024-02-17] MEDS: heparin drip 25,000 UNIT/500 ML PREMIX 29 UNIT IV (14:25)
[2024-02-17 15:44] LABS: Partial Thromboplastin Time 54.6 SECONDS (23.9-36.7)
[2024-02-17 16:25] LABS: Glucose Point of Care 124 mg/dL (70-110)
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
[2024-02-17] MEDS: pantoprazole 40 mg SDV IVP (20:17)
[2024-02-17 21:00] LABS: Partial Thromboplastin Time 58.5 SECONDS (23.9-36.7)
[2024-02-17 21:21] LABS: Sodium 118 mmol/L (136-145)
--- NOTE | 2024-02-17 21:34 | PC.NURSE ---
Notified Dr Banuelos of patient's sodium level at [address] Banuelos replied If Nephro on calls, let them know, . No new orders received at this time. Called telenephrology services and left a message at [phone]. Padding applied to bed rails, suction set up in room. Patient currently A+Ox4, resting comfortably in bed.
--- NOTE | 2024-02-17 21:47 | PC.NURSE ---
Dr Garcia called this nurse back at [phone]. Received orders to check urine sodium, urine osmolarity, recheck sodium in four hours, administer furosemide 80mg IVP once, and place the patient on a 1200ml/day fluid restriction.
[2024-02-17] MEDS: FUROsemide 10 mg/mL SDV 10mL 80 MG IVP (22:20)
[2024-02-18] VITALS (17 sets, daily range): BP systolic 100–128; BP diastolic 52–76; PULSE 96–125; RESP 15–18; TEMP 36.1–36.9; O2SAT 93–99
[2024-02-18 02:28] LABS: Sodium 119 mmol/L (136-145)
[2024-02-18] MEDS: HYDROcodone-acetaminophen 5-325 mg Tablet 1 TAB PO (03:00)
[2024-02-18] MEDS: ipratropium-albuterol 3 mL Neb INHALATION ×4 (03:12→19:51)
[2024-02-18 04:32] LABS: Hematocrit 24.1 % (36-47); Mean Corpuscular HGB Conc 33.2 g/dL (30-55); Mean Corpuscular Hemoglobin 31.4 pg (27-33); Mean Corpuscular Volume 94.5 fl (85-98); Mean Platelet Volume 9.3 fL (7.4-10.4); Platelet Count 231 10^3/cmm (157-399); Red Blood Count 2.55 10^6/uL (3.85-5.65); Red Cell Distribution Width 15.1 % (12.1-15.1); White Blood Count 12.08 10^3/uL (3.29-11.43)
[2024-02-18 04:48] LABS: Anion Gap 20.9 (5-19); Blood Urea Nitrogen 43 mg/dL (8-23); Calcium 8.3 mg/dL (8.5-10.5); Carbon Dioxide 21 mmol/L (22-29); Chloride 81 mmol/L (98-107); Creatinine Clr Calc Pharmacy 10.8793; Glucose 92 mg/dL (65-115); Osmolality Calculated 256 mOsm/kg (285-295); Potassium 4.9 mmol/L (3.5-5.1)
[2024-02-18 04:49] LABS: Sodium 118 mmol/L (136-145)
[2024-02-18 05:02] LABS: Glucose Point of Care 89 mg/dL (70-110)
[2024-02-18 05:04] LABS: Absolute Segmented Neutrophil 9.9 10/cmm (1.6-7.1); Eosinophils 0 %; Lymphocytes 10 %; Monocytes Absolute 0.5 10^3/cmm (0.1-0.6); Platelet Estimate Normal (Normal); Segmented Neutrophils 82 %; Slide Review Slide Review Perform; Total Cells Counted 100 (0-100)
[2024-02-18] MEDS: heparin drip 25,000 UNIT/500 ML PREMIX 31 UNIT IV (05:13)
[2024-02-18 05:29] LABS: C-Peptide 14.68 ng/mL (0.80-3.85)
--- NOTE | 2024-02-18 07:22 | XRR_ITS ---
PROCEDURE INFORMATION: Exam: XR Right Knee Exam date and time: 02/18/2024 12:26 PM Age: 73 years old Clinical indication: Condition or disease; Other: Fracture TECHNIQUE: Imaging protocol: Radiologic exam of the right knee. Views: 1 or 2 views. COMPARISON: CT knee RT wo con* [id number] 02/12/2024 2:29 PM FINDINGS: Tubes, catheters and devices: Stabilization rods project over the right lower extremity. Bones/joints: Comminuted, minimally displaced fracture of the proximal tibia involving the medial and lateral metaphysis, as well as the medial tibial plateau anteriorly, in the lateral tibial plateau medially and laterally. Mild articular surface depression at the lateral tibial plateau is better appreciated on comparison CT. Chondrocalcinosis of the menisci, suggestive of underlying CPPD. Small to moderate suprapatellar effusion. Soft tissues: No soft tissue abnormality. XR/XR knee RT 1-2V [id number] IMPRESSION: 1. Comminuted, minimally displaced fracture of the proximal tibia involving the tibial plateau anteriorly, and the lateral tibial plateau at the most medial and lateral aspects. Radiating caudally to the metaphyses. Mild articular surface depression at the lateral tibial plateau is better appreciated on comparison CT. 2. Small to moderate suprapatellar effusion.
--- NOTE | 2024-02-18 07:22 | XRR_ITS ---
PROCEDURE INFORMATION: Exam: XR Left Shoulder Exam date and time: 02/18/2024 12:32 PM Age: 73 years old Clinical indication: Other: Fracture TECHNIQUE: Imaging protocol: Radiologic exam of the left shoulder. Views: 2 or more views. COMPARISON: CT shoulder LT wo con* [id number] 02/12/2024 2:33 PM FINDINGS: Bones/joints: Comminuted, minimally displaced fracture of the left humeral surgical neck. Shoulder is in normal alignment. No worrisome lytic or blastic osseous lesion. No cortical erosion or periosteal reaction. Possible minimally displaced fracture of the glenoid/base of the coracoid. Soft tissues: Mild left shoulder soft tissue swelling. Vascular coils project over the elbow antecubital soft tissue region. XR/XR shoulder LT 1V [id number] IMPRESSION: 1. Comminuted, minimally displaced fracture of the left humeral surgical neck. 2. Possible minimally displaced fracture of the glenoid/base of the coracoid. Recommend CT for complete evaluation.
[2024-02-18 07:44] LABS: Insulin ( Reference Lab Test) 12.9 uIU/mL
[2024-02-18] MEDS: budesonide 0.5 mg/2 mL Neb INHALATION ×2 (08:17→19:51)
[2024-02-18 08:28] LABS: Glucose Point of Care 90 mg/dL (70-110)
[2024-02-18] MEDS: polyethylene glycol 3350 Pkt 17 gm PO ×2 (08:31→16:43)
[2024-02-18] MEDS: sevelamer 800 mg Tablet PO ×3 (08:31→21:06)
[2024-02-18] MEDS: atorvastatin 40 mg Tablet 80 MG PO (08:31)
--- NOTE | 2024-02-18 08:58 | PC.HD ---
Upon arrival to dialysis room, patient stated she was short of breath, and requested O2 be turned up to 3. Sats 98%. Heparin 1000 units loading dose administered via HC catheter at 0845 per window glazier helper's orders.
[2024-02-18 09:12] LABS: Urine Random Sodium 35 mmol/L
[2024-02-18] MEDS: heparin, porcine 1,000 unit/mL INJ 10 mL 10000 UNIT INTRACATH (09:52)
[2024-02-18] MEDS: heparin, porcine 1,000 unit/mL INJ 10 mL 1000 UNIT IV (09:52)
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
[2024-02-18 10:57] LABS: Glucose Point of Care 86 mg/dL (70-110)
[2024-02-18 11:19] LABS: Partial Thromboplastin Time 88.8 SECONDS (23.9-36.7)
[2024-02-18] MEDS: EPOETIN ALFA-EPBX 10,000 UNIT/ML SDV (ESRD) 10000 UNIT SUBCUT (12:03)
[2024-02-18] MEDS: morphine 4 mg/mL SDV 1 mL 2 MG IVP ×2 (12:22→22:58)
[2024-02-18] MEDS: cefTRIAXone 1,000 mg SDV 1000 MG IVP (16:14)
[2024-02-18 16:41] LABS: Glucose Point of Care 166 mg/dL (70-110)
[2024-02-18] MEDS: metoprolol tartrate 25 mg Tablet 12.5 MG PO ×2 (16:43→21:06)
[2024-02-18 18:16] LABS: Partial Thromboplastin Time 53.4 SECONDS (23.9-36.7)
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
[2024-02-18 21:47] LABS: Glucose Point of Care 129 mg/dL (70-110)
[2024-02-18] MEDS: pantoprazole 40 mg SDV IVP (21:47)
[2024-02-18] MEDS: heparin drip 25,000 UNIT/500 ML PREMIX 30 UNIT IV (22:00)
--- NOTE | 2024-02-18 22:06 | PC.NURSE ---
This LAYOUT TECHNICIAN walked into patients room to answer call light pts stated she wanted to be placed on bedpan this LAYOUT TECHNICIAN told her that she has to use [facility] patient stated Ill just pee in the bed then im not getting up .
[2024-02-18 22:21] LABS: Sodium 128 mmol/L (136-145)
[2024-02-18 23:30] LABS: Glucose Point of Care 124 mg/dL (70-110)
[2024-02-19] VITALS (16 sets, daily range): BP systolic 103–125; BP diastolic 59–71; PULSE 88–99; RESP 16–20; TEMP 36.4–37.1; O2SAT 90–98; BMI 32.2
[2024-02-19 00:57] LABS: Partial Thromboplastin Time 67.2 SECONDS (23.9-36.7)
[2024-02-19] MEDS: ipratropium-albuterol 3 mL Neb INHALATION ×4 (02:40→20:48)
[2024-02-19] MEDS: morphine 4 mg/mL SDV 1 mL 2 MG IVP (04:20)
[2024-02-19 05:53] LABS: Basophils % 0.4 %; Eosinophils # 0.1 10^3/uL (0.0-0.8); Eosinophils % 1.1 %; Hematocrit 24.9 % (36-47); Lymphocytes # 0.9 10^3/uL (0.8-4.8); Lymphocytes % 8.5 %; Mean Corpuscular HGB Conc 30.9 g/dL (30-55); Mean Corpuscular Hemoglobin 30.6 pg (27-33); Mean Corpuscular Volume 98.8 fl (85-98); Mean Platelet Volume 9.2 fL (7.4-10.4); Monocytes # 0.9 10^3/uL (0.2-0.9); Monocytes % 8.5 %; Neutrophils # 7.98 10^3/uL (1.8-7.7); Neutrophils % 74.1 %; Nucleated Red Blood Cells % 0 %; Platelet Count 240 10^3/cmm (157-399); Red Blood Count 2.52 10^6/uL (3.85-5.65); Red Cell Distribution Width 15.9 % (12.1-15.1); White Blood Count 10.78 10^3/uL (3.29-11.43)
[2024-02-19 06:08] LABS: Partial Thromboplastin Time 75.1 SECONDS (23.9-36.7)
[2024-02-19 06:17] LABS: Blood Urea Nitrogen 24 mg/dL (8-23); Calcium 8.5 mg/dL (8.5-10.5); Carbon Dioxide 24 mmol/L (22-29); Chloride 97 mmol/L (98-107); Creatinine Clr Calc Pharmacy 14.0064; Glucose 113 mg/dL (65-115); Osmolality Calculated 279 mOsm/kg (285-295); Sodium 132 mmol/L (136-145)
[2024-02-19 06:46] LABS: Glucose Point of Care 130 mg/dL (70-110)
[2024-02-19] MEDS: polyethylene glycol 3350 Pkt 17 gm PO ×2 (07:47→17:19)
[2024-02-19] MEDS: sevelamer 800 mg Tablet PO ×3 (07:47→20:22)
[2024-02-19] MEDS: atorvastatin 40 mg Tablet 80 MG PO (07:47)
[2024-02-19] MEDS: metoprolol tartrate 25 mg Tablet 12.5 MG PO ×2 (07:47→20:22)
[2024-02-19] MEDS: budesonide 0.5 mg/2 mL Neb INHALATION ×2 (07:59→20:48)
[2024-02-19 08:24] LABS: Glucose Point of Care 151 mg/dL (70-110)
[2024-02-19] MEDS: HYDROcodone-acetaminophen 5-325 mg Tablet 1 TAB PO ×2 (09:46→17:19)
--- NOTE | 2024-02-19 09:56 | PC.SOCIAL ---
IMM Update pg 2 of IMM Updated and reviewed w/ patient. Copy provided and copy dated, initialed and placed in chart.
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
[2024-02-19 12:31] LABS: Glucose Point of Care 180 mg/dL (70-110)
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
--- NOTE | 2024-02-19 14:35 | P.PN_ITS ---
Subjective 2 Subjective: Patient seen and examined. Was resting comfortably when I walked in Vitals/I&O/Wt Last Vital Signs Temp 98.8 F 02/19/24 12:00 Pulse 91 02/19/24 13:38 Resp 16 02/19/24 13:38 BP 121/68 02/19/24 12:00 Pulse Ox 91 02/19/24 13:38 O2 Del Method Room Air 02/19/24 13:38 O2 Flow Rate 3 02/19/24 02:44 02/18/24 02/19/24 02/19/24 22:59 06:59 14:59 Intake Total 1021.083 / 2310.000 249 / 2559.000 661.283 / 661.283 Balance 1021.083 / -1190.000 249 / -941.000 661.283 / 661.283 Weight last 48 hrs Weight 211 lb 12.8 oz Weight 211 lb 12.8 oz Weight 221 lb 5.506 oz Weight 221 lb 1 oz Weight 221 lb 1 oz Physical Exam 2 Narrative: General: No acute distress, awake alert and oriented x 3 Skin: Left temporary HD catheter in place without surrounding erythema or exudate Data 02/19/24 05:39 02/19/24 05:39 Micro: Microbiology 02/16/24 04:39 Urine Culture - Preliminary Urine,Clean Catch Strep species, gamma-hemolytic A&P Assessment and plan (1) ESRD on dialysis: (2) Pulmonary embolism: (3) Fat embolism as early complication of trauma: (4) Acute on chronic diastolic (congestive) heart failure: (5) Elevated troponin: (6) NSTEMI (non-ST elevated myocardial infarction): Plan HD per nephrology General surgery will sign off. Please reconsult if the need arises Attestations 2 Medical Necessity Statement*: Per primary Coding Level of Care Code 87511 Diagnoses ESRD on dialysis N18.6; Z99.2 Pulmonary embolism I26.99 Fat embolism as early complication of trauma T79.1XXA Acute on chronic diastolic (congestive) heart failure I50.33 Elevated troponin R77.8 NSTEMI (non-ST elevated myocardial infarction) I21.4
[2024-02-19] MEDS: apixaban 5 mg Tablet 10 MG PO (15:42)
[2024-02-19] MEDS: cefTRIAXone 1,000 mg SDV 1000 MG IVP (15:42)
[2024-02-19 16:54] LABS: Glucose Point of Care 117 mg/dL (70-110)
[2024-02-19 20:46] LABS: Glucose Point of Care 141 mg/dL (70-110)
[2024-02-19] MEDS: pantoprazole 40 mg SDV IVP (22:10)
[2024-02-20] VITALS (14 sets, daily range): BP systolic 108–132; BP diastolic 53–78; PULSE 78–132; RESP 16–20; TEMP 36.3–37; O2SAT 90–93
[2024-02-20 00:12] LABS: Glucose Point of Care 125 mg/dL (70-110)
[2024-02-20] MEDS: apixaban 5 mg Tablet 10 MG PO ×2 (03:42→16:04)
[2024-02-20 05:37] LABS: Basophils # 0.1 10^3/uL (0.0-0.1); Basophils % 0.4 %; Eosinophils # 0.2 10^3/uL (0.0-0.8); Eosinophils % 1.3 %; Hematocrit 25.2 % (36-47); Lymphocytes # 1.2 10^3/uL (0.8-4.8); Lymphocytes % 10.4 %; Mean Corpuscular Hemoglobin 30.8 pg (27-33); Mean Corpuscular Volume 99.6 fl (85-98); Monocytes # 0.9 10^3/uL (0.2-0.9); Monocytes % 7.7 %; Neutrophils # 8.53 10^3/uL (1.8-7.7); Neutrophils % 73.1 %; Nucleated Red Blood Cells % 0 %; Platelet Count 247 10^3/cmm (157-399); Red Blood Count 2.53 10^6/uL (3.85-5.65); Red Cell Distribution Width 16.6 % (12.1-15.1); White Blood Count 11.67 10^3/uL (3.29-11.43)
[2024-02-20 05:46] LABS: Slide Review Slide Review Perform
[2024-02-20 05:58] LABS: Anion Gap 16.1 (5-19); Blood Urea Nitrogen 31 mg/dL (8-23); Calcium 8.6 mg/dL (8.5-10.5); Carbon Dioxide 22 mmol/L (22-29); Chloride 95 mmol/L (98-107); Creatinine Clr Calc Pharmacy 11.5097; Glucose 119 mg/dL (65-115); Osmolality Calculated 276 mOsm/kg (285-295); Potassium 4.1 mmol/L (3.5-5.1); Sodium 129 mmol/L (136-145)
[2024-02-20] MEDS: morphine 4 mg/mL SDV 1 mL 2 MG IVP ×3 (06:05→21:19)
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
[2024-02-20] MEDS: budesonide 0.5 mg/2 mL Neb INHALATION ×2 (08:17→21:21)
[2024-02-20] MEDS: ipratropium-albuterol 3 mL Neb INHALATION ×3 (08:17→21:21)
--- NOTE | 2024-02-20 09:03 | PC.HD ---
Heparin 1000 units loading dose administered via HD catheter at 0851 per gps navigation installer's orders.
[2024-02-20 09:09] LABS: Glucose Point of Care 150 mg/dL (70-110)
[2024-02-20] MEDS: polyethylene glycol 3350 Pkt 17 gm PO ×2 (10:32→17:57)
[2024-02-20 12:13] LABS: Glucose Point of Care 101 mg/dL (70-110)
[2024-02-20] MEDS: atorvastatin 40 mg Tablet 80 MG PO (12:15)
[2024-02-20] MEDS: HYDROcodone-acetaminophen 5-325 mg Tablet 1 TAB PO ×2 (12:17→17:57)
[2024-02-20] MEDS: cefTRIAXone 1,000 mg SDV 1000 MG IVP (16:04)
[2024-02-20] MEDS: sevelamer 800 mg Tablet PO ×2 (16:04→21:11)
[2024-02-20 16:22] LABS: Glucose Point of Care 128 mg/dL (70-110)
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
[2024-02-20 21:08] LABS: Glucose Point of Care 134 mg/dL (70-110)
[2024-02-20] MEDS: metoprolol tartrate 25 mg Tablet 12.5 MG PO (21:11)
[2024-02-20] MEDS: ciprofloxacin 500 mg Tablet PO (21:11)
[2024-02-20] MEDS: pantoprazole 40 mg SDV IVP (21:20)
[2024-02-21] VITALS (12 sets, daily range): BP systolic 117–132; BP diastolic 70–81; PULSE 90–125; RESP 15–18; TEMP 36.6–36.9; O2SAT 90–95
[2024-02-21 00:26] LABS: Glucose Point of Care 135 mg/dL (70-110)
[2024-02-21] MEDS: HYDROcodone-acetaminophen 5-325 mg Tablet 1 TAB PO ×4 (00:26→18:46)
[2024-02-21] MEDS: morphine 4 mg/mL SDV 1 mL 2 MG IVP ×2 (02:16→20:57)
[2024-02-21 03:33] LABS: Hematocrit 26.5 % (36-47); Mean Corpuscular HGB Conc 30.9 g/dL (30-55); Mean Corpuscular Hemoglobin 30.8 pg (27-33); Mean Corpuscular Volume 99.6 fl (85-98); Mean Platelet Volume 9.5 fL (7.4-10.4); Platelet Count 266 10^3/cmm (157-399); Red Blood Count 2.66 10^6/uL (3.85-5.65); Red Cell Distribution Width 16.8 % (12.1-15.1); White Blood Count 11.59 10^3/uL (3.29-11.43)
[2024-02-21] MEDS: apixaban 5 mg Tablet 10 MG PO ×2 (04:00→16:53)
[2024-02-21 04:03] LABS: Anion Gap 17.2 (5-19); Blood Urea Nitrogen 19 mg/dL (8-23); Calcium 8.6 mg/dL (8.5-10.5); Carbon Dioxide 24 mmol/L (22-29); Chloride 97 mmol/L (98-107); Creatinine Clr Calc Pharmacy 14.5914; Glucose 108 mg/dL (65-115); Osmolality Calculated 281 mOsm/kg (285-295); Potassium 4.2 mmol/L (3.5-5.1); Sodium 134 mmol/L (136-145)
[2024-02-21 04:17] LABS: Absolute Neutrophil 8.8 10^3/cmm (1.4-6.5); Absolute Segmented Neutrophil 8.7 10/cmm (1.6-7.1); Band Neutrophils Absolute 0.1 10^3/cmm (0.0-1.2); Eosinophils 0 %; Lymphocytes 11 %; Lymphocytes Absolute 1.3 10^3/cmm (1.2-3.4); Monocytes Absolute 0.8 10^3/cmm (0.1-0.6); Platelet Estimate Normal (Normal); Segmented Neutrophils 75 %; Slide Review Slide Review Perform; Total Cells Counted 100 (0-100)
[2024-02-21 04:41] LABS: Glucose Point of Care 123 mg/dL (70-110)
[2024-02-21 07:54] LABS: Glucose Point of Care 118 mg/dL (70-110)
[2024-02-21] MEDS: atorvastatin 40 mg Tablet 80 MG PO (07:59)
[2024-02-21] MEDS: sevelamer 800 mg Tablet PO ×3 (07:59→20:38)
[2024-02-21] MEDS: metoprolol tartrate 25 mg Tablet 12.5 MG PO ×2 (07:59→20:37)
[2024-02-21] MEDS: polyethylene glycol 3350 Pkt 17 gm PO ×2 (07:59→16:53)
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
[2024-02-21] MEDS: budesonide 0.5 mg/2 mL Neb INHALATION ×2 (09:08→19:24)
[2024-02-21] MEDS: ipratropium-albuterol 3 mL Neb INHALATION ×3 (09:08→19:24)
[2024-02-21 11:29] LABS: Glucose Point of Care 161 mg/dL (70-110)
[2024-02-21 18:12] LABS: Glucose Point of Care 138 mg/dL (70-110)
[2024-02-21] MEDS: ciprofloxacin 500 mg Tablet PO (20:38)
[2024-02-21 21:18] LABS: Glucose Point of Care 141 mg/dL (70-110)
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
[2024-02-21] MEDS: bisacodyl 10 mg Supp PR (22:52)
[2024-02-21] MEDS: pantoprazole 40 mg SDV IVP (22:53)
[2024-02-22] VITALS (14 sets, daily range): BP systolic 125–151; BP diastolic 67–81; PULSE 86–110; RESP 16–19; TEMP 36.4–36.9; O2SAT 91–98
[2024-02-22] MEDS: HYDROcodone-acetaminophen 5-325 mg Tablet 1 TAB PO ×5 (00:13→23:26)
[2024-02-22] MEDS: apixaban 5 mg Tablet 10 MG PO ×2 (03:07→16:01)
[2024-02-22 06:56] LABS: Glucose Point of Care 130 mg/dL (70-110)
[2024-02-22] MEDS: ipratropium-albuterol 3 mL Neb INHALATION ×3 (07:33→19:38)
[2024-02-22] MEDS: budesonide 0.5 mg/2 mL Neb INHALATION ×2 (07:33→19:38)
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
[2024-02-22 08:40] LABS: Glucose Point of Care 148 mg/dL (70-110)
[2024-02-22] MEDS: b-complex-vitamin c Tablet 1 EACH PO (09:52)
[2024-02-22] MEDS: atorvastatin 40 mg Tablet 80 MG PO (09:52)
[2024-02-22] MEDS: metoprolol tartrate 25 mg Tablet 12.5 MG PO (09:52)
[2024-02-22] MEDS: sevelamer 800 mg Tablet PO ×3 (09:52→21:45)
--- NOTE | 2024-02-22 10:19 | PC.SOCIAL ---
IMM Update Pg. 2 of IMM updated. Initialed, dated, and timed. Copy provided at bedside.
[2024-02-22 12:06] LABS: Basophils % 0.3 %; Eosinophils # 0.2 10^3/uL (0.0-0.8); Eosinophils % 1.3 %; Hematocrit 29.4 % (36-47); Lymphocytes # 1.3 10^3/uL (0.8-4.8); Mean Corpuscular Hemoglobin 31.1 pg (27-33); Mean Corpuscular Volume 100.3 fl (85-98); Mean Platelet Volume 8.7 fL (7.4-10.4); Monocytes # 0.9 10^3/uL (0.2-0.9); Monocytes % 7.5 %; Neutrophils # 8.84 10^3/uL (1.8-7.7); Nucleated Red Blood Cells % 0 %; Platelet Count 232 10^3/cmm (157-399); Red Blood Count 2.93 10^6/uL (3.85-5.65); Red Cell Distribution Width 16.7 % (12.1-15.1); White Blood Count 11.96 10^3/uL (3.29-11.43)
[2024-02-22 12:24] LABS: Alanine Aminotransferase 9 U/L (0-33); Albumin Level 2.9 g/dL (3.5-5.2); Alkaline Phosphatase 100 U/L (35-105); Anion Gap 18.9 (5-19); Aspartate Amino Transferase 11 U/L (0-32); Blood Urea Nitrogen 32 mg/dL (8-23); Calcium 8.9 mg/dL (8.5-10.5); Carbon Dioxide 24 mmol/L (22-29); Chloride 95 mmol/L (98-107); Creatinine Clr Calc Pharmacy 11.5784; Globulin 3.6 g/dL (1.3-4.6); Glucose 117 mg/dL (65-115); Magnesium 1.6 mg/dL (1.7-2.3); Osmolality Calculated 284 mOsm/kg (285-295); Phosphorus 4.3 mg/dL (2.5-4.5); Potassium 4.9 mmol/L (3.5-5.1); Sodium 133 mmol/L (136-145); Total Bilirubin 0.5 mg/dL (0.15-1.2); Total Protein 6.5 g/dL (6.6-8.7)
[2024-02-22 12:39] LABS: Glucose Point of Care 125 mg/dL (70-110)
[2024-02-22 13:18] LABS: Slide Review Slide Review Perform
[2024-02-22 13:30] LABS: Osmolality Urine 128 mOsm/kg (50-1200)
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
[2024-02-22] MEDS: amoxicillin-clav 875-125 mg Tablet 1 TAB PO (19:08)
[2024-02-22 20:42] LABS: Glucose Point of Care 145 mg/dL (70-110)
[2024-02-22] MEDS: metoprolol tartrate 25 mg Tablet PO (21:45)
[2024-02-22] MEDS: pantoprazole 40 mg SDV IVP (21:45)
[2024-02-23] VITALS (9 sets, daily range): BP systolic 108–153; BP diastolic 52–85; PULSE 66–107; RESP 16–18; TEMP 36.4–37.1; O2SAT 93–97
[2024-02-23] MEDS: HYDROcodone-acetaminophen 5-325 mg Tablet 1 TAB PO ×3 (03:22→20:41)
[2024-02-23] MEDS: apixaban 5 mg Tablet 10 MG PO (03:22)
[2024-02-23] MEDS: ipratropium-albuterol 3 mL Neb INHALATION ×2 (03:50→08:21)
[2024-02-23 05:39] LABS: Basophils % 0.3 %; Eosinophils # 0.2 10^3/uL (0.0-0.8); Eosinophils % 1.4 %; Hematocrit 28.7 % (36-47); Lymphocytes # 1.4 10^3/uL (0.8-4.8); Lymphocytes % 11.8 %; Mean Corpuscular HGB Conc 30.7 g/dL (30-55); Mean Corpuscular Hemoglobin 30.7 pg (27-33); Mean Platelet Volume 9.2 fL (7.4-10.4); Monocytes # 0.9 10^3/uL (0.2-0.9); Monocytes % 7.3 %; Neutrophils # 8.62 10^3/uL (1.8-7.7); Neutrophils % 73.5 %; Nucleated Red Blood Cells % 0 %; Platelet Count 308 10^3/cmm (157-399); Red Blood Count 2.87 10^6/uL (3.85-5.65); Red Cell Distribution Width 16.6 % (12.1-15.1); White Blood Count 11.75 10^3/uL (3.29-11.43)
[2024-02-23 06:08] LABS: Albumin Level 2.8 g/dL (3.5-5.2); Alkaline Phosphatase 99 U/L (35-105); Blood Urea Nitrogen 38 mg/dL (8-23); Calcium 8.8 mg/dL (8.5-10.5); Carbon Dioxide 22 mmol/L (22-29); Chloride 91 mmol/L (98-107); Creatinine Clr Calc Pharmacy 11.8011; Globulin 3.9 g/dL (1.3-4.6); Glucose 104 mg/dL (65-115); Magnesium 1.8 mg/dL (1.7-2.3); Osmolality Calculated 273 mOsm/kg (285-295); Phosphorus 4.6 mg/dL (2.5-4.5); Sodium 127 mmol/L (136-145); Total Bilirubin 0.6 mg/dL (0.15-1.2); Total Protein 6.7 g/dL (6.6-8.7)
[2024-02-23 06:15] LABS: Anion Gap 19.5 (5-19); Aspartate Amino Transferase 21 U/L (0-32); Potassium 5.5 mmol/L (3.5-5.1)
[2024-02-23 06:16] LABS: Alanine Aminotransferase 8 U/L (0-33)
[2024-02-23 06:20] LABS: Slide Review Slide Review Perform
[2024-02-23 06:35] LABS: Glucose Point of Care 132 mg/dL (70-110)
[2024-02-23] MEDS: budesonide 0.5 mg/2 mL Neb INHALATION (08:21)
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
[2024-02-23] MEDS: sevelamer 800 mg Tablet PO ×3 (09:25→21:16)
[2024-02-23] MEDS: amoxicillin-clav 875-125 mg Tablet 1 TAB PO ×2 (09:26→16:43)
[2024-02-23] MEDS: metoprolol tartrate 25 mg Tablet PO ×2 (09:26→21:16)
[2024-02-23] MEDS: atorvastatin 40 mg Tablet 80 MG PO (09:26)
[2024-02-23] MEDS: b-complex-vitamin c Tablet 1 EACH PO (09:26)
--- NOTE | 2024-02-23 12:39 | PC.OT ---
OT TREATMENT ATTEMPTED; PATIENT IS CURRENTLY IN DIALYSIS. WILL ATTEMPT AGAIN AT A LATER TIME.
--- NOTE | 2024-02-23 14:41 | PC.OT ---
OT TREATMENT ATTEMPTED AGAIN IN P.M. PATIENT STILL IN DIALYSIS
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
--- NOTE | 2024-02-23 15:50 | PC.NURSE ---
Assumed care of this patient. Patient is currently in dialysis with John
--- NOTE | 2024-02-23 16:06 | PC.NURSE ---
Patient has persistently bleeding fistula post dialysis. Received instruction from Dr Brothers to place surgicel and tight pressure dressing to site. Surgicel used from Lot [id number]. Covered with multiple 4x4 and wrapped with coban. Patient remains with [place] in dialysis at this time.
--- NOTE | 2024-02-23 18:12 | PC.NURSE ---
Dressing to left forearm is c,d,i. Bleeding controlled. No s/s of hematoma formation observed.
--- NOTE | 2024-02-23 18:54 | PC.HD ---
AVF accessed Once treatment complete, blood returned, venous cath port flushed and locked and cath secured. Arterial needle removed intact, pressure held x2H and blood still spurting when pressure removed. Dr Ernst ntfd and he contacted Dr Brothers to request surgeon to place suture. Dr Brothers in, says Dr Pruitt said to place Surgicell and pressure wrap and he would look at it when able. Surgicell obtained and placed to site with rolled gauze and Coban wrap over it with assist of patient's RN Ayanna, no bleed through after 5 minutes and patient taken to her room. Messaged Dr Ernst to notify of pt condition and disposition.
--- NOTE | 2024-02-23 19:51 | PC.HD ---
AVF accessed with arterial needle without difficulty. Unable to place venous needle with 2 attempts so venous line connected to femoral cath. Post treatment, AVF needle removed intact with pressure held x2 hours, site still spurting when pressure released. Dr [facility], contacted Dr Brothers to consult surgeon. Dr Brothers in, said Dr Pruitt said to apply Surgicel and pressure wrap until he could look at it. Surgicel obtained and applied with rolled gauze and Coban wrap per instructions with assist of Ayanna FAUSTIN. No bleeding through dressing after 5 minutes and pt returned to her room. Dr Ernst updated with above.
[2024-02-23] MEDS: heparin drip 25,000 UNIT/500 ML PREMIX 27 UNIT IV (21:17)
[2024-02-23] MEDS: lanolin oint 7 gm 1 APPLIC TOPICAL (21:29)
[2024-02-23] MEDS: pantoprazole 40 mg SDV IVP (22:21)
[2024-02-24] VITALS (11 sets, daily range): BP systolic 116–132; BP diastolic 65–78; PULSE 70–94; RESP 16–18; TEMP 36.4–36.8; O2SAT 94–98
[2024-02-24] MEDS: ipratropium-albuterol 3 mL Neb INHALATION ×4 (02:28→20:17)
[2024-02-24 02:57] LABS: Basophils % 0.4 %; Eosinophils # 0.2 10^3/uL (0.0-0.8); Eosinophils % 2.1 %; Hematocrit 26.1 % (36-47); Lymphocytes # 1.1 10^3/uL (0.8-4.8); Mean Corpuscular Hemoglobin 30.9 pg (27-33); Mean Corpuscular Volume 99.6 fl (85-98); Mean Platelet Volume 8.7 fL (7.4-10.4); Monocytes # 0.8 10^3/uL (0.2-0.9); Monocytes % 7.7 %; Neutrophils # 7.71 10^3/uL (1.8-7.7); Neutrophils % 74.4 %; Nucleated Red Blood Cells % 0 %; Platelet Count 220 10^3/cmm (157-399); Red Blood Count 2.62 10^6/uL (3.85-5.65); Red Cell Distribution Width 16.8 % (12.1-15.1); White Blood Count 10.37 10^3/uL (3.29-11.43)
[2024-02-24 03:17] LABS: Alanine Aminotransferase 7 U/L (0-33); Albumin Level 2.7 g/dL (3.5-5.2); Alkaline Phosphatase 104 U/L (35-105); Anion Gap 13.5 (5-19); Aspartate Amino Transferase 11 U/L (0-32); Blood Urea Nitrogen 24 mg/dL (8-23); Calcium 8.6 mg/dL (8.5-10.5); Carbon Dioxide 26 mmol/L (22-29); Chloride 96 mmol/L (98-107); Creatinine Clr Calc Pharmacy 16.1488; Globulin 3.2 g/dL (1.3-4.6); Glucose 122 mg/dL (65-115); Magnesium 1.9 mg/dL (1.7-2.3); Osmolality Calculated 277 mOsm/kg (285-295); Phosphorus 3.6 mg/dL (2.5-4.5); Potassium 4.5 mmol/L (3.5-5.1); Sodium 131 mmol/L (136-145); Total Bilirubin 0.6 mg/dL (0.15-1.2); Total Protein 5.9 g/dL (6.6-8.7)
[2024-02-24 03:21] LABS: Partial Thromboplastin Time 93.8 SECONDS (23.9-36.7)
[2024-02-24 06:35] LABS: Glucose Point of Care 117 mg/dL (70-110)
[2024-02-24] MEDS: budesonide 0.5 mg/2 mL Neb INHALATION ×2 (07:59→20:17)
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
[2024-02-24 09:32] LABS: Partial Thromboplastin Time 68.2 SECONDS (23.9-36.7)
[2024-02-24] MEDS: metoprolol tartrate 25 mg Tablet PO ×2 (09:49→22:18)
[2024-02-24] MEDS: atorvastatin 40 mg Tablet 80 MG PO (09:49)
[2024-02-24] MEDS: b-complex-vitamin c Tablet 1 EACH PO (09:49)
[2024-02-24] MEDS: sevelamer 800 mg Tablet PO ×3 (09:49→22:18)
[2024-02-24] MEDS: amoxicillin-clav 875-125 mg Tablet 1 TAB PO ×2 (09:50→17:31)
--- NOTE | 2024-02-24 10:03 | PC.NURSE ---
ptt drawn at approx. 0900 was 68.2., per heparin gtt protocol, there is no change at this time. will order ptt at 1600
[2024-02-24] MEDS: HYDROcodone-acetaminophen 5-325 mg Tablet 1 TAB PO ×3 (10:54→22:26)
[2024-02-24 11:47] LABS: Glucose Point of Care 130 mg/dL (70-110)
--- NOTE | 2024-02-24 12:05 | PC.SOCIAL ---
IMM Update Pg. 2 of IMM updated. Initialed, dated, and timed, copy provided at bedside.
--- NOTE | 2024-02-24 16:18 | PC.NURSE ---
per dr. blount, he does not want her to have a heparin bolus unless he approves
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
[2024-02-24 16:25] LABS: Glucose Point of Care 122 mg/dL (70-110)
[2024-02-24] MEDS: heparin drip 25,000 UNIT/500 ML PREMIX 23 UNIT IV (16:28)
--- NOTE | 2024-02-24 16:37 | P.PN_ITS ---
Subjective 2 Subjective: Patient seen and examined. Dialysis nurse had difficulty accessing AV fistula. She continued bleeding from the fistula site which was controlled with Surgicel and a pressure dressing Vitals/I&O/Wt Last Vital Signs Temp 97.6 F 02/25/24 07:14 Pulse 81 02/25/24 08:54 Resp 18 02/25/24 08:45 BP 133/75 02/25/24 07:14 Pulse Ox 96 02/25/24 08:45 O2 Del Method Room Air 02/25/24 08:45 O2 Flow Rate 3 02/19/24 02:44 02/24/24 02/25/24 02/25/24 22:59 06:59 14:59 Intake Total 1019.767 / 1319.767 209.3 / 1529.067 Output Total 400 / 400 400 / 800 Balance 619.767 / 919.767 -190.7 / 729.067 Weight last 48 hrs Weight 209 lb Weight 213 lb Weight 210 lb Weight 210 lb Weight 214 lb 8.156 oz Physical Exam 2 Narrative: General: No acute distress, awake alert and oriented x 3 Skin: Left temporary HD catheter in place without surrounding erythema or exudate Data 02/25/24 04:24 02/25/24 04:24 A&P Assessment and plan (1) ESRD on dialysis: (2) Pulmonary embolism: (3) Fat embolism as early complication of trauma: (4) Acute on chronic diastolic (congestive) heart failure: (5) Elevated troponin: (6) NSTEMI (non-ST elevated myocardial infarction): Plan Hold heparin in the morning for permacath placement tomorrow Medical management per hospitalist Attestations 2 Medical Necessity Statement*: Per primary Coding Level of Care Code 18619 Diagnoses ESRD on dialysis N18.6; Z99.2 Pulmonary embolism I26.99 Fat embolism as early complication of trauma T79.1XXA Acute on chronic diastolic (congestive) heart failure I50.33 Elevated troponin R77.8 NSTEMI (non-ST elevated myocardial infarction) I21.4
[2024-02-24 16:46] LABS: Partial Thromboplastin Time 62.5 SECONDS (23.9-36.7)
--- NOTE | 2024-02-24 16:51 | PC.NURSE ---
ptt 62.5, per protocol, no changes in rate will continue current rate of 23mls/hr. will order ptt @ 0400 per protocol
[2024-02-24 20:17] LABS: Glucose Point of Care 135 mg/dL (70-110)
[2024-02-24] MEDS: pantoprazole 40 mg SDV IVP (22:18)
[2024-02-25] VITALS (18 sets, daily range): BP systolic 108–147; BP diastolic 56–84; PULSE 71–100; RESP 16–18; TEMP 35.9–37.1; O2SAT 90–97
--- NOTE | 2024-02-25 01:34 | PC.NURSE ---
Patients Heparin drip paused at this time due to patient having surgery today.
[2024-02-25] MEDS: ipratropium-albuterol 3 mL Neb INHALATION ×2 (02:47→08:44)
[2024-02-25] MEDS: HYDROcodone-acetaminophen 5-325 mg Tablet 1 TAB PO ×4 (04:11→21:35)
[2024-02-25 05:41] LABS: Basophils % 0.4 %; Eosinophils # 0.1 10^3/uL (0.0-0.8); Eosinophils % 1.4 %; Hematocrit 26.7 % (36-47); Mean Corpuscular HGB Conc 30.3 g/dL (30-55); Mean Corpuscular Hemoglobin 30.8 pg (27-33); Mean Corpuscular Volume 101.5 fl (85-98); Monocytes # 0.6 10^3/uL (0.2-0.9); Monocytes % 7.8 %; Neutrophils # 5.36 10^3/uL (1.8-7.7); Neutrophils % 73.6 %; Nucleated Red Blood Cells % 0 %; Platelet Count 238 10^3/cmm (157-399); Red Blood Count 2.63 10^6/uL (3.85-5.65); Red Cell Distribution Width 16.4 % (12.1-15.1); White Blood Count 7.29 10^3/uL (3.29-11.43)
[2024-02-25 05:49] LABS: Partial Thromboplastin Time 40.5 SECONDS (23.9-36.7)
[2024-02-25 06:12] LABS: Alanine Aminotransferase 6 U/L (0-33); Albumin Level 2.6 g/dL (3.5-5.2); Alkaline Phosphatase 111 U/L (35-105); Anion Gap 17.2 (5-19); Aspartate Amino Transferase 11 U/L (0-32); Blood Urea Nitrogen 31 mg/dL (8-23); Calcium 8.2 mg/dL (8.5-10.5); Carbon Dioxide 23 mmol/L (22-29); Chloride 96 mmol/L (98-107); Creatinine Clr Calc Pharmacy 13.3087; Globulin 3.2 g/dL (1.3-4.6); Glucose 98 mg/dL (65-115); Osmolality Calculated 281 mOsm/kg (285-295); Phosphorus 4.2 mg/dL (2.5-4.5); Potassium 4.2 mmol/L (3.5-5.1); Sodium 132 mmol/L (136-145); Total Bilirubin 0.5 mg/dL (0.15-1.2); Total Protein 5.8 g/dL (6.6-8.7)
[2024-02-25 06:15] LABS: Glucose Point of Care 108 mg/dL (70-110)
[2024-02-25] MEDS: budesonide 0.5 mg/2 mL Neb INHALATION (08:44)
[2024-02-25] MEDS: b-complex-vitamin c Tablet 1 EACH PO (09:08)
[2024-02-25] MEDS: sevelamer 800 mg Tablet PO ×3 (09:08→21:35)
[2024-02-25] MEDS: amoxicillin-clav 875-125 mg Tablet 1 TAB PO ×2 (09:08→17:18)
[2024-02-25] MEDS: metoprolol tartrate 25 mg Tablet PO ×2 (09:09→21:35)
[2024-02-25] MEDS: atorvastatin 40 mg Tablet 80 MG PO (09:09)
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
--- NOTE | 2024-02-25 11:26 | PC.OT ---
OT TREATMENT HELD DUE TO PATIENT BEING TRANSFERRED TO SURGERY
--- NOTE | 2024-02-25 11:30 | PC.NURSE ---
pt to or at approx. 1120
[2024-02-25 11:38] LABS: Glucose Point of Care 115 mg/dL (70-110)
--- NOTE | 2024-02-25 11:47 | W.PM.OPSFHP ---
Same Day Surgery H&P Indication for Procedure/HPI DATE OF PROCEDURE: February 25, 2024 CHIEF COMPLAINT/INDICATIONFOR SURGICAL PROCEDURE: need for dialysis catheter PREOP DIAGNOSIS: ESRD PLANNED PROCEDURE: Operation Date: 02/25/24 12:00 Proposed Procedures p Dialysis Catheter Insertion(Not Applicable) - Terrell Johnson MD 73 y/o F with ESRD who requires a tunneled dialysis catheter. we discuss all risk and benefits including risk of pneumothorax, major vessel injury, lack of access, need for additional interventions, bleeding, catheter malfunction. Medications/Allergies* Home Medications Medication Instructions Recorded Confirmed Type albuterol sulfate 90 mcg/actuation 1 - 2 puff inhalation Q4H PRN 09/25/20 02/14/24 History aerosol inhaler Shortness Of Breath Or Wheezing fluticasone propionate 50 1 spray intranasal DAILY 09/25/20 02/14/24 History mcg/actuation nasal spray,suspension tiotropium bromide 18 mcg capsule 18 mcg inhalation DAILY 02/22/22 02/14/24 History with inhalation device (Spiriva with HandiHaler) bumetanide 1 mg tablet 3 mg PO DAILY 10/08/23 02/14/24 History amlodipine 5 mg tablet 5 mg PO DAILY 02/12/24 02/14/24 History amoxicillin 500 mg-potassium 1 tab PO BID 02/12/24 02/14/24 History clavulanate 125 mg tablet apixaban 2.5 mg tablet (Eliquis) 2.5 mg PO BID 02/12/24 02/14/24 History atorvastatin 80 mg tablet 80 mg PO DAILY 02/12/24 02/14/24 History bisacodyl 5 mg tablet (Laxative 5 mg PO DAILY 02/12/24 02/14/24 History (bisacodyl)) glimepiride 2 mg tablet 2 mg PO DAILY 02/12/24 02/14/24 History lanthanum 1,000 mg oral powder 1,000 mg PO TID 02/12/24 02/14/24 History packet (Fosrenol) sevelamer carbonate 800 mg tablet 800 mg PO TID 02/12/24 02/14/24 History vit B,C-folic ac 800 mcg-zinc 12.5 1 tab PO DAILY 02/12/24 02/14/24 History mg-selen-D3 2,000 unit-vit E tablet (RenaPlex-D) Allergies/Adverse Reactions Allergy/AdvReac Type Severity Reaction Status Date / Time codeine Allergy ADR-Nausea Verified 02/13/24 15:26 Current Medications: Generic Name Dose Route Start Last Admin Trade Name Freq PRN Reason Stop Dose Admin Acetaminophen 650 mg 02/13/24 22:23 02/13/24 22:52 Acetaminophen 325 Mg Tablet PO 650 mg Q6H PRN Administration Mild/Mod Pain Or Temp >/= 101 Hydrocodone Bitart/Acetaminophen 1 tab 02/19/24 08:32 02/25/24 09:09 Hydrocodone-Acetaminophen 5-325 Mg Tablet PO 1 tab Q4H PRN Administration MODERATE PAIN Albuterol/Ipratropium 3 ml 02/13/24 22:23 02/25/24 08:44 Ipratropium-Albuterol 3 Ml Neb INHALATION 3 ml Q6H.RESP MARY Administration Albuterol/Ipratropium 3 ml 02/23/24 03:34 02/23/24 03:50 Ipratropium-Albuterol 3 Ml Neb INHALATION 3 ml Q6H PRN Administration SHORTNESS OF BREATH Amoxicillin/Clavulanate Potassium 1 tab 02/22/24 18:00 02/25/24 09:08 Amoxicillin-Clav 875-125 Mg Tablet PO 02/29/24 17:59 1 tab BID MARY Administration Protocol Apixaban 10 mg 02/19/24 16:00 02/23/24 03:22 Apixaban 5 Mg Tablet PO 10 mg Q12H MARY Administration Atorvastatin Calcium 80 mg 02/14/24 09:00 02/25/24 09:09 Atorvastatin 40 Mg Tablet PO 80 mg DAILY MARY Administration Budesonide 0.5 mg 02/15/24 08:00 02/25/24 08:44 Budesonide 0.5 Mg/2 Ml Neb INHALATION 0.5 mg BID.RESPIRATORY MARY Administration Cyclobenzaprine HCl 5 mg 02/14/24 10:36 02/17/24 20:16 Cyclobenzaprine 10 Mg Tablet PO 5 mg TID PRN Administration MUSCLE SPASMS Denture Adhesive 1 each 02/13/24 22:47 02/13/24 23:29 Efferdent Effervescent DENTAL 1 each PRN PRN Administration Dentures Epoetin Rudy 8,000 unit 02/24/24 10:00 02/24/24 13:56 Epoetin Rudy 20,000 Unit/Ml Mdv (Esrd) SUBCUT Not Given DIALYSIS MARY Heparin Sodium/Sodium Chloride 25,000 unit in 500 mls @ 0 mls/hr 02/23/24 15:30 02/25/24 01:34 Heparin Drip IV 0 unit/kg/hr CONT MARY 0 mls/hr Titration Protocol Per Protocol Lanolin 1 applic 02/16/24 02:55 02/23/24 21:29 Lanolin Oint 7 Gm TOPICAL 1 applic PRN PRN Administration DRYNESS Metoprolol Tartrate 25 mg 02/22/24 21:00 02/25/24 09:09 Metoprolol Tartrate 25 Mg Tablet PO 25 mg BID@0900,2100 MARY Administration Multivitamins 1 each 02/22/24 09:00 02/25/24 09:08 C-Dfwyxwr-Dltjlgx C Tablet PO 1 each DAILY MARY Administration Pantoprazole Sodium 40 mg 02/13/24 22:23 02/24/24 22:18 Pantoprazole 40 Mg Sdv IVP 40 mg Q24H MARY Administration Polyethylene Glycol 17 gm 02/18/24 09:00 02/25/24 09:09 Polyethylene Glycol 3350 Pkt 17 Gm PO Not Given BID MARY Sevelamer Carbonate 800 mg 02/13/24 21:00 02/25/24 09:08 Sevelamer 800 Mg Tablet PO 800 mg TID MARY Administration Pertinent History/Comorbid Conditions* Medical History (Updated 02/23/24 @ 15:34 by Patrick Brothers MD) Pulmonary hypertension Acute on chronic diastolic (congestive) heart failure Congestive heart failure COPD exacerbation Acute kidney injury superimposed on chronic kidney disease Hematuria Elevated troponin Anticoagulation adequate with anticoagulant therapy Chronic kidney disease (CKD) Baseline GFR of 19-20 Atrial fibrillation Hypertension Kidney donor Solitary kidney Diabetes Surgical History (Updated 07/26/22 @ 18:00 by David Gomez MD) H/O kidney removal Family History (Updated 07/26/22 @ 17:59 by David Gomez MD) Diabetes Father Mother Social History Smoking and tobacco/nicotine status: current every day tobacco/nicotine user Alcohol intake: never Substance/Drug Use: never Pertinent Exam Findings alert, oriented x 3 and regular rate & rhythm Recommendations Surgery/Procedure today Coding Level of Care Code Acute Code for Aleyda Sharif
--- NOTE | 2024-02-25 11:50 | P.ANESASSM_ITS ---
Pre-Anesthetic Assessment Height/Weight: Height 5 ft 8 in Weight 209 lb Temp Pulse Resp BP Pulse Ox O2 Del Method O2 Flow Rate 98.1 F 73 18 133/65 97 Room Air 3 02/25/24 11:35 02/25/24 11:35 02/25/24 11:35 02/25/24 11:35 02/25/24 11:35 02/25/24 11:35 02/19/24 02:44 Preop Diagnosis: ESRD Operation Date: 02/25/24 12:00 Proposed Procedures p Dialysis Catheter Insertion(Not Applicable) - Terrell Johnson MD Was Beta Colton taken within 24 hours: Yes Was Clonidine taken within 24 hours: N/A Last intake: Intake Last Liquid Date 02/25/24 Last Liquid Time 05:57 Last Solid Date 02/25/24 Last Solid Time 18:00 Social No alcohol and No tobacco Exam alert, oriented x 3, clear to auscultation bilaterally and regular rate & rhythm Airway Submandibular: within normal limits Cervical ROM: within normal limits Mallampati: Class II Comments: Comments: Edentulous Anesthetic Plan ASA status: 4 Anesthesia: MAC Other: No prior issues with anesthesia NPO since yesterday History of hypertension on metoprolol, amlodipine and isosorbide mononitrate CKD, LABS REVIEWED Labs reviewed, hemoglobin 8.1 EKG showing sinus rhythm with nonspecific ST and T wave abnormalities. prior Hx of A fib Plan for MAC anesthetic Medications/Allergies Home Medications Medication Instructions Recorded Confirmed Last Taken Type albuterol sulfate 90 mcg/actuation 1 - 2 puff inhalation Q4H PRN 09/25/20 02/14/24 07/26/22 History aerosol inhaler Shortness Of Breath Or Wheezing fluticasone propionate 50 1 spray intranasal DAILY 09/25/20 02/14/24 02/12/24 History mcg/actuation nasal spray,suspension tiotropium bromide 18 mcg capsule 18 mcg inhalation DAILY 02/22/22 02/14/24 02/11/24 History with inhalation device (Spiriva with HandiHaler) isosorbide mononitrate 30 mg 30 mg PO DAILY #30 tabs 08/28/22 02/14/24 02/12/24 Rx tablet,extended release 24 hr bumetanide 1 mg tablet 3 mg PO DAILY 10/08/23 02/14/24 02/12/24 History metoprolol succinate 100 mg 50 mg (1/2 x 100 mg) PO BID 30 10/12/23 02/14/24 02/12/24 Rx tablet,extended release 24 hr days #30 tabs amlodipine 5 mg tablet 5 mg PO DAILY 02/12/24 02/14/24 02/12/24 History amoxicillin 500 mg-potassium 1 tab PO BID 02/12/24 02/14/24 Unknown History clavulanate 125 mg tablet apixaban 2.5 mg tablet (Eliquis) 2.5 mg PO BID 02/12/24 02/14/24 02/12/24 History atorvastatin 80 mg tablet 80 mg PO DAILY 02/12/24 02/14/24 02/12/24 History bisacodyl 5 mg tablet (Laxative 5 mg PO DAILY 02/12/24 02/14/24 Unknown History (bisacodyl)) glimepiride 2 mg tablet 2 mg PO DAILY 02/12/24 02/14/24 02/12/24 History lanthanum 1,000 mg oral powder 1,000 mg PO TID 02/12/24 02/14/24 Unknown History packet (Fosrenol) oxycodone-acetaminophen 5 mg-325 1 tab PO Q6H PRN pain #14 tabs 02/12/24 02/14/24 02/12/24 Rx mg tablet (Percocet) sevelamer carbonate 800 mg tablet 800 mg PO TID 02/12/24 02/14/24 Unknown History vit B,C-folic ac 800 mcg-zinc 12.5 1 tab PO DAILY 02/12/24 02/14/24 02/12/24 History mg-selen-D3 2,000 unit-vit E tablet (RenaPlex-D) Allergies Allergy/AdvReac Type Severity Reaction Status Date / Time codeine Allergy ADR-Nausea Verified 02/13/24 15:26 Current Medications Generic Name Dose Route Start Last Admin Trade Name Freq PRN Reason Stop Dose Admin Acetaminophen 650 mg 02/13/24 22:23 02/13/24 22:52 Acetaminophen 325 Mg Tablet PO 650 mg Q6H PRN Administration Mild/Mod Pain Or Temp >/= 101 Hydrocodone Bitart/Acetaminophen 1 tab 02/19/24 08:32 02/25/24 09:09 Hydrocodone-Acetaminophen 5-325 Mg Tablet PO 1 tab Q4H PRN Administration MODERATE PAIN Albuterol/Ipratropium 3 ml 02/13/24 22:23 02/25/24 08:44 Ipratropium-Albuterol 3 Ml Neb INHALATION 3 ml Q6H.RESP MARY Administration Albuterol/Ipratropium 3 ml 02/23/24 03:34 02/23/24 03:50 Ipratropium-Albuterol 3 Ml Neb INHALATION 3 ml Q6H PRN Administration SHORTNESS OF BREATH Amoxicillin/Clavulanate Potassium 1 tab 02/22/24 18:00 02/25/24 09:08 Amoxicillin-Clav 875-125 Mg Tablet PO 02/29/24 17:59 1 tab BID MARY Administration Protocol Apixaban 10 mg 02/19/24 16:00 02/23/24 03:22 Apixaban 5 Mg Tablet PO 10 mg Q12H MARY Administration Atorvastatin Calcium 80 mg 02/14/24 09:00 02/25/24 09:09 Atorvastatin 40 Mg Tablet PO 80 mg DAILY MARY Administration Budesonide 0.5 mg 02/15/24 08:00 02/25/24 08:44 Budesonide 0.5 Mg/2 Ml Neb INHALATION 0.5 mg BID.RESPIRATORY MARY Administration Cyclobenzaprine HCl 5 mg 02/14/24 10:36 02/17/24 20:16 Cyclobenzaprine 10 Mg Tablet PO 5 mg TID PRN Administration MUSCLE SPASMS Denture Adhesive 1 each 02/13/24 22:47 02/13/24 23:29 Efferdent Effervescent DENTAL 1 each PRN PRN Administration Dentures Epoetin Rudy 8,000 unit 02/24/24 10:00 02/24/24 13:56 Epoetin Rudy 20,000 Unit/Ml Mdv (Esrd) SUBCUT Not Given DIALYSIS MARY Heparin Sodium/Sodium Chloride 25,000 unit in 500 mls @ 0 mls/hr 02/23/24 15:30 02/25/24 01:34 Heparin Drip IV 0 unit/kg/hr CONT MARY 0 mls/hr Titration Protocol Per Protocol Lanolin 1 applic 02/16/24 02:55 02/23/24 21:29 Lanolin Oint 7 Gm TOPICAL 1 applic PRN PRN Administration DRYNESS Metoprolol Tartrate 25 mg 02/22/24 21:00 02/25/24 09:09 Metoprolol Tartrate 25 Mg Tablet PO 25 mg BID@0900,2100 [facility] Administration Multivitamins 1 each 02/22/24 09:00 02/25/24 09:08 Q-Fdwlqjt-Zfpwjhe C Tablet PO 1 each DAILY MARY Administration Pantoprazole Sodium 40 mg 02/13/24 22:23 02/24/24 22:18 Pantoprazole 40 Mg Sdv IVP 40 mg Q24H MARY Administration Polyethylene Glycol 17 gm 02/18/24 09:00 02/25/24 09:09 Polyethylene Glycol 3350 Pkt 17 Gm PO Not Given BID [facility] Sevelamer Carbonate 800 mg 02/13/24 21:00 02/25/24 09:08 Sevelamer 800 Mg Tablet PO 800 mg TID MARY Administration Additional Medication Information Current Medications Acetaminophen (Acetaminophen 325 Mg Tablet) 650 mg PO Q6H PRN PRN Reason: Mild/Mod Pain Or Temp >/= 101 Last Admin: 02/13/24 22:52 Dose: 650 mg Hydrocodone Bitart/Acetaminophen (Hydrocodone-Acetaminophen 5-325 Mg Tablet) 1 tab PO Q4H PRN PRN Reason: MODERATE PAIN Last Admin: 02/25/24 09:09 Dose: 1 tab Albuterol/Ipratropium (Ipratropium-Albuterol 3 Ml Neb) 3 ml INHALATION Q6H.RESP MARY Last Admin: 02/25/24 08:44 Dose: 3 ml Albuterol/Ipratropium (Ipratropium-Albuterol 3 Ml Neb) 3 ml INHALATION Q6H PRN PRN Reason: SHORTNESS OF BREATH Last Admin: 02/23/24 03:50 Dose: 3 ml Amoxicillin/Clavulanate Potassium (Amoxicillin-Clav 875-125 Mg Tablet) 1 tab PO BID MARY; Protocol Stop: 02/29/24 17:59 Last Admin: 02/25/24 09:08 Dose: 1 tab Apixaban (Apixaban 5 Mg Tablet) 10 mg PO Q12H MARY Last Admin: 02/23/24 03:22 Dose: 10 mg Atorvastatin Calcium (Atorvastatin 40 Mg Tablet) 80 mg PO DAILY [facility] Last Admin: 02/25/24 09:09 Dose: 80 mg Bisacodyl (Bisacodyl 5 Mg Tablet) 10 mg PO DAILY PRN; Protocol PRN Reason: Constipation (see protocol) Budesonide (Budesonide 0.5 Mg/2 Ml Neb) 0.5 mg INHALATION BID.RESPIRATORY MARY Last Admin: 02/25/24 08:44 Dose: 0.5 mg Cyclobenzaprine HCl (Cyclobenzaprine 10 Mg Tablet) 5 mg PO TID PRN PRN Reason: MUSCLE SPASMS Last Admin: 02/17/24 20:16 Dose: 5 mg Denture Adhesive (Efferdent Effervescent) 1 each DENTAL PRN PRN PRN Reason: Dentures Last Admin: 02/13/24 23:29 Dose: 1 each Denture Adhesive (Fixodent 39 Gm Tube) 1 applic DENTAL PRN PRN PRN Reason: denture adhesive Epoetin Rudy (Epoetin Rudy 20,000 Unit/Ml Mdv (Esrd)) 8,000 unit SUBCUT DIALYSIS MARY Last Admin: 02/24/24 13:56 Dose: Not Given Glucagon (Glucagon 1 Mg/Ml Kit 1 Ml) 1 mg IM ONCE PRN; Protocol PRN Reason: Adult Acute Hypoglycemia Nursing Prot. Heparin Sodium (Porcine) (Heparin 5,000 Unit/Ml Inj 1 Ml) 0 unit IVP PRN PRN; Protocol PRN Reason: Heparin Weight Based Protocol -Subsequent Bolus Dextrose (D5w) 500 mls @ 0 mls/hr IV ONCE PRN; Protocol PRN Reason: Adult Acute Hypoglycemia Prot Dextrose (D10w) 125 mls @ 750 mls/hr IV PRN PRN; Protocol PRN Reason: Adult Acute Hypoglycemia Nursing Protocol Dextrose (D10w) 250 mls @ 1,000 mls/hr IV PRN PRN; Protocol PRN Reason: Adult Acute Hypoglycemia Nursing Protocol Sodium Chloride (Sodium Chloride 0.9%) 1,000 mls @ 0 mls/hr IV .Q0M PRN PRN Reason: hypotension or symptomatic Albumin Human (Albumin) 12.5 gm in 50 mls @ 60 mls/hr IV PRN PRN PRN Reason: Hypotension and/or symptomatic Heparin Sodium/Sodium Chloride (Heparin Drip) 25,000 unit in 500 mls @ 0 mls/hr IV CONT MARY; Protocol Last Titration: 02/25/24 01:34 Dose: 0 unit/kg/hr, 0 mls/hr Lactulose (Lactulose Oral Liq 20 Gm/30 Ml Udc) 10 gm PO DAILY PRN; Protocol PRN Reason: Constipation (see protocol) Lanolin (Lanolin Oint 7 Gm) 1 applic TOPICAL PRN PRN PRN Reason: DRYNESS Last Admin: 02/23/24 21:29 Dose: 1 applic Magnesium Hydroxide (Magnesium Hydroxide 30 Ml Udc) 30 ml PO DAILY PRN; Protocol PRN Reason: Constipation (see protocol) Metoprolol Tartrate (Metoprolol Tartrate 25 Mg Tablet) 25 mg PO BID@0900,2100 [facility] Last Admin: 02/25/24 09:09 Dose: 25 mg Multivitamins (G-Cbjgmxb-Uodtqcu C Tablet) 1 each PO DAILY MARY Last Admin: 02/25/24 09:08 Dose: 1 each Ondansetron HCl (Ondansetron 2 Mg/Ml Sdv 2 Ml) 4 mg IVP Q8H PRN PRN Reason: vomiting, or N/V if npo Pantoprazole Sodium (Pantoprazole 40 Mg Sdv) 40 mg IVP Q24H [facility] Last Admin: 02/24/24 22:18 Dose: 40 mg Polyethylene Glycol (Polyethylene Glycol 3350 Pkt 17 Gm) 17 gm PO BID [facility] Last Admin: 02/25/24 09:09 Dose: Not Given Sevelamer Carbonate (Sevelamer 800 Mg Tablet) 800 mg PO TID [facility] Last Admin: 02/25/24 09:08 Dose: 800 mg PFSH Anesthesia Medical History Pulmonary hypertension Acute on chronic diastolic (congestive) heart failure Congestive heart failure COPD exacerbation Acute kidney injury superimposed on chronic kidney disease Hematuria Elevated troponin Anticoagulation adequate with anticoagulant therapy Chronic kidney disease (CKD) Baseline GFR of 19-20 Atrial fibrillation Hypertension Kidney donor Solitary kidney Diabetes Surgical History H/O kidney removal Family History Father Diabetes Mother Diabetes Social History Smoking and tobacco/nicotine status: current every day tobacco/nicotine user Alcohol intake: never Substance/Drug Use: never Data Anesthesia 02/25/24 04:24 02/25/24 04:24 Short CBC 02/24/24 02/25/24 Range/Units 02:45 04:24 WBC 10.37 7.29 (3.29-11.43) 10^3/uL Hgb 8.10 L 8.10 L (11.27-16.99) g/dL Hct 26.1 L 26.7 L (36-47) % MCV 99.6 H 101.5 H (85-98) fl Plt Count 220 238 (157-399) 10^3/cmm Neut % (Auto) 74.4 73.6 % Neut # (Auto) 7.71 H 5.36 (1.8-7.7) 10^3/uL BMP 02/24/24 02/25/24 02:45 04:24 Sodium 131 L 132 L Potassium 4.5 4.2 Chloride 96 L 96 L Carbon Dioxide 26 23 BUN 24 H 31 H Creatinine 3.8 H 4.6 H Glucose 122 H 98 Calcium 8.6 8.2 L Liver Function 02/24/24 02/25/24 Range/Units 02:45 04:24 Total Bilirubin 0.6 0.5 (0.15-1.2) mg/dL AST 11 11 (0-32) U/L ALT 7 6 (0-33) U/L Alkaline Phosphatase 104 111 H (35-105) U/L Albumin 2.7 L 2.6 L (3.5-5.2) g/dL Coags 02/24/24 02/24/24 02/24/24 02:45 09:03 16:15 APTT 93.8 H 68.2 H 62.5 H 02/25/24 04:24 APTT 40.5 H Cardiac Studies: 2 Echocardiogram 02/13/24
[2024-02-25] MEDS: ceFAZolin 2,000 mg SDV 2000 MG IVP (12:25)
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
--- NOTE | 2024-02-25 13:21 | ANE.PACU2 ---
Inpatient post-anesthesia follow up: Airway intact: Yes Vital signs: Temperature 98.8 F Pulse Rate 83 Respiratory Rate 18 Blood Pressure 111/62 Pulse Oximetry 92 Oxygen Delivery Me thod Room Air Oxygen Flow Rate 2 Fraction of Inspir ed Oxygen Hydration adequate: Yes Nausea and vomiting: No Pain level: 1 Mental status: Baseline
--- NOTE | 2024-02-25 13:32 | PC.NURSE ---
Patient taken to room 266 via bed. VS taken BP 114/68, RR 18, HR 84 Temp 98.0 02 sat 93% on Room Air. Nurse Emma notified of patients arrival to room. Call light within reach.
--- NOTE | 2024-02-25 13:47 | PC.NURSE ---
verbal order from dr. blount to restart heparin gtt at 23mls/hr
[2024-02-25 16:29] LABS: Partial Thromboplastin Time 50.3 SECONDS (23.9-36.7)
[2024-02-25 16:33] LABS: Glucose Point of Care 168 mg/dL (70-110)
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
--- NOTE | 2024-02-25 17:09 | PC.NURSE ---
pts ptt was 50.3, per protocol increase be 2mls/hr, notified , gave verbal to increase 2mls/hr per protocol. new rate will be 25mls/hr.
[2024-02-25] MEDS: epoetin alfa 10,000 unit/mL INJ 8000 UNIT SUBCUT (20:00)
[2024-02-25 20:06] LABS: Partial Thromboplastin Time 55.3 SECONDS (23.9-36.7)
[2024-02-25] MEDS: pantoprazole 40 mg SDV IVP (21:35)
[2024-02-25 21:42] LABS: Glucose Point of Care 122 mg/dL (70-110)
--- NOTE | 2024-02-25 21:58 | PC.NURSE ---
Addendum entered by Alem Munson RN 02/25/24 22:03: Attempted to call and notify , but there was no answer. Original Note: Patient left via EMS. Veronique briggs [facility] notified.
--- NOTE | 2024-02-25 23:38 | PC.HD ---
Treatment terminated 30 minutes early d/t ambulance here to transport pt to [facility].
--- NOTE | 2024-02-26 08:14 | PM.TDS ---
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 (Heparin, Porcine 1,000 Unit/Ml Inj 10 Ml) 1,000 unit IV ONCE ONE Stop: 02/18/24 07:28 Last Admin: 02/18/24 09:52 Dose: 1,000 unit Heparin Sodium (Porcine) (Heparin, Porcine 1,000 Unit/Ml Inj 10 Ml) 10,000 unit INTRACATH ONCE ONE Stop: 02/20/24 06:59 Last Admin: 02/21/24 16:01 Dose: Not Given Heparin Sodium (Porcine) (Heparin, Porcine 1,000 Unit/Ml Inj 10 Ml) 1,000 unit IV ONCE ONE Stop: 02/20/24 06:59 Last Admin: 02/21/24 16:01 Dose: Not Given Heparin Sodium (Porcine) (Heparin 5,000 Unit/Ml Inj 1 Ml) 0 unit IVP PRN PRN; Protocol PRN Reason: Heparin Weight Based Protocol -Subsequent Bolus Hydromorphone HCl (Hydromorphone 1 Mg/Ml Inj 1 Ml) 0.4 mg IVP ONCE ONE Stop: 02/13/24 19:10 Last Admin: 02/13/24 19:31 Dose: 0.4 mg Cefepime HCl 2,000 mg/ Sodium (Chloride) 50 mls @ 100 mls/hr IV ONCE ONE; Protocol Stop: 02/13/24 18:02 Last Infusion: 02/13/24 21:06 Dose: Infused Sodium Chloride (Sodium Chloride 0.9%) 500 mls @ 999 mls/hr IV .Q31M ONE Stop: 02/13/24 18:05 Last Infusion: 02/13/24 21:06 Dose: Infused Heparin Sodium/Sodium Chloride (Heparin Drip) 25,000 unit in 500 mls @ 0 mls/hr IV CONT MARY; Protocol Stop: 02/15/24 23:59 Last Titration: 02/18/24 10:05 Dose: Infused Dextrose (D5w) 500 mls @ 0 mls/hr IV ONCE PRN; Protocol PRN Reason: Adult Acute Hypoglycemia Prot Last Infusion: 02/16/24 03:32 Dose: Infused Dextrose (D10w) 125 mls @ 750 mls/hr IV PRN PRN; Protocol PRN Reason: Adult Acute Hypoglycemia Nursing Protocol Last Infusion: 02/16/24 22:33 Dose: Infused Dextrose (D10w) 250 mls @ 1,000 mls/hr IV PRN PRN; Protocol PRN Reason: Adult Acute Hypoglycemia Nursing Protocol Last Infusion: 02/16/24 22:33 Dose: Infused Sodium Chloride (Sodium Chloride 0.9%) 1,000 mls @ 0 mls/hr IV .Q0M PRN PRN Reason: hypotension or symptomatic Albumin Human (Albumin) 12.5 gm in 50 mls @ 60 mls/hr IV PRN PRN PRN Reason: Hypotension and/or symptomatic Dextrose/Sodium Chloride (Dextrose 5%-Sod Chloride 0.9%) 1,000 mls @ 50 mls/hr IV .Q20H MARY Stop: 02/16/24 08:00 Last Infusion: 02/16/24 22:34 Dose: Infused Dextrose (D10w) 1,000 mls @ 30 mls/hr IV .Q24H MARY Last Admin: 02/16/24 10:51 Dose: 30 mls/hr Heparin Sodium/Sodium Chloride (Heparin Drip) 25,000 unit in 500 mls @ 0 mls/hr IV CONT MARY; Protocol Last Titration: 02/19/24 15:18 Dose: Infused Sodium Chloride (Sodium Chloride 0.9%) 1,000 mls @ 0 mls/hr IV .Q0M PRN PRN Reason: hypotension or symptomatic Albumin Human (Albumin) 12.5 gm in 50 mls @ 60 mls/hr IV PRN PRN PRN Reason: Hypotension and/or symptomatic Dextrose (D5w) 500 mls @ 0 mls/hr IV ONCE PRN; Protocol PRN Reason: Adult Acute Hypoglycemia Prot Dextrose (D10w) 125 mls @ 750 mls/hr IV PRN PRN; Protocol PRN Reason: Adult Acute Hypoglycemia Nursing Protocol Dextrose (D10w) 250 mls @ 1,000 mls/hr IV PRN PRN; Protocol PRN Reason: Adult Acute Hypoglycemia Nursing Protocol Sodium Chloride (Sodium Chloride 0.9%) 1,000 mls @ 0 mls/hr IV .Q0M PRN PRN Reason: hypotension or symptomatic Albumin Human (Albumin) 12.5 gm in 50 mls @ 60 mls/hr IV PRN PRN PRN Reason: Hypotension and/or symptomatic Heparin Sodium/Sodium Chloride (Heparin Drip) 25,000 unit in 500 mls @ 0 mls/hr IV CONT MARY; Protocol Last Titration: 02/25/24 20:28 Dose: 12.87 unit/kg/hr, 25 mls/hr Sodium Chloride (Sodium Chloride 0.9%) Confirm Administered Dose 1,000 mls @ as directed .ROUTE .ST-MED ONE Stop: 02/25/24 11:31 Heparin Sodium (Porcine) (Heparin, Porcine) Confirm Administered Dose 10 mls @ as directed .ROUTE .K-MED ONE Stop: 02/25/24 12:10 Last Admin: 02/25/24 13:59 Dose: Not Given Iohexol (Iohexol 350 Mg/Ml 500 Ml Btl (Per Ml)) 0 ml IV ONCE ONE Stop: 02/13/24 18:25 Last Admin: 02/13/24 18:25 Dose: 73 ml Lactulose (Lactulose Oral Liq 20 Gm/30 Ml Udc) 10 gm PO DAILY PRN; Protocol PRN Reason: Constipation (see protocol) Lanolin (Lanolin Oint 7 Gm) 1 applic TOPICAL PRN PRN PRN Reason: DRYNESS Last Admin: 02/23/24 21:29 Dose: 1 applic Lidocaine HCl (Lidocaine 2% Inj 20 Ml) Confirm Administered Dose 20 ml .ROUTE .ST-MED ONE Stop: 02/25/24 12:18 Lidocaine/Epinephrine (Lidocaine-Epi 1% 20 Ml Inj) Confirm Administered Dose 20 ml .ROUTE .[facility]-MED ONE Stop: 02/25/24 12:10 Last Admin: 02/25/24 13:59 Dose: Not Given Magnesium Hydroxide (Magnesium Hydroxide 30 Ml Udc) 30 ml PO DAILY PRN; Protocol PRN Reason: Constipation (see protocol) Metoprolol Tartrate (Metoprolol Tartrate 25 Mg Tablet) 12.5 mg PO BID@0900,2100 [facility] Last Admin: 02/22/24 09:52 Dose: 12.5 mg Metoprolol Tartrate (Metoprolol Tartrate 25 Mg Tablet) 25 mg PO BID@0900,2100 [facility] Last Admin: 02/25/24 21:35 Dose: 25 mg Morphine Sulfate (Morphine 4 Mg/Ml Sdv 1 Ml) 2 mg IVP Q4H PRN PRN Reason: SEVERE PAIN Last Admin: 02/21/24 20:57 Dose: 2 mg Multivitamins (V-Kvyliiz-Actfugs C Tablet) 1 each PO DAILY [facility] Last Admin: 02/25/24 09:08 Dose: 1 each Ondansetron HCl (Ondansetron 2 Mg/Ml Sdv 2 Ml) 4 mg IVP Q8H PRN PRN Reason: vomiting, or N/V if npo Pantoprazole Sodium (Pantoprazole 40 Mg Sdv) 40 mg IVP Q24H [facility] Last Admin: 02/25/24 21:35 Dose: 40 mg Polyethylene Glycol (Polyethylene Glycol 3350 Pkt 17 Gm) 17 gm PO BID [facility] Last Admin: 02/25/24 17:18 Dose: Not Given Propofol (Propofol 10 Mg/Ml Sdv 20 Ml) Confirm Administered Dose 200 mg .ROUTE .STK-MED ONE Stop: 02/25/24 12:18 Propofol (Propofol 10 Mg/Ml Sdv 20 Ml) Confirm Administered Dose 200 mg .ROUTE .STK-MED ONE Stop: 02/25/24 12:25 Sevelamer Carbonate (Sevelamer 800 Mg Tablet) 800 mg PO TID [facility] Last Admin: 02/25/24 21:35 Dose: 800 mg Sodium Chloride (Sodium Chloride 0.9% 100 Ml Bag) 50 ml IV PRN PRN PRN Reason: Blood transfusion prime and flush Stop: 02/16/24 08:39 Sodium Polystyrene Sulfonate (Sodium Polystyrene Sulfonate 15 Gm/60 Ml Btl) 30 gm PO ONCE ONE Stop: 02/13/24 20:39 Last Admin: 02/13/24 22:33 Dose: 30 gm Allergies codeine Allergy (Verified 02/13/24 15:26) ADR-Nausea Home Medications albuterol sulfate 90 mcg/actuation aerosol inhaler 1 - 2 puff inhalation Q4H PRN Shortness Of Breath Or Wheezing 09/25/20 [History Confirmed 02/14/24] fluticasone propionate 50 mcg/actuation nasal spray,suspension 1 spray intranasal DAILY 09/25/20 [History Confirmed 02/14/24] tiotropium bromide 18 mcg capsule with inhalation device (Spiriva with HandiHaler) 18 mcg inhalation DAILY 02/22/22 [History Confirmed 02/14/24] isosorbide mononitrate 30 mg tablet,extended release 24 hr 30 mg PO DAILY #30 tabs 08/28/22 [Rx Confirmed 02/14/24] bumetanide 1 mg tablet 3 mg PO DAILY 10/08/23 [History Confirmed 02/14/24] metoprolol succinate 100 mg tablet,extended release 24 hr 50 mg (1/2 x 100 mg) PO BID 30 days #30 tabs 10/12/23 [Rx Confirmed 02/14/24] amlodipine 5 mg tablet 5 mg PO DAILY 02/12/24 [History Confirmed 02/14/24] amoxicillin 500 mg-potassium clavulanate 125 mg tablet 1 tab PO BID 02/12/24 [History Confirmed 02/14/24] apixaban 2.5 mg tablet (Eliquis) 2.5 mg PO BID 02/12/24 [History Confirmed 02/14/24] atorvastatin 80 mg tablet 80 mg PO DAILY 02/12/24 [History Confirmed 02/14/24] bisacodyl 5 mg tablet (Laxative (bisacodyl)) 5 mg PO DAILY 02/12/24 [History Confirmed 02/14/24] glimepiride 2 mg tablet 2 mg PO DAILY 02/12/24 [History Confirmed 02/14/24] lanthanum 1,000 mg oral powder packet (Fosrenol) 1,000 mg PO TID 02/12/24 [History Confirmed 02/14/24] oxycodone-acetaminophen 5 mg-325 mg tablet (Percocet) 1 tab PO Q6H PRN pain #14 tabs 02/12/24 [Rx Confirmed 02/14/24] sevelamer carbonate 800 mg tablet 800 mg PO TID 02/12/24 [History Confirmed 02/14/24] vit B,C-folic ac 800 mcg-zinc 12.5 mg-selen-D3 2,000 unit-vit E tablet (RenaPlex-D) 1 tab PO DAILY 02/12/24 [History Confirmed 02/14/24] Discharge Plan Discharge Patient Disposition: Xfer Short-Term Hosp Condition: Stable Prescriptions: New amoxicillin-pot clavulanate 875-125 mg Tablet 1 tab PO BID 7 Days Qty: 14 0RF Eliquis DVT-PE Treat 30D Start 5 mg (74 tabs) tablets,dose pack 5 mg PO BID Qty: 74 4RF Rx Instructions: 10 bid for 7 days, f/b 5 bid daily Continued isosorbide mononitrate 30 mg tablet extended release 24 hr 30 mg PO DAILY Qty: 30 0RF albuterol sulfate 90 mcg/actuation HFA aerosol inhaler 1 - 2 puff INHALATION Q4H PRN (Reason: Shortness Of Breath Or Wheezing) fluticasone propionate 50 mcg/actuation spray,suspension 1 spray INTRANASAL DAILY metoprolol succinate 100 mg tablet extended release 24 hr 50 mg PO BID 30 Days Qty: 30 0RF tiotropium bromide [Spiriva with HandiHaler] 18 mcg capsule, w/inhalation device 18 mcg INHALATION DAILY atorvastatin 80 mg tablet 80 mg PO DAILY sevelamer carbonate 800 mg tablet 800 mg PO TID Fosrenol 1,000 mg powder in packet 1,000 mg PO TID RenaPlex-D 800 mcg-12.5 mg -2,000 unit tablet 1 tab PO DAILY Laxative (bisacodyl) 5 mg Tablet 5 mg PO DAILY oxycodone-acetaminophen [Percocet] 5-325 mg tablet 1 tab PO Q6H PRN (Reason: pain) Qty: 14 0RF Discontinued bumetanide 1 mg tablet 3 mg PO DAILY amlodipine 5 mg tablet 5 mg PO DAILY glimepiride 2 mg tablet 2 mg PO DAILY Eliquis 2.5 mg tablet 2.5 mg PO BID amoxicillin-pot clavulanate 500-125 mg tablet 1 tab PO BID Referrals: [facility] [Outside] Lita Rodriguez PA-C [Primary Care Provider] - Patient Instructions: Dialysis Nutrition Plan (DC), Hemodialysis (DC), Opioid Safety Transfer Attestations Time Spent in Transfer Care: greater than 30 min Status at Transfer: Cognitive status at transfer: cognitively intact; Behavioral status at transfer: cooperative; Quality Metrics Clinical Quality Measures [ No reported AMI, CVA or VTE this stay] Coding Level of Care Code Critical Care >/= 30 minutes Critical care time (in minutes): 60 The high probability of a clinically significant, sudden or life threatening deterioration, as referenced in this documentation, required my full and direct attention, intervention and personal management. The critical care time shown is in addition to time spent performing any reported separately billable procedures and includes the following: [x] Data and vital sign review and interpretation [x] Patient assessment, examination and intervention [x] Medication orders and management [x] Patient/Family updates as able [x] Care Coordination and Documentation. 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
== END 2024-02-25 22:03 | disposition short-term general hospital (02) | DRG 175 ==
LOC: ER 20:33 → ICU 22:13 → CSU 02-14 16:06 → MEDSURG 02-16 18:50
PROVIDERS: Emergency Medicine; Hospitalist; Internal Medicine; Internal Medicine Nephrology; Student in an Organized Health Care Education/Training Program; Surgery; Admitting Provider Student in an Organized Health Care Education/Training Program; Emergency Provider Nurse Practitioner; PCP Physician Assistant; Visit Provider Student in an Organized Health Care Education/Training Program
PROC: 05JYXZZ Inspection of Upper Vein, External Approach (ICD-10-PCS; principal; 2024-02-25 12:00)
DX: I26.94 Multiple subsegmental thrombotic pulmonary emboli without acute cor pulmonale (principal); I50.33 Acute on chronic diastolic (congestive) heart failure; N18.6 End stage renal disease; J96.21 Acute and chronic respiratory failure with hypoxia; T79.1XXA Fat embolism (traumatic), initial encounter; S82.141A Displaced bicondylar fracture of right tibia, initial encounter for closed fracture; S42.202A Unspecified fracture of upper end of left humerus, initial encounter for closed fracture; I13.2 Hypertensive heart and chronic kidney disease with heart failure and with stage 5 chronic kidney disease, or end stage renal disease; J98.11 Atelectasis; I24.89 Other forms of acute ischemic heart disease; N39.0 Urinary tract infection, site not specified; I82.C11 Acute embolism and thrombosis of right internal jugular vein; T82.49XA Other complication of vascular dialysis catheter, initial encounter; E87.1 Hypo-osmolality and hyponatremia; E11.22 Type 2 diabetes mellitus with diabetic chronic kidney disease; Z99.2 Dependence on renal dialysis; E11.649 Type 2 diabetes mellitus with hypoglycemia without coma; S42.145A Nondisplaced fracture of glenoid cavity of scapula, left shoulder, initial encounter for closed fracture; V48.0XXA Car driver injured in noncollision transport accident in nontraffic accident, initial encounter; S00.03XA Contusion of scalp, initial encounter; I95.9 Hypotension, unspecified; B95.2 Enterococcus as the cause of diseases classified elsewhere; Z88.5 Allergy status to narcotic agent; Y82.9 Unspecified medical devices associated with adverse incidents; E66.9 Obesity, unspecified; Z68.33 Body mass index [BMI] 33.0-33.9, adult; D63.1 Anemia in chronic kidney disease; R79.89 Other specified abnormal findings of blood chemistry; F17.210 Nicotine dependence, cigarettes, uncomplicated; I48.91 Unspecified atrial fibrillation; J44.9 Chronic obstructive pulmonary disease, unspecified; I27.20 Pulmonary hypertension, unspecified; Z90.5 Acquired absence of kidney; Z79.01 Long term (current) use of anticoagulants; Z79.51 Long term (current) use of inhaled steroids; Z79.84 Long term (current) use of oral hypoglycemic drugs
CPT/HCPCS: 36415; 36416; 36430; 36592; 36600; 70450; 70486; 71045; 71250; 71275; 72100; 72125; 73020; 73030; 73200; 73560; 73562; 73700; 74176; 80048; 80051; 80053; 81001; 82330; 82533; 82607; 82746; 82805; 82962; 83525; 83605; 83735; 83935; 84100; 84145; 84206; 84295; 84300; 84484; 84681; 85007; 85018; 85025; 85610; 85730; 86403; 86850; 86900; 86920; 87077; 87086; 87186; 90935; 93005; 93306; 94640; 94664; 96365; 96366; 96367; 96372; 96374; 96375; 96376; 97110; 97162; 97167; 97530; 97535; 97760; 99285; C1751; J0690; J0692; J0696; J1171; J1610; J1644; J1940; J2270; J2470; J2704; J3010; J7040; J7042; J7060; J7626; J7799; P9016; Q3014; Q4081; Q5105